=== PATIENT | male | born 1965 | race Caucasian/White ===

== ENCOUNTER 2022-02-09 01:26 | Emergency (ER) | payer MEDICARE, MEDICAID, SELFPAY ==
[2022-02-09 01:32] VITALS: BP 166/92; PULSE 82; RESP 20; TEMP 36.7; O2SAT 97
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
[2022-02-09 02:15] LABS: Add Urine Microscopic? NO; Charge for UA Resulting for Rev
[2022-02-09 02:18] LABS: Bilirubin Urine Neg (Negative); Blood Urine Neg (Negative); Glucose Urine UA Norm (Normal); Ketones Urine Negative (Negative); Leukocyte Esterase Urine Negative (Negative); Nitrate Urine Negative (Negative); Protein Urine Neg (Negative); Specific Gravity, Urine 1.005 (1.005-1.030); Urine Appearance Clear (CLEAR); Urine Color Straw (Yellow); Urobilinogen Urine Norm (Negative); pH Urine 7 (5-7)
[2022-02-09 02:26] LABS: Basophils % 0.6 %; Eosinophils # 0.1 10^3/uL (0.0-0.8); Eosinophils % 2.1 %; Hematocrit 36.6 % (42.0-52.0); Hemoglobin 12.3 g/dL (11.7-16.6); Lymphocytes # 1.7 10^3/uL (0.8-4.8); Lymphocytes % 25.9 %; Mean Corpuscular HGB Conc 33.6 g/dL (30.0-36.0); Mean Corpuscular Hemoglobin 31.1 pg (28.0-34.0); Mean Corpuscular Volume 92.4 fl (80-94); Mean Platelet Volume 9.2 fL (7.4-10.4); Monocytes # 0.9 10^3/uL (0.2-0.9); Neutrophils # 3.76 10^3/uL (1.8-7.7); Neutrophils % 57.8 %; Nucleated Red Blood Cells % 0 %; Platelet Count 259 10^3/cmm (130-400); Red Blood Count 3.96 10^6/uL (4.1-5.3); Red Cell Distribution Width 12.9 % (12.1-15.1); White Blood Count 6.5 10^3/uL (4.0-10.0)
[2022-02-09 02:27] LABS: Amphetamines Screen Urine Negative (Negative); Barbiturates Screen Urine Negative (Negative); Benzodiazepines Screen Urine Negative (Negative); Cocaine Screen Urine Negative (Negative); Opiate Screen Urine Negative (Negative); PCP Screen Urine Negative (Negative); THC Screen Urine Negative (Negative)
[2022-02-09 03:00] LABS: Alanine Aminotransferase 9 U/L (0-41); Albumin Level 4.3 g/dL (3.5-5.2); Alkaline Phosphatase 79 IU/L (40-130); Aspartate Amino Transferase 17 U/L (0-40); Blood Urea Nitrogen 15 mg/dL (6-20); Calcium 9.2 mg/dL (8.5-10.5); Carbon Dioxide 26 mmol/L (22-29); Chloride 96 mmol/L (98-107); Globulin 2.6 g/dL (1.3-4.6); Glomerular Filtration Rate 116.2 mL/min (90-130); Glucose 100 mg/dL (65-115); Osmolality Calculated 277 mOsm/kg (285-295); Sodium 133 mmol/L (136-145); Thyroid Stimulating Hormone 3.94 uIU/mL (0.27-4.20); Total Bilirubin 0.3 mg/dL (0.15-1.2); Total Protein 6.9 g/dL (6.6-8.7)
[2022-02-09 03:01] LABS: Acetaminophen < 5.0 ug/mL (10-30); Alcohol Level < 10 mg/dL (0-10); Salicylate < 0.3 mg/dL (3-10)
[2022-02-09] MEDS: OLANZapine 10 mg ODT PO (03:16)
[2022-02-09 06:50] LABS: Valproic Acid Level 85.3 ug/mL (50-100)
[2022-02-09 12:13] VITALS: RESP 15; O2SAT 97
== END 2022-02-09 12:14 | disposition home or self-care (01) ==
PROVIDERS: Emergency Medicine; Nurse Practitioner Family; Emergency Provider Family Medicine
DX: R46.89 Other symptoms and signs involving appearance and behavior (principal)
CPT/HCPCS: 36415; 80053; 80164; 80306; 80307; 81003; 84443; 85025; 99284

== ENCOUNTER → 2022-02-20 08:20 | Outpatient (BNVA) | payer MEDICARE, MEDICAID, SELFPAY | PROVIDERS: Visit Provider Psychiatry & Neurology Psychiatry | DX: F25.9 Schizoaffective disorder, unspecified (principal); F42.9 Obsessive-compulsive disorder, unspecified; F02.80 Dementia in other diseases classified elsewhere, unspecified severity, without behavioral disturbance, psychotic disturbance, mood disturbance, and anxiety | CPT/HCPCS: 99204 ==

== ENCOUNTER 2022-03-31 13:46 | Observation (INO) | payer MEDICARE, MEDICAID, SELFPAY ==
[2022-03-31] VITALS (7 sets, daily range): BP systolic 136–164; BP diastolic 61–84; PULSE 62–78; RESP 17–18; TEMP 36.2–36.9; O2SAT 97–99; BMI 25.1; BMI 23.0
--- NOTE | 2022-03-31 14:13 | CTR_ITS ---
PROCEDURE INFORMATION: Exam: CT Head Without Contrast Exam date and time: 03/31/2022 2:28 PM Age: 56 years old Clinical indication: Syncope and collapse; Patient HX: Witnessed syncope episode TECHNIQUE: Imaging protocol: Computed tomography of the head without contrast. Axial, coronal and sagittal reformatted images were created and reviewed. Radiation optimization: All CT scans at this facility use at least one of these dose optimization techniques: automated exposure control; mA and/or kV adjustment per patient size (includes targeted exams where dose is matched to clinical indication); or iterative reconstruction. COMPARISON: No relevant prior studies available. RADIATION DOSE METRICS: Total DLP (mGy-cm): 956.18 FINDINGS: Brain: Subtle, patchy areas of hypoattenuation in the periventricular and subcortical white matter, nonspecific but suggestive of mild chronic small vessel ischemic disease. No CT evidence of acute intracranial hemorrhage or acute territorial infarction. No significant mass effect or midline shift. Basal cisterns patent. Cerebral ventricles: Prominence of the cortical sulci, cisterns and ventricular system, consistent with cerebral and cerebellar volume loss. Paranasal sinuses: Complete opacification of the right frontal sinus. Moderate ethmoid and right maxillary sinus mucosal thickening. Mild left ethmoid, left maxillary, left frontal and bilateral sphenoid sinus mucosal thickening. No fluid levels. Mastoid air cells: Grossly unremarkable. Vasculature: Calcific atherosclerotic disease in the cavernous internal carotid arteries, as well as the vertebro-basilar system. Bones/joints: No acute osseous abnormality. Soft tissues: Grossly unremarkable. CT/CT head wo con* [id number] IMPRESSION: 1. No CT evidence of acute intracranial pathology. 2. Additional findings, as above.
--- NOTE | 2022-03-31 14:13 | ECG_ITS ---
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 Measurements Intervals [place] Rate: 52 P: 46 MS: 161 QRS: 50 QRSD: 94 T: 46 QT: 422 QTc: 394 Interpretive Statements SINUS BRADYCARDIA No previous ECG available for comparison Electronically Signed On 04-01-2022 17:39:42 CDT by Mervat Morgan M.D. [id number]
[2022-03-31 14:27] LABS: Basophils % 0.5 %; Eosinophils # 0.1 10^3/uL (0.0-0.8); Eosinophils % 0.9 %; Hematocrit 37.3 % (42.0-52.0); Hemoglobin 12.6 g/dL (11.7-16.6); Lymphocytes # 1.6 10^3/uL (0.8-4.8); Lymphocytes % 21.3 %; Mean Corpuscular HGB Conc 33.8 g/dL (30.0-36.0); Mean Corpuscular Hemoglobin 31.5 pg (28.0-34.0); Mean Corpuscular Volume 93.3 fl (80-94); Mean Platelet Volume 9.7 fL (7.4-10.4); Monocytes # 0.7 10^3/uL (0.2-0.9); Monocytes % 8.8 %; Neutrophils % 68.1 %; Nucleated Red Blood Cells % 0 %; Platelet Count 264 10^3/cmm (130-400); Red Cell Distribution Width 13.1 % (12.1-15.1); White Blood Count 7.5 10^3/uL (4.0-10.0)
[2022-03-31] MEDS: sodium chloride 0.9% 1,000 ML 999 ML IV (14:27)
[2022-03-31 14:42] LABS: Blood Urea Nitrogen 12 mg/dL (6-20); Calcium 9.3 mg/dL (8.5-10.5); Carbon Dioxide 22 mmol/L (22-29); Chloride 97 mmol/L (98-107); Glucose 156 mg/dL (65-115); Osmolality Calculated 279 mOsm/kg (285-295); Sodium 133 mmol/L (136-145)
[2022-03-31 14:43] LABS: Troponin(5th) Baseline 8 ng/L (0-15)
--- NOTE | 2022-03-31 16:13 | ECG_ITS ---
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 Measurements Intervals [place] Rate: 75 P: 55 KS: 151 QRS: 58 QRSD: 94 T: 47 QT: 394 QTc: 441 Interpretive Statements SINUS RHYTHM POSSIBLE LEFT ATRIAL ENLARGEMENT [-0.1mV P-WAVE IN V1/V2] Compared to ECG 03/31/2022 14:23:20 Sinus bradycardia no longer present Electronically Signed On 04-01-2022 17:43:49 CDT by Mervat Morgan M.D. [id number]
[2022-03-31 16:23] LABS: Troponin 5 2HR 7.79 ng/L (0-15)
[2022-03-31 16:48] LABS: Troponin 5 2HR Delta -0.21 ABS# (0-10)
--- NOTE | 2022-03-31 16:52 | W.ED.GENADLT ---
HPI - General Adult General: Chief complaint: Syncope Stated complaint: SYNCOPE Time Seen by Provider: 03/31/22 13:53 History of Present Illness: HPI: [56]yo patient w/ hx of schizotypal disorder, OCD, frontotemporal dementia BIBA after an episode of syncope 3 minutes witnessed by staff followed by head injury. Patient was walking to his bedroom when he suddenly syncopized and fell backward hitting his head. Patient could not recall the incident but denies any post-ictal confusion, tongue biting or bladder/bowel incontinence. Patient denies any prior hx of syncope in the past. No associated symptoms of chest pain, shortness of breath, palpitations or focal weakness right before the incident. No family hx of sudden cardiac or unexplained . Onset: 40 minutes ago Duration: ongoing Location: assisted living facility Severity: moderate Associated symptoms: Deny chest pain, dyspnea, nausea, rash, palpitations or vomiting Review of Systems Const: Denies: fever(s) or chills Eyes: Denies: change in vision ENMT: Denies: mouth pain Card: Denies: chest pain or palpitations Resp: Denies: dyspnea or non-productive cough GI: Denies: abdominal pain, nausea, vomiting or diarrhea : Denies: dysuria Musc: Denies: extremity pain Skin/Breast: Denies: rash or new lesions Neuro: Reports: other (+syncope and collapse) Psych: Reports: other (Normal mood) Andry/Lymph: Denies: easy bruising PFS ED PFSH: Medical History Psychiatric care Social History (Updated 03/31/22 @ 16:53 by Flora Rashid MD) Smoking and tobacco status: never smoked Second hand smoke exposure: No Alcohol intake: never Substance/Drug Use: never Physical Exam Const: COMMON NORMALS: alert HENMT: COMMON NORMALS: atraumatic HEAD & SCALP: atraumatic MOUTH: moist mucous membranes not abnormal Eye: COMMON NORMALS: EOMs intact bilaterally and conjunctivae normal CONJUNCTIVA: Yes conjunctivae normal Neck/C-Spine: COMMON NORMALS: full ROM and supple Resp: COMMON NORMALS: normal respiratory effort and clear to auscultation bilaterally AUSCULTATION: clear to auscultation bilaterally Cardio: COMMON NORMALS: regular rate RATE: regular rate GI: COMMON NORMALS: Soft to palpation and non-tender PALPATION: Yes Soft to palpation Extremity: COMMON NORMALS: full ROM Neuro: SENSORIUM/ORIENTATION: Yes alert MOTOR EXAM: No Abnormal motor strength present and Other motor observations present (no focal motor deficits) OTHER: Mental status? Awake, alert, and oriented to self, year, month, location, and situation.? Following simple axial and appendicular commands.? Has appropriate fund of knowledge, comprehension, and insight.? Able to recall and understands pertinent aspects of medical history and current treatment status.? ? Language? Speech is fluent without word-finding difficulties.? 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 ? Cranial nerves? 2,3,4,6: PERRL, EOMI with no nystagmus. 5: Intact sensation to light touch, symmetric? 7: Smile symmetrical, no facial droop.? 8: Hearing grossly intact.? 9,10: Normal palate movement.? 11: Normal strength in trapezius bilaterally 12: Tongue protrudes midline.? ? Motor examination? Normal bulk & tone. Strength as follows (R/L): Delts (5/5), Biceps (5/5), Triceps (5/5), Wrist ext (5/5), hip flexors (5/5), plantarflexors (5/5), dorsiflexors (5/5). Sensation? Light Touch: Grossly intact and equal in upper and lower extremities bilaterally? Romberg: Negative.? Distal joint position sense intact ? Coordination? [id number]-finger movements intact without dysmetria or past-pointing.? Rapid fingertaps: preserved amplitude without decriment.? No tremor, myoclonus or truncal ataxia.? ? Gait/stance? Steady, normal narrow base gait with appropriate arm swing and turning.? Tandem gait without hesitation or loss of balance. Psych: COMMON NORMALS: speech normal SPEECH: Yes normal speech MOOD & AFFECT: Yes euthymic mood Course Vital Signs: Vital signs: Vital Signs Temperature 97.9 F 03/31/22 15:12 Pulse Rate 64 03/31/22 15:12 Respiratory Rate 18 03/31/22 15:12 Blood Pressure 159/83 03/31/22 15:12 Pulse Oximetry 99 03/31/22 15:12 MDM - General Adult Medical Decision Making [56]yo patient w/ hx of frontotemporal dementia, schizotypal disorder, OCD presenting to the ED with Syncope. No association with chest pain, dyspnea, palpitations, or focal neurological deficits. HDS Neuro intact. Fingerstick wnl. Given history, exam and workup, presentation not consistent with seizures given a short time course, no postictal state, no seizure activity. Low suspicion for acute neurologic catastrophes to include ICH given lack of trauma, risk factors for bleeding diathesis, or neurogenic causes of syncope. Low suspicion for vascular catastrophes to include PE, thoracic aortic dissection, AAA rupture. Presentation not consistent with acute life threatening arrhythmia, structural heart disease, electrical conduction abnormalities, or ACS. Intervention: Serial reevaluation, telemetry, PO challenge Findings:labs wnl, troponin x 2 wnl, CT head negative for any acute findings EKG: No e/o STEMI. No evidence of Brugada?s sign, delta wave, epsilon wave, significantly prolonged QTc, HOCM or malignant arrhythmia. [4:53] On reassessment, patient denies any syncope or near syncope episodes in the ER. Telemetry without any dysrhythmia. Given age and witnessed syncope, patient will be admitted for syncope workup. Disposition: admission Lab Data : 03/31/22 13:52 03/31/22 13:[address] 03/31/22 14:13 IMPRESSION: 1. No CT evidence of acute intracranial pathology. 2. Additional findings, as above. Laboratory Results WBC 7.5 10^3/uL (4.0-10.0) 03/31/22 13:52 RBC 4.00 10^6/uL (4.1-5.3) L 03/31/22 13:52 Hgb 12.6 g/dL (11.7-16.6) 03/31/22 13:52 Hct 37.3 % (42.0-52.0) L 03/31/22 13:52 MCV 93.3 fl (80-94) 03/31/22 13:52 MCH 31.5 pg (28.0-34.0) 03/31/22 13:52 MCHC 33.8 g/dL (30.0-36.0) 03/31/22 13:52 RDW 13.1 % (12.1-15.1) 03/31/22 13:52 Plt Count 264 10^3/cmm (130-400) 03/31/22 13:52 MPV 9.7 fL (7.4-10.4) 03/31/22 13:52 Neut % (Auto) 68.1 % 03/31/22 13:52 Lymph % (Auto) 21.3 % 03/31/22 13:52 [place] % (Auto) 8.8 % 03/31/22 13:52 Eos % (Auto) 0.9 % 03/31/22 13:52 Baso % (Auto) 0.5 % 03/31/22 13:52 Neut # (Auto) 5.10 10^3/uL (1.8-7.7) 03/31/22 13:52 Lymph # (Auto) 1.6 10^3/uL (0.8-4.8) 03/31/22 13:52 [place] # (Auto) 0.7 10^3/uL (0.2-0.9) 03/31/22 13:52 Eos # (Auto) 0.1 10^3/uL (0.0-0.8) 03/31/22 13:52 Baso # (Auto) 0.0 10^3/uL (0.0-0.1) 03/31/22 13:52 Nucleated RBC % (auto) 0 % 03/31/22 13:52 Nucleated RBCs # 0.0 /100WBC 03/31/22 13:52 Sodium 133 mmol/L (136-145) L 03/31/22 13:52 Potassium 4.0 mmol/L (3.5-5.1) 03/31/22 13:52 Chloride 97 mmol/L (98-107) L 03/31/22 13:52 Carbon Dioxide 22 mmol/L (22-29) 03/31/22 13:52 Anion Gap 18.0 (5-19) 03/31/22 13:52 BUN 12 mg/dL (6-20) 03/31/22 13:52 Creatinine 0.9 mg/dL (0.7-1.2) 03/31/22 13:52 GFR Calculation 87.0 mL/min (90-130) L 03/31/22 13:52 Glucose 156 mg/dL (65-115) H 03/31/22 13:52 Calculated Osmolality 279 mOsm/kg (285-295) L 03/31/22 13:52 Calcium 9.3 mg/dL (8.5-10.5) 03/31/22 13:52 Troponin T Baseline 8 ng/L (0-15) 03/31/22 13:52 Troponin T 120 Minute 7.79 ng/L (0-15) 03/31/22 15:50 Delta Troponin T -0.21 ABS# (0-10) L 03/31/22 15:50 Imaging Data Other Imaging: Radiologist's impression: [email or web address] [place] [address] CT Scan Report Signed Patient: Serg Acosta Unit #: [id number] : 1965 Age/Sex: 56 / M ADM Date: 03/31/22 Loc: ER Room/Bed: Attending Dr: Ordering Provider/Ordering MD: Flora Rashid MD Date of Service: 03/31/22 Procedure(s): CT head wo con* [id number] Accession Number(s): [id number] Report Number: [id number] PROCEDURE INFORMATION: Exam: CT Head Without Contrast Exam date and time: 03/31/2022 2:28 PM Age: 56 years old Clinical indication: Syncope and collapse; Patient HX: Witnessed syncope episode TECHNIQUE: Imaging protocol: Computed tomography of the head without contrast. Axial, coronal and sagittal reformatted images were created and reviewed. Radiation optimization: All CT scans at this facility use at least one of these dose optimization techniques: automated exposure control; mA and/or kV adjustment per patient size (includes targeted exams where dose is matched to clinical indication); or iterative reconstruction. COMPARISON: No relevant prior studies available. RADIATION DOSE METRICS: Total DLP (mGy-cm): 956.18 FINDINGS: Brain: Subtle, patchy areas of hypoattenuation in the periventricular and subcortical white matter, nonspecific but suggestive of mild chronic small vessel ischemic disease. No CT evidence of acute intracranial hemorrhage or acute territorial infarction. No significant mass effect or midline shift. Basal cisterns patent. Cerebral ventricles: Prominence of the cortical sulci, cisterns and ventricular system, consistent with cerebral and cerebellar volume loss. Paranasal sinuses:? Complete opacification of the right frontal sinus.? Moderate ethmoid and right maxillary sinus mucosal thickening.? Mild left ethmoid, left maxillary, left frontal and bilateral sphenoid sinus mucosal thickening. No fluid levels. Mastoid air cells: Grossly unremarkable. Vasculature: Calcific atherosclerotic disease in the cavernous internal carotid arteries, as well as the vertebro-basilar system. Bones/joints: No acute osseous abnormality. Soft tissues: Grossly unremarkable. CT/CT head wo con* [id number] IMPRESSION: 1. No CT evidence of acute intracranial pathology. 2. Additional findings, as above. ? Dictated By: Alejandro Otto MD Signed By: Alejandro Otto MD Signed Date/Time: 03/31/22 1514 DD/ 1428 Discharge Plan Discharge Patient Disposition: Admitted As Inpatient Clinical Impression: Syncope and collapse Condition: Stable Coding Level of Care Code ED Tool Room Lathe Operator for Ushag Fwd Exam Comprehensive
--- NOTE | 2022-03-31 18:54 | USCV_ITS ---
Acosta Serg Age: 56 Gender: M : 1965 Exam Date: 03/31/2022 22:52 Ordering Phys: Jose Alejandro Cho MD Technologist: Taiwo Hatch Exam Location: [facility] [place] Indication: Exertional syncope BP: 164 / 84 HR: 76 Rhythm: Sinus Technical Quality: Adequate MEASUREMENTS (Male / Female) Normal Values 2D ECHO LV Diastolic Diameter PLAX 4.3 cm 4.2 - 5.9 / 3.9 - 5.3 cm LV Systolic Diameter PLAX 2.4 cm IVS Diastolic Thickness 1.2 cm 0.6 - 1.0 / 0.6 - 0.9 cm IVS Systolic Thickness 1.7 cm LVPW Diastolic Thickness 2.1 cm 0.6 - 1.0 / 0.6 - 0.9 cm LVPW Systolic Thickness 2.1 cm LV Ejection Fraction 2D Teich 72.9 % LV Ejection Fraction MOD 2C 62.5 % LV Ejection Fraction 2C AL 62.6 % LA Diameter 3.2 cm LA Width 5.3 cm LA Height 4.7 cm Aorta at Sinotubular Diameter 2.7 cm IVC Diameter 1.6 cm M-MODE Aortic Annulus Diameter 2.5 cm LA Ao Ratio MM 1.2 MV E Point Septal Separation 0.5 cm DOPPLER AV Peak Velocity 159.0 cm/s LVOT Peak Velocity 127.0 cm/s MV Area PHT 3.2 cm squared Mitral E to A Ratio 0.7 MV E' Velocity 35.0 cm/s Mitral E to MV E' Ratio 7.6 Mitral E to LV E' Lateral Ratio 10.1 Mitral E to LV E' Septal Ratio 6.1 Right Atrial Pressure 3.0 mmHg PV Peak Velocity 152.0 cm/s FINDINGS Left Ventricle Normal left ventricular size, systolic function and wall thickness, with no diagnostic regional wall motion abnormalities. Left ventricular ejection fraction is estimated at 65%. Normal diastolic function. Right Ventricle Normal right ventricular size and systolic function. Normal right ventricular systolic pressure. Right Atrium Normal right atrial size. Right atrial pressure estimated at 3 mmHg. Left Atrium Normal left atrial size. Mitral Valve Mildly thickened mitral valve. No mitral valve stenosis. Trace mitral valve regurgitation. Aortic Valve Structurally normal trileaflet aortic valve. No aortic valve stenosis. No aortic valve regurgitation. Tricuspid Valve Structurally normal tricuspid valve. No tricuspid valve stenosis. Trace tricuspid valve regurgitation. Pulmonic Valve Structurally normal pulmonic valve. No pulmonary valve stenosis. No significant pulmonary valve regurgitation. Pericardium No pericardial effusion. Aorta Normal size aortic root and proximal ascending aorta. IVC Normal-sized inferior vena cava with normal respiratory variation. CONCLUSIONS 1. Normal left ventricular size, systolic function and wall thickness, with no diagnostic regional wall motion abnormalities. Left ventricular ejection fraction is estimated at 65%. Normal diastolic function. 2. Mildly thickened mitral valve. Trace tricuspid valve regurgitation. 3. No prior similar studies to compare. Mervat Morgan MD (Electronically Signed) Final Date: 01 Apr 2022 13:34 S
--- NOTE | 2022-03-31 18:54 | CTR_ITS ---
PROCEDURE INFORMATION: Exam: CT Angiography Head With Contrast, Arteriography Exam date and time: 03/31/2022 9:49 PM Age: 56 years old Clinical indication: Dizziness and giddiness; Patient HX: C/O syncope and dizziness; Additional info: Syncope, dizziness episodes, carot/vert calcifications on CT TECHNIQUE: Imaging protocol: Computed tomography angiography of the head with contrast. Exam focused on the arteries. 3D rendering (Not supervised by radiologist): MIP and/or 3D reconstructed images were created by the technologist. Radiation optimization: All CT scans at this facility use at least one of these dose optimization techniques: automated exposure control; mA and/or kV adjustment per patient size (includes targeted exams where dose is matched to clinical indication); or iterative reconstruction. Contrast material: OMNI 300; Contrast volume: 50 ml; Contrast route: INTRAVENOUS (IV); COMPARISON: CT head wo con* [id number] 03/31/2022 2:28 PM RADIATION DOSE METRICS: Total DLP (mGy-cm): 2445.05 FINDINGS: ANTERIOR CIRCULATION: Right internal carotid artery: Unremarkable. Intracranial segment is patent with no significant stenosis. No aneurysm. Right middle cerebral artery: Unremarkable. No occlusion or significant stenosis. No aneurysm. Right anterior cerebral artery: Unremarkable. No occlusion or significant stenosis. No aneurysm. Left internal carotid artery: Unremarkable. Intracranial segment is patent with no significant stenosis. No aneurysm. Left middle cerebral artery: Unremarkable. No occlusion or significant stenosis. No aneurysm. Left anterior cerebral artery: Unremarkable. No occlusion or significant stenosis. No aneurysm. POSTERIOR CIRCULATION: Right vertebral artery: Unremarkable. No occlusion or significant stenosis. No aneurysm. Left vertebral artery: Unremarkable. No occlusion or significant stenosis. No aneurysm. Basilar artery: Unremarkable. No occlusion or significant stenosis. No aneurysm. Right posterior cerebral artery: Unremarkable. No occlusion or significant stenosis. No aneurysm. Left posterior cerebral artery: Unremarkable. No occlusion or significant stenosis. No aneurysm. Brain: No definite mass, mass effect, or midline shift. Cerebral ventricles: No ventriculomegaly. Bones/joints: Unremarkable. No acute fracture. Soft tissues: Unremarkable. PROCEDURE INFORMATION: Exam: CT Angiography Neck With Contrast Exam date and time: 03/31/2022 9:49 PM Age: 56 years old Clinical indication: Dizziness and giddiness; Patient HX: C/O syncope and dizziness; Additional info: Syncope, dizziness episodes, carot/vert calcifications on CT TECHNIQUE: Imaging protocol: Computed tomography angiography of the neck with contrast. 3D rendering (Not supervised by radiologist): MIP and/or 3D reconstructed images were created by the technologist. Radiation optimization: All CT scans at this facility use at least one of these dose optimization techniques: automated exposure control; mA and/or kV adjustment per patient size (includes targeted exams where dose is matched to clinical indication); or iterative reconstruction. Contrast material: OMNI 300; Contrast volume: 50 ml; Contrast route: INTRAVENOUS (IV); COMPARISON: CT head wo con* [id number] 03/31/2022 2:28 PM RADIATION DOSE METRICS: Total DLP (mGy-cm): 2445.05 FINDINGS: Right common carotid artery: No stenosis. No dissection or occlusion. Right internal carotid artery: There is an approximate 50% origin stenosis of the right internal carotid artery. No dissection or occlusion. Right external carotid artery: No occlusion or stenosis of the origin. Left common carotid artery: No stenosis. No dissection or occlusion. Left internal carotid artery: No stenosis of the extracranial segment. No dissection or occlusion. Left external carotid artery: No occlusion or stenosis of the origin. Right vertebral artery: No stenosis. No dissection or occlusion. Left vertebral artery: No stenosis. No dissection or occlusion. Soft tissues: Normal. No significant soft tissue swelling. Sinuses: There is mucosal thickening seen within the frontal, ethmoidal and maxillary sinuses bilaterally with virtual opacification the right frontal sinus seen. Bones/joints: No acute fracture. CT/CT angio headneck* [id number] IMPRESSION: No large vessel stenosis or occlusion. IMPRESSION: 1. Origin stenosis estimated at 50% within the right internal carotid artery. REFERENCES: NASCET CRITERIA. The degree of internal carotid artery stenosis is based on NASCET criteria. Normal is no stenosis. Mild is less than 50% stenosis. Moderate is 50-69% stenosis. Severe is 70% to 99% stenosis. Total occlusion is no detectable patent lumen.
--- NOTE | 2022-03-31 19:44 | PM.HP ---
Providers/Chief Complaint Admitting Physician: Jose Alejandro Cho Chief Complaint: SYNCOPE History of Present Illness Pleasant 56-year-old gentleman with history of developmental delay (mentation of 9-6-hbrk-old), frontotemporal dementia, schizotypal disorder, OCD, was brought in for evaluation after episode of syncope suffered while ambulating in his room, was unresponsive for 3 minutes, subsequently awoke. Prior to this he had had an episode of dizziness while riding in the car. At that time did not have any fainting. Denies any chest pain or pressure. Has some chronic back pain, which states has been keeping him up at night. He provides very limited history/ROS, most history obtained from his guardians and caregiver who are at bedside (including sister Leticia). He states that he is hungry. He gets intermittent belly pain. In ER he reportedly had some difficulty with initiating urination. He gets occasional diarrhea, but more recently has been constipated. He is on a number of medications, follows with Dr. Batista. Has been on clomipramine for about 6 weeks. In ER he is not hypotensive, and orthostatics are negative, afebrile. Saturating well on room air. Blood counts are unremarkable, chemistry with some elevation of glucose 156, mild hyponatremia 133. Troponin unremarkable. EKG with sinus rhythm, mild sinus bradycardia down to [address] of the head without evidence of acute intracranial pathology. With calcific atherosclerotic disease in the cavernous internal carotid arteries as well as vertebrobasilar system. Review of Systems General: Reports: ROS unobtainable due to mental status Medications/Allergies Home Medications Medication Instructions Recorded Confirmed Last Taken Type acetaminophen 325 mg tablet 650 mg PO Q6H PRN 02/09/22 03/31/22 03/31/22 History cetirizine 10 mg tablet 10 mg PO DAILY 02/09/22 03/31/22 03/31/22 History docusate sodium 100 mg capsule 100 mg PO DAILY 02/09/22 03/31/22 03/31/22 History fluticasone propionate 220 1 puff INHALATION Q12H 02/09/22 03/31/22 03/31/22 History mcg/actuation HFA aerosol inhaler (Flovent HFA) fluticasone propionate 50 1 spray INTRANASAL DAILY 02/09/22 03/31/22 03/31/22 History mcg/actuation nasal spray,suspension glucosamine sulf dipot 1 cap PO TID@12,16,20 02/09/22 03/31/22 03/31/22 History chlr,msm,chond 550 mg-C 30 mg-junaid 1 mg capsule (Glucosamine Chondroitin) melatonin 5 mg tablet 15 mg PO BEDTIME 02/09/22 03/31/22 03/30/22 History meloxicam 15 mg tablet 15 mg PO DAILY 02/09/22 03/31/22 03/31/22 History sodium chloride 0.65 % nasal spray 1 spray INTRANASAL BID 02/09/22 03/31/22 03/31/22 History aerosol (Deep Sea Nasal) triamcinolone acetonide 0.1 % 1 applic TOPICAL TID PRN 02/09/22 03/31/22 03/31/22 History topical ointment gabapentin 600 mg tablet 600 mg PO TID tab 02/20/22 03/31/22 03/31/22 History haloperidol decanoate 100 mg/mL 100 mg IM Q30D #1 ml 02/20/22 03/31/22 Unknown Rx intramuscular solution lorazepam 1 mg tablet 0.5 mg PO TID@12,16,20 #90 tab 02/20/22 03/31/22 03/31/22 Rx naltrexone 50 mg tablet 50 mg PO DAILY@1200 #30 tab 02/20/22 03/31/22 03/31/22 Rx vitamin with calcium 1 tab PO DAILY 02/20/22 03/31/22 03/31/22 History no.72-iron 27 mg-folic acid 1 mg tablet (M- Plus) quetiapine 200 mg tablet (Seroquel) 200 mg PO DAILY@1200 #30 tab 02/20/22 03/31/22 03/31/22 Rx olanzapine 5 mg tablet (Zyprexa) 5 mg PO BID PRN #60 tab 02/22/22 03/31/22 03/31/22 Rx clomipramine 50 mg capsule 100 mg PO BEDTIME 03/31/22 03/31/22 03/30/22 History diclofenac sodium 1 % topical gel 2 g TOPICAL QID PRN 03/31/22 03/31/22 03/31/22 History divalproex 500 mg tablet,delayed 500 mg PO DAILY@1200 03/31/22 03/31/22 03/31/22 History release divalproex 500 mg tablet,extended 1,000 mg PO DAILY@199903/31/22 03/31/22 03/30/22 History release 24 hr ferrous sulfate 325 mg (65 mg 325 mg PO TID 03/31/22 03/31/22 03/31/22 History iron) tablet loperamide 2 mg capsule 2 mg PO QID PRN 03/31/22 03/31/22 Unknown History mupirocin 2 % topical ointment 1 applic TOPICAL BID 03/31/22 03/31/22 03/30/22 History ondansetron HCl 4 mg tablet 4 mg PO Q8H PRN 03/31/22 03/31/22 Unknown History quetiapine 200 mg tablet (Seroquel) 400 mg PO BEDTIME@199903/31/22 03/31/22 03/30/22 History Allergies Allergy/AdvReac Type Severity Reaction Status Date / Time No Known Allergies Allergy Verified 02/20/22 08:51 PFSH Acute PFSH: Medical History Major neurocognitive disorder due to multiple etiologies Meningitis Childhood Obsessive-compulsive disorder Psychiatric care Schizoaffective disorder Seizure in childhood Surgical History Hx of tonsillectomy Family History Other Heart disease Stroke Social History Smoking and tobacco status: never smoked Second hand smoke exposure: No Alcohol intake: never Substance/Drug Use: never Lives independently: No Housing: Other Details: Independent living center Vitals/I&O/Wt Last Vital Signs Temp 98 F 03/31/22 17:54 Pulse 66 03/31/22 17:54 Resp 18 03/31/22 17:54 BP 141/61 03/31/22 17:54 Pulse Ox 99 03/31/22 17:30 03/31/22 03/31/22 03/31/22 06:59 14:59 22:59 Intake Total 1000 / 1000 Balance 1000 / 1000 Weight last 48 hrs Weight 77.111 kg Weight 79.379 kg Physical Exam Const: COMMON NORMALS: alert GENERAL APPEARANCE: cooperative ORIENTATION/CONSCIOUSNESS: Yes awake HENMT: COMMON NORMALS: normocephalic, EAC's normal, Normal external nose present and moist oral mucous membranes HEAD & SCALP: normocephalic NOSE: Normal external nose present EXTERNAL EAR: Yes external ears normal EXTERNAL AUDITORY CANAL: EAC's normal and other (Cerumen L ear) TYMPANIC MEMBRANE: TM normal on the right and unable to visualize TM (L) Neck/C-Spine: COMMON NORMALS: no meningeal signs Chest: CHEST: Yes Symmetrical chest wall rise Resp: COMMON NORMALS: clear to auscultation bilaterally AUSCULTATION: clear to auscultation bilaterally Cardio: COMMON NORMALS: regular rate, regular rhythm and No murmurs present (Cardio) RATE: regular rate RHYTHM: regular rhythm GI: COMMON NORMALS: Normal to inspection, nondistended, normoactive bowel sounds present, Soft to palpation and non-tender PALPATION: Yes Soft to palpation Extremity: COMMON NORMALS: no pedal edema Neuro: COMMON NORMALS: moves all extremities SENSORIUM/ORIENTATION: Yes alert MENINGEAL SIGNS: Yes no meningeal signs Psych: COMMON NORMALS: mental status grossly normal APPEARANCE: Yes well kempt ATTITUDE: Yes engaged SPEECH: Yes rapid and Yes loud MOOD & AFFECT: Yes elevated mood THOUGHT PROCESS: Tangential thought process present Skin: COMMON NORMALS: no wounds RASHES: no rashes Data : 03/31/22 13:52 03/31/22 13:52 A&P Assessment and plan (1) Syncope and collapse: Syncope and collapse with treatment of unresponsiveness. Discussed with/guardians and caregivers (Bhavana was at the bedside, Meggan on speaker phone), differential for now remains broad. He did not have seizure-like activity, but seizure may be consideration, especially with tricyclic antidepressant. He has been on it for 6 weeks. No recent dose changes. He follows with Dr. Campbell. Consider revisiting with psychiatry and de-escalating, changing from tricyclic given he has had repeat dizziness, and discontinuing or switching to a different medication. Valproic acid level checked, normal. (history of childhood seizure) Does have sinus bradycardia, and arrhythmia is a consideration. Monitor on telemetry, and would set up cardiac monitoring at discharge. He is not orthostatic. With exertional syncope, assess TTE. Complete troponin EKG series. Additionally global hypoperfusion may be consideration given calcifications noted in both carotids and vertebrobasilar system on plain CT. Ordered CTA. Lipid profile, A1c. Consider statin, aspirin. Additionally he was noted to be straining, with complete with initiation of urination in ER with family and caregiver there. Possible urinary retention. Requested bladder scan. UA. PVR. Status: Acute (2) Dizziness: As above. Dizziness reported to be running in family. No sign of middle ear infection, although L TM difficult to visualize due to cerumen. CTA head, neck PT Status: Acute (3) Bradycardia: As above, sinus bradycardia noted, consider cardiac monitoring at discharge. Check TSH. Magnesium. Status: Acute (4) Calcification of both carotid arteries: Requested CTA head neck Lipid profile A1c Consider statin, aspirin Status: Acute (5) Dysuria: Check UA Status: Acute (6) Initiating urination requires straining: Reported in ER. Requested for bladder scan, PVR, straight cath if over 200 mL Status: Acute (7) Hyperglycemia: No history of diabetes. Check A1C. Status: Acute (8) Major neurocognitive disorder due to multiple etiologies: Lives in independent living center with caregiver. Guardians Leticia (sister) and Theron were present at bedside very helpful in providing history. Status: Acute (9) Schizoaffective disorder: Follows with Dr. Batista. Consider discussing episode with him tomorrow, consideration of any medication need to be changed. Has been started on olanzapine as needed in the last 4 weeks. Has been on clomipramine for the last 6 weeks, perhaps this medication could be tapered off and discontinued or switched for another given potential side effects or symptoms. Status: Acute (10) Obsessive-compulsive disorder: Prefers even numbers. Likes fruits which he eats in even numbers. Status: Acute Plan Mild hyponatremia - regular diet, recheck, not responsible for his symptoms. I am not sure if he has a PCP. Consider establishing with one at [facility] follow-up on age-appropriate screenings and incidental findings noted above. Attestations Medical Necessity Statement*: Place in observation for additional assessment of syncopal episode, episodes of dizziness and incidental findings as above and gentleman with underlying major neurocognitive disorder. Coding Level of Care Code Acute Prosthetic Dentist for [facility]pe Diagnoses Syncope and collapse R55 Dizziness R42 Bradycardia R00.1 Calcification of both carotid arteries I65.23 Dysuria R30.0 Initiating urination requires straining R39.16 Major neurocognitive disorder due to multiple etiologies F02.80 Schizoaffective disorder F25.9 Obsessive-compulsive disorder F42.9 Hyperglycemia R73.9
--- NOTE | 2022-03-31 20:13 | ECG_ITS ---
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 Measurements Intervals [place] Rate: 66 P: 45 AR: 155 QRS: 22 QRSD: 95 T: 16 QT: 403 QTc: 424 Interpretive Statements SINUS RHYTHM WITH OCCASIONAL SUPRAVENTRICULAR PREMATURE COMPLEXES POSSIBLE LEFT ATRIAL ENLARGEMENT [-0.1mV P-WAVE IN V1/V2] Compared to ECG 03/31/2022 17:02:50 No significant changes Electronically Signed On 04-01-2022 17:43:33 CDT by Mervat Morgan M.D. [id number]
[2022-03-31] MEDS: acetaminophen 325 mg Tablet 650 MG PO (20:29)
[2022-03-31] MEDS: saline nasal spray 44mL Btl 1 SPRAY NASAL (20:31)
[2022-03-31] MEDS: quetiapine 100 mg Tablet 400 MG PO (20:32)
[2022-03-31] MEDS: LORazepam 1 mg Tablet 0.5 MG PO (20:32)
[2022-03-31] MEDS: ferrous sulfate EC 325 mg Tablet PO (20:32)
[2022-03-31] MEDS: gabapentin 300 mg Capsule 600 MG PO (20:32)
[2022-03-31] MEDS: divalproex ER 500 mg Tablet (24H) 1000 MG PO (20:32)
[2022-03-31 20:34] LABS: Troponin 5 6HR 6.44 ng/L (0-15)
[2022-03-31 20:47] LABS: Troponin 5 6HR Delta -1.56 ng/L (0-12)
[2022-03-31 21:18] LABS: Magnesium 2.2 mg/dL (1.7-2.3); Thyroid Stimulating Hormone 4.59 uIU/mL (0.27-4.20)
[2022-03-31] MEDS: iohexol 300 mg/mL 50 mL Btl IV (21:52)
[2022-03-31 23:05] LABS: Add Urine Microscopic? NO; Charge for UA Resulting for Rev
[2022-03-31 23:52] LABS: Bilirubin Urine Neg (Negative); Blood Urine Neg (Negative); Glucose Urine UA Norm (Normal); Ketones Urine Negative (Negative); Leukocyte Esterase Urine Negative (Negative); Nitrate Urine Negative (Negative); Protein Urine Neg (Negative); Urine Appearance Clear (CLEAR); Urine Color Yellow (Yellow); Urobilinogen Urine Norm (Negative); pH Urine 5 (5-7)
[2022-04-01] VITALS: BP 160/88; PULSE 82; RESP 17; TEMP 36.3; O2SAT 96
[2022-04-01 02:00] VITALS: PULSE 66
[2022-04-01 04:00] VITALS: BP 119/67; PULSE 68; RESP 17; TEMP 36.8; O2SAT 94
[2022-04-01 04:26] LABS: Basophils % 0.4 %; Eosinophils # 0.1 10^3/uL (0.0-0.8); Hematocrit 38.1 % (42.0-52.0); Hemoglobin 12.9 g/dL (11.7-16.6); Lymphocytes # 1.2 10^3/uL (0.8-4.8); Lymphocytes % 14.4 %; Mean Corpuscular HGB Conc 33.9 g/dL (30.0-36.0); Mean Corpuscular Hemoglobin 31.4 pg (28.0-34.0); Mean Corpuscular Volume 92.7 fl (80-94); Mean Platelet Volume 9.4 fL (7.4-10.4); Monocytes # 0.8 10^3/uL (0.2-0.9); Monocytes % 9.8 %; Neutrophils # 6.03 10^3/uL (1.8-7.7); Nucleated Red Blood Cells % 0 %; Platelet Count 273 10^3/cmm (130-400); Red Blood Count 4.11 10^6/uL (4.1-5.3); Red Cell Distribution Width 13.2 % (12.1-15.1); White Blood Count 8.1 10^3/uL (4.0-10.0)
[2022-04-01 04:46] LABS: Alanine Aminotransferase 11 U/L (0-41); Alkaline Phosphatase 73 IU/L (40-130); Anion Gap 14.4 (5-19); Aspartate Amino Transferase 17 U/L (0-40); Blood Urea Nitrogen 11 mg/dL (6-20); Calcium 9.2 mg/dL (8.5-10.5); Carbon Dioxide 27 mmol/L (22-29); Chloride 102 mmol/L (98-107); Cholesterol 160 mg/dL (0-200); Globulin 2.8 g/dL (1.3-4.6); Glomerular Filtration Rate 99.6 mL/min (90-130); Glucose 110 mg/dL (65-115); HDL Cholesterol 47 mg/dL (60-100); LDL Cholesterol Calculated 82 mg/dL (50-129); LDL HDL Ratio 1.74 RATIO (0.00-3.22); Osmolality Calculated 288 mOsm/kg (285-295); Potassium 4.4 mmol/L (3.5-5.1); Sodium 139 mmol/L (136-145); Total Bilirubin 0.2 mg/dL (0.15-1.2); Total Protein 6.8 g/dL (6.6-8.7); Triglycerides 155 mg/dL (0-150)
[2022-04-01 04:47] LABS: Estmated Average Glucose 97
[2022-04-01 05:30] VITALS: PULSE 66
[2022-04-01 07:35] VITALS: BP 147/72; PULSE 72; RESP 12; TEMP 36.6; O2SAT 95
[2022-04-01 07:55] VITALS: PULSE 70; RESP 16; O2SAT 97
[2022-04-01] MEDS: cetirizine 10 mg Tablet PO (08:10)
[2022-04-01] MEDS: gabapentin 300 mg Capsule 600 MG PO (08:10)
[2022-04-01] MEDS: docusate sodium 100 mg Capsule PO (08:10)
[2022-04-01] MEDS: ferrous sulfate EC 325 mg Tablet PO (08:10)
[2022-04-01] MEDS: acetaminophen 325 mg Tablet 650 MG PO (08:10)
[2022-04-01] MEDS: saline nasal spray 44mL Btl 1 SPRAY NASAL (08:11)
[2022-04-01] MEDS: fluticasone nasal spray 16gm Btl 1 SPRAY INTRANASAL (08:11)
[2022-04-01] MEDS: diclofenac 1% Topical Gel 100 gm 1 APPLIC TOPICAL (08:16)
[2022-04-01] MEDS: mupirocin oint 22 gm 1 APPLIC TOPICAL (08:22)
[2022-04-01 09:31] LABS: Add Urine Microscopic? NO; Charge for UA Resulting for Rev
[2022-04-01 09:48] LABS: Bilirubin Urine Neg (Negative); Blood Urine Neg (Negative); Glucose Urine UA Norm (Normal); Ketones Urine Negative (Negative); Leukocyte Esterase Urine Negative (Negative); Nitrate Urine Negative (Negative); Protein Urine Neg (Negative); Specific Gravity, Urine 1.015 (1.005-1.030); Sulfosalicylic Acid Urine Negative (Negative); Urine Appearance Clear (CLEAR); Urine Color Yellow (Yellow); Urobilinogen Urine 1 mg/dL (Negative); pH Urine 8 (5-7)
--- NOTE | 2022-04-01 10:38 | PC.CHAP ---
Pastoral Care Encounter/Spiritual Assessment Type of Contact [] Declined accounting clerks supervisor visit [] Patient/Family/Request visit [] Outpatient visit [] Follow-up visit [] Physician referral [] Code/Alert [x] Routine visit [] Staff referral [] Actively dying [] Patient sleeping [] Family support [] [] Out of room [] Palliative care [] [] Receiving care in room [] Pre-surgical visit [] Trauma [] Long length of stay [] ICU visit [] Other: Relational/Emotional Strength [x] Patient feels connected with others/family/visitors/staff [] Distress [] Loneliness/isolation [] Abandonment Spirituality of Patient [x] Person of Yanelis [] Attends Bahai of their Yanelis [x] Believes in Prayer [] Reads Bible or Presybeterian materials [x] There are Spiritual issues to be addressed Supervisor Covering And Lining Interventions [x] Prayer [] Active listening [] Non-anxious presence [] Spiritual/emotional support [] Crisis/trauma care [] Spiritual counseling [] Bereavement support [] Provided bereavement packet [] Provided Bible/devotional materials [] Provided toy/stuffed animal, coloring book to patient or family member [] Provided Communion [] Anointing/Union [] Salvation [] Completed spiritual assessment [] Other: Impact on Illness or Injury [] Angry [] Fearful [] Anxious [] Often cries [] Exhaustion [] Unable to work [] Unable to attend church [] Unable to walk/stand [] Unable to read [] Unable to drive [] Unable to eat/drink [] Unable to sleep [] Unable to be with family [] Patient intubated [] Other: Summary Time spent with patient 5 min
[2022-04-01] MEDS: PNV CALCIUM IRON FOLIC ACID PO (12:06)
[2022-04-01] MEDS: [UNRECOGNIZED DRUG - OTHER] PO (12:06)
[2022-04-01] MEDS: IRON PO (12:06)
[2022-04-01] MEDS: naltrexone hcl 50 mg Tablet PO (12:07)
[2022-04-01] MEDS: NON-FORMULARY MEDICATION (Glucos Sul 2kcl-Msm-Chond-C-Mn [Glucosamine Chondroitin] 550-30- 1 EACH PO (12:08)
[2022-04-01] MEDS: divalproex DR 500 mg Tablet PO (12:09)
[2022-04-01] MEDS: quetiapine 100 mg Tablet 200 MG PO (12:09)
[2022-04-01] MEDS: LORazepam 1 mg Tablet 0.5 MG PO (12:12)
--- NOTE | 2022-04-01 12:28 | P.DS_ITS ---
Discharge Providers Date of Admission: 03/31/22 16:51 Date of Discharge: April 01, 2022 Attending Provider at Admission: Jose Alejandro Cho Attending Provider at Discharge: Chris Harris MD Diagnoses at Discharge Discharge Diagnosis (1) Syncope and collapse: Status: Acute (2) Dizziness: Status: Acute (3) Bradycardia: Status: Acute (4) Calcification of both carotid arteries: Status: Acute (5) Dysuria: Status: Acute (6) Initiating urination requires straining: Status: Acute (7) Hyperglycemia: Status: Acute (8) Major neurocognitive disorder due to multiple etiologies: Status: Acute (9) Schizoaffective disorder: Status: Acute (10) Obsessive-compulsive disorder: Status: Acute Reason for Visit Reason for Visit: SYNCOPE Hospital Course Hospital Course Pleasant 56-year-old gentleman with history of developmental delay (mentation of 6-7-oxnn-old), frontotemporal dementia, schizotypal disorder, OCD, was brought in for evaluation after episode of syncope suffered while ambulating in his room, was unresponsive for 3 minutes, subsequently awoke.? Patient was admitted to [facility] for syncope and collapse -No significant electrolyte abnormalities -No significant evidence of UTI -No significant evidence of pneumonia -No significant evidence of breakthrough seizures, does have a history of childhood seizures -Orthostats within normal limits -Did have sinus bradycardia, ambulating without significant symptomatology, I saw him the morning of 04/01/2022 ambulating around his room going to the bathroom without symptomatology, no lightheadedness, dizziness -Did have hyperglycemia, A1c within normal limits, caregiver does tell me that he has a habit of eating and drinking very sugary products, advised to avoid sugary products as it can cause polyuria, resulting dehydration -EKG no acute ST-T wave changes, telemetry monitoring, no acute events, 6-hour troponin 6.44, delta -1.56 -TSH mildly elevated at 1.59 -CTA of the head and neck showed origin stenosis estimated at 50% of the right internal carotid artery, I do not believe that this is playing a significant role in terms of patient's symptomatology, discharged on aspirin, family wants to hold off on statin due to polypharmacy, nonetheless I will have patient follow-up with cardiothoracic surgery for routine monitoring -CT of the head no acute findings -Cardiac echo -QTc interval 394 ms -Given patient sinus bradycardia, evidence of syncope and collapse without any specific etiology, I have discharged patient on an event monitor with close follow-up with cardiology as outpatient -I am highly suspicious that patient psychotropic medications are playing a role in a syncopal episode, he is on lorazepam, Depakote, Zyprexa, I will have patient follow-up with his psychiatrist for consideration of de-escalation of his medications -If he were to have recurrent syncopal episodes go to the emergency room -On discharge patient was alert to person, not to place, to time, following all commands, ambulating without significant symptomatology, no recurrent syncopal episodes, discharged under the care of his caregiver Physical Exam Const: COMMON NORMALS: no acute distress Resp: COMMON NORMALS: normal respiratory effort, No retractions, No use of accessory muscles and clear to auscultation bilaterally AUSCULTATION: clear to auscultation bilaterally Cardio: COMMON NORMALS: regular rate, regular rhythm, S1 normal heart sound present and S2 normal heart sound present RATE: regular rate RHYTHM: regular rhythm HEART SOUNDS: S1 normal heart sound present and S2 normal heart sound present GI: COMMON NORMALS: Normal to inspection, nondistended, normoactive bowel sounds present, Soft to palpation and non-tender PALPATION: Yes Soft to palpation Extremity: COMMON NORMALS: no pedal edema Discharge Data Studies Completed and Pending Completed Studies During Hospitalization Category Date Time Status CT head wo con* [id number] Urgent Cat Scan 03/31/22 14:13 Completed CTA head neck [CT angio headneck* [id number]] Routine Cat Scan 03/31/22 18:54 Completed Pending at discharge Category Date Time Status Complete Blood Count w/Auto AM LABS Lab 04/02/22 04:00 Ordered Complete Blood Count w/Auto AM LABS Lab 04/03/22 04:00 Ordered Comprehensive Metabolic Panel AM LABS Lab 04/02/22 04:00 Ordered Comprehensive Metabolic Panel AM LABS Lab 04/03/22 04:00 Ordered CV. echo complete* [id number] Routine Ultrasound 03/31/22 18:54 Taken Radiology Impressions Head CT 03/31/22 14:[address]: [address] evidence of acute intracranial pathology. 2. Additional findings, as above. Head/Neck CTA 03/31/22 18:54 IMPRESSION: No large vessel stenosis or occlusion. IMPRESSION: 1. Origin stenosis estimated at 50% within the right internal carotid artery. REFERENCES: NASCET CRITERIA. The degree of internal carotid artery stenosis is based on NASCET criteria. Normal is no stenosis. Mild is less than 50% stenosis. Moderate is 50-69% stenosis. Severe is 70% to 99% stenosis. Total occlusion is no detectable patent lumen. Laboratory Results WBC 8.1 10^3/uL (4.0-10.0) 04/01/22 04:18 RBC 4.11 10^6/uL (4.1-5.3) 04/01/22 04:18 Hgb 12.9 g/dL (11.7-16.6) 04/01/22 04:18 Hct 38.1 % (42.0-52.0) L 04/01/22 04:18 MCV 92.7 fl (80-94) 04/01/22 04:18 MCH 31.4 pg (28.0-34.0) 04/01/22 04:18 MCHC 33.9 g/dL (30.0-36.0) 04/01/22 04:18 RDW 13.2 % (12.1-15.1) 04/01/22 04:18 Plt Count 273 10^3/cmm (130-400) 04/01/22 04:18 MPV 9.4 fL (7.4-10.4) 04/01/22 04:18 Neut % (Auto) 74.0 % 04/01/22 04:18 Lymph % (Auto) 14.4 % 04/01/22 04:18 Lares % (Auto) 9.8 % 04/01/22 04:18 Eos % (Auto) 1.0 % 04/01/22 04:18 Baso % (Auto) 0.4 % 04/01/22 04:18 Neut # (Auto) 6.03 10^3/uL (1.8-7.7) 04/01/22 04:18 Lymph # (Auto) 1.2 10^3/uL (0.8-4.8) 04/01/22 04:18 Lares # (Auto) 0.8 10^3/uL (0.2-0.9) 04/01/22 04:18 Eos # (Auto) 0.1 10^3/uL (0.0-0.8) 04/01/22 04:18 Baso # (Auto) 0.0 10^3/uL (0.0-0.1) 04/01/22 04:18 Nucleated RBC % (auto) 0 % 04/01/22 04:18 Nucleated RBCs # 0.0 /100WBC 04/01/22 04:18 Sodium 139 mmol/L (136-145) 04/01/22 04:18 Potassium 4.4 mmol/L (3.5-5.1) 04/01/22 04:18 Chloride 102 mmol/L (98-107) 04/01/22 04:18 Carbon Dioxide 27 mmol/L (22-29) 04/01/22 04:18 Anion Gap 14.4 (5-19) 04/01/22 04:18 BUN 11 mg/dL (6-20) 04/01/22 04:18 Creatinine 0.8 mg/dL (0.7-1.2) 04/01/22 04:18 GFR Calculation 99.6 mL/min (90-130) 04/01/22 04:18 Glucose 110 mg/dL (65-115) 04/01/22 04:18 Estimat Average Glucose 97 04/01/22 04:18 Hemoglobin A1c 5.0 % (4.0-6.0) 04/01/22 04:18 Calculated Osmolality 288 mOsm/kg (285-295) 04/01/22 04:18 Calcium 9.2 mg/dL (8.5-10.5) 04/01/22 04:18 Magnesium 2.2 mg/dL (1.7-2.3) 03/31/22 13:52 Total Bilirubin 0.2 mg/dL (0.15-1.2) 04/01/22 04:18 AST 17 U/L (0-40) 04/01/22 04:18 ALT 11 U/L (0-41) 04/01/22 04:18 Alkaline Phosphatase 73 IU/L (40-130) 04/01/22 04:18 Troponin T Baseline 8 ng/L (0-15) 03/31/22 13:52 Troponin T 120 Minute 7.79 ng/L (0-15) 03/31/22 15:50 Delta Troponin T -0.21 ABS# (0-10) L 03/31/22 15:50 Troponin T Hi Sens 6Hr 6.44 ng/L (0-15) 03/31/22 19:55 Troponin T Hi Sens 6Hr Delta -1.56 ng/L (0-12) L 03/31/22 19:55 Total Protein 6.8 g/dL (6.6-8.7) 04/01/22 04:18 Albumin 4.0 g/dL (3.5-5.2) 04/01/22 04:18 Globulin 2.8 g/dL (1.3-4.6) 04/01/22 04:18 Triglycerides 155 mg/dL (0-150) H 04/01/22 04:18 Cholesterol 160 mg/dL (0-200) 04/01/22 04:18 LDL Cholesterol, Calc 82 mg/dL (50-129) 04/01/22 04:18 HDL Cholesterol 47 mg/dL (60-100) L 04/01/22 04:18 LDL/HDL Ratio 1.74 RATIO (0.00-3.22) 04/01/22 04:18 Cholesterol/HDL Ratio 3.40 mg/dL (1.0-5.00) 04/01/22 04:18 TSH 4.59 uIU/mL (0.27-4.20) H 03/31/22 13:52 Urine Color Yellow (Yellow) 04/01/22 08:49 Urine Appearance Clear (CLEAR) 04/01/22 08:49 Urine pH 8 (5-7) H 04/01/22 08:49 Ur Specific Prim 1.015 (1.005-1.030) 04/01/22 08:49 Urine Protein Neg (Negative) 04/01/22 08:49 Urine Glucose (UA) Norm (Normal) 04/01/22 08:49 Urine Ketones Negative (Negative) 04/01/22 08:49 Urine Blood Neg (Negative) 04/01/22 08:49 Urine Nitrate Negative (Negative) 04/01/22 08:49 Urine Bilirubin Neg (Negative) 04/01/22 08:49 Prot Sulfosalicylic Acd Negative (Negative) 04/01/22 08:49 Urine Urobilinogen 1 mg/dL (Negative) H 04/01/22 08:49 Ur Leukocyte Esterase Negative (Negative) 04/01/22 08:49 Valproic Acid 73.0 ug/mL (50-100) 03/31/22 13:52 Vitals Last Vital Signs Temp 97.8 F 04/01/22 07:35 Pulse 70 04/01/22 07:55 Resp 16 04/01/22 07:55 BP 147/72 04/01/22 07:35 Pulse Ox 97 04/01/22 07:55 Discharge Plan Discharge Patient Disposition: Home Condition: Stable Prescriptions: New aspirin 81 mg Tablet,Delayed Release (Dr/Ec) 81 mg PO DAILY 30 Days Qty: 30 0RF Continued M- Plus 27 mg iron- 1 mg tablet 1 tab PO DAILY 0RF haloperidol decanoate 100 mg/mL solution 100 mg IM Q30D Qty: 1 2RF lorazepam 1 mg tablet 0.5 mg PO TID@12,16,20 Qty: 90 2RF naltrexone 50 mg tablet 50 mg PO DAILY@1200 Qty: 30 2RF quetiapine [Seroquel] 200 mg tablet 200 mg PO DAILY@1200 Qty: 30 2RF olanzapine [Zyprexa] 5 mg tablet 5 mg PO BID PRN (Reason: verbal or physical agitation) Qty: 60 2RF ferrous sulfate 325 mg (65 mg iron) Tablet 325 mg PO TID 0RF divalproex 500 mg Tablet Extended Release 24 Hr 1,000 mg PO DAILY@1999 0RF mupirocin 2 % Ointment 1 applic TOPICAL BID 0RF Voltaren 1 % Gel 2 g TOPICAL QID PRN (Reason: Pain) 0RF Rx Instructions: apply to single elbow, wrist or hand; for hand includes palm/fingers/back of hand Seroquel 200 mg tablet 400 mg PO BEDTIME@1999 0RF divalproex 500 mg tablet,delayed release (DR/EC) 500 mg PO DAILY@1200 0RF Rx Instructions: Take 1 tab at noon and 2 tabs at night. loperamide 2 mg Capsule 2 mg PO QID PRN (Reason: Diarrhea) 0RF Zofran 4 mg Tablet 4 mg PO Q8H PRN (Reason: Nausea) 0RF acetaminophen 325 mg Tablet 650 mg PO Q6H PRN (Reason: Pain) 0RF cetirizine 10 mg Tablet 10 mg PO DAILY 0RF triamcinolone acetonide 0.1 % Ointment 1 applic TOPICAL TID PRN (Reason: Dry Skin) 0RF docusate sodium 100 mg Capsule 100 mg PO DAILY 0RF Flovent HFA 220 mcg/actuation Hfa Aerosol Inhaler 1 puff INHALATION Q12H 0RF fluticasone propionate 50 mcg/actuation [place],Suspension 1 spray INTRANASAL DAILY 0RF Rx Instructions: administer into each nostril Deep Sea Nasal 0.65 % Aerosol,[place] 1 spray INTRANASAL BID 0RF melatonin 5 mg Tablet 15 mg PO BEDTIME 0RF Glucosamine Chondroitin 550-30-1 mg Capsule 1 cap PO TID@12,16,20 0RF gabapentin 600 mg tablet 600 mg PO TID 0RF Changed meloxicam 15 mg Tablet 15 mg PO DAILY PRN (Reason: pain) Qty: 0 0RF Discharge Orders: Discharge Order (Routine); Ordered 04/01/22 Ordered By: Chris Harris Other Ambulatory Orders: MCT/Event Monitor 21 Days (Routine) Timeframe: 1 Day Facility: [facility] - Location: Radiology Ordered By: Chris Harris Referrals: Nelly Resendiz MD [Physician] - 2 weeks Federico Yoon MD [Physician] - 1 month Discharge Diet: Cardiac Discharge Activity: Resume usual activity Patient Instructions: Opioid Safety Activity Restrictions/Additional Instructions: - If recurrent syncopal episodes please go to emergency room -Follow-up with neurology in 1 week -Follow-up with psychiatry, discussed possible de-escalation of psychotropic medications -Avoid drinking sugary drinks, sodas Discharge Attestations Time Spent in Discharge Care*: less than 30 min Quality Metrics Clinical Quality Measures [ No reported AMI, CVA or VTE this stay] Coding Level of Care Code Acute Chg FW DC note Exam Detailed Diagnoses Syncope and collapse R55 Dizziness R42 Bradycardia R00.1 Calcification of both carotid arteries I65.23 Dysuria R30.0 Initiating urination requires straining R39.16 Hyperglycemia R73.9 Major neurocognitive disorder due to multiple etiologies F02.80 Schizoaffective disorder F25.9 Obsessive-compulsive disorder F42.9
[2022-04-01] MEDS: aspirin 81 mg EC Tablet PO (13:11)
== END 2022-04-01 14:00 | disposition home or self-care (01) ==
LOC: ER 16:51 → MEDSURG 17:43
PROVIDERS: Admitting Provider Internal Medicine; Emergency Provider Emergency Medicine; Visit Provider Family Medicine
DX: R55 Syncope and collapse (principal); R42 Dizziness and giddiness; R00.1 Bradycardia, unspecified; I65.23 Occlusion and stenosis of bilateral carotid arteries; R30.0 Dysuria; R39.16 Straining to void; R73.9 Hyperglycemia, unspecified; F02.80 Dementia in other diseases classified elsewhere, unspecified severity, without behavioral disturbance, psychotic disturbance, mood disturbance, and anxiety; F25.9 Schizoaffective disorder, unspecified; F42.9 Obsessive-compulsive disorder, unspecified
CPT/HCPCS: 36415; 51798; 70450; 70496; 70498; 80048; 80053; 80061; 80164; 81003; 83036; 83735; 84443; 84484; 85025; 93005; 93306; 94640; 96372; 97110; 97162; 97530; 99285; G0378; J3535; J7030; Q9967

== ENCOUNTER → 2022-04-03 14:48 | Outpatient (BNVA) | payer MEDICARE, MEDICAID, SELFPAY | PROVIDERS: Visit Provider Psychiatry & Neurology Psychiatry | DX: F25.9 Schizoaffective disorder, unspecified (principal); F02.80 Dementia in other diseases classified elsewhere, unspecified severity, without behavioral disturbance, psychotic disturbance, mood disturbance, and anxiety; F42.9 Obsessive-compulsive disorder, unspecified | CPT/HCPCS: 99214 ==

== ENCOUNTER → 2022-04-09 12:57 | Outpatient (BNVA) | payer MEDICARE, MEDICAID, SELFPAY | PROVIDERS: PCP Physician Assistant | DX: R55 Syncope and collapse (principal); R00.1 Bradycardia, unspecified; I47.2 Ventricular tachycardia | CPT/HCPCS: 93229 ==

== ENCOUNTER 2022-05-14 21:02 | Emergency (ER) | payer MEDICARE, MEDICAID, SELFPAY ==
[2022-05-14 21:04] VITALS: BP 165/85; PULSE 93; RESP 18; TEMP 36.6; O2SAT 97; BMI 29.8
--- NOTE | 2022-05-14 21:47 | W.ED.PSYCHS ---
HPI - Psych General: Chief Complaint: Psychiatric Symptoms Stated Complaint: SI Time Seen by Provider: 05/14/22 21:03 Source: patient and EMS Mode of arrival: EMS Limitations: no limitations History of Present Illness: 56-year-old male has a history of schizoaffective along with low electrical ability he lives with a an appointed caregiver he states that tonight he has been very concerned about tornadoes and is refusing to go to bed and started to became angry. Patient had an anger outburst and then had made statements that he was going to harm himself. Patient he denies any suicidality he just states that he is very worried about the weather and its causing him issues to sleep. He denies any worsening improving factors. Associated symptoms: Deny depression Review of Systems Const: Denies: fever(s), chills, body aches or change in appetite Eyes: Denies: blurry vision or eye discomfort ENMT: Denies: throat pain or dental pain Card: Denies: chest pain Resp: Denies: dyspnea GI: Denies: abdominal pain, nausea, vomiting or diarrhea : Denies: dysuria Musc: Denies: neck pain or back pain Skin/Breast: Denies: rash Neuro: Denies: headache(s) Psych: Reports: irritability and paranoia; Denies: depression Andry/Lymph: Denies: easy bruising All/Imm: Denies: urticaria PFSH ED PFSH: Medical History Major neurocognitive disorder due to multiple etiologies Meningitis Childhood Obsessive-compulsive disorder Psychiatric care Schizoaffective disorder Seizure in childhood Surgical History Hx of tonsillectomy Family History Other Heart disease Stroke Social History Smoking and tobacco status: never smoked Second hand smoke exposure: No Alcohol intake: never Lives independently: No Housing: Other Details: Independent living center Physical Exam Const: COMMON NORMALS: no acute distress, patient oriented x3 and healthy appearing HENMT: COMMON NORMALS: normocephalic and atraumatic HEAD & SCALP: normocephalic and atraumatic Eye: COMMON NORMALS: Equal, round and reactive pupils present and EOMs intact bilaterally PUPIL: Yes Equal, round and reactive pupils present Neck/C-Spine: COMMON NORMALS: full ROM and supple Chest: COMMONS NORMALS: normal inspection of the chest and normal palpation of entire chest wall Resp: COMMON NORMALS: normal respiratory effort, No retractions, No use of accessory muscles and clear to auscultation bilaterally AUSCULTATION: clear to auscultation bilaterally Cardio: COMMON NORMALS: regular rate, regular rhythm and No murmurs present (Cardio) RATE: regular rate RHYTHM: regular rhythm GI: COMMON NORMALS: Normal to inspection, nondistended, normoactive bowel sounds present, Soft to palpation, non-tender and no masses PALPATION: Yes Soft to palpation Extremity: COMMON NORMALS: normal to inspection and full ROM Neuro: COMMON NORMALS: patient oriented x3, moves all extremities and no focal motor deficits Psych: COMMON NORMALS: mental status grossly normal, Normal thought process present and cooperative THOUGHT PROCESS: Normal thought process present Skin: COMMON NORMALS: no rashes or lesions noted and no wounds GENERAL SKIN EXAM: no rashes or lesions noted Course Vital Signs: Vital signs: Vital Signs Temperature 97.8 F 05/14/22 21:04 Pulse Rate 93 05/14/22 21:04 Respiratory Rate 18 05/14/22 21:04 Blood Pressure 165/85 05/14/22 21:04 Pulse Oximetry 97 05/14/22 21:04 [facility] - Psych Medical Decision Making Patient presents here with an anger outburst I did have patient valuated by Dr. Roa he is not actively suicidal here his main issue is he has been having problems sleeping he did not believe that he would benefit from inpatient psych we will start him on Ambien he is to follow-up and return if worsening caregivers understand and agree to plan Discharge Plan Discharge Patient Disposition: Home Clinical Impression: Outbursts of anger, Depression Condition: Stable Prescriptions: New Ambien 5 mg tablet 5 mg PO .qhs Qty: 30 0RF No Action M- Plus 27 mg iron- 1 mg tablet 1 tab PO DAILY 0RF haloperidol decanoate 100 mg/mL solution 100 mg IM Q30D Qty: 1 2RF lorazepam 1 mg tablet 0.5 mg PO TID@12,16,20 Qty: 90 2RF naltrexone 50 mg tablet 50 mg PO DAILY@1200 Qty: 30 2RF quetiapine [Seroquel] 200 mg tablet 200 mg PO DAILY@1200 Qty: 30 2RF chlorpromazine 50 mg tablet 50 mg PO TID Qty: 90 2RF ferrous sulfate 325 mg (65 mg iron) Tablet 325 mg PO TID 0RF divalproex 500 mg Tablet Extended Release 24 Hr 1,000 mg PO DAILY@2000 0RF mupirocin 2 % Ointment 1 applic TOPICAL BID 0RF diclofenac sodium 1 % Gel 2 g TOPICAL QID PRN (Reason: Pain) 0RF Rx Instructions: apply to single elbow, wrist or hand; for hand includes palm/fingers/back of hand Seroquel 200 mg tablet 400 mg PO BEDTIME@2000 0RF divalproex 500 mg tablet,delayed release (DR/EC) 500 mg PO DAILY@1200 0RF Rx Instructions: Take 1 tab at noon and 2 tabs at night. loperamide 2 mg Capsule 2 mg PO QID PRN (Reason: Diarrhea) 0RF ondansetron HCl 4 mg Tablet 4 mg PO Q8H PRN (Reason: Nausea) 0RF meloxicam 15 mg Tablet 15 mg PO DAILY PRN (Reason: pain) Qty: 0 0RF acetaminophen 325 mg Tablet 650 mg PO Q6H PRN (Reason: Pain) 0RF cetirizine 10 mg Tablet 10 mg PO DAILY 0RF triamcinolone acetonide 0.1 % Ointment 1 applic TOPICAL TID PRN (Reason: Dry Skin) 0RF docusate sodium 100 mg Capsule 100 mg PO DAILY 0RF Flovent HFA 220 mcg/actuation Hfa Aerosol Inhaler 1 puff INHALATION Q12H 0RF fluticasone propionate 50 mcg/actuation [place],Suspension 1 spray INTRANASAL DAILY 0RF Rx Instructions: administer into each nostril [place] Nasal 0.65 % Aerosol,[place] 1 spray INTRANASAL BID 0RF melatonin 5 mg Tablet 15 mg PO BEDTIME 0RF Glucosamine Chondroitin 550-30-1 mg Capsule 1 cap PO TID@12,16,20 0RF gabapentin 600 mg tablet 600 mg PO TID 0RF Discharge Orders: Discharge ED (Routine); Ordered 05/14/22 Ordered By: Aby Haro Referrals: Jeanette Mccollum PA [Primary Care Provider] - 1-3 days Discharge Diet: Advance as tolerated Discharge Activity: Resume usual activity Patient Instructions: Depression (ED) Coding Level of Care Code ED Automatic Line Set Up Mechanic for Naye Cantu
[2022-05-14] MEDS: zolpidem 5 mg Tablet PO (22:12)
== END 2022-05-14 22:20 | disposition home or self-care (01) ==
PROVIDERS: Emergency Provider Emergency Medicine; PCP Physician Assistant
DX: R45.4 Irritability and anger (principal); F32.A Depression, unspecified
CPT/HCPCS: 99283

== ENCOUNTER 2022-05-28 11:39 | Emergency (ER) | payer MEDICARE, MEDICAID, SELFPAY ==
[2022-05-28 11:43] VITALS: BP 143/76; PULSE 92; RESP 16; TEMP 36.4; O2SAT 95
--- NOTE | 2022-05-28 11:44 | ECG_ITS ---
[facility] Test Date: 2022-05-28 Pat Name: Serg Acosta Department: Room: Gender: Male Nub Card Tender: : 1965 Requested By: David Vasquez Order Number: [id number] [place] MD: Jose Cerrato M.D. Measurements Intervals [place] Rate: 89 P: 22 ME: 142 QRS: 38 QRSD: 87 T: 13 QT: 356 QTc: 434 Interpretive Statements SINUS RHYTHM Compared to ECG 03/31/2022 20:25:42 No significant changes Electronically Signed On 05-28-2022 17:29:45 CDT by Jose Cerrato M.D. [id number] f
--- NOTE | 2022-05-28 11:44 | XRR_ITS ---
PROCEDURE INFORMATION: Exam: XR Chest Exam date and time: 05/28/2022 12:01 PM Age: 56 years old Clinical indication: Chest pressure; Patient HX: History--pt woke up not feeling well. Chest pain in the mid upper part of chest, increased blood pressure since this morning TECHNIQUE: Imaging protocol: Radiologic exam of the chest. Views: 1 view. COMPARISON: CT angio headneck* [id number] 03/31/2022 9:49 PM FINDINGS: Lungs: Streaky bilateral atelectasis noted, right greater than left. No consolidation. Pleural spaces: Unremarkable. No pleural effusion. No pneumothorax. Heart/Mediastinum: Unremarkable. No cardiomegaly. Bones/joints: Old healed fracture deformities noted in the rib cage bilaterally. XR/XR chest 1V portable [id number] IMPRESSION: No evidence of active cardiopulmonary disease.
[2022-05-28 11:51] LABS: Basophils % 0.3 %; Eosinophils % 0.7 %; Lymphocytes % 16.6 %; Mean Corpuscular HGB Conc 34.2 g/dL (30.0-36.0); Mean Corpuscular Hemoglobin 31.6 pg (28.0-34.0); Mean Corpuscular Volume 92.5 fl (80-94); Mean Platelet Volume 9.4 fL (7.4-10.4); Monocytes # 0.5 10^3/uL (0.2-0.9); Neutrophils # 4.31 10^3/uL (1.8-7.7); Neutrophils % 72.7 %; Nucleated Red Blood Cells % 0 %; Platelet Count 245 10^3/cmm (130-400); Red Blood Count 4.11 10^6/uL (4.1-5.3); Red Cell Distribution Width 13.1 % (12.1-15.1); White Blood Count 5.9 10^3/uL (4.0-10.0)
[2022-05-28] MEDS: aspirin 81 mg Chew Tablet 324 MG PO (11:52)
[2022-05-28 12:09] LABS: Troponin(5th) Baseline 8 ng/L (0-15)
[2022-05-28 12:17] LABS: Alanine Aminotransferase 13 U/L (0-41); Albumin Level 4.3 g/dL (3.5-5.2); Alkaline Phosphatase 68 IU/L (40-130); Anion Gap 16.1 (5-19); Aspartate Amino Transferase 17 U/L (0-40); Blood Urea Nitrogen 14 mg/dL (6-20); Calcium 8.6 mg/dL (8.5-10.5); Carbon Dioxide 24 mmol/L (22-29); Chloride 103 mmol/L (98-107); Globulin 3.1 g/dL (1.3-4.6); Glucose 122 mg/dL (65-115); Osmolality Calculated 290 mOsm/kg (285-295); Potassium 4.1 mmol/L (3.5-5.1); Sodium 139 mmol/L (136-145); Total Bilirubin 0.4 mg/dL (0.15-1.2); Total Protein 7.4 g/dL (6.6-8.7)
--- NOTE | 2022-05-28 12:20 | ED_ITS ---
HPI - Chest Pain General: Chief Complaint: Chest Pain Stated Complaint: CP Time Seen by Provider: 05/28/22 11:40 Source: patient and other (caregivers) Mode of arrival: EMS Limitations: other (intellecctual disability) History of Present Illness: 56-year-old male comes in complaining of chest pain for the last several days evidently. He reports chest pain in the upper chest that does not radiate has not noticed anything that makes it better or worse he does state he feels like he cannot take a deep breath feels like there is something stuck in his throat has not noticed it being associated partic ularly with eating or drinking. MD complaint: chest pain Timing of current episode: episodic Prior episodes: No Onset: during rest Pain location: left chest Pain radiation: none Severity: mild Quality: tightness and aching Relieving factors: nothing Exacerbating factors: inspiration Associated symptoms: Deny abdominal pain, diaphoresis, dyspnea, fever(s), leg edema, nausea, palpitations, sense of impending doom, syncope or vomiting Treatment prior to arrival: aspirin Review of Systems Const: Denies: fever(s), chills, fatigue, malaise or diaphoresis ENMT: Denies: throat pain, ear or mastoid pain, nasal discharge or nasal congestion Card: Reports: chest pain; Denies: palpitations or syncope Resp: Denies: dyspnea GI: Denies: abdominal pain, nausea or vomiting : Denies: flank pain, difficulty urinating, dysuria, urinary frequency or urinary urgency Skin/Breast: Denies: rash or pruritus PFSH ED PFSH: Medical History Major neurocognitive disorder due to multiple etiologies Meningitis Childhood Obsessive-compulsive disorder Psychiatric care Schizoaffective disorder Seizure in childhood Surgical History Hx of tonsillectomy Family History Other Heart disease Stroke Social History Smoking and tobacco status: never smoked Second hand smoke exposure: No Alcohol intake: never Lives independently: No Housing: Other Details: Independent living center Physical Exam Const: GENERAL APPEARANCE: cooperative and comfortable ORIENTATION/CONSCI OUSNESS: Yes awake HENMT: COMMON NORMALS: normocephalic, atraumatic, hearing grossly normal bilaterally, external ears normal, EAC's normal, TM's normal bilaterally and Normal nasal mucous membranes and turbinates present HEAD & SCALP: normocephalic and atraumatic NOSE: Normal nasal mucous membranes and turbinates present EXTERNAL EAR: Yes external ears normal EXTERNAL AUDITORY CANAL: EAC's normal TYMPANIC MEMBRANE: TM's normal bilaterally Eye: COMMON NORMALS: Equal, round and reactive pupils present, EOMs intact bilaterally, conjunctivae normal and no scleral icterus CONJUNCTIVA: Yes conjunctivae normal PUPIL: Yes Equal, round and reactive pupils present Neck/C-Spine: COMMON NORMALS: no JVD Lymph: LYMPHATIC: no lymphadenopathy noted and no lymphedema noted Resp: COMMON NORMALS: normal respiratory effort, No retractions, No use of accessory muscles and clear to auscultation bilaterally AUSCULTATION: clear to auscultation bilaterally Cardio: COMMON NORMALS: no JVD, regular rate, regular rhythm and No murmurs present (Cardio) RATE: regular rate RHYTHM: regular rhythm GI: COMMON NORMALS: Soft to palpation and No hepatosplenomegaly present AUSCULTATION: Yes normoactive bowel sounds PALPATION: Yes Soft to palpation, No Tenderness to palpation present (GI), No Guarding due to palpation present (GI) and Yes No hepatosplenomegaly present Extremity: COMMON NORMALS: normal to inspection, capillary refill normal, no clubbing, cyanosis or edema, no calf tenderness and no pedal edema Skin: COMMON NORMALS: no rashes or lesions noted GENERAL SKIN EXAM: no rashes or lesions noted Course Vital Signs: Vital signs: Vital Signs Temperature 97.6 F 05/28/22 11:43 Pulse Rate 74 05/28/22 14:36 Respiratory Rate 14 05/28/22 14:36 Blood Pressure 143/76 05/28/22 14:36 Pulse Oximetry 95 05/28/22 14:36 MDM - Chest Pain Medical Decision Making Serial enzymes negative will discharge home set up for outpatient cardiac stress testing Medical Records I reviewed the patient's medical records. Lab Data I reviewed the patient's lab results. : 05/28/22 11:47 05/28/22 11:47 Radiology Impressions Chest X-Ray 05/28/22 11:44 IMPRESSION: No evidence of active cardiopulmonary disease. Laboratory Results WBC 5.9 10^3/uL (4.0-10.0) 05/28/22 11:47 RBC 4.11 10^6/uL (4.1-5.3) 05/28/22 11:47 Hgb 13.0 g/dL (11.7-16.6) 05/28/22 11:47 Hct 38.0 % (42.0-52.0) L 05/28/22 11:47 MCV 92.5 fl (80-94) 05/28/22 11:47 MCH 31.6 pg (28.0-34.0) 05/28/22 11:47 MCHC 34.2 g/dL (30.0-36.0) 05/28/22 11:47 RDW 13.1 % (12.1-15.1) 05/28/22 11:47 Plt Count 245 10^3/cmm (130-400) 05/28/22 11:47 MPV 9.4 fL (7.4-10.4) 05/28/22 11:47 Neut % (Auto) 72.7 % 05/28/22 11:47 Lymph % (Auto) 16.6 % 05/28/22 11:47 Evangeline % (Auto) 9.0 % 05/28/22 11:47 Eos % (Auto) 0.7 % 05/28/22 11:47 Baso % (Auto) 0.3 % 05/28/22 11:47 Neut # (Auto) 4.31 10^3/uL (1.8-7.7) 05/28/22 11:47 Lymph # (Auto) 1.0 10^3/uL (0.8-4.8) 05/28/22 11:47 Evangeline # (Auto) 0.5 10^3/uL (0.2-0.9) 05/28/22 11:47 Eos # (Auto) 0.0 10^3/uL (0.0-0.8) 05/28/22 11:47 Baso # (Auto) 0.0 10^3/uL (0.0-0.1) 05/28/22 11:47 Nucleated RBC % (auto) 0 % 05/28/22 11:47 Nucleated RBCs # 0.0 /100WBC 05/28/22 11:47 Sodium 139 mmol/L (136-145) 05/28/22 11:47 Potassium 4.1 mmol/L (3.5-5.1) 05/28/22 11:47 Chloride 103 mmol/L (98-107) 05/28/22 11:47 Carbon Dioxide 24 mmol/L (22-29) 05/28/22 11:47 Anion Gap 16.1 (5-19) 05/28/22 11:47 BUN 14 mg/dL (6-20) 05/28/22 11:47 Creatinine 0.9 mg/dL (0.7-1.2) 05/28/22 11:47 GFR Calculation 87.0 mL/min (90-130) L 05/28/22 11:47 Glucose 122 mg/dL (65-115) H 05/28/22 11:47 Calculated Osmolality 290 mOsm/kg (285-295) 05/28/22 11:47 Calcium 8.6 mg/dL (8.5-10.5) 05/28/22 11:47 Total Bilirubin 0.4 mg/dL (0.15-1.2) 05/28/22 11:47 AST 17 U/L (0-40) 05/28/22 11:47 ALT 13 U/L (0-41) 05/28/22 11:47 Alkaline Phosphatase 68 IU/L (40-130) 05/28/22 11:47 Troponin T Baseline 8 ng/L (0-15) 05/28/22 11:47 Troponin T 120 Minute 7.28 ng/L (0-15) 05/28/22 13:52 Delta Troponin T 0.74 ABS# (0-10) 05/28/22 13:52 Total Protein 7.4 g/dL (6.6-8.7) 05/28/22 11:47 Albumin 4.3 g/dL (3.5-5.2) 05/28/22 11:47 Globulin 3.1 g/dL (1.3-4.6) 05/28/22 11:47 Discharge Plan Discharge Patient Disposition: Home Clinical Impression: Atypical chest pain Condition: Stable Prescriptions: No Action M-Ynes Plus 27 mg iron- 1 mg tablet 1 tab PO DAILY@12 0RF aspirin [Adult Aspirin Regimen] 81 mg tablet,delayed release (DR/EC) 81 mg PO DAILY@12 0RF clotrimazole 1 % cream 1 applic topical BID PRN (Reason: UNKNOWN) 0RF quetiapine [Seroquel] 200 mg tablet 200 mg PO DAILY@1200 Qty: 30 2RF haloperidol decanoate 100 mg/mL solution 100 mg IM Q30D Qty: 1 2RF lorazepam 1 mg tablet 0.5 mg PO TID@12,16,20 Qty: 90 2RF naltrexone 50 mg tablet 50 mg PO DAILY@1200 Qty: 30 2RF ferrous sulfate 325 mg (65 mg iron) Tablet 325 mg PO TID@10,14,18 0RF loperamide 2 mg Capsule 2 mg PO QID PRN (Reason: Diarrhea) 0RF ondansetron HCl 4 mg Tablet 4 mg PO Q8H PRN (Reason: Nausea) 0RF zolpidem [Ambien] 5 mg tablet 5 mg PO BEDTIME@20 0RF chlorpromazine 100 mg tablet 100 mg PO TID@00,08,16 0RF meloxicam 15 mg tablet 15 mg PO DAILY@12 0RF divalproex 500 mg tablet,delayed release (DR/EC) See Rx Instructions .ROUTE .COMPLEX 0RF Rx Instructions: Take 1 tab at noon and 2 tabs at night. Seroquel 400 mg tablet 400 mg PO BEDTIME@20 0RF nystatin 100,000 unit/gram Powder 1 applic TOPICAL PRN 0RF Selsun Blue 1 % Shampoo See Rx Instructions .ROUTE .COMPLEX 0RF Rx Instructions: DIRECTED TWICE A WEEK Advanced Eye Relief 1-0.3 % Drops 1 drp ophthalmic (eye) QID PRN (Reason: IN RIGHT EYE) 0RF acetaminophen 325 mg Tablet 650 mg PO Q6H MDD 3000 MG PRN (Reason: Pain) 0RF cetirizine 10 mg Tablet 10 mg PO DAILY@12 0RF triamcinolone acetonide 0.1 % Ointment 1 applic TOPICAL BID PRN (Reason: Dry Skin) 0RF docusate sodium 100 mg Capsule 100 mg PO DAILY@12 0RF fluticasone propionate [Flovent HFA] 220 mcg/actuation Hfa Aerosol Inhaler 1 puff INHALATION Q12H 0RF fluticasone propionate 50 mcg/actuation [place],Suspension 1 spray INTRANASAL DAILY@12 0RF Rx Instructions: administer into each nostril Deep Sea Nasal 0.65 % Aerosol,[place] 1 spray INTRANASAL BID@12,20 0RF melatonin 5 mg Tablet 5 - 15 mg PO BEDTIME@20 0RF Glucosamine Chondroitin 550-30-1 mg Capsule 1 cap PO TID@12,16,20 0RF gabapentin 600 mg tablet 600 mg PO TID 0RF Discharge Orders: Discharge ED (Routine); Ordered 05/28/22 Ordered By: David Colin Referrals: Jeanette Mccollum PA [Primary Care Provider] - Discharge Diet: Usual diet Discharge Activity: Resume usual activity Patient Instructions: Opioid Safety Activity Restrictions/Additional Instructions: Case management make arrangements for you to follow-up with a Lexiscan sestamibi stress test. Coding Level of Care Code ED Radio Communication Coordinator for Naye Fwd Exam Comprehensive
[2022-05-28 12:26] VITALS: BP 143/76; PULSE 80; RESP 13; O2SAT 94
--- NOTE | 2022-05-28 13:35 | PC.PHAR ---
PT IS FROM [facility] [phone] VERIFIED PTS MEDICATIONS FROM HIS MAR
[2022-05-28 14:06] VITALS: BP 143/76; PULSE 74; RESP 13; O2SAT 94
[2022-05-28 14:14] LABS: Troponin 5 2HR 7.28 ng/L (0-15)
[2022-05-28 14:15] LABS: Troponin 5 2HR Delta 0.74 ABS# (0-10)
[2022-05-28 14:36] VITALS: BP 143/76; PULSE 74; RESP 14; O2SAT 95
--- NOTE | 2022-05-31 12:21 | DCPLANNER ---
Addendum entered by Mary Jane Zamudio 08/09/22 11:10: Patient had an outpatient stress test - patient did attend appointment. Original Note: client experience manager had message to schedule an outpatient stress test for patient. client experience manager faxed signed order to centralized scheduling, who will call patient with appointment information.
== END 2022-05-28 14:37 | disposition home or self-care (01) ==
PROVIDERS: Emergency Provider Family Medicine; PCP Physician Assistant
DX: R07.89 Other chest pain (principal); Z79.82 Long term (current) use of aspirin
CPT/HCPCS: 71045; 80053; 84484; 85025; 93005; 99285

== ENCOUNTER 2022-07-17 09:20 | Outpatient (CLI) | payer MEDICARE, MEDICAID, SELFPAY ==
--- NOTE | 2022-07-17 | ECG_ITS ---
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 Interpretive Statements NAME OF STUDY: LEXISCAN SESTAMIBI STRESS TEST INDICATION: Atypical Chest Pain, PROCEDURE: At the baseline, the EKG revealed normal sinus rhythm with a rate of [address] Ts.. The baseline heart was 60 bpm with a blood pressue of 153/88 mm of Hg Lexiscan was infused over a period of 20 seconds. A total of 0.4 milligrams of Lexiscan was infused. The stress phase was continued for a total of 5 minutes. Heart rate at the end of the stress phase was 78 bpm with a blood pressure 171/79 mm of Hg. The EKG at the peak infusion revealed no significant changes. Sestamibi was injected 20 seconds after the Lexiscan infusion. Heart rate at the end of the recovery phase was 70 bpm with a blood pressure of 164/75 mm of Hg. CONCLUSION: 1. No significant EKG changes with the LexiScan infusion 2. No LexiScan induced chest pain or cardiac arrhythmia 3. Normal blood pressure and heart rate response 4. Sestamibi/sestamibi perfusion scan pending; see separate report. Electronically Signed On 07-17-2022 17:51:31 CDT by Shavon Zarate M.D. [id number]
[2022-07-17 09:40] VITALS: BMI 27.2
--- NOTE | 2022-07-17 09:40 | NMCV_ITS ---
NM rowan perf SPECT r/s* [id number] Serg Acosta Age: 57 Gender: M : 1965 Exam Date: 07/17/2022 10:44 Ordering Phys: David Colin DO Technologist: REN Heard Exam Location: [facility] Indications: CHEST PAIN STRESS TEST Please see separate stress test report in [facility] for full findings IMAGE PROTOCOL Rest/Stress 1 Lexiscan Day Radiopharmaceutical Dose (mCi) Administration Site Administered by Rest: Tc-99m 10.6 IV Jaclyn Castellanos, SCHEDULE MAKER Sestamibi Stress:Tc-99m 32.6 IV Jaclyn Castellanos, SCHEDULE MAKER Sestamibi Rest: 17-Jul-2022 60 Discovery 630 Stress: 17-Jul-2022 30 Discovery 630 0.4mg Lexiscan. Supine position only as patient was unable to lay prone. SPECT RESULTS Technical Quality: Excellent Raw Data Analysis: Normal Image Corrections: No attenuation or motion correction applied Summed Stress Score: 0 Summed Rest Score: 0 Summed Difference Score: 0 PERFUSION FINDINGS Uniform myocardial tracer uptake with no significant perfusion abnormalities FUNCTIONAL RESULTS (calculated via Gated SPECT) Stress Image LV EF (%): 70 Stress EDV (mL):135 TID: 0.87 Stress ESV (mL):40 FUNCTIONAL FINDINGS: Segmental wall motion analysis revealing no gross wall motion abnormalities IMPRESSIONS 1. Myocardial perfusion imaging revealing uniform myocardial tracer uptake with no significant perfusion abnormalities. 2. Normal LV ejection fraction 70%. 3. Segmental wall motion analysis revealing no gross wall motion abnormalities. 4. Normal LV volume Low probability for coronary ischemia, based on the above findings. No similar previous studies are available for comparison Dr Shavon Zarate MD [facility] (Electronically Signed) Final Date: 17 July 2022 16:19 S
[2022-07-17] MEDS: regadenoson 0.4 Mg/5 ml Syringe IVP (11:36)
[2022-07-17 11:45] VITALS: BP 164/75; PULSE 71
== END 2022-07-17 09:21 | disposition home or self-care (01) ==
LOC: CDL 09:24
PROVIDERS: PCP Physician Assistant; Visit Provider Family Medicine
DX: R07.89 Other chest pain (principal)
CPT/HCPCS: 78452; 93017; A9500; J2785

== ENCOUNTER → 2022-07-30 15:00 | Outpatient (BNVA) | payer MEDICARE, MEDICAID, SELFPAY | PROVIDERS: PCP Physician Assistant; Visit Provider Podiatrist Foot & Ankle Surgery | DX: M21.6X1 Other acquired deformities of right foot (principal); M20.21 Hallux rigidus, right foot; M20.41 Other hammer toe(s) (acquired), right foot; M20.42 Other hammer toe(s) (acquired), left foot | CPT/HCPCS: 99203; 99204 ==

== ENCOUNTER 2022-09-06 20:35 | Emergency (ER) | payer MEDICARE, MEDICAID, SELFPAY ==
[2022-09-06 20:59] VITALS: BP 166/92; PULSE 74; RESP 15; TEMP 36.3; O2SAT 94; BMI 26.9
--- NOTE | 2022-09-06 21:31 | CTR_ITS ---
PROCEDURE INFORMATION: Exam: CT Abdomen And Pelvis With Contrast Exam date and time: 09/06/2022 9:41 PM Age: 57 years old Clinical indication: Abdominal pain; Additional info: Abdominal pain and distention TECHNIQUE: Imaging protocol: Computed tomography of the abdomen and pelvis with contrast. Radiation optimization: All CT scans at this facility use at least one of these dose optimization techniques: automated exposure control; mA and/or kV adjustment per patient size (includes targeted exams where dose is matched to clinical indication); or iterative reconstruction. Contrast material: OMNIPAQUE 350; Contrast volume: 100 ml; Contrast route: INTRAVENOUS (IV); COMPARISON: CR XR chest 1V portable [id number] 05/28/2022 12:01 PM RADIATION DOSE METRICS: Total DLP (mGy-cm): 954.23 FINDINGS: Lungs: Bibasilar atelectasis versus minimal infiltrate. Pleural spaces: Small right pleural effusion. Liver: Right hepatic lobe cyst. Gallbladder and bile ducts: Normal. No calcified stones. No ductal dilation. Pancreas: Normal. No ductal dilation. Spleen: Normal. No splenomegaly. Adrenal glands: Normal. No mass. Kidneys and ureters: Normal. No hydronephrosis. Stomach and bowel: Mildly prominent fluid in the small bowel without dilation may reflect an enteritis in the appropriate clinical setting. Appendix: No evidence of appendicitis. Intraperitoneal space: Unremarkable. No free air. No significant fluid collection. Vasculature: Unremarkable. No abdominal aortic aneurysm. Lymph nodes: Unremarkable. No enlarged lymph nodes. Urinary bladder: Mild urinary bladder wall thickening may be due to nondistention, a cystitis may also be a consideration depending on the clinical scenario. Reproductive: Unremarkable as visualized. Bones/joints: Unremarkable. No acute fracture. Soft tissues: Unremarkable. CT/CT abdomen pelvis w con* [id number] IMPRESSION: 1. Mildly prominent fluid in the small bowel without dilation may reflect an enteritis in the appropriate clinical setting. 2. Bibasilar atelectasis versus minimal infiltrate. 3. Small right pleural effusion. 4. Right hepatic lobe cyst. 5. Mild urinary bladder wall thickening may be due to nondistention, a cystitis may also be a consideration depending on the clinical scenario.
[2022-09-06] MEDS: iohexol 350 mg/mL 100 mL Btl IV (21:44)
[2022-09-06 21:49] LABS: Basophils % 0.5 %; Eosinophils # 0.1 10^3/uL (0.0-0.8); Hematocrit 37.4 % (42.0-52.0); Hemoglobin 12.4 g/dL (11.7-16.6); Lymphocytes # 1.1 10^3/uL (0.8-4.8); Lymphocytes % 14.4 %; Mean Corpuscular HGB Conc 33.2 g/dL (30.0-36.0); Mean Corpuscular Hemoglobin 31.7 pg (28.0-34.0); Mean Corpuscular Volume 95.7 fl (80-94); Mean Platelet Volume 9.4 fL (7.4-10.4); Monocytes # 0.8 10^3/uL (0.2-0.9); Monocytes % 9.5 %; Neutrophils # 5.84 10^3/uL (1.8-7.7); Neutrophils % 74.1 %; Nucleated Red Blood Cells % 0 %; Platelet Count 257 10^3/cmm (130-400); Red Blood Count 3.91 10^6/uL (4.1-5.3); Red Cell Distribution Width 12.6 % (12.1-15.1); White Blood Count 7.9 10^3/uL (4.0-10.0)
[2022-09-06 22:07] LABS: Lactate (Lactic Acid level) 1.9 mmol/L (0.5-2.2)
[2022-09-06] MEDS: sodium chloride 0.9% 1,000 ML 999 ML IV (22:09)
[2022-09-06] MEDS: ondansetron 2 mg/ML SDV 2 mL 4 MG IVP (22:09)
[2022-09-06] MEDS: morphine 4 mg/mL SDV 1 mL IVP (22:09)
[2022-09-06 22:15] LABS: Alanine Aminotransferase 13 U/L (0-41); Albumin Level 4.2 g/dL (3.5-5.2); Alkaline Phosphatase 81 U/L (40-130); Anion Gap 15.9 (5-19); Aspartate Amino Transferase 18 U/L (0-40); Blood Urea Nitrogen 12 mg/dL (6-20); Calcium 8.4 mg/dL (8.5-10.5); Carbon Dioxide 25 mmol/L (22-29); Chloride 98 mmol/L (98-107); Globulin 2.9 g/dL (1.3-4.6); Glomerular Filtration Rate 99.3 mL/min (90-130); Glucose 135 mg/dL (65-115); Lipase 70 U/L (13-60); Osmolality Calculated 282 mOsm/kg (285-295); Potassium 3.9 mmol/L (3.5-5.1); Sodium 135 mmol/L (136-145); Total Bilirubin 0.2 mg/dL (0.15-1.2); Total Protein 7.1 g/dL (6.6-8.7)
[2022-09-06 22:51] LABS: Add Urine Microscopic? NO; Charge for UA Resulting for Rev
[2022-09-06 23:00] LABS: Bilirubin Urine Neg (Negative); Blood Urine Neg (Negative); Glucose Urine UA Norm (Normal); Ketones Urine Negative (Negative); Leukocyte Esterase Urine Negative (Negative); Nitrate Urine Negative (Negative); Protein Urine Neg (Negative); Urine Appearance Clear (CLEAR); Urine Color Yellow (Yellow); Urobilinogen Urine Neg (Negative); pH Urine 6 (5-7)
--- NOTE | 2022-09-06 23:04 | ED_ITS ---
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 He presents with abdominal pain and distention. He is not been feeling well for the past day or 2. He was started on an antibiotic today for a urinary tract infection, but had his first dose, and vomited shortly thereafter. He has been having large bowel movements, some with diarrhea. No fever. Belly pain is diffuse. MD elicited complaint: abdominal pain Pertinent past history: other Onset (ago): hour(s) Pain Consistency: constant Location: Diffuse Severity: moderate Quality: cramping and aching Radiation: none Migration to: no migration Associated Symptoms: Reports change in bowel habits, change in stool character, diarrhea, dysuria, loose stools, nausea and vomiting; Denies constipation, fever(s), hematuria and hematemesis Review of Systems Const: Denies: fever(s) Card: Denies: chest pain Resp: Denies: dyspnea, productive cough or non-productive cough GI: Reports: nausea, vomiting, diarrhea, change in bowel habits and change in stool character; Denies: hematemesis or constipation : Reports: dysuria; Denies: hematuria Musc: Denies: back pain Skin/Breast: Denies: rash Neuro: Denies: confusion PFSH ED PFSH: Medical History Major neurocognitive disorder due to multiple etiologies Meningitis Childhood Obsessive-compulsive disorder Psychiatric care Schizoaffective disorder Seizure in childhood Surgical History Hx of tonsillectomy Family History Other Heart disease Stroke Social History Smoking and tobacco status: never smoked Second hand smoke exposure: No Smoking risk assessment/counseling performed?: No Alcohol intake: never Desire information about alcohol rehabilitation?: No Counseling given: No Desire information about substance/drug rehabilitation?: No Counseling given: No Lives independently: No Housing: Other Details: Independent living center Physical Exam HENMT: COMMON NORMALS: normocephalic, atraumatic and Normal external nose present HEAD & SCALP: normocephalic and atraumatic FACE & SINUS: normal facial exam NOSE: Normal external nose present Eye: COMMON NORMALS: Equal, round and reactive pupils present and EOMs intact bilaterally PUPIL: Yes Equal, round and reactive pupils present Cardio: COMMON NORMALS: regular rate and regular rhythm RATE: regular rate RHYTHM: regular rhythm GI: INSPECTION: Yes abdominal distension PALPATION: Yes Firmness to palpation present (GI) and Yes Tenderness to palpation present (GI) (diffuse) PERCUSSION: dullness to percussion Neuro: CELE COMA SCALE: document GCS findings [place] coma scale eye opening: Spontaneous [place] coma scale verbal response: Orientated [place] coma scale motor response: Obey commands [place] coma scale total score: 15 Course Vital Signs: Vital signs: Vital Signs Temperature 97.4 F L 09/06/22 20:59 Pulse Rate 74 09/06/22 20:59 Respiratory Rate 15 09/06/22 20:59 Blood Pressure 166/92 09/06/22 20:59 Pulse Oximetry 94 09/06/22 20:59 Oxygen Delivery Me thod 09/06/22 20:59 MDM - Abdominal Pain Medical Decision Making CBC is not remarkable. BMP is not remarkable. Liver enzymes are not remarkable. His CRP is only 7. Urinalysis is negative at this point. He is given antibiotics because he missed a dose of antibiotics for his previously diagnosed UTI, although that is negative here. His CT of the belly shows prominent fluid in the small bowel without dilatation reflecting an enteritis, which is likely his source of belly pain, diarrhea, and large stools as well as vomiting. His lipase is minimally elevated at 70. He will follow a liquid diet. Be placed on Zofran, and symptomatic care Lab Data : 09/06/22 21:40 09/06/22 21:40 Labs/Radiology: Radiology Impressions Abdomen/Pelvis CT 09/06/22 21:31 IMPRESSION: 1. Mildly prominent fluid in the small bowel without dilation may reflect an enteritis in the appropriate clinical setting. 2. Bibasilar atelectasis versus minimal infiltrate. 3. Small right pleural effusion. 4. Right hepatic lobe cyst. 5. Mild urinary bladder wall thickening may be due to nondistention, a cystitis may also be a consideration depending on the clinical scenario. Laboratory Results WBC 7.9 10^3/uL (4.0-10.0) 09/06/22 21:40 RBC 3.91 10^6/uL (4.1-5.3) L 09/06/22 21:40 Hgb 12.4 g/dL (11.7-16.6) 09/06/22 21:40 Hct 37.4 % (42.0-52.0) L 09/06/22 21:40 MCV 95.7 fl (80-94) H 09/06/22 21:40 MCH 31.7 pg (28.0-34.0) 09/06/22 21:40 MCHC 33.2 g/dL (30.0-36.0) 09/06/22 21:40 RDW 12.6 % (12.1-15.1) 09/06/22 21:40 Plt Count 257 10^3/cmm (130-400) 09/06/22 21:40 MPV 9.4 fL (7.4-10.4) 09/06/22 21:40 Neut % (Auto) 74.1 % 09/06/22 21:40 Lymph % (Auto) 14.4 % 09/06/22 21:40 [place] % (Auto) 9.5 % 09/06/22 21:40 Eos % (Auto) 1.0 % 09/06/22 21:40 Baso % (Auto) 0.5 % 09/06/22 21:40 Neut # (Auto) 5.84 10^3/uL (1.8-7.7) 09/06/22 21:40 Lymph # (Auto) 1.1 10^3/uL (0.8-4.8) 09/06/22 21:40 [place] # (Auto) 0.8 10^3/uL (0.2-0.9) 09/06/22 21:40 Eos # (Auto) 0.1 10^3/uL (0.0-0.8) 09/06/22 21:40 Baso # (Auto) 0.0 10^3/uL (0.0-0.1) 09/06/22 21:40 Nucleated RBC % (auto) 0 % 09/06/22 21:40 Nucleated RBCs # 0.0 /100WBC 09/06/22 21:40 Sodium 135 mmol/L (136-145) L 09/06/22 21:40 Potassium 3.9 mmol/L (3.5-5.1) 09/06/22 21:40 Chloride 98 mmol/L (98-107) 09/06/22 21:40 Carbon Dioxide 25 mmol/L (22-29) 09/06/22 21:40 Anion Gap 15.9 (5-19) 09/06/22 21:40 BUN 12 mg/dL (6-20) 09/06/22 21:40 Creatinine 0.8 mg/dL (0.7-1.2) 09/06/22 21:40 GFR Calculation 99.3 mL/min (90-130) 09/06/22 21:40 Glucose 135 mg/dL (65-115) H 09/06/22 21:40 Calculated Osmolality 282 mOsm/kg (285-295) L 09/06/22 21:40 Lactate 1.9 mmol/L (0.5-2.2) 09/06/22 21:40 Calcium 8.4 mg/dL (8.5-10.5) L 09/06/22 21:40 Total Bilirubin 0.2 mg/dL (0.15-1.2) 09/06/22 21:40 AST 18 U/L (0-40) 09/06/22 21:40 ALT 13 U/L (0-41) 09/06/22 21:40 Alkaline Phosphatase 81 U/L (40-130) 09/06/22 21:40 C-Reactive Protein 7.0 mg/L (0.0-4.9) H 09/06/22 21:40 Total Protein 7.1 g/dL (6.6-8.7) 09/06/22 21:40 Albumin 4.2 g/dL (3.5-5.2) 09/06/22 21:40 Globulin 2.9 g/dL (1.3-4.6) 09/06/22 21:40 Lipase 70 U/L (13-60) H 09/06/22 21:40 Urine Color Yellow (Yellow) 09/06/22 21:10 Urine Appearance Clear (CLEAR) 09/06/22 21:10 Urine pH 6 (5-7) 09/06/22 21:10 Ur Specific [place] 1.010 (1.005-1.030) 09/06/22 21:10 Urine Protein Neg (Negative) 09/06/22 21:10 Urine Glucose (UA) Norm (Normal) 09/06/22 21:10 Urine Ketones Negative (Negative) 09/06/22 21:10 Urine Blood Neg (Negative) 09/06/22 21:10 Urine Nitrate Negative (Negative) 09/06/22 21:10 Urine Bilirubin Neg (Negative) 09/06/22 21:10 Urine Urobilinogen Neg mg/dL (Negative) 09/06/22 21:10 Ur Leukocyte Esterase Negative (Negative) 09/06/22 21:10 Discharge Plan Discharge Patient Disposition: Home Clinical Impression: Gastroenteritis Condition: Stable Prescriptions: Continued ondansetron HCl 4 mg Tablet 4 mg PO Q8H PRN (Reason: Nausea) Qty: 10 0RF No Action M- Plus 27 mg iron- 1 mg tablet 1 tab PO DAILY@12 clotrimazole 1 % cream 1 applic topical BID PRN (Reason: UNKNOWN) fluoxetine 40 mg capsule 40 mg PO DAILY Qty: 30 2RF polyethylene glycol 3350 [Gavilax] 17 gram/dose powder 4 g PO DAILY lorazepam 0.5 mg tablet 0.5 mg PO DAILY Qty: 30 0RF Rx Instructions: Start once daily after 1 month on twice daily. haloperidol decanoate 100 mg/mL solution 100 mg IM Q30D Qty: 1 2RF zolpidem [Ambien] 5 mg tablet 5 mg PO BEDTIME@20 Qty: 30 2RF quetiapine [Seroquel] 400 mg tablet 400 mg PO BEDTIME@20 Qty: 30 2RF quetiapine [Seroquel] 200 mg tablet 200 mg PO DAILY@1200 Qty: 30 2RF naltrexone 50 mg tablet 50 mg PO DAILY@1200 Qty: 30 2RF chlorpromazine 100 mg tablet 100 mg PO TID Qty: 90 2RF divalproex 500 mg tablet,delayed release (DR/EC) See Rx Instructions .ROUTE .COMPLEX Qty: 90 2RF Rx Instructions: Take 1 tab at noon and 2 tabs at night. omeprazole 40 mg capsule,delayed release(DR/EC) 40 mg PO DAILY celecoxib 200 mg capsule 200 mg PO DAILY (DME) accommodative orthotics with shoes See Rx Instructions .Route .MEDSUPPLY Qty: 1 0RF Rx Instructions: As directed by CAMPOS&O loperamide 2 mg Capsule 2 mg PO QID PRN (Reason: Diarrhea) nystatin 100,000 unit/gram Powder 1 applic TOPICAL PRN Selsun Blue 1 % Shampoo See Rx Instructions .ROUTE .COMPLEX Rx Instructions: DIRECTED TWICE A WEEK Advanced Eye Relief 1-0.3 % Drops 1 drp ophthalmic (eye) QID PRN (Reason: IN RIGHT EYE) acetaminophen 325 mg Tablet 650 mg PO Q6H MDD 3000 MG PRN (Reason: Pain) cetirizine 10 mg Tablet 10 mg PO DAILY@12 triamcinolone acetonide 0.1 % Ointment 1 applic TOPICAL BID PRN (Reason: Dry Skin) docusate sodium 100 mg Capsule 100 mg PO DAILY@12 fluticasone propionate [Flovent HFA] 220 mcg/actuation Hfa Aerosol Inhaler 1 puff INHALATION Q12H fluticasone propionate 50 mcg/actuation [place],Suspension 1 spray INTRANASAL DAILY@12 Rx Instructions: administer into each nostril Deep Sea Nasal 0.65 % Aerosol,[place] 1 spray INTRANASAL BID@12,20 melatonin 5 mg Tablet 5 - 15 mg PO BEDTIME@20 Glucosamine Chondroitin 550-30-1 mg Capsule 1 cap PO TID@12,16,20 gabapentin 600 mg tablet 600 mg PO TID Discharge Orders: Discharge ED (Routine); Ordered 09/06/22 Ordered By: Sebastian Barone Referrals: Jeanette Mccollum PA [Primary Care Provider] - Patient Instructions: Gastroenteritis (ED) Activity Restrictions/Additional Instructions: Worsening belly pain thisReturn for continued fever greater than 100, vomiting liquids or medications despite treatment, by treatment, blood in the stool, other concerning symptoms. Follow a liquid diet for the next 48 hours. Take the nausea medication scheduled for the next 24 hours, then as needed. Coding Level of Care Code ED Field Specialist for Naye Fwd Exam Detailed
[2022-09-06] MEDS: cefTRIAXone 1,000 MG in sodium chloride 0.9% (plus) 50 ML 100 MG IV (23:12)
== END 2022-09-06 23:40 | disposition home or self-care (01) ==
PROVIDERS: Emergency Provider Emergency Medicine; PCP Physician Assistant
DX: K52.9 Noninfective gastroenteritis and colitis, unspecified (principal)
CPT/HCPCS: 74177; 80053; 81003; 83605; 83690; 85025; 86140; 96365; 96375; 99285; J0696; J2270; J2405; J7030; Q9967

== ENCOUNTER → 2022-10-28 14:11 | Outpatient (BNVA) | payer MEDICARE, MEDICAID, SELFPAY | PROVIDERS: PCP Physician Assistant; Visit Provider Podiatrist Foot & Ankle Surgery | DX: L84 Corns and callosities (principal); M21.6X9 Other acquired deformities of unspecified foot; M20.20 Hallux rigidus, unspecified foot; M20.41 Other hammer toe(s) (acquired), right foot; M20.42 Other hammer toe(s) (acquired), left foot | CPT/HCPCS: 11056 ==

== ENCOUNTER 2022-11-17 19:52 | Emergency (ER) | payer MEDICARE, MEDICAID, SELFPAY ==
[2022-11-17 20:01] VITALS: BP 128/77; PULSE 89; RESP 18; TEMP 36.4; O2SAT 95; BMI 26.7
--- NOTE | 2022-11-17 21:20 | XRR_ITS ---
PROCEDURE INFORMATION: Exam: XR Chest Exam date and time: 11/17/2022 9:33 PM Age: 57 years old Clinical indication: Shortness of breath; Additional info: SOB TECHNIQUE: Imaging protocol: Radiologic exam of the chest. Views: 1 view. COMPARISON: CR XR chest 1V portable [id number] 05/28/2022 12:01 PM FINDINGS: Lungs: Minimal coarse linear opacity in the right lung base. Left lung is clear. Pleural spaces: There is no pleural effusion or pneumothorax. Heart/Mediastinum: Cardiomediastinal contours are unremarkable. Bones/joints: There are healed lateral right lower rib fractures. No acute fracture. XR/XR chest 1V portable [id number] IMPRESSION: 1. No acute findings. 2. Scarring in the lateral right lower lung with associated healed rib fractures.
--- NOTE | 2022-11-17 21:26 | W.ED.SOB ---
HPI - SOB/Dyspnea General: Chief Complaint: Shortness of Breath/Dyspnea Stated Complaint: Low O2, SOB Time Seen by Provider: 11/17/22 21:14 Source: patient Mode of arrival: ambulatory Limitations: no limitations History of Present Illness: HPI Narrative: 57-year-old male who has a history of MR and complaint of being short of breath today his caregiver states he checked his pulse ox it was anywhere from 92-94 he denies any pain states he feels like his nose is stuffed he denies any fever no pain at this time due to his MR it is difficult to get a good history. Associated symptoms: Deny abdominal pain, chest pain, fever(s), nausea or vomiting Review of Systems Const: Denies: fever(s), chills, body aches or change in appetite Eyes: Denies: blurry vision or eye discomfort ENMT: Denies: throat pain or dental pain Card: Denies: chest pain Resp: Reports: dyspnea GI: Denies: abdominal pain, nausea, vomiting or diarrhea : Denies: dysuria Musc: Denies: neck pain or back pain Skin/Breast: Denies: rash Neuro: Denies: headache(s) Psych: Denies: depression Andry/Lymph: Denies: easy bruising All/Imm: Denies: urticaria PFSH ED PFSH: Medical History Major neurocognitive disorder due to multiple etiologies Meningitis Childhood Obsessive-compulsive disorder Psychiatric care Schizoaffective disorder Seizure in childhood Surgical History Hx of tonsillectomy Family History Other Heart disease Stroke Social History Smoking and tobacco status: never smoked Second hand smoke exposure: No Smoking risk assessment/counseling performed?: No Alcohol intake: never Desire information about alcohol rehabilitation?: No Counseling given: No Desire information about substance/drug rehabilitation?: No Counseling given: No Lives independently: No Housing: Other Details: Independent living center Physical Exam Const: COMMON NORMALS: no acute distress and healthy appearing HENMT: COMMON NORMALS: normocephalic and atraumatic HEAD & SCALP: normocephalic and atraumatic Eye: COMMON NORMALS: Equal, round and reactive pupils present and EOMs intact bilaterally PUPIL: Yes Equal, round and reactive pupils present Neck/C-Spine: COMMON NORMALS: full ROM and supple Chest: COMMONS NORMALS: normal inspection of the chest and normal palpation of entire chest wall Resp: COMMON NORMALS: normal respiratory effort, No retractions, No use of accessory muscles and clear to auscultation bilaterally AUSCULTATION: clear to auscultation bilaterally Cardio: COMMON NORMALS: regular rate, regular rhythm and No murmurs present (Cardio) RATE: regular rate RHYTHM: regular rhythm GI: COMMON NORMALS: Normal to inspection, nondistended, normoactive bowel sounds present, Soft to palpation, non-tender and no masses PALPATION: Yes Soft to palpation Extremity: COMMON NORMALS: normal to inspection and full ROM Neuro: COMMON NORMALS: moves all extremities and no focal motor deficits Psych: COMMON NORMALS: mental status grossly normal, Normal thought process present and cooperative THOUGHT PROCESS: Normal thought process present Skin: COMMON NORMALS: no rashes or lesions noted and no wounds GENERAL SKIN EXAM: no rashes or lesions noted Course Vital Signs: Vital signs: Vital Signs Temperature 97.5 F L 11/17/22 20:01 Pulse Rate 89 11/17/22 20:01 Respiratory Rate 18 11/17/22 20:01 Blood Pressure 128/77 11/17/22 20:01 Pulse Oximetry 95 11/17/22 20:01 Oxygen Delivery Me thod 11/17/22 20:01 MDM - SOB/Dyspnea Medical Decision Making Patient presents here with complaints shortness of breath he has been in no distress here his pulse ox been normal blood work here is normal x-ray is normal no signs of D-dimer he is stable for discharge at this time. Lab Data 11/17/22 21:30 11/17/22 21:30 Labs/Radiology: Radiology Impressions Chest X-Ray 11/17/22 21:20 IMPRESSION: 1. No acute findings. 2. Scarring in the lateral right lower lung with associated healed rib fractures. Laboratory Results WBC 4.9 10^3/uL (4.0-10.0) 11/17/22 21:30 RBC 4.10 10^6/uL (4.1-5.3) 11/17/22 21:30 Hgb 13.0 g/dL (11.7-16.6) 11/17/22 21: Hct 39.5 % (42.0-52.0) L 11/17/22: MCV 96.3 fl (80-94) H 11/17/22 21: MCH 31.7 pg (28.0-34.0) 11/17/22 21: MCHC 32.9 g/dL (30.0-36.0) 11/17/22: RDW 12.4 % (12.1-15.1) 11/17/22: Plt Count 275 10^3/cmm (130-400) 11/17/22: MPV 9.2 fL (7.4-10.4) 11/17/22: Neut % (Auto) 58.5 % 11/17/22: Lymph % (Auto) 27.2 % 11/17/22: [place] % (Auto) 11.5 % 11/17/22 21: Eos % (Auto) 1.6 % 11/17/22: Baso % (Auto) 0.6 % 11/17/22: Neut # (Auto) 2.84 10^3/uL (1.8-7.7) 11/17/22: Lymph # (Auto) 1.3 10^3/uL (0.8-4.8) 11/17/22: [place] # (Auto) 0.6 10^3/uL (0.2-0.9) 11/17/22: Eos # (Auto) 0.1 10^3/uL (0.0-0.8) 11/17/22: Baso # (Auto) 0.0 10^3/uL (0.0-0.1) 11/17/22: Nucleated RBC % (auto) 0 % 11/17/22: Nucleated RBCs # 0.0 /100WBC 11/17/22 21: Sodium 138 mmol/L (136-145) 11/17/22 21: Potassium 4.2 mmol/L (3.5-5.1) 11/17/22: Chloride 103 mmol/L (98-107) 11/17/22 21:30 Carbon Dioxide 26 mmol/L (22-29) 11/17/22 21:30 Anion Gap 13.2 (5-19) 11/17/22 21:30 BUN 24 mg/dL (6-20) H 11/17/22 21:30 Creatinine 1.1 mg/dL (0.7-1.2) 11/17/22 21:30 GFR Calculation 68.8 mL/min (90-130) L 11/17/22 21:30 Glucose 118 mg/dL (65-115) H 11/17/22 21:30 Calculated Osmolality 291 mOsm/kg (285-295) 11/17/22 21: Calcium 9.2 mg/dL (8.5-10.5) 11/17/22 21:30 Total Bilirubin 0.2 mg/dL (0.15-1.2) 11/17/22 21:30 AST 16 U/L (0-40) 11/17/22 21:30 ALT 16 U/L (0-41) 11/17/22 21:30 Alkaline Phosphatase 89 U/L (40-130) 11/17/22 21:30 Total Protein 7.3 g/dL (6.6-8.7) 11/17/22 21:30 Albumin 4.1 g/dL (3.5-5.2) 11/17/22 21:30 Globulin 3.2 g/dL (1.3-4.6) 11/17/22 21:30 Influenza Type A Ag negative (Negative) 11/17/22 21:30 Influenza Type B Ag negative (Negative) 11/17/22 21:30 SARS-CoV-2 Ag (Rapid) negative (Negative) 11/17/22 21:30 Discharge Plan Discharge Patient Disposition: Home Clinical Impression: Dyspnea Condition: Stable Prescriptions: No Action M-Ynes Plus 27 mg iron- 1 mg tablet 1 tab PO DAILY@12 clotrimazole 1 % cream 1 applic topical BID PRN (Reason: UNKNOWN) polyethylene glycol 3350 [Gavilax] 17 gram/dose powder 4 g PO DAILY omeprazole 40 mg capsule,delayed release(DR/EC) 40 mg PO DAILY celecoxib 200 mg capsule 200 mg PO DAILY (DME) accommodative orthotics with shoes See Rx Instructions .Route .MEDSUPPLY Qty: 1 0RF Rx Instructions: As directed by CAMPOS&O acetaminophen 500 mg capsule 1,000 mg PO Q6H 30 Days Qty: 240 2RF quetiapine [Seroquel] 200 mg tablet 200 mg PO DAILY@1200 Qty: 30 2RF quetiapine [Seroquel] 400 mg tablet 400 mg PO BEDTIME@20 Qty: 30 2RF naltrexone 50 mg tablet 50 mg PO DAILY@1200 Qty: 30 2RF haloperidol decanoate 100 mg/mL solution 100 mg IM Q30D Qty: 1 2RF fluoxetine 40 mg capsule 40 mg PO DAILY Qty: 30 2RF divalproex 500 mg tablet,delayed release (DR/EC) See Rx Instructions .ROUTE .COMPLEX Qty: 90 2RF Rx Instructions: Take 1 tab at noon and 2 tabs at night. chlorpromazine 100 mg tablet 100 mg PO TID Qty: 90 2RF mupirocin 2 % ointment 1 applic topical BID diclofenac sodium 1 % gel 1 g topical QID PRN Rx Instructions: apply to single elbow, wrist or hand; for hand includes palm/fingers/back of hand WesTab Plus 27 mg iron- 1 mg tablet 1 tab PO DAILY zolpidem [Ambien] 5 mg tablet 5 mg PO .HS Qty: 30 2RF loperamide 2 mg Capsule 2 mg PO QID PRN (Reason: Diarrhea) nystatin 100,000 unit/gram Powder 1 applic TOPICAL PRN Selsun Blue 1 % Shampoo See Rx Instructions .ROUTE .COMPLEX Rx Instructions: DIRECTED TWICE A WEEK Advanced Eye Relief 1-0.3 % Drops 1 drp ophthalmic (eye) QID PRN (Reason: IN RIGHT EYE) cetirizine 10 mg Tablet 10 mg PO DAILY@12 triamcinolone acetonide 0.1 % Ointment 1 applic TOPICAL BID PRN (Reason: Dry Skin) docusate sodium 100 mg Capsule 100 mg PO DAILY@12 fluticasone propionate [Flovent HFA] 220 mcg/actuation Hfa Aerosol Inhaler 1 puff INHALATION Q12H fluticasone propionate 50 mcg/actuation [place],Suspension 1 spray INTRANASAL DAILY@12 Rx Instructions: administer into each nostril Deep Sea Nasal 0.65 % Aerosol,[place] 1 spray INTRANASAL BID@12,20 melatonin 5 mg Tablet 5 - 15 mg PO BEDTIME@20 Glucosamine Chondroitin 550-30-1 mg Capsule 1 cap PO TID@12,16,20 gabapentin 600 mg tablet 600 mg PO TID ondansetron HCl 4 mg Tablet 4 mg PO Q8H PRN (Reason: Nausea) Qty: 10 0RF Discharge Orders: Discharge ED (Routine); Ordered 11/17/22 Ordered By: Aby Haro Referrals: Jeanette Mccollum PA [Primary Care Provider] - 1-3 days Discharge Diet: Advance as tolerated Discharge Activity: Resume usual activity Patient Instructions: Dyspnea (ED) Coding Level of Care Code ED Client Representative for Chg Fwd Exam Comprehensive
[2022-11-17 21:40] LABS: Basophils % 0.6 %; Eosinophils # 0.1 10^3/uL (0.0-0.8); Eosinophils % 1.6 %; Hematocrit 39.5 % (42.0-52.0); Lymphocytes # 1.3 10^3/uL (0.8-4.8); Lymphocytes % 27.2 %; Mean Corpuscular HGB Conc 32.9 g/dL (30.0-36.0); Mean Corpuscular Hemoglobin 31.7 pg (28.0-34.0); Mean Corpuscular Volume 96.3 fl (80-94); Mean Platelet Volume 9.2 fL (7.4-10.4); Monocytes # 0.6 10^3/uL (0.2-0.9); Monocytes % 11.5 %; Neutrophils # 2.84 10^3/uL (1.8-7.7); Neutrophils % 58.5 %; Nucleated Red Blood Cells % 0 %; Platelet Count 275 10^3/cmm (130-400); Red Cell Distribution Width 12.4 % (12.1-15.1); White Blood Count 4.9 10^3/uL (4.0-10.0)
[2022-11-17 21:58] LABS: Influenza A by IFA negative (Negative); Influenza B by IFA negative (Negative); SARS Covid-2 Antigen negative (Negative)
[2022-11-17 21:59] LABS: Alanine Aminotransferase 16 U/L (0-41); Albumin Level 4.1 g/dL (3.5-5.2); Alkaline Phosphatase 89 U/L (40-130); Anion Gap 13.2 (5-19); Aspartate Amino Transferase 16 U/L (0-40); Blood Urea Nitrogen 24 mg/dL (6-20); Calcium 9.2 mg/dL (8.5-10.5); Carbon Dioxide 26 mmol/L (22-29); Chloride 103 mmol/L (98-107); Globulin 3.2 g/dL (1.3-4.6); Glomerular Filtration Rate 68.8 mL/min (90-130); Glucose 118 mg/dL (65-115); Osmolality Calculated 291 mOsm/kg (285-295); Potassium 4.2 mmol/L (3.5-5.1); Sodium 138 mmol/L (136-145); Total Bilirubin 0.2 mg/dL (0.15-1.2); Total Protein 7.3 g/dL (6.6-8.7)
--- NOTE | 2022-11-17 22:19 | ECG_ITS ---
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 Measurements Intervals [place] Rate: 70 P: 34 [place]: 151 QRS: 24 QRSD: 101 T: 31 QT: 399 QTc: 433 Interpretive Statements SINUS RHYTHM POSSIBLE LEFT ATRIAL ENLARGEMENT [-0.1mV P-WAVE IN V1/V2] Compared to ECG 05/28/2022 11:58:53 No significant changes Electronically Signed On 11-19-2022 9:22:00 STRATEGIC PLANNING ANALYST by Shavon Zarate M.D. [id number]
[2022-11-17 22:32] LABS: NT Pro B Type Natriuretic Pept 7 pg/mL (0-125)
[2022-11-17 22:34] VITALS: BP 154/103; PULSE 73; RESP 16; O2SAT 95
== END 2022-11-17 22:35 | disposition home or self-care (01) ==
PROVIDERS: Emergency Provider Emergency Medicine; PCP Physician Assistant
DX: R06.00 Dyspnea, unspecified (principal); Z20.822 Contact with and (suspected) exposure to COVID-19
CPT/HCPCS: 71045; 80053; 83880; 85025; 87426; 87804; 93005; 99285

== ENCOUNTER 2022-12-04 18:43 | Emergency (ER) | payer MEDICARE, MEDICAID, SELFPAY ==
[2022-12-04] VITALS (23 sets, daily range): BP systolic 122–156; BP diastolic 62–83; PULSE 62–63; RESP 16; TEMP 37.1; O2SAT 93–98; BMI 25.0
--- NOTE | 2022-12-04 18:52 | XRR_ITS ---
PROCEDURE INFORMATION: Exam: XR Chest Exam date and time: 12/04/2022 7:06 PM Age: 57 years old Clinical indication: Other: Dizzy; Additional info: Syncope TECHNIQUE: Imaging protocol: Radiologic exam of the chest. Views: 1 view. COMPARISON: CR (CHEST, ) 11/17/2022 21:33 FINDINGS: Lungs: Small areas of right mid to lower lung atelectasis or scarring again seen. No consolidation. Pleural spaces: Unremarkable. No pleural effusion. No pneumothorax. Heart/Mediastinum: Unremarkable. No cardiomegaly. Vasculature: Advanced diffuse vascular calcification noted. Bones/joints: Old right rib deformities. XR/XR chest 1V portable [id number] IMPRESSION: No acute finding, stable chest.
--- NOTE | 2022-12-04 19:10 | ECG_ITS ---
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 Measurements Intervals [place] Rate: 62 P: 40 [place]: 148 QRS: 45 QRSD: 100 T: 27 QT: 422 QTc: 430 Interpretive Statements SINUS RHYTHM Compared to ECG 11/17/2022 22:19:09 No significant changes Electronically Signed On 12-05-2022 10:02:35 DYE RANGE FEEDER by Mervat Morgan M.D. [id number]
--- NOTE | 2022-12-04 19:11 | ED_ITS ---
HPI - Syncope General: Chief Complaint: Syncope Stated Complaint: SYNCOPE Time Seen by Provider: 12/04/22 18:46 Source: patient and EMS Mode of arrival: EMS Limitations: no limitations History of Present Illness: 57-year-old male who is here by EMS he states he had 2 near syncopal episodes today patient has a history of intellectual delay has caregivers he states that he just felt weak he denies any pain anywhere denies any shortness of breath. Associated symptoms: Deny abdominal pain, chest pain, fever(s), headache(s) or nausea Review of Systems Const: Denies: fever(s), chills, body aches or change in appetite Eyes: Denies: blurry vision or eye discomfort ENMT: Denies: throat pain or dental pain Card: Reports: syncope; Denies: chest pain Resp: Denies: dyspnea GI: Denies: abdominal pain, nausea, vomiting or diarrhea : Denies: dysuria Musc: Denies: neck pain or back pain Skin/Breast: Denies: rash Neuro: Denies: headache(s) Psych: Denies: depression Andry/Lymph: Denies: easy bruising All/Imm: Denies: urticaria PFSH ED PFSH: Medical History Major neurocognitive disorder due to multiple etiologies Meningitis Childhood Obsessive-compulsive disorder Psychiatric care Schizoaffective disorder Seizure in childhood Surgical History Hx of tonsillectomy Family History Other Heart disease Stroke Social History Smoking and tobacco status: never smoked Second hand smoke exposure: No Smoking risk assessment/counseling performed?: No Alcohol intake: never Desire information about alcohol rehabilitation?: No Counseling given: No Desire information about substance/drug rehabilitation?: No Counseling given: No Lives independently: No Housing: Other Details: Independent living center Physical Exam Const: COMMON NORMALS: no acute distress, patient oriented x3 and healthy appearing HENMT: COMMON NORMALS: normocephalic and atraumatic HEAD & SCALP: normocephalic and atraumatic Eye: COMMON NORMALS: Equal, round and reactive pupils present and EOMs intact bilaterally PUPIL: Yes Equal, round and reactive pupils present Neck/C-Spine: COMMON NORMALS: full ROM and supple Chest: COMMONS NORMALS: normal inspection of the chest and normal palpation of entire chest wall Resp: COMMON NORMALS: normal respiratory effort, No retractions, No use of accessory muscles and clear to auscultation bilaterally AUSCULTATION: clear to auscultation bilaterally Cardio: COMMON NORMALS: regular rate, regular rhythm and No murmurs present (Cardio) RATE: regular rate RHYTHM: regular rhythm GI: COMMON NORMALS: Normal to inspection, nondistended, normoactive bowel sounds present, Soft to palpation, non-tender and no masses PALPATION: Yes Soft to palpation Extremity: COMMON NORMALS: normal to inspection and full ROM Neuro: COMMON NORMALS: patient oriented x3, moves all extremities and no focal motor deficits Psych: COMMON NORMALS: mental status grossly normal, Normal thought process present and cooperative THOUGHT PROCESS: Normal thought process present Skin: COMMON NORMALS: no rashes or lesions noted and no wounds GENERAL SKIN EXAM: no rashes or lesions noted Course Vital Signs: Vital signs: Vital Signs Temperature 98.8 F 12/04/22 19:03 Pulse Rate 63 12/04/22 19:03 Respiratory Rate 16 12/04/22 19:03 Blood Pressure 156/82 12/04/22 20:50 Pulse Oximetry 98 12/04/22 20:50 Oxygen Delivery Me thod 12/04/22 19:03 MDM - Syncope Medical Decision Making Patient presents here with a syncopal versus near syncopal event he is well- appearing here troponins are normal head CT is normal he is to follow-up his PCP and return if worsening caregivers understand agree to plan. Lab Data 12/04/22 18:50 12/04/22 18:50 Radiology Impressions Chest X-Ray 12/04/22 18:52 IMPRESSION: No acute finding, stable chest. Head CT 12/04/22 20:56 IMPRESSION: 1. No acute intracranial abnormality. 2. Udzy-qj-eeinjwsp age-related changes. 3. Severe likely chronic right frontal sinus disease. Laboratory Results WBC 5.3 10^3/uL (4.0-10.0) 12/04/22 18:50 RBC 4.20 10^6/uL (4.1-5.3) 12/04/22 18:50 Hgb 13.3 g/dL (11.7-16.6) 12/04/22 18:50 Hct 39.9 % (42.0-52.0) L 12/04/22 18:50 MCV 95.0 fl (80-94) H 12/04/22 18:50 MCH 31.7 pg (28.0-34.0) 12/04/22 18:50 MCHC 33.3 g/dL (30.0-36.0) 12/04/22 18:50 RDW 12.5 % (12.1-15.1) 12/04/22 18:50 Plt Count 302 10^3/cmm (130-400) 12/04/22 18:50 MPV 9.3 fL (7.4-10.4) 12/04/22 18:50 Neut % (Auto) 60.0 % 12/04/22 18:50 Lymph % (Auto) 27.6 % 12/04/22 18:50 [place] % (Auto) 9.9 % 12/04/22 18:50 Eos % (Auto) 1.3 % 12/04/22 18:50 Baso % (Auto) 0.6 % 12/04/22 18:50 Neut # (Auto) 3.16 10^3/uL (1.8-7.7) 12/04/22 18:50 Lymph # (Auto) 1.5 10^3/uL (0.8-4.8) 12/04/22 18:50 [place] # (Auto) 0.5 10^3/uL (0.2-0.9) 12/04/22 18:50 Eos # (Auto) 0.1 10^3/uL (0.0-0.8) 12/04/22 18:50 Baso # (Auto) 0.0 10^3/uL (0.0-0.1) 12/04/22 18:50 Nucleated RBC % (auto) 0 % 12/04/22 18:50 Nucleated RBCs # 0.0 /100WBC 12/04/22 18:50 Sodium 139 mmol/L (136-145) 12/04/22 18:50 Potassium 4.1 mmol/L (3.5-5.1) 12/04/22 18:50 Chloride 102 mmol/L (98-107) 12/04/22 18:50 Carbon Dioxide 27 mmol/L (22-29) 12/04/22 18:50 Anion Gap 14.1 (5-19) 12/04/22 18:50 BUN 14 mg/dL (6-20) 12/04/22 18:50 Creatinine 0.8 mg/dL (0.7-1.2) 12/04/22 18:50 GFR Calculation 99.3 mL/min (90-130) 12/04/22 18:50 Glucose 79 mg/dL (65-115) 12/04/22 18:50 Calculated Osmolality 287 mOsm/kg (285-295) 12/04/22 18:50 Calcium 9.3 mg/dL (8.5-10.5) 12/04/22 18:50 Total Bilirubin 0.3 mg/dL (0.15-1.2) 12/04/22 18:50 AST 18 U/L (0-40) 12/04/22 18:50 ALT 14 U/L (0-41) 12/04/22 18:50 Alkaline Phosphatase 86 U/L (40-130) 12/04/22 18:50 Troponin T 120 Minute 8.96 ng/L (0-15) 12/04/22 20:48 NT-Pro-B Natriuret Pep 44 pg/mL (0-125) 12/04/22 18:50 Total Protein 7.3 g/dL (6.6-8.7) 12/04/22 18:50 Albumin 4.1 g/dL (3.5-5.2) 12/04/22 18:50 Globulin 3.2 g/dL (1.3-4.6) 12/04/22 18:50 EKG Data EKG 1: I personally reviewed and interpreted this EKG as follows: EKG interpretation date: 12/04/22 EKG interpretation time: 19:10 Interpretation: nsr hr [address] or t wave abnormalities qrs 100 qtc 427 Discharge Plan Discharge Patient Disposition: Home Clinical Impression: Syncope Condition: Stable Prescriptions: No Action M- Plus 27 mg iron- 1 mg tablet 1 tab PO DAILY@12 clotrimazole 1 % cream 1 applic topical BID PRN (Reason: UNKNOWN) polyethylene glycol 3350 [Gavilax] 17 gram/dose powder 4 g PO DAILY omeprazole 40 mg capsule,delayed release(DR/EC) 40 mg PO DAILY celecoxib 200 mg capsule 200 mg PO DAILY (DME) accommodative orthotics with shoes See Rx Instructions .Route .MEDSUPPLY Qty: 1 0RF Rx Instructions: As directed by CAMPOS&O acetaminophen 500 mg capsule 1,000 mg PO Q6H 30 Days Qty: 240 2RF quetiapine [Seroquel] 200 mg tablet 200 mg PO DAILY@1200 Qty: 30 2RF quetiapine [Seroquel] 400 mg tablet 400 mg PO BEDTIME@20 Qty: 30 2RF naltrexone 50 mg tablet 50 mg PO DAILY@1200 Qty: 30 2RF haloperidol decanoate 100 mg/mL solution 100 mg IM Q30D Qty: 1 2RF fluoxetine 40 mg capsule 40 mg PO DAILY Qty: 30 2RF divalproex 500 mg tablet,delayed release (DR/EC) See Rx Instructions .ROUTE .COMPLEX Qty: 90 2RF Rx Instructions: Take 1 tab at noon and 2 tabs at night. chlorpromazine 100 mg tablet 100 mg PO TID Qty: 90 2RF mupirocin 2 % ointment 1 applic topical BID diclofenac sodium 1 % gel 1 g topical QID PRN Rx Instructions: apply to single elbow, wrist or hand; for hand includes palm/fingers/back of hand WesTab Plus 27 mg iron- 1 mg tablet 1 tab PO DAILY zolpidem [Ambien] 5 mg tablet 5 mg PO .HS Qty: 30 2RF loperamide 2 mg Capsule 2 mg PO QID PRN (Reason: Diarrhea) nystatin 100,000 unit/gram Powder 1 applic TOPICAL PRN Selsun Blue 1 % Shampoo See Rx Instructions .ROUTE .COMPLEX Rx Instructions: DIRECTED TWICE A WEEK Advanced Eye Relief 1-0.3 % Drops 1 drp ophthalmic (eye) QID PRN (Reason: IN RIGHT EYE) cetirizine 10 mg Tablet 10 mg PO DAILY@12 triamcinolone acetonide 0.1 % Ointment 1 applic TOPICAL BID PRN (Reason: Dry Skin) docusate sodium 100 mg Capsule 100 mg PO DAILY@12 fluticasone propionate [Flovent HFA] 220 mcg/actuation Hfa Aerosol Inhaler 1 puff INHALATION Q12H fluticasone propionate 50 mcg/actuation [place],Suspension 1 spray INTRANASAL DAILY@12 Rx Instructions: administer into each nostril Deep Sea Nasal 0.65 % Aerosol,[place] 1 spray INTRANASAL BID@12,20 melatonin 5 mg Tablet 5 - 15 mg PO BEDTIME@20 Glucosamine Chondroitin 550-30-1 mg Capsule 1 cap PO TID@12,16,20 gabapentin 600 mg tablet 600 mg PO TID ondansetron HCl 4 mg Tablet 4 mg PO Q8H PRN (Reason: Nausea) Qty: 10 0RF Discharge Orders: Discharge ED (Routine); Ordered 12/04/22 Ordered By: Aby Haro Referrals: Jeanette Mccollum PA [Primary Care Provider] - Discharge Diet: Advance as tolerated Discharge Activity: Resume usual activity Coding Level of Care Code ED Ve Teacher for Ushag Fwd Exam Comprehensive
[2022-12-04 19:14] LABS: Basophils % 0.6 %; Eosinophils # 0.1 10^3/uL (0.0-0.8); Eosinophils % 1.3 %; Hematocrit 39.9 % (42.0-52.0); Hemoglobin 13.3 g/dL (11.7-16.6); Lymphocytes # 1.5 10^3/uL (0.8-4.8); Lymphocytes % 27.6 %; Mean Corpuscular HGB Conc 33.3 g/dL (30.0-36.0); Mean Corpuscular Hemoglobin 31.7 pg (28.0-34.0); Mean Platelet Volume 9.3 fL (7.4-10.4); Monocytes # 0.5 10^3/uL (0.2-0.9); Monocytes % 9.9 %; Neutrophils # 3.16 10^3/uL (1.8-7.7); Nucleated Red Blood Cells % 0 %; Platelet Count 302 10^3/cmm (130-400); Red Cell Distribution Width 12.5 % (12.1-15.1); White Blood Count 5.3 10^3/uL (4.0-10.0)
[2022-12-04] MEDS: sodium chloride 0.9% 1,000 ML 999 ML IV (19:25)
[2022-12-04 19:53] LABS: Alanine Aminotransferase 14 U/L (0-41); Albumin Level 4.1 g/dL (3.5-5.2); Alkaline Phosphatase 86 U/L (40-130); Anion Gap 14.1 (5-19); Aspartate Amino Transferase 18 U/L (0-40); Blood Urea Nitrogen 14 mg/dL (6-20); Calcium 9.3 mg/dL (8.5-10.5); Carbon Dioxide 27 mmol/L (22-29); Chloride 102 mmol/L (98-107); Globulin 3.2 g/dL (1.3-4.6); Glomerular Filtration Rate 99.3 mL/min (90-130); Glucose 79 mg/dL (65-115); NT Pro B Type Natriuretic Pept 44 pg/mL (0-125); Osmolality Calculated 287 mOsm/kg (285-295); Potassium 4.1 mmol/L (3.5-5.1); Sodium 139 mmol/L (136-145); Total Bilirubin 0.3 mg/dL (0.15-1.2); Total Protein 7.3 g/dL (6.6-8.7)
--- NOTE | 2022-12-04 20:52 | ECG_ITS ---
[facility] Test Date: 2022-12-04 Pat Name: Serg Acosta Department: Room: Gender: Male Senior Officer: : 1965 Requested By: Aby Haro Order Number: [id number] Chey[place] MD: Mervat Morgan M.D. Measurements Intervals [place] Rate: 57 P: 42 UT: 150 QRS: 37 QRSD: 94 T: 28 QT: 454 QTc: 444 Interpretive Statements SINUS BRADYCARDIA Compared to ECG 12/04/2022 19:10:48 Sinus rhythm no longer present Electronically Signed On 12-05-2022 10:08:36 COMMERCIAL MANAGER by Mervat Morgan M.D. [id number]
--- NOTE | 2022-12-04 20:52 | PC.NURSE ---
Pt caregivers are bedside, state family informed them of hx of arterial blockages, and a cyst on the neck.
--- NOTE | 2022-12-04 20:53 | PC.NURSE ---
Jorge L at bedside care givers work for [employer]
--- NOTE | 2022-12-04 20:56 | CTR_ITS ---
PROCEDURE INFORMATION: Exam: CT Head Without Contrast Exam date and time: 12/04/2022 9:13 PM Age: 57 years old Clinical indication: Syncope and collapse; Patient HX: Witnessed syncopal episode. History of schizoaffective disorder. TECHNIQUE: Imaging protocol: Computed tomography of the head without contrast. Radiation optimization: All CT scans at this facility use at least one of these dose optimization techniques: automated exposure control; mA and/or kV adjustment per patient size (includes targeted exams where dose is matched to clinical indication); or iterative reconstruction. COMPARISON: CT head wo con* [id number] 31/03/2022 14:28 RADIATION DOSE METRICS: Total DLP (mGy-cm): 1022.08 FINDINGS: Brain: No focal hemorrhage or midline shift is identified. The ventricles and parenchyma show moderate atrophy and mild chronic bicerebral white matter ischemic change. Cerebral ventricles: No ventriculomegaly or evidence of hydrocephalus. Paranasal sinuses: No evidence of acute sinusitis. Severe right frontal sinus opacification. Mastoid air cells: Visualized mastoid air cells are well aerated. Bones/joints: No displaced skull fracture is noted. Soft tissues: Unremarkable. Vasculature: Diffuse vascular calcifications are present. CT/CT head wo con* [id number] IMPRESSION: 1. No acute intracranial abnormality. 2. Dkfs-fu-hdlgezlg age-related changes. 3. Severe likely chronic right frontal sinus disease.
[2022-12-04 21:13] LABS: Troponin 5 2HR 8.96 ng/L (0-15)
[2022-12-04 22:27] LABS: Troponin 5 2HR Delta -1.07 ABS# (0-10)
[2022-12-04 22:27] LABS: Troponin(5th) Baseline 10 ng/L (0-15)
== END 2022-12-04 22:08 | disposition home or self-care (01) ==
PROVIDERS: Emergency Provider Emergency Medicine; PCP Physician Assistant
DX: R55 Syncope and collapse (principal)
CPT/HCPCS: 70450; 71045; 80053; 83880; 84484; 85025; 93005; 96360; 99285; J7030

== ENCOUNTER 2022-12-08 19:10 | Emergency (ER) | payer MEDICARE, MEDICAID, SELFPAY ==
[2022-12-08 19:26] VITALS: BP 101/68; PULSE 71; RESP 18; TEMP 36.3; O2SAT 94
--- NOTE | 2022-12-08 21:58 | ECG_ITS ---
[facility] Test Date: 2022-12-08 Pat Name: Serg Acosta Department: Room: Gender: Male Neuropathologist: : 1965 Requested By: Sebastian Castillo Order Number: [id number] Quinn MD: Jose Cerrato M.D. Measurements Intervals [place] Rate: 60 P: 46 MN: 150 QRS: 55 QRSD: 91 T: 46 QT: 434 QTc: 434 Interpretive Statements SINUS RHYTHM POSSIBLE LEFT ATRIAL ENLARGEMENT [-0.1mV P-WAVE IN V1/V2] Compared to ECG 12/04/2022 21:06:53 Sinus bradycardia no longer present Electronically Signed On 12-10-2022 7:43:29 INDUSTRIAL PHARMACIST by Jose Cerrato M.D. [id number]
--- NOTE | 2022-12-08 22:28 | W.ED.FALL ---
HPI - Fall General: Chief Complaint: Fall Stated Complaint: faking passing out episodes, no food per caregiver Time Seen by Provider: 12/08/22 21:58 History of Present Illness: 57-year-old male with a controlled standing level fall. He complains of left thigh pain. He did not lose consciousness. He has felt well prior. No fever. No cough. No other illnesses. He was able to walk after the fall without pain. MD complaint: fall Onset (ago): hour(s) Fall from: standing Fall witnessed: yes, by living facility staff Place fall occurred: home Loss of consciousness: None Prolonged down time: no Symptoms prior to fall: none Context: other Location of injury - extremities: Left: thigh Associated symptoms-after fall: Reports no associated symptoms; Denies abdominal pain, chest pain or headache(s) Review of Systems Const: Denies: fever(s) Eyes: Reports: eye discomfort (Chronic); Denies: change in vision ENMT: Denies: throat pain Card: Denies: chest pain Resp: Denies: dyspnea GI: Denies: abdominal pain or vomiting Neuro: Denies: headache(s) PFSH ED PFSH: Medical History Major neurocognitive disorder due to multiple etiologies Meningitis Childhood Obsessive-compulsive disorder Psychiatric care Schizoaffective disorder Seizure in childhood Surgical History Hx of tonsillectomy Family History Other Heart disease Stroke Social History Smoking and tobacco status: never smoked Second hand smoke exposure: No Smoking risk assessment/counseling performed?: No Alcohol intake: never Desire information about alcohol rehabilitation?: No Counseling given: No Desire information about substance/drug rehabilitation?: No Counseling given: No Lives independently: No Housing: Other Details: Independent living center Physical Exam Const: COMMON NORMALS: no acute distress and alert GENERAL APPEARANCE: cooperative; not ill appearing and not frail appearing ORIENTATION/CONSCIOUSNESS: Yes oriented to person and Yes oriented to place HENMT: COMMON NORMALS: normocephalic, atraumatic and Normal external nose present HEAD & SCALP: normocephalic and atraumatic FACE & SINUS: normal facial exam and face symmetric NOSE: Normal external nose present Eye: COMMON NORMALS: Equal, round and reactive pupils present and EOMs intact bilaterally PUPIL: Yes Equal, round and reactive pupils present Neck/C-Spine: GENERAL: Yes trachea midline Chest: CHEST: Yes Symmetrical chest wall rise Resp: COMMON NORMALS: normal respiratory effort, No retractions, No use of accessory muscles and clear to auscultation bilaterally AUSCULTATION: clear to auscultation bilaterally Cardio: COMMON NORMALS: regular rate and regular rhythm RATE: regular rate RHYTHM: regular rhythm GI: COMMON NORMALS: Normal to inspection, nondistended, normoactive bowel sounds present and Soft to palpation PALPATION: Yes Soft to palpation and No Tenderness to palpation present (GI) Extremity: COMMON NORMALS: no pedal edema NARRATIVE EXTREMITY EXAM: No reproducible tenderness on exam. Logroll test is negative. Pelvic compression is negative. Patient is able to bear weight. Neuro: CELE COMA SCALE: document GCS findings SENSORIUM/ORIENTATION: Yes alert, Yes oriented to person, Yes oriented to place and Yes other (Baseline sensorium) CRANIAL NERVES: Yes CN normal except as noted COORDINATION/BALANCE: kjfsau-ii-nsev test normal SENSORY EXAM: Yes extremities (intact) MOTOR EXAM: 5/5 motor strength present throughout and Pronator motor function not present COORDINATION: ukykaf-uj-shkx test normal Psych: COMMON NORMALS: speech normal SPEECH: Yes normal speech Skin: COMMON NORMALS: no rashes or lesions noted GENERAL SKIN EXAM: no rashes or lesions noted Course Vital Signs: Vital signs: Vital Signs Temperature 97.4 F L 12/08/22 19:26 Pulse Rate 71 12/08/22 19:26 Respiratory Rate 18 12/08/22 19:26 Blood Pressure 101/68 12/08/22 19:26 Pulse Oximetry 94 12/08/22 19:26 Oxygen Delivery Me thod 12/08/22 19:26 MDM - Fall Medical Decision Making No reproducible tenderness on examination of the left lower extremity or anywhere else. He is neurologically intact. Exam is essentially stable. I do not see a reason for imaging, as he has low localizing symptoms. He keeps mentioning that he would like to have some food here. His staff member accompanying him notes that he enjoys the hospitalist food. He will be allowed discharge Discharge Plan Discharge Patient Disposition: Home Clinical Impression: Major neurocognitive disorder due to multiple etiologies, Fall Condition: Stable Prescriptions: No Action M-Ynes Plus 27 mg iron- 1 mg tablet 1 tab PO DAILY@12 clotrimazole 1 % cream 1 applic topical BID PRN (Reason: UNKNOWN) polyethylene glycol 3350 [Gavilax] 17 gram/dose powder 4 g PO DAILY omeprazole 40 mg capsule,delayed release(DR/EC) 40 mg PO DAILY celecoxib 200 mg capsule 200 mg PO DAILY (DME) accommodative orthotics with shoes See Rx Instructions .Route .MEDSUPPLY Qty: 1 0RF Rx Instructions: As directed by CAMPOS&O acetaminophen 500 mg capsule 1,000 mg PO Q6H 30 Days Qty: 240 2RF quetiapine [Seroquel] 200 mg tablet 200 mg PO DAILY@1200 Qty: 30 2RF quetiapine [Seroquel] 400 mg tablet 400 mg PO BEDTIME@20 Qty: 30 2RF naltrexone 50 mg tablet 50 mg PO DAILY@1200 Qty: 30 2RF haloperidol decanoate 100 mg/mL solution 100 mg IM Q30D Qty: 1 2RF fluoxetine 40 mg capsule 40 mg PO DAILY Qty: 30 2RF divalproex 500 mg tablet,delayed release (DR/EC) See Rx Instructions .ROUTE .COMPLEX Qty: 90 2RF Rx Instructions: Take 1 tab at noon and 2 tabs at night. chlorpromazine 100 mg tablet 100 mg PO TID Qty: 90 2RF mupirocin 2 % ointment 1 applic topical BID diclofenac sodium 1 % gel 1 g topical QID PRN Rx Instructions: apply to single elbow, wrist or hand; for hand includes palm/fingers/back of hand WesTab Plus 27 mg iron- 1 mg tablet 1 tab PO DAILY zolpidem [Ambien] 5 mg tablet 5 mg PO .HS Qty: 30 2RF loperamide 2 mg Capsule 2 mg PO QID PRN (Reason: Diarrhea) nystatin 100,000 unit/gram Powder 1 applic TOPICAL PRN Selsun Blue 1 % Shampoo See Rx Instructions .ROUTE .COMPLEX Rx Instructions: DIRECTED TWICE A WEEK Advanced Eye Relief 1-0.3 % Drops 1 drp ophthalmic (eye) QID PRN (Reason: IN RIGHT EYE) cetirizine 10 mg Tablet 10 mg PO DAILY@12 triamcinolone acetonide 0.1 % Ointment 1 applic TOPICAL BID PRN (Reason: Dry Skin) docusate sodium 100 mg Capsule 100 mg PO DAILY@12 fluticasone propionate [Flovent HFA] 220 mcg/actuation Hfa Aerosol Inhaler 1 puff INHALATION Q12H fluticasone propionate 50 mcg/actuation [place],Suspension 1 spray INTRANASAL DAILY@12 Rx Instructions: administer into each nostril Deep Sea Nasal 0.65 % Aerosol,[place] 1 spray INTRANASAL BID@12,20 melatonin 5 mg Tablet 5 - 15 mg PO BEDTIME@20 Glucosamine Chondroitin 550-30-1 mg Capsule 1 cap PO TID@12,16,20 gabapentin 600 mg tablet 600 mg PO TID ondansetron HCl 4 mg Tablet 4 mg PO Q8H PRN (Reason: Nausea) Qty: 10 0RF Discharge Orders: Discharge ED (Routine); Ordered 12/08/22 Ordered By: Sebastian Barone Referrals: Jeanette Mccollum PA [Primary Care Provider] - 4-7 days Patient Instructions: Fall Prevention (ED) Activity Restrictions/Additional Instructions: Return for concerning symptoms Coding Level of Care Code ED Ceramic Engineering Professor for Chg Fwd Exam Comprehensive
== END 2022-12-08 22:48 | disposition home or self-care (01) ==
PROVIDERS: Emergency Provider Emergency Medicine; PCP Physician Assistant
DX: F03.90 Unspecified dementia, unspecified severity, without behavioral disturbance, psychotic disturbance, mood disturbance, and anxiety (principal); W18.39XA Other fall on same level, initial encounter
CPT/HCPCS: 93005; 99283

== ENCOUNTER → 2023-01-07 14:05 | Outpatient (BNVA) | payer MEDICARE, MEDICAID, OTHER, SELFPAY | PROVIDERS: PCP Physician Assistant; Visit Provider Psychiatry & Neurology Psychiatry | DX: F25.9 Schizoaffective disorder, unspecified (principal); F42.9 Obsessive-compulsive disorder, unspecified | CPT/HCPCS: 80164 ==

== ENCOUNTER → 2023-01-27 14:07 | Outpatient (BNVA) | payer MEDICARE, MEDICAID, SELFPAY | PROVIDERS: PCP Physician Assistant; Visit Provider Podiatrist Foot & Ankle Surgery | DX: L84 Corns and callosities (principal); M20.41 Other hammer toe(s) (acquired), right foot; M20.42 Other hammer toe(s) (acquired), left foot; L60.3 Nail dystrophy | CPT/HCPCS: 99213 ==

== ENCOUNTER 2023-05-07 06:21 | Outpatient (CLI) | payer MEDICARE, MEDICAID, SELFPAY ==
--- NOTE | 2023-05-07 | XR_ITS ---
WS: [id number] EXAMINATION: XR KUB [id number] REASON FOR EXAM: CONSTIPATION. LAST BM 05/02 COMPARISON: None available. ORDER DATE: 05/07/2023 12:00 AM FINDINGS: There is a nonspecific colonic gas pattern with scattered fecal content and gas. There is no sign of significant small bowel dilation. No pathologic abdominal calcification is seen. There are multiple old healed lower right rib fractures There is marked degenerative change in the lower lumbar spine e specially at L4 and L5. 4 degree level scoliosis. XR/XR KUB [id number] IMPRESSION: No acute bowel change
== END 2023-05-07 06:22 | disposition home or self-care (01) ==
PROVIDERS: PCP Physician Assistant; Visit Provider Nurse Practitioner Family
DX: K59.00 Constipation, unspecified (principal); I73.9 Peripheral vascular disease, unspecified; L60.8 Other nail disorders; L84 Corns and callosities; M21.6X9 Other acquired deformities of unspecified foot; M20.21 Hallux rigidus, right foot; M20.22 Hallux rigidus, left foot; M20.41 Other hammer toe(s) (acquired), right foot; M20.42 Other hammer toe(s) (acquired), left foot; L60.3 Nail dystrophy; G62.9 Polyneuropathy, unspecified
CPT/HCPCS: 11721; 99213

== ENCOUNTER 2023-06-02 14:24 | Emergency (ER) | payer MEDICARE, MEDICAID, SELFPAY ==
[2023-06-02 14:24] VITALS: BP 132/85; PULSE 73; RESP 18; TEMP 36.8; O2SAT 92
--- NOTE | 2023-06-02 14:39 | ECG_ITS ---
[facility] Test Date: 2023-06-02 Pat Name: Serg Acosta Department: Room: Gender: Male Jowl Trimmer: : 1965 Requested By: David Vasquez Order Number: [id number] Cheyenne MD: Shavon Zarate M.D. Measurements Intervals [place] Rate: 69 P: 45 VA: 158 QRS: 36 QRSD: 94 T: 48 QT: 403 QTc: 433 Interpretive Statements SINUS RHYTHM Compared to ECG 12/08/2022 22:09:19 No significant changes Electronically Signed On 06-02-2023 21:39:04 CDT by Shavon Zarate M.D. [email or web address]/[id number]
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
--- NOTE | 2023-06-02 15:07 | XR_ITS ---
WS: [id number] Exam: [place] [id number] Date/Time of Exam: 06/02/2023 3:23 PM Reason For Exam: pain No humeral fracture or dislocation. Normal soft tissues. XR/[place] [id number] IMPRESSION: 1. Negative right humerus.
--- NOTE | 2023-06-02 15:07 | XR_ITS ---
WS: [id number] Exam: XR tibia fibula LT 2V [id number] Date/Time of Exam: 06/02/2023 3:23 PM Reason For Exam: pain A small cortical defect seen along the posterior margin of the fibular head that could represent a no ndisplaced fracture. There may be an old fracture deformity of the lower fibula. No other significant finding. Normal-appearing soft tissues. XR/XR tibia fibula LT 2V [id number] IMPRESSION: 1. Small cortical defect along the posterior margin of the fibular head that co uld represent a small cortical fracture. Possible old distal fibular fracture. 2. No other significant finding.
[2023-06-02 15:08] LABS: Basophils % 0.5 %; Eosinophils % 0.3 %; Hematocrit 38.3 % (42.0-52.0); Hemoglobin 12.5 g/dL (11.7-16.6); Lymphocytes # 1.8 10^3/uL (0.8-4.8); Lymphocytes % 30.3 %; Mean Corpuscular HGB Conc 32.6 g/dL (30.0-36.0); Mean Corpuscular Hemoglobin 31.4 pg (28.0-34.0); Mean Corpuscular Volume 96.2 fl (80-94); Mean Platelet Volume 9.4 fL (7.4-10.4); Monocytes # 0.6 10^3/uL (0.2-0.9); Monocytes % 10.1 %; Neutrophils # 3.39 10^3/uL (1.8-7.7); Neutrophils % 58.1 %; Nucleated Red Blood Cells % 0 %; Platelet Count 270 10^3/cmm (130-400); Red Blood Count 3.98 10^6/uL (4.1-5.3); Red Cell Distribution Width 12.2 % (12.1-15.1); White Blood Count 5.8 10^3/uL (4.0-10.0)
[2023-06-02] MEDS: iohexol 350 mg/mL 500 mL Btl (per mL) IV (15:12)
[2023-06-02] MEDS: tetanus-dipt-pertussis 0.5 mL SDV IM (15:16)
[2023-06-02 15:29] LABS: Alanine Aminotransferase 20 U/L (0-41); Albumin Level 4.2 g/dL (3.5-5.2); Alkaline Phosphatase 71 U/L (40-130); Anion Gap 14.8 (5-19); Aspartate Amino Transferase 28 U/L (0-40); Blood Urea Nitrogen 17 mg/dL (6-20); Calcium 8.8 mg/dL (8.5-10.5); Carbon Dioxide 26 mmol/L (22-29); Chloride 97 mmol/L (98-107); Globulin 2.8 g/dL (1.3-4.6); Glomerular Filtration Rate 56.7 mL/min (90-130); Glucose 116 mg/dL (65-115); Osmolality Calculated 281 mOsm/kg (285-295); Potassium 3.8 mmol/L (3.5-5.1); Sodium 134 mmol/L (136-145); Total Bilirubin 0.4 mg/dL (0.15-1.2)
== END 2023-06-02 16:30 | disposition home or self-care (01) ==
PROVIDERS: Emergency Provider Family Medicine; PCP Physician Assistant
DX: S40.811A Abrasion of right upper arm, initial encounter (principal); S80.812A Abrasion, left lower leg, initial encounter; V89.2XXA Person injured in unspecified motor-vehicle accident, traffic, initial encounter; Z23 Encounter for immunization
CPT/HCPCS: 70450; 71260; 72125; 73060; 73590; 74177; 80053; 85025; 90715; 93005; 99285; Q9967

== ENCOUNTER 2023-06-07 19:09 | Emergency (ER) | payer MEDICARE, MEDICAID, SELFPAY ==
[2023-06-07 19:15] VITALS: BMI 29.2
[2023-06-07 19:17] VITALS: BP 147/75; PULSE 86; RESP 16; TEMP 36.6; O2SAT 95
[2023-06-07 19:30] VITALS: BP 160/98; PULSE 78; RESP 15; O2SAT 95
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
[2023-06-07 20:01] VITALS: BP 148/92; PULSE 75; RESP 13; O2SAT 95
[2023-06-07] MEDS: ibuprofen 200 mg Tablet 400 MG PO (20:04)
== END 2023-06-07 20:07 | disposition home or self-care (01) ==
PROVIDERS: Emergency Provider Nurse Practitioner Family; PCP Physician Assistant
DX: S16.1XXA Strain of muscle, fascia and tendon at neck level, initial encounter (principal); V89.2XXA Person injured in unspecified motor-vehicle accident, traffic, initial encounter
CPT/HCPCS: 99283

== ENCOUNTER → 2023-07-30 11:08 | Outpatient (BNVA) | payer MEDICARE, MEDICAID, SELFPAY | PROVIDERS: PCP Physician Assistant; Visit Provider Podiatrist Foot & Ankle Surgery | DX: L84 Corns and callosities (principal); L60.3 Nail dystrophy; I73.9 Peripheral vascular disease, unspecified; G62.9 Polyneuropathy, unspecified | CPT/HCPCS: 11055; 11721 ==

== ENCOUNTER → 2023-08-22 14:19 | Outpatient (BNVA) | payer MEDICARE, MEDICAID, OTHER, SELFPAY | PROVIDERS: PCP Physician Assistant; Visit Provider Psychiatry & Neurology Psychiatry | DX: I65.23 Occlusion and stenosis of bilateral carotid arteries (principal); F25.9 Schizoaffective disorder, unspecified; F42.9 Obsessive-compulsive disorder, unspecified; F02.80 Dementia in other diseases classified elsewhere, unspecified severity, without behavioral disturbance, psychotic disturbance, mood disturbance, and anxiety | CPT/HCPCS: 80061; 83036 ==

== ENCOUNTER → 2023-10-29 13:48 | Outpatient (BNVA) | payer MEDICARE, MEDICAID, OTHER, SELFPAY | PROVIDERS: PCP Physician Assistant; Visit Provider Podiatrist Foot & Ankle Surgery | DX: L84 Corns and callosities (principal); L60.3 Nail dystrophy; I73.9 Peripheral vascular disease, unspecified; G62.9 Polyneuropathy, unspecified | CPT/HCPCS: 11056; 11721 ==

== ENCOUNTER 2023-12-12 06:00 | Outpatient (RCR) | payer MEDICARE, MEDICAID, SELFPAY | END 2023-12-17 23:59 | disposition home or self-care (01) | LOC: SPT 06:00 | PROVIDERS: PCP Physician Assistant; Visit Provider Physician Assistant | DX: M54.50 Low back pain, unspecified (principal) | CPT/HCPCS: 97161 ==

== ENCOUNTER → 2024-01-14 14:28 | Outpatient (BNVA) | payer MEDICARE, MEDICAID, SELFPAY | PROVIDERS: PCP Physician Assistant; Visit Provider Podiatrist Foot & Ankle Surgery | DX: L84 Corns and callosities (principal); L60.3 Nail dystrophy; I73.9 Peripheral vascular disease, unspecified; G62.9 Polyneuropathy, unspecified | CPT/HCPCS: 11056; 11721 ==

== ENCOUNTER 2024-04-07 11:52 | Outpatient (CLI) | payer MEDICARE, MEDICAID, SELFPAY ==
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
[2024-04-07] MEDS: iohexol 350 mg/mL 500 mL Btl (per mL) PO (12:07)
== END 2024-04-07 11:53 | disposition home or self-care (01) ==
LOC: RAD 11:52
PROVIDERS: PCP Physician Assistant; Visit Provider Physician Assistant
DX: R10.9 Unspecified abdominal pain (principal); K76.89 Other specified diseases of liver; R91.1 Solitary pulmonary nodule; J98.11 Atelectasis; M51.36 Other intervertebral disc degeneration, lumbar region; M51.37 Other intervertebral disc degeneration, lumbosacral region
CPT/HCPCS: 71250; 74176; Q9967

== ENCOUNTER → 2024-04-14 14:47 | Outpatient (BNVA) | payer MEDICARE, MEDICAID, SELFPAY | PROVIDERS: PCP Physician Assistant; Visit Provider Podiatrist Foot & Ankle Surgery | DX: L60.3 Nail dystrophy (principal); I73.9 Peripheral vascular disease, unspecified; G62.9 Polyneuropathy, unspecified; L84 Corns and callosities | CPT/HCPCS: 11055; 11721; 99213 ==

== ENCOUNTER 2024-06-04 06:00 | Outpatient (RCR) | payer MEDICARE, MEDICAID, SELFPAY | END 2024-06-16 23:59 | disposition home or self-care (01) | LOC: SPT 06:00 | PROVIDERS: PCP Physician Assistant; Visit Provider Physician Assistant | DX: M54.50 Low back pain, unspecified (principal) | CPT/HCPCS: 97110; 97161 ==

== ENCOUNTER 2024-06-17 06:00 | Outpatient (RCR) | payer MEDICARE, MEDICAID, SELFPAY | END 2024-07-17 23:59 | disposition home or self-care (01) | LOC: SPT 06:00 | PROVIDERS: PCP Physician Assistant; Visit Provider Physician Assistant | DX: M54.50 Low back pain, unspecified (principal) | CPT/HCPCS: 97110 ==

== ENCOUNTER 2024-07-09 08:14 | Emergency (ER) | payer MEDICARE, MEDICAID, SELFPAY ==
[2024-07-09 08:15] VITALS: BP 114/70; PULSE 80; RESP 15; TEMP 36.8; O2SAT 94; BMI 21.9
--- NOTE | 2024-07-09 08:20 | ECG_ITS ---
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 Measurements Intervals [place] Rate: 81 P: 23 WV: 148 QRS: 38 QRSD: 91 T: 28 QT: 373 QTc: 434 Interpretive Statements SINUS RHYTHM NONSPECIFIC T-WAVE ABNORMALITY Compared to ECG 06/02/2023 15:26:46 T-wave abnormality now present Electronically Signed On 07-09-2024 11:28:37 CDT by Jose Cerrato M.D. [email or web address]
--- NOTE | 2024-07-09 08:35 | XR_ITS ---
WS: [id number] Portable AP upright chest, 07/09/2024 Clinical Data: chest pain Comparison: Portable chest, 12/04/2022 Findings: No nodules, masses or effusions are seen. The heart is normal. The pulmonary vascularity is not increased. No pneumonia or pneumothorax is seen. Monitor leads are on the chest wall. There are old posterior lateral rib fractures of the right seventh through 10th ribs. XR/XR chest 1V portable [id number] Impression: Negative chest.
[2024-07-09 08:43] LABS: Basophils % 0.6 %; Eosinophils # 0.1 10^3/uL (0.0-0.8); Hematocrit 39.9 % (37-53); Lymphocytes # 1.5 10^3/uL (0.8-4.8); Mean Corpuscular HGB Conc 33.8 g/dL (30-55); Mean Corpuscular Hemoglobin 31.7 pg (27-33); Mean Corpuscular Volume 93.7 fl (82-101); Mean Platelet Volume 9.7 fL (7.4-10.4); Monocytes # 0.4 10^3/uL (0.2-0.9); Monocytes % 8.4 %; Neutrophils # 2.98 10^3/uL (1.8-7.7); Neutrophils % 59.6 %; Nucleated Red Blood Cells % 0 %; Platelet Count 264 10^3/cmm (157-399); Red Blood Count 4.26 10^6/uL (3.85-5.65); Red Cell Distribution Width 11.9 % (12.1-15.1)
--- NOTE | 2024-07-09 08:45 | W.ED.CHESTPA ---
HPI - Chest Pain General: Chief Complaint: Chest Pain Stated Complaint: CHEST PAIN Time Seen by Provider: 07/09/24 08:17 History of Present Illness: 59-year-old male presents emergency room complaining of chest discomfort. Patient has intellectual disability/schizophrenia lives at a independent living home. No known history of coronary artery disease does have a history of reflux. He has not had previous evaluation for coronary artery disease. No fever sweats chills or cough. History is difficult due to the patient's baseline condition. Associated symptoms: Deny abdominal pain, dyspnea or fever(s) Related Data Home Medications Medication Instructions Recorded Confirmed cetirizine 10 mg tablet 10 mg PO DAILY@02/09/22 06/25/24 docusate sodium 100 mg capsule 100 mg PO DAILY@02/09/22 06/25/24 fluticasone propionate 50 1 spray intranasal DAILY@02/09/22 06/25/24 mcg/actuation nasal spray,suspension glucosamine sulf dipot 1 cap PO TID@12,16,02/09/22 06/25/24 chlr,msm,chond 550 mg-C 30 mg-junaid 1 mg capsule (Glucosamine Chondroitin) melatonin 5 mg tablet 5 - 15 mg PO BEDTIME@02/09/22 06/25/24 sodium chloride 0.65 % nasal spray 1 spray intranasal BID@02/09/22 06/25/24 aerosol (Deep Sea Nasal) loperamide 2 mg capsule 2 mg PO QID PRN Diarrhea 03/31/22 06/25/24 selenium sulfide 1 % shampoo See Rx Instructions .Route .COMPLEX 05/28/22 06/25/24 (Selsun Blue) celecoxib 200 mg capsule 200 mg PO DAILY 06/24/22 06/25/24 polyethylene glycol 3350 17 4 g PO DAILY 07/24/22 06/25/24 gram/dose oral powder (Gavilax) diclofenac sodium 1 % topical gel 1 g topical QID PRN Rash 09/19/22 06/25/24 vitamin with calcium 1 tab PO DAILY 09/19/22 06/25/24 no.72-iron 27 mg-folic acid 1 mg tablet (WesTab Plus) soft lens adjunctive solutions 12/10/22 06/25/24 (Sensitive Eyes drops) Orthotic toe sleeves Not Applicable 06/25/23 06/25/24 budesonide 180 mcg/actuation 1 inh inhalation BID 04/23/24 06/25/24 breath activated powder inhaler (Pulmicort Flexhaler) erythromycin 5 mg/gram (0.5 %) eye 0.5 inch ophthalmic (eye) TID 04/23/24 06/25/24 ointment (3.5 gram tube) magnesium hydroxide 400 mg/5 mL 30 ml PO DAILY PRN 04/23/24 06/25/24 oral suspension (Milk of Magnesia) Previous Rx's Medication Instructions Recorded accommodative orthotics with shoes #1 ea 07/30/22 acetaminophen 500 mg capsule 1,000 mg (2 x 500 mg) PO Q6H Foot 10/28/22 Pain 30 days #240 caps divalproex 500 mg tablet,delayed See Rx Instructions .Route 11/27/23 release .COMPLEX #60 tabs fluoxetine 40 mg capsule 40 mg PO DAILY #30 caps 11/27/23 haloperidol decanoate 100 mg/mL 100 mg IM Q30D #1 mL 11/27/23 intramuscular solution naltrexone 50 mg tablet 50 mg PO DAILY@1200 #30 tabs 11/27/23 quetiapine 400 mg tablet (Seroquel) 400 mg PO BEDTIME@20 #30 tabs 11/27/23 pantoprazole 40 mg tablet,delayed 40 mg PO BID 30 days #60 tabs 07/09/24 release Allergies Allergy/AdvReac Type Severity Reaction Status Date / Time No Known Allergies Allergy Verified 07/09/24 08:29 Review of Systems Const: Denies: fever(s) or chills Card: Denies: chest pain Resp: Denies: dyspnea GI: Denies: abdominal pain : Denies: dysuria, urinary frequency or urinary urgency Musc: Denies: neck pain or back pain Skin/Breast: Denies: rash PFSH ED PFSH: Medical History Seizure in childhood Meningitis Childhood Schizoaffective disorder Obsessive-compulsive disorder Major neurocognitive disorder due to multiple etiologies Psychiatric care Surgical History Hx of tonsillectomy Family History Other Heart disease Stroke Social History Smoking and tobacco/nicotine status: never used tobacco/nicotine Second hand smoke exposure: No Alcohol intake: never Substance/Drug Use: never Lives independently: No Housing: Other Details: Independent living center Physical Exam Const: GENERAL APPEARANCE: cooperative ORIENTATION/CONSCIOUSNESS: Yes awake, Yes oriented to person, Yes oriented to place and Yes oriented to time HENMT: COMMON NORMALS: normocephalic, atraumatic and hearing grossly normal bilaterally HEAD & SCALP: normocephalic and atraumatic Resp: COMMON NORMALS: normal respiratory effort, No retractions, No use of accessory muscles and clear to auscultation bilaterally AUSCULTATION: clear to auscultation bilaterally Cardio: COMMON NORMALS: regular rate, regular rhythm and No murmurs present (Cardio) RATE: regular rate RHYTHM: regular rhythm GI: COMMON NORMALS: Soft to palpation and No hepatosplenomegaly present AUSCULTATION: Yes normoactive bowel sounds PALPATION: Yes Soft to palpation, No Tenderness to palpation present (GI), No Guarding due to palpation present (GI) and Yes No hepatosplenomegaly present Extremity: COMMON NORMALS: normal to inspection, capillary refill normal, no clubbing, cyanosis or edema, no calf tenderness and no pedal edema Neuro: SENSORIUM/ORIENTATION: Yes oriented to person, Yes oriented to place and Yes oriented to time Skin: COMMON NORMALS: no rashes or lesions noted GENERAL SKIN EXAM: no rashes or lesions noted Course Vital Signs: Vital signs: Vital Signs Temperature 98.2 F 07/09/24 08:15 Pulse Rate 68 07/09/24 11:04 Respiratory Rate 14 07/09/24 11:04 Blood Pressure 132/83 07/09/24 11:04 Pulse Oximetry 97 07/09/24 11:04 Oxygen Delivery Me thod Room Air 07/09/24 10:30 MDM - Chest Pain Medical Decision Making Heart score of 1. EKG and cardiac enzymes are negative. Labs imaging and EKGs reviewed as found on the chart. Will discharge patient home suspect his symptoms are more GI related increase his pantoprazole to 40 twice daily for 10 days and then 40 once a day. Will set him up for an outpatient stress test as well. Lab Data 07/09/24 08:00 07/09/24 08:00 Radiology Impressions Chest X-Ray 07/09/24 08:35 Impression: Negative chest. Laboratory Results WBC 5.00 10^3/uL (3.29-11.43) 07/09/24 08:00 RBC 4.26 10^6/uL (3.85-5.65) 07/09/24 08:00 Hgb 13.50 g/dL (11.27-16.99) 07/09/24 08:00 Hct 39.9 % (37-53) 07/09/24 08:00 MCV 93.7 fl (82-101) 07/09/24 08:00 MCH 31.7 pg (27-33) 07/09/24 08:00 MCHC 33.8 g/dL (30-55) 07/09/24 08:00 RDW 11.9 % (12.1-15.1) L 07/09/24 08:00 Plt Count 264 10^3/cmm (157-399) 07/09/24 08:00 MPV 9.7 fL (7.4-10.4) 07/09/24 08:00 Neut % (Auto) 59.6 % 07/09/24 08:00 Lymph % (Auto) 30.0 % 07/09/24 08:00 [place] % (Auto) 8.4 % 07/09/24 08:00 Eos % (Auto) 1.0 % 07/09/24 08:00 Baso % (Auto) 0.6 % 07/09/24 08:00 Neut # (Auto) 2.98 10^3/uL (1.8-7.7) 07/09/24 08:00 Lymph # (Auto) 1.5 10^3/uL (0.8-4.8) 07/09/24 08:00 [place] # (Auto) 0.4 10^3/uL (0.2-0.9) 07/09/24 08:00 Eos # (Auto) 0.1 10^3/uL (0.0-0.8) 07/09/24 08:00 Baso # (Auto) 0.0 10^3/uL (0.0-0.1) 07/09/24 08:00 Nucleated RBC % (auto) 0 % 07/09/24 08:00 Nucleated RBCs # 0.0 /100WBC 07/09/24 08:00 Sodium 140 mmol/L (136-145) 07/09/24 08:00 Potassium 4.4 mmol/L (3.5-5.1) 07/09/24 08:00 Chloride 103 mmol/L (98-107) 07/09/24 08:00 Carbon Dioxide 26 mmol/L (22-29) 07/09/24 08:00 Anion Gap 15.4 (5-19) 07/09/24 08:00 BUN 13 mg/dL (8-23) 07/09/24 08:00 Creatinine 0.7 mg/dL (0.7-1.2) 07/09/24 08:00 GFR Calculation 115.0 mL/min (90-130) 07/09/24 08:00 Glucose 112 mg/dL (65-115) 07/09/24 08:00 Calculated Osmolality 291 mOsm/kg (285-295) 07/09/24 08:00 Calcium 9.2 mg/dL (8.5-10.5) 07/09/24 08:00 Total Bilirubin 0.4 mg/dL (0.15-1.2) 07/09/24 08:00 AST 21 U/L (0-40) 07/09/24 08:00 ALT 14 U/L (0-41) 07/09/24 08:00 Alkaline Phosphatase 66 U/L (40-130) 07/09/24 08:00 Troponin T Baseline 7 ng/L (0-15) 07/09/24 08:00 Troponin T 120 Minute 6.51 ng/L (0-15) 07/09/24 10:04 Delta Troponin T -0.49 ABS# (0-10) L 07/09/24 10:04 Total Protein 7.0 g/dL (6.6-8.7) 07/09/24 08:00 Albumin 4.6 g/dL (3.5-5.2) 07/09/24 08:00 Globulin 2.4 g/dL (1.3-4.6) 07/09/24 08:00 Lipase 41 U/L (13-60) 07/09/24 08:00 All radiology interpretation(s) finalized by discharge EKG Data EKG 1: Interpretation: EKG 07/09/2024 Sinus rhythm rate of 81 DC interval of 148. No acute ST changes noted. Unchanged from EKG 06/02/2023 Clincial Decision Support The following clinical decision support tools were used to aid in care of the patient HEART Score -> History: Slightly Suspicous, EKG: Normal, Age: 45-64 yrs, Risk Factors: No Risk Factors Known, Troponin: Baseline Trop <16 ng/L. Resulting HEART Score: 1. Discharge Plan Discharge Patient Disposition: Home Clinical Impression: Atypical chest pain, Chest pain due to gastrointestinal reflux disease Condition: Stable Prescriptions: New pantoprazole 40 mg tablet,delayed release (DR/EC) 40 mg PO BID 30 Days Qty: 60 0RF Rx Instructions: 1 p.o. twice daily 10 days then 1 p.o. daily Discontinued omeprazole 40 mg capsule,delayed release(DR/EC) 40 mg PO DAILY No Action polyethylene glycol 3350 [Gavilax] 17 gram/dose powder 4 g PO DAILY Orthotic toe sleeves Not Applicable haloperidol decanoate 100 mg/mL solution 100 mg IM ONCE Qty: 1 0RF celecoxib 200 mg capsule 200 mg PO DAILY (DME) accommodative orthotics with shoes See Rx Instructions .Route .MEDSUPPLY Qty: 1 0RF Rx Instructions: As directed by CAMPOS&O acetaminophen 500 mg capsule 1,000 mg PO Q6H 30 Days Qty: 240 2RF diclofenac sodium 1 % gel 1 g topical QID PRN (Reason: Rash) Rx Instructions: apply to single elbow, wrist or hand; for hand includes palm/fingers/back of hand WesTab Plus 27 mg iron- 1 mg tablet 1 tab PO DAILY (DME) Sensitive Eyes Drops See Rx Instructions .Route Rx Instructions: 4 gtt in each eye PRN. fluoxetine 40 mg capsule 40 mg PO DAILY Qty: 30 11RF haloperidol decanoate 100 mg/mL solution 100 mg IM Q30D Qty: 1 11RF naltrexone 50 mg tablet 50 mg PO DAILY@1200 Qty: 30 11RF quetiapine [Seroquel] 400 mg tablet 400 mg PO BEDTIME@20 Qty: 30 11RF divalproex 500 mg tablet,delayed release (DR/EC) See Rx Instructions .ROUTE .COMPLEX Qty: 60 11RF Rx Instructions: Take 2 tabs at night. magnesium hydroxide [Milk of Magnesia] 400 mg/5 mL suspension 30 ml PO DAILY PRN erythromycin 5 mg/gram (0.5 %) ointment 0.5 inch ophthalmic (eye) TID Pulmicort Flexhaler 180 mcg/actuation aerosol powdr breath activated 1 inh inhalation BID loperamide 2 mg Capsule 2 mg PO QID PRN (Reason: Diarrhea) Selsun Blue 1 % Shampoo See Rx Instructions .ROUTE .COMPLEX Rx Instructions: DIRECTED TWICE A WEEK cetirizine 10 mg Tablet 10 mg PO DAILY@12 docusate sodium 100 mg Capsule 100 mg PO DAILY@12 fluticasone propionate 50 mcg/actuation [place],Suspension 1 spray INTRANASAL DAILY@12 Rx Instructions: administer into each nostril Deep Sea Nasal 0.65 % Aerosol,[place] 1 spray INTRANASAL BID@12,20 melatonin 5 mg Tablet 5 - 15 mg PO BEDTIME@20 Glucosamine Chondroitin 550-30-1 mg Capsule 1 cap PO TID@12,16,20 Discharge Orders: Discharge ED (Routine); Ordered 07/09/24 Ordered By: David Colin Referrals: Jeanette Mccollum PA [Primary Care Provider] - Discharge Diet: As Directed Patient Instructions: Diet for Stomach Ulcers and Gastritis (ED), GERD (Gastroesophageal Reflux Disease) (ED), Opioid Safety, Pain Management Activity Restrictions/Additional Instructions: Thank you for choosing [facility] [place] for your healthcare needs today. It is very important that you follow up as instructed or that you return to the Emergency Department should you have concerns or if your condition changes or worsens in any way. You were seen in the emergency room with complaint of chest epigastric discomfort. Your EKGs and cardiac enzymes were negative. Recommend you stop the omeprazole and start pantoprazole 1 twice a day for 10 days then once daily thereafter. To complete the evaluation for your heart we will set up an outpatient Lexiscan sestamibi stress test. Coding Level of Care Code ED Mapping Supervisor for Naye Cantu
[2024-07-09] MEDS: lidocaine 2% viscous 15 ML, aluminum-mag hydrox-simethicon 30 ML, sucralfate oral liq 1 GM PO (08:50)
[2024-07-09 08:55] LABS: Troponin(5th) Baseline 7 ng/L (0-15)
[2024-07-09 08:57] LABS: Alanine Aminotransferase 14 U/L (0-41); Albumin Level 4.6 g/dL (3.5-5.2); Alkaline Phosphatase 66 U/L (40-130); Aspartate Amino Transferase 21 U/L (0-40); Blood Urea Nitrogen 13 mg/dL (8-23); Calcium 9.2 mg/dL (8.5-10.5); Carbon Dioxide 26 mmol/L (22-29); Chloride 103 mmol/L (98-107); Creatinine Clr Calc Pharmacy 124.0178; Globulin 2.4 g/dL (1.3-4.6); Glucose 112 mg/dL (65-115); Lipase 41 U/L (13-60); Osmolality Calculated 291 mOsm/kg (285-295); Sodium 140 mmol/L (136-145); Total Bilirubin 0.4 mg/dL (0.15-1.2)
[2024-07-09 09:00] VITALS: BP 116/72; PULSE 71; RESP 13; O2SAT 94
[2024-07-09 09:21] LABS: Anion Gap 15.4 (5-19); Potassium 4.4 mmol/L (3.5-5.1)
[2024-07-09 09:30] VITALS: BP 127/73; PULSE 67; RESP 16; O2SAT 95
[2024-07-09 10:28] LABS: Troponin 5 2HR 6.51 ng/L (0-15)
[2024-07-09 10:30] VITALS: BP 123/71; PULSE 70; RESP 14; O2SAT 96
[2024-07-09 10:36] LABS: Troponin 5 2HR Delta -0.49 ABS# (0-10)
--- NOTE | 2024-07-09 10:36 | ECG_ITS ---
[facility] Test Date: 2024-07-09 Pat Name: Serg Acosta Department: Room: Gender: Male Home Health Caregiver: : 1965 Requested By: David Vasquez Order Number: [id number] [place] MD: Jose Cerrato M.D. Measurements Intervals [place] Rate: 68 P: 56 MD: 141 QRS: 63 QRSD: 92 T: 54 QT: 395 QTc: 421 Interpretive Statements SINUS RHYTHM Compared to ECG 07/09/2024 08:20:11 T-wave abnormality no longer present Electronically Signed On 07-09-2024 11:29:39 CDT by Jose Cerrato M.D. [id number]
[2024-07-09 11:04] VITALS: BP 132/83; PULSE 68; RESP 14; O2SAT 97
== END 2024-07-09 11:04 | disposition home or self-care (01) ==
PROVIDERS: Emergency Provider Family Medicine; PCP Physician Assistant
DX: R07.89 Other chest pain (principal); K21.9 Gastro-esophageal reflux disease without esophagitis
CPT/HCPCS: 36415; 71045; 80053; 83690; 84484; 85025; 93005; 99285

== ENCOUNTER → 2024-07-14 14:30 | Outpatient (BNVA) | payer MEDICARE, MEDICAID, SELFPAY | PROVIDERS: PCP Physician Assistant; Visit Provider Podiatrist Foot & Ankle Surgery | DX: L60.3 Nail dystrophy (principal); I73.9 Peripheral vascular disease, unspecified; G62.9 Polyneuropathy, unspecified; L84 Corns and callosities | CPT/HCPCS: 11055; 11721 ==

== ENCOUNTER → 2024-10-12 13:58 | Outpatient (BNVA) | payer MEDICARE, MEDICAID, SELFPAY | PROVIDERS: PCP Physician Assistant; Visit Provider Podiatrist Foot & Ankle Surgery | DX: L60.3 Nail dystrophy (principal); I73.9 Peripheral vascular disease, unspecified; G62.9 Polyneuropathy, unspecified; L84 Corns and callosities; M19.071 Primary osteoarthritis, right ankle and foot | CPT/HCPCS: 11055; 11721; 99213 ==

== ENCOUNTER → 2025-01-03 15:36 | Outpatient (BNVA) | payer MEDICARE, MEDICAID, SELFPAY | PROVIDERS: PCP Physician Assistant; Visit Provider Podiatrist Foot & Ankle Surgery | DX: I73.9 Peripheral vascular disease, unspecified (principal); L60.3 Nail dystrophy; L84 Corns and callosities; G62.9 Polyneuropathy, unspecified; M19.071 Primary osteoarthritis, right ankle and foot | CPT/HCPCS: 11055; 11721; 99213 ==

== ENCOUNTER 2025-01-07 15:02 | Emergency (ER) | payer MEDICARE, MEDICAID, SELFPAY ==
[2025-01-07 15:12] VITALS: BP 139/84; PULSE 75; RESP 15; TEMP 37.1; O2SAT 97; BMI 22.7
--- NOTE | 2025-01-07 15:16 | ECG_ITS ---
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
[2025-01-07 15:37] LABS: Basophils % 0.3 %; Eosinophils % 0.1 %; Hematocrit 40.4 % (37-53); Lymphocytes # 1.3 10^3/uL (0.8-4.8); Lymphocytes % 17.1 %; Mean Corpuscular HGB Conc 33.7 g/dL (30-55); Mean Corpuscular Hemoglobin 32.6 pg (27-33); Mean Corpuscular Volume 96.9 fl (82-101); Mean Platelet Volume 11.7 fL (7.4-10.4); Monocytes # 0.6 10^3/uL (0.2-0.9); Nucleated Red Blood Cells % 0 %; Platelet Count 219 10^3/cmm (157-399); Red Blood Count 4.17 10^6/uL (3.85-5.65); Red Cell Distribution Width 11.9 % (12.1-15.1); White Blood Count 7.71 10^3/uL (3.29-11.43)
--- NOTE | 2025-01-07 15:52 | PC.PHAR ---
Pt is still from [facility].01/07/25-guardian in room has list.
--- NOTE | 2025-01-07 15:59 | W.ED.DIZZY ---
Documented by User: David Colin DO 01/08/25 07:13 HPI - Dizziness General: Chief Complaint: Dizziness Stated Complaint: htn, dizziness Time Seen by Provider: 01/07/25 15:15 History of Present Illness: HPI Narrative: 59-year-old male presents to the emergency room with report of dizziness for at least the last 3 days she has had this in the past. No vomiting. He has been able to ambulate without difficulty. His blood pressure reported at home was greater than 200 systolic. He is not nearly that high here blood pressures monitor vitals reviewed. He was seen yesterday by his primary care doctor with similar symptoms. Associated symptoms: Denies chest pain or chills Related Data Home Medications ?Medication ?Instructions ?Recorded ?Confirmed cetirizine 10 mg tablet 10 mg PO QAM 02/09/22 01/07/25 docusate sodium 100 mg capsule 100 mg PO QAM 02/09/22 01/07/25 fluticasone propionate 50 1 spray intranasal QAM 02/09/22 01/07/25 mcg/actuation nasal spray,suspension glucosamine sulf dipot 1 cap PO TID@12,16,20 02/09/22 01/07/25 chlr,msm,chond 550 mg-C 30 mg-junaid 1 mg capsule (Glucosamine Chondroitin) melatonin 5 mg tablet 5 - 15 mg PO BEDTIME@20 02/09/22 01/07/25 sodium chloride 0.65 % nasal spray 1 spray intranasal BID@12,20 02/09/22 01/07/25 aerosol (Deep Sea Nasal) loperamide 2 mg capsule 2 mg PO QID PRN Diarrhea 03/31/22 01/07/25 selenium sulfide 1 % shampoo See Rx Instructions .Route .COMPLEX 05/28/22 01/07/25 (Selsun Blue) celecoxib 200 mg capsule 200 mg PO QAM 06/24/22 01/07/25 polyethylene glycol 3350 17 17 g PO DAILY 07/24/22 01/07/25 gram/dose oral powder (Gavilax) vitamin with calcium 1 tab PO QAM 09/19/22 01/07/25 no.72-iron 27 mg-folic acid 1 mg tablet (WesTab Plus) soft lens adjunctive solutions 12/10/22 01/07/25 (Sensitive Eyes drops) budesonide 180 mcg/actuation 1 inh inhalation BID 04/23/24 01/07/25 breath activated powder inhaler (Pulmicort Flexhaler) magnesium hydroxide 400 mg/5 mL 30 ml PO DAILY PRN Constipation 04/23/24 01/07/25 oral suspension (Milk of Magnesia) acetaminophen 500 mg capsule 1,000 mg PO Q6H PRN Pain 01/07/25 01/07/25 divalproex 500 mg tablet,delayed 1,000 mg PO BEDTIME 01/07/25 01/07/25 release fluoxetine 40 mg capsule 40 mg PO QAM 01/07/25 01/07/25 Previous Rx's ?Medication ?Instructions ?Recorded accommodative orthotics with shoes #1 ea 07/30/22 diclofenac sodium 1 % topical gel 1 g topical BID PRN pain #100 grams 10/12/24 quetiapine 400 mg tablet (Seroquel) 400 mg PO BEDTIME@20 #30 tabs 12/01/24 naltrexone 50 mg tablet 50 mg PO DAILY@1200 #30 tabs 12/09/24 meclizine 25 mg tablet 25 mg PO QID PRN dizziness #30 tabs 01/07/25 Allergies Allergy/AdvReac Type Severity Reaction Status Date / Time No Known Allergies Allergy Verified 01/03/25 15:40 Review of Systems Const: Denies: fever(s) or chills Card: Denies: chest pain Resp: Denies: dyspnea GI: Denies: abdominal pain : Denies: dysuria, urinary frequency or urinary urgency Musc: Denies: neck pain or back pain Skin/Breast: Denies: rash Neuro: Reports: dizziness PFSH ED PFSH: Medical History Seizure in childhood Meningitis Childhood Schizoaffective disorder Obsessive-compulsive disorder Major neurocognitive disorder due to multiple etiologies Psychiatric care Surgical History Hx of tonsillectomy Family History Other Heart disease Stroke Social History Smoking and tobacco/nicotine status: never used tobacco/nicotine Second hand smoke exposure: No Alcohol intake: never Substance/Drug Use: never Lives independently: No Housing: Other Details: Independent living center Physical Exam Const: GENERAL APPEARANCE: cooperative ORIENTATION/CONSCIOUSNESS: Yes awake HENMT: COMMON NORMALS: normocephalic, atraumatic and hearing grossly normal bilaterally HEAD & SCALP: normocephalic and atraumatic Resp: COMMON NORMALS: normal respiratory effort, No retractions, No use of accessory muscles and clear to auscultation bilaterally AUSCULTATION: clear to auscultation bilaterally Cardio: COMMON NORMALS: regular rate, regular rhythm and No murmurs present (Cardio) RATE: regular rate RHYTHM: regular rhythm GI: COMMON NORMALS: Soft to palpation and No hepatosplenomegaly present AUSCULTATION: Yes normoactive bowel sounds PALPATION: Yes Soft to palpation, No Tenderness to palpation present (GI), No Guarding due to palpation present (GI) and Yes No hepatosplenomegaly present Extremity: COMMON NORMALS: normal to inspection, capillary refill normal, no clubbing, cyanosis or edema, no calf tenderness and no pedal edema Neuro: OTHER: Neuroexam unremarkable. Abbreviated nesters no significant findings no facial asymmetry no sensation abnormalities good strength in all extremities no ataxia. Skin: COMMON NORMALS: no rashes or lesions noted GENERAL SKIN EXAM: no rashes or lesions noted Course Vital Signs: Vital signs: Vital Signs Temperature 98.8 F 01/07/25 15:12 Pulse Rate 81 01/07/25 19:29 Respiratory Rate 16 01/07/25 19:29 Blood Pressure 135/84 01/07/25 19:29 Pulse Oximetry 94 01/07/25 19:29 Oxygen Delivery Me thod Room Air 01/07/25 15:12 MDM - Dizziness Medical Decision Making Patient has had symptoms for several days now. He is still able to ambulate. I do not believe he has an acute CVA. Labs pending. Signout hold Care transferred over to myself at shift change, lab work was reviewed as well as chest x-ray, all essentially benign. Patient did get a GI cocktail. It is felt patient probably has a labyrinthitis patient will be tried on meclizine and discharged home. Lab Data 01/07/25 15:22 01/07/25 16:54 Radiology Impressions Chest X-Ray 01/07/25 16:41 IMPRESSION: No acute findings. Laboratory Results WBC 7.71 10^3/uL (3.29-11.43) 01/07/25 15:22 RBC 4.17 10^6/uL (3.85-5.65) 01/07/25 15:22 Hgb 13.60 g/dL (11.27-16.99) 01/07/25 15:22 Hct 40.4 % (37-53) 01/07/25 15:22 MCV 96.9 fl (82-101) 01/07/25 15:22 MCH 32.6 pg (27-33) 01/07/25 15:22 MCHC 33.7 g/dL (30-55) 01/07/25 15:22 RDW 11.9 % (12.1-15.1) L 01/07/25 15:22 Plt Count 219 10^3/cmm (157-399) 01/07/25 15:22 MPV 11.7 fL (7.4-10.4) H 01/07/25 15:22 Neut % (Auto) 74.0 % 01/07/25 15:22 Lymph % (Auto) 17.1 % 01/07/25 15:22 Letcher % (Auto) 8.0 % 01/07/25 15:22 Eos % (Auto) 0.1 % 01/07/25 15:22 Baso % (Auto) 0.3 % 01/07/25 15:22 Neut # (Auto) 5.70 10^3/uL (1.8-7.7) 01/07/25 15:22 Lymph # (Auto) 1.3 10^3/uL (0.8-4.8) 01/07/25 15:22 [place] # (Auto) 0.6 10^3/uL (0.2-0.9) 01/07/25 15:22 Eos # (Auto) 0.0 10^3/uL (0.0-0.8) 01/07/25 15:22 Baso # (Auto) 0.0 10^3/uL (0.0-0.1) 01/07/25 15:22 Nucleated RBC % (auto) 0 % 01/07/25 15:22 Nucleated RBCs # 0.0 /100WBC 01/07/25 15:22 Sodium 141 mmol/L (136-145) 01/07/25 16:54 Potassium 4.1 mmol/L (3.5-5.1) 01/07/25 16:54 Chloride 104 mmol/L (98-107) 01/07/25 16:54 Carbon Dioxide 26 mmol/L (22-29) 01/07/25 16:54 Anion Gap 15.1 (5-19) 01/07/25 16:54 BUN 15 mg/dL (8-23) 01/07/25 16:54 Creatinine 0.6 mg/dL (0.7-1.2) L 01/07/25 16:54 GFR Calculation 137.4 mL/min (90-130) H 01/07/25 16:54 Glucose 109 mg/dL (65-115) 01/07/25 16:54 Calculated Osmolality 293 mOsm/kg (285-295) 01/07/25 16:54 Calcium 9.4 mg/dL (8.5-10.5) 01/07/25 16:54 Total Bilirubin 0.2 mg/dL (0.15-1.2) 01/07/25 16:54 AST 19 U/L (0-40) 01/07/25 16:54 ALT 17 U/L (0-41) 01/07/25 16:54 Alkaline Phosphatase 73 U/L (40-130) 01/07/25 16:54 Total Protein 7.0 g/dL (6.6-8.7) 01/07/25 16:54 Albumin 4.5 g/dL (3.5-5.2) 01/07/25 16:54 Globulin 2.5 g/dL (1.3-4.6) 01/07/25 16:54 Discharge Plan Discharge Patient Disposition: Home Clinical Impression: Vertigo Labyrinthitis Qualifiers: Laterality: unspecified laterality Qualified Code(s): H83.09 - Labyrinthitis, unspecified ear Condition: Stable Prescriptions: New meclizine 25 mg tablet 25 mg PO QID PRN (Reason: dizziness) Qty: 30 0RF No Action polyethylene glycol 3350 [Gavilax] 17 gram/dose powder 17 g PO DAILY haloperidol decanoate 100 mg/mL solution 100 mg IM ONCE Qty: 1 0RF diclofenac sodium 1 % gel 1 g topical BID PRN (Reason: pain) Qty: 100 0RF celecoxib 200 mg capsule 200 mg PO QAM (DME) accommodative orthotics with shoes See Rx Instructions .Route .MEDSUPPLY Qty: 1 0RF Rx Instructions: As directed by CAMPOS&O WesTab Plus 27 mg iron- 1 mg tablet 1 tab PO QAM (DME) Sensitive Eyes Drops See Rx Instructions .Route Rx Instructions: 4 gtt in each eye PRN. magnesium hydroxide [Milk of Magnesia] 400 mg/5 mL suspension 30 ml PO DAILY PRN (Reason: Constipation) Pulmicort Flexhaler 180 mcg/actuation aerosol powdr breath activated 1 inh inhalation BID quetiapine [Seroquel] 400 mg tablet 400 mg PO BEDTIME@20 Qty: 30 11RF naltrexone 50 mg tablet 50 mg PO DAILY@1200 Qty: 30 11RF loperamide 2 mg Capsule 2 mg PO QID PRN (Reason: Diarrhea) Selsun Blue 1 % Shampoo See Rx Instructions .ROUTE .COMPLEX Rx Instructions: DIRECTED TWICE A WEEK cetirizine 10 mg Tablet 10 mg PO QAM docusate sodium 100 mg Capsule 100 mg PO QAM fluticasone propionate 50 mcg/actuation [place],Suspension 1 spray INTRANASAL QAM Rx Instructions: administer into each nostril Deep Sea Nasal 0.65 % Aerosol,[place] 1 spray INTRANASAL BID@12,20 melatonin 5 mg Tablet 5 - 15 mg PO BEDTIME@20 Glucosamine Chondroitin 550-30-1 mg Capsule 1 cap PO TID@12,16,20 fluoxetine 40 mg capsule 40 mg PO QAM divalproex 500 mg tablet,delayed release (DR/EC) 1,000 mg PO BEDTIME acetaminophen 500 mg capsule 1,000 mg PO Q6H PRN (Reason: Pain) Discharge Orders: Discharge ED (Routine); Ordered 01/07/25 Ordered By: Luis Fernando Anaya Referrals: Jeanette Mccollum PA [Primary Care Provider] - 1 week Patient Instructions: Vertigo (ED) Activity Restrictions/Additional Instructions: Activity restrictions/additional instructions: Thank you for choosing [facility] for your healthcare needs today. Please realize that you were seen in the emergency department and that we are providing you with an emergency medical screening exam and this may not be a complete and all exclusive of all testing and/or medical workup we may need to determine your element or severity of your illness. It is very important that you follow-up as instructed with your primary care provider or specialist for the additional evaluation and to discuss your medical treatment plan. You may return to the emergency department should you have concerns or if your condition changes or worsens in any way. 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 [place] is [place] his caregivers with him. Patient saw his PCP for this yesterday. We do not have any access to these records. Caregiver says patient's blood pressure has been elevated also 2. Related Data Home Medications ?Medication ?Instructions ?Recorded ?Confirmed cetirizine 10 mg tablet 10 mg PO QAM 02/09/22 01/07/25 docusate sodium 100 mg capsule 100 mg PO QAM 02/09/22 01/07/25 fluticasone propionate 50 1 spray intranasal QAM 02/09/22 01/07/25 mcg/actuation nasal spray,suspension glucosamine sulf dipot 1 cap PO TID@12,16,02/09/22 01/07/25 chlr,msm,chond 550 mg-C 30 mg-junaid 1 mg capsule (Glucosamine Chondroitin) melatonin 5 mg tablet 5 - 15 mg PO BEDTIME@02/09/22 01/07/25 sodium chloride 0.65 % nasal spray 1 spray intranasal BID@,02/09/22 01/07/25 aerosol (Deep Sea Nasal) loperamide 2 mg capsule 2 mg PO QID PRN Diarrhea 03/31/22 01/07/25 selenium sulfide 1 % shampoo See Rx Instructions .Route .COMPLEX 05/28/22 01/07/25 (Selsun Blue) celecoxib 200 mg capsule 200 mg PO QAM 06/24/22 01/07/25 polyethylene glycol 3350 17 17 g PO DAILY 07/24/22 01/07/25 gram/dose oral powder (Gavilax) vitamin with calcium 1 tab PO QAM 09/19/22 01/07/25 no.72-iron 27 mg-folic acid 1 mg tablet (WesTab Plus) soft lens adjunctive solutions 12/10/22 01/07/25 (Sensitive Eyes drops) budesonide 180 mcg/actuation 1 inh inhalation BID 04/23/24 01/07/25 breath activated powder inhaler (Pulmicort Flexhaler) magnesium hydroxide 400 mg/5 mL 30 ml PO DAILY PRN Constipation 04/23/24 01/07/25 oral suspension (Milk of Magnesia) acetaminophen 500 mg capsule 1,000 mg PO Q6H PRN Pain 01/07/25 01/07/25 divalproex 500 mg tablet,delayed 1,000 mg PO BEDTIME 01/07/25 01/07/25 release fluoxetine 40 mg capsule 40 mg PO QAM 01/07/25 01/07/25 Previous Rx's ?Medication ?Instructions ?Recorded accommodative orthotics with shoes #1 ea 07/30/22 diclofenac sodium 1 % topical gel 1 g topical BID PRN pain #100 grams 10/12/24 quetiapine 400 mg tablet (Seroquel) 400 mg PO BEDTIME@20 #30 tabs 12/01/24 naltrexone 50 mg tablet 50 mg PO DAILY@1200 #30 tabs 12/09/24 meclizine 25 mg tablet 25 mg PO QID PRN dizziness #30 tabs 01/07/25 Allergies Allergy/AdvReac Type Severity Reaction Status Date / Time No Known Allergies Allergy Verified 01/03/25 15:40 [facility] ED PFS: Medical History Seizure in childhood Meningitis Childhood Schizoaffective disorder Obsessive-compulsive disorder Major neurocognitive disorder due to multiple etiologies Psychiatric care Surgical History Hx of tonsillectomy Family History Other Heart disease Stroke Social History Smoking and tobacco/nicotine status: never used tobacco/nicotine Second hand smoke exposure: No Alcohol intake: never Substance/Drug Use: never Lives independently: No Housing: Other Details: Independent living center Course Vital Signs: Vital signs: Vital Signs Temperature 98.8 F 01/07/25 15:12 Pulse Rate 81 01/07/25 19:29 Respiratory Rate 16 01/07/25 19:29 Blood Pressure 135/84 01/07/25 19:29 Pulse Oximetry 94 01/07/25 19:29 Oxygen Delivery Me thod Room Air 01/07/25 15:12 MDM - Dizziness Medical Decision Making Care transferred over to myself at shift change, lab work was reviewed as well as chest x-ray, all essentially benign. Patient did get a GI cocktail. It is felt patient probably has a labyrinthitis patient will be tried on meclizine and discharged home. Medical Records I reviewed the patient's medical records. Lab Data I reviewed the patient's lab results. 01/07/25 15:22 01/07/25 16:54 Radiology Impressions Chest X-Ray 01/07/25 16:41 IMPRESSION: No acute findings. Laboratory Results WBC 7.71 10^3/uL (3.29-11.43) 01/07/25 15:22 RBC 4.17 10^6/uL (3.85-5.65) 01/07/25 15:22 Hgb 13.60 g/dL (11.27-16.99) 01/07/25 15:22 Hct 40.4 % (37-53) 01/07/25 15:22 MCV 96.9 fl (82-101) 01/07/25 15:22 MCH 32.6 pg (27-33) 01/07/25 15:22 MCHC 33.7 g/dL (30-55) 01/07/25 15:22 RDW 11.9 % (12.1-15.1) L 01/07/25 15:22 Plt Count 219 10^3/cmm (157-399) 01/07/25 15:22 MPV 11.7 fL (7.4-10.4) H 01/07/25 15:22 Neut % (Auto) 74.0 % 01/07/25 15:22 Lymph % (Auto) 17.1 % 01/07/25 15:22 Letcher % (Auto) 8.0 % 01/07/25 15:22 Eos % (Auto) 0.1 % 01/07/25 15:22 Baso % (Auto) 0.3 % 01/07/25 15:22 Neut # (Auto) 5.70 10^3/uL (1.8-7.7) 01/07/25 15:22 Lymph # (Auto) 1.3 10^3/uL (0.8-4.8) 01/07/25 15:22 [place] # (Auto) 0.6 10^3/uL (0.2-0.9) 01/07/25 15:22 Eos # (Auto) 0.0 10^3/uL (0.0-0.8) 01/07/25 15:22 Baso # (Auto) 0.0 10^3/uL (0.0-0.1) 01/07/25 15:22 Nucleated RBC % (auto) 0 % 01/07/25 15: Nucleated RBCs # 0.0 /100WBC 01/07/25 15:22 Sodium 141 mmol/L (136-145) 01/07/25 16:54 Potassium 4.1 mmol/L (3.5-5.1) 01/07/25 16:54 Chloride 104 mmol/L (98-107) 01/07/25 16:54 Carbon Dioxide 26 mmol/L (22-29) 01/07/25 16:54 Anion Gap 15.1 (5-19) 01/07/25 16:54 BUN 15 mg/dL (8-23) 01/07/25 16:54 Creatinine 0.6 mg/dL (0.7-1.2) L 01/07/25 16:54 GFR Calculation 137.4 mL/min (90-130) H 01/07/25 16:54 Glucose 109 mg/dL (65-115) 01/07/25 16:54 Calculated Osmolality 293 mOsm/kg (285-295) 01/07/25 16:54 Calcium 9.4 mg/dL (8.5-10.5) 01/07/25 16:54 Total Bilirubin 0.2 mg/dL (0.15-1.2) 01/07/25 16:54 AST 19 U/L (0-40) 01/07/25 16:54 ALT 17 U/L (0-41) 01/07/25 16:54 Alkaline Phosphatase 73 U/L (40-130) 01/07/25 16:54 Total Protein 7.0 g/dL (6.6-8.7) 01/07/25 16:54 Albumin 4.5 g/dL (3.5-5.2) 01/07/25 16:54 Globulin 2.5 g/dL (1.3-4.6) 01/07/25 16:54 All radiology interpretation(s) finalized by discharge Discharge Plan Discharge Patient Disposition: Home Clinical Impression: Vertigo Labyrinthitis Qualifiers: Laterality: unspecified laterality Qualified Code(s): H83.09 - Labyrinthitis, unspecified ear Condition: Stable Prescriptions: New meclizine 25 mg tablet 25 mg PO QID PRN (Reason: dizziness) Qty: 30 0RF No Action polyethylene glycol 3350 [Gavilax] 17 gram/dose powder 17 g PO DAILY haloperidol decanoate 100 mg/mL solution 100 mg IM ONCE Qty: 1 0RF diclofenac sodium 1 % gel 1 g topical BID PRN (Reason: pain) Qty: 100 0RF celecoxib 200 mg capsule 200 mg PO QAM (DME) accommodative orthotics with shoes See Rx Instructions .Route .MEDSUPPLY Qty: 1 0RF Rx Instructions: As directed by CAMPOS&O WesTab Plus 27 mg iron- 1 mg tablet 1 tab PO QAM (DME) Sensitive Eyes Drops See Rx Instructions .Route Rx Instructions: 4 gtt in each eye PRN. magnesium hydroxide [Milk of Magnesia] 400 mg/5 mL suspension 30 ml PO DAILY PRN (Reason: Constipation) Pulmicort Flexhaler 180 mcg/actuation aerosol powdr breath activated 1 inh inhalation BID quetiapine [Seroquel] 400 mg tablet 400 mg PO BEDTIME@20 Qty: 30 11RF naltrexone 50 mg tablet 50 mg PO DAILY@1200 Qty: 30 11RF loperamide 2 mg Capsule 2 mg PO QID PRN (Reason: Diarrhea) Selsun Blue 1 % Shampoo See Rx Instructions .ROUTE .COMPLEX Rx Instructions: DIRECTED TWICE A WEEK cetirizine 10 mg Tablet 10 mg PO QAM docusate sodium 100 mg Capsule 100 mg PO QAM fluticasone propionate 50 mcg/actuation [place],Suspension 1 spray INTRANASAL QAM Rx Instructions: administer into each nostril Deep Sea Nasal 0.65 % Aerosol,[place] 1 spray INTRANASAL BID@12,20 melatonin 5 mg Tablet 5 - 15 mg PO BEDTIME@20 Glucosamine Chondroitin 550-30-1 mg Capsule 1 cap PO TID@12,16,20 fluoxetine 40 mg capsule 40 mg PO QAM divalproex 500 mg tablet,delayed release (DR/EC) 1,000 mg PO BEDTIME acetaminophen 500 mg capsule 1,000 mg PO Q6H PRN (Reason: Pain) Discharge Orders: Discharge ED (Routine); Ordered 01/07/25 Ordered By: Luis Fernando Anaya Referrals: Jeanette Mccollum PA [Primary Care Provider] - 1 week Patient Instructions: Vertigo (ED) Activity Restrictions/Additional Instructions: Activity restrictions/additional instructions: Thank you for choosing [facility] for your healthcare needs today. Please realize that you were seen in the emergency department and that we are providing you with an emergency medical screening exam and this may not be a complete and all exclusive of all testing and/or medical workup we may need to determine your element or severity of your illness. It is very important that you follow-up as instructed with your primary care provider or specialist for the additional evaluation and to discuss your medical treatment plan. You may return to the emergency department should you have concerns or if your condition changes or worsens in any way. Print Language: [place]se Coding Level of Care Code ED Logistics And Planning Manager for Naye Cantu
--- NOTE | 2025-01-07 16:41 | XRR_ITS ---
PROCEDURE INFORMATION: Exam: XR Chest Exam date and time: 01/07/2025 4:46 PM Age: 59 years old Clinical indication: Other: Dizziness, elevated blood pressure; Additional info: Dizziness elevated blood pressure TECHNIQUE: Imaging protocol: Radiologic exam of the chest. Views: 1 view. COMPARISON: CR XR chest 1V portable [id number] 07/09/2024 8:42 AM FINDINGS: Lungs: Unremarkable. No consolidation. Pleural spaces: Unremarkable. No pleural effusion. No pneumothorax. Heart/Mediastinum: Unremarkable. No cardiomegaly. Bones/joints: No acute abnormality. Multiple unchanged old right rib fractures. XR/XR chest 1V portable [id number] IMPRESSION: No acute findings.
[2025-01-07 17:33] LABS: Alanine Aminotransferase 17 U/L (0-41); Albumin Level 4.5 g/dL (3.5-5.2); Alkaline Phosphatase 73 U/L (40-130); Aspartate Amino Transferase 19 U/L (0-40); Chloride 104 mmol/L (98-107); Globulin 2.5 g/dL (1.3-4.6); Glucose 109 mg/dL (65-115); Potassium 4.1 mmol/L (3.5-5.1); Sodium 141 mmol/L (136-145)
[2025-01-07 18:08] LABS: Anion Gap 15.1 (5-19); Blood Urea Nitrogen 15 mg/dL (8-23); Calcium 9.4 mg/dL (8.5-10.5); Carbon Dioxide 26 mmol/L (22-29); Creatinine Clr Calc Pharmacy 138.4341; Glomerular Filtration Rate 137.4 mL/min (90-130); Osmolality Calculated 293 mOsm/kg (285-295); Total Bilirubin 0.2 mg/dL (0.15-1.2)
[2025-01-07] MEDS: lidocaine 2% viscous 15 ML, aluminum-mag hydrox-simethicon 30 ML, sucralfate oral liq 1 GM PO (18:37)
[2025-01-07 18:44] VITALS: BP 162/78; PULSE 69; RESP 18; O2SAT 95
[2025-01-07 19:19] VITALS: BP 135/84; PULSE 69; RESP 16; O2SAT 94
[2025-01-07] MEDS: meclizine 25 mg tablet 50 MG PO (19:24)
[2025-01-07 19:29] VITALS: BP 135/84; PULSE 81; RESP 16; O2SAT 94
== END 2025-01-07 19:29 | disposition home or self-care (01) ==
PROVIDERS: Emergency Provider Family Medicine; PCP Physician Assistant
DX: R42 Dizziness and giddiness (principal); H83.09 Labyrinthitis, unspecified ear
CPT/HCPCS: 36415; 71045; 80053; 85025; 93005; 99285; J8597

== ENCOUNTER 2025-02-15 16:03 | Emergency (ER) | payer MEDICARE, MEDICAID, SELFPAY ==
[2025-02-15 16:10] VITALS: BP 149/89; PULSE 70; RESP 18; TEMP 36.4; O2SAT 97; BMI 23.7
--- NOTE | 2025-02-15 16:11 | ECG_ITS ---
[facility]: 2025-02[facility]15 Pat Name: Serg Acosta Department: Room: Gender: Male Nursing Educator: : 1965 Requested By: Aby Haro Order Number: [id number] Reading MD: Measurements Intervals [place] Rate: 68 P: 57 [place]: 145 QRS: 62 QRSD: 98 T: 47 QT: 387 QTc: 413 Interpretive Statements SINUS RHYTHM No previous ECG available for comparison [email or web address]
--- NOTE | 2025-02-15 16:11 | XRR_ITS ---
PROCEDURE INFORMATION: Exam: XR Chest Exam date and time: 02/15/2025 4:13 PM Age: 59 years old Clinical indication: Pain; Angina pectoris; Additional info: Cp TECHNIQUE: Imaging protocol: Radiologic exam of the chest. Views: 1 view. COMPARISON: CR XR chest 1V portable [id number] 01/07/2025 4:46 PM FINDINGS: Lungs: Unremarkable. No consolidation. Pleural spaces: Unremarkable. No pleural effusion. No pneumothorax. Heart/Mediastinum: Stable cardiomediastinal silhouette. Vasculature: Atherosclerotic aortic calcifications. Bones/joints: Old right posterior rib fractures. XR/XR chest 1V portable [id number] IMPRESSION: No acute cardiopulmonary findings.
--- NOTE | 2025-02-15 16:18 | W.ED.CHESTPA ---
HPI - Chest Pain General: Chief Complaint: Chest Pain Stated Complaint: Chest pain, SOB Time Seen by Provider: 02/15/25 16:10 Source: patient and EMS Mode of arrival: EMS History of Present Illness: 59-year-old male is here from [facility] states has been having sharp chest pain throughout the day states it has been worse with palpation and with deep breath mild dyspnea denies any cough denies any fever has had no vomiting abdominal pain. Rates his pain 3 out of 10 currently Associated symptoms: Reports dyspnea; Deny abdominal pain, fever(s), nausea or vomiting Related Data Home Medications ?Medication ?Instructions ?Recorded ?Confirmed cetirizine 10 mg tablet 10 mg PO QAM 02/09/22 02/15/25 fluticasone propionate 50 1 spray intranasal QA 02/09/22 02/15/25 mcg/actuation nasal spray,suspension melatonin 5 mg tablet 5 - 15 mg PO BEDTIME@20 02/09/22 02/15/25 celecoxib 200 mg capsule 200 mg PO QAM 06/24/22 02/15/25 vitamin with calcium 1 tab PO QAM 09/19/22 02/15/25 no.72-iron 27 mg-folic acid 1 mg tablet (WesTab Plus) budesonide 180 mcg/actuation 1 inh inhalation BID 04/23/24 02/15/25 breath activated powder inhaler (Pulmicort Flexhaler) acetaminophen 500 mg capsule 1,000 mg PO Q6H PRN Pain 01/07/25 02/15/25 divalproex 500 mg tablet,delayed 1,000 mg PO BEDTIME 01/07/25 02/15/25 release fluoxetine 40 mg capsule 40 mg PO QAM 01/07/25 02/15/25 docusate sodium 100 mg capsule 100 mg PO DAILY 02/15/25 02/15/25 Previous Rx's ?Medication ?Instructions ?Recorded quetiapine 400 mg tablet (Seroquel) 400 mg PO BEDTIME@20 #30 tabs 12/01/24 naltrexone 50 mg tablet 50 mg PO DAILY@1200 #30 tabs 12/09/24 meclizine 25 mg tablet 25 mg PO QID PRN dizziness #30 tabs 01/07/25 Allergies Allergy/AdvReac Type Severity Reaction Status Date / Time No Known Allergies Allergy Verified 02/15/25 16:13 Review of Systems Const: Denies: fever(s), chills, body aches or change in appetite Eyes: Denies: eye discomfort ENMT: Denies: throat pain or dental pain Card: Reports: chest pain Resp: Reports: dyspnea GI: Denies: abdominal pain, nausea, vomiting or diarrhea Musc: Denies: neck pain or back pain Skin/Breast: Denies: rash Neuro: Denies: headache(s) PFSH ED PFSH: Medical History Seizure in childhood Meningitis Childhood Schizoaffective disorder Obsessive-compulsive disorder Major neurocognitive disorder due to multiple etiologies Psychiatric care Surgical History Hx of tonsillectomy Family History Other Heart disease Stroke Social History Smoking and tobacco/nicotine status: never used tobacco/nicotine Second hand smoke exposure: No Alcohol intake: never Substance/Drug Use: never Lives independently: No Housing: Other Details: Independent living center Physical Exam Const: COMMON NORMALS: no acute distress, patient oriented x3 and healthy appearing HENMT: COMMON NORMALS: normocephalic and atraumatic HEAD & SCALP: normocephalic and atraumatic Eye: COMMON NORMALS: conjunctivae normal CONJUNCTIVA: Yes conjunctivae normal Neck/C-Spine: COMMON NORMALS: full ROM and supple Chest: COMMONS NORMALS: normal inspection of the chest OTHER: point tender in center of chest Resp: COMMON NORMALS: normal respiratory effort, No retractions, No use of accessory muscles and clear to auscultation bilaterally AUSCULTATION: clear to auscultation bilaterally Cardio: COMMON NORMALS: regular rate, regular rhythm and No murmurs present (Cardio) RATE: regular rate RHYTHM: regular rhythm GI: COMMON NORMALS: Normal to inspection, nondistended, normoactive bowel sounds present, Soft to palpation, non-tender and no masses PALPATION: Yes Soft to palpation Extremity: COMMON NORMALS: normal to inspection and full ROM Neuro: COMMON NORMALS: patient oriented x3, moves all extremities and no focal motor deficits Psych: COMMON NORMALS: mental status grossly normal, Normal thought process present and cooperative THOUGHT PROCESS: Normal thought process present Skin: COMMON NORMALS: no rashes or lesions noted and no wounds GENERAL SKIN EXAM: no rashes or lesions noted Course Vital Signs: Vital signs: Vital Signs Temperature 97.6 F 02/15/25 16:10 Pulse Rate 66 02/15/25 18:21 Respiratory Rate 16 02/15/25 18:21 Blood Pressure 161/84 02/15/25 18:21 Pulse Oximetry 93 02/15/25 18:21 Oxygen Delivery Me thod Room Air 02/15/25 18:21 MDM - Chest Pain Medical Decision Making Patient presents here with chest pain atypical in nature has been well-appearing here and pain-free currently troponins CT are normal no signs ACS he stable for discharge follow-up with PCP return if worsening. Medical Records I reviewed the patient's medical records. Lab Data I reviewed the patient's lab results. 02/15/25 15:59 02/15/25 15:59 Radiology Impressions Chest X-Ray 02/15/25 16:11 IMPRESSION: No acute cardiopulmonary findings. Chest CTA 02/15/25 16:46 IMPRESSION: 1. No evidence of pulmonary embolism. 2. No acute findings in the chest. Laboratory Results WBC 7.04 10^3/uL (3.29-11.43) 02/15/25 15:59 RBC 4.09 10^6/uL (3.85-5.65) 02/15/25 15:59 Hgb 13.10 g/dL (11.27-16.99) 02/15/25 15:59 Hct 39.4 % (37-53) 02/15/25 15:59 MCV 96.3 fl (82-101) 02/15/25 15:59 MCH 32.0 pg (27-33) 02/15/25 15:59 MCHC 33.2 g/dL (30-55) 02/15/25 15:59 RDW 11.9 % (12.1-15.1) L 02/15/25 15:59 Plt Count 276 10^3/cmm (157-399) 02/15/25 15:59 MPV 9.7 fL (7.4-10.4) 02/15/25 15:59 Neut % (Auto) 77.0 % 02/15/25 15:59 Lymph % (Auto) 13.4 % 02/15/25 15:59 White % (Auto) 8.0 % 02/15/25 15:59 Eos % (Auto) 0.6 % 02/15/25 15:59 Baso % (Auto) 0.6 % 02/15/25 15:59 Neut # (Auto) 5.43 10^3/uL (1.8-7.7) 02/15/25 15:59 Lymph # (Auto) 0.9 10^3/uL (0.8-4.8) 02/15/25 15:59 White # (Auto) 0.6 10^3/uL (0.2-0.9) 02/15/25 15:59 Eos # (Auto) 0.0 10^3/uL (0.0-0.8) 02/15/25 15:59 Baso # (Auto) 0.0 10^3/uL (0.0-0.1) 02/15/25 15:59 Nucleated RBC % (auto) 0 % 02/15/25 15:59 Nucleated RBCs # 0.0 /100WBC 02/15/25 15:59 PT 12.80 SECONDS (12.1-14.9) 02/15/25 15:59 INR 0.90 (0.8-1.2) 02/15/25 15:59 D-Dimer 0.87 ug/mLFEU (0-0.59) H 02/15/25 15:59 Sodium 138 mmol/L (136-145) 02/15/25 15:59 Potassium 4.2 mmol/L (3.5-5.1) 02/15/25 15:59 Chloride 100 mmol/L (98-107) 02/15/25 15:59 Carbon Dioxide 26 mmol/L (22-29) 02/15/25 15:59 Anion Gap 16.2 (5-19) 02/15/25 15:59 BUN 10 mg/dL (8-23) 02/15/25 15:59 Creatinine 0.7 mg/dL (0.7-1.2) 02/15/25 15:59 GFR Calculation 115.0 mL/min (90-130) 02/15/25 15:59 Glucose 83 mg/dL (65-115) 02/15/25 15:59 Calculated Osmolality 284 mOsm/kg (285-295) L 02/15/25 15:59 Calcium 8.7 mg/dL (8.5-10.5) 02/15/25 15:59 Total Bilirubin 0.4 mg/dL (0.15-1.2) 02/15/25 15:59 AST 21 U/L (0-40) 02/15/25 15:59 ALT 16 U/L (0-41) 02/15/25 15:59 Alkaline Phosphatase 67 U/L (40-130) 02/15/25 15:59 Troponin T Baseline 11 ng/L (0-15) 02/15/25 15:59 Troponin T 120 Minute 10.96 ng/L (0-15) 02/15/25 18:19 NT-Pro-B Natriuret Pep 68 pg/mL (0-125) 02/15/25 15:59 Total Protein 6.8 g/dL (6.6-8.7) 02/15/25 15:59 Albumin 4.4 g/dL (3.5-5.2) 02/15/25 15:59 Globulin 2.4 g/dL (1.3-4.6) 02/15/25 15:59 Lipase 41 U/L (13-60) 02/15/25 15:59 All radiology interpretation(s) finalized by discharge EKG Data EKG 1: I personally reviewed and interpreted this EKG as follows: EKG interpretation date: 02/15/25 EKG interpretation time: 16:05 Interpretation: nsr hr [address] elevation qrs 98 qtc 405 Discharge Plan Discharge Patient Disposition: Home Clinical Impression: Chest pain Condition: Stable Prescriptions: No Action haloperidol decanoate 100 mg/mL solution 100 mg IM ONCE Qty: 1 0RF celecoxib 200 mg capsule 200 mg PO QAM WesTab Plus 27 mg iron- 1 mg tablet 1 tab PO QAM Pulmicort Flexhaler 180 mcg/actuation aerosol powdr breath activated 1 inh inhalation BID quetiapine [Seroquel] 400 mg tablet 400 mg PO BEDTIME@20 Qty: 30 11RF naltrexone 50 mg tablet 50 mg PO DAILY@1200 Qty: 30 11RF cetirizine 10 mg Tablet 10 mg PO QAM fluticasone propionate 50 mcg/actuation [place],Suspension 1 spray INTRANASAL QAM Rx Instructions: administer into each nostril melatonin 5 mg Tablet 5 - 15 mg PO BEDTIME@20 fluoxetine 40 mg capsule 40 mg PO QAM divalproex 500 mg tablet,delayed release (DR/EC) 1,000 mg PO BEDTIME acetaminophen 500 mg capsule 1,000 mg PO Q6H PRN (Reason: Pain) meclizine 25 mg tablet 25 mg PO QID PRN (Reason: dizziness) Qty: 30 0RF docusate sodium 100 mg capsule 100 mg PO DAILY Discharge Orders: Discharge ED (Routine); Ordered 02/15/25 Ordered By: Aby Haro Referrals: Jeanette Mccollum PA [Primary Care Provider] - 4-7 days Discharge Diet: Advance as tolerated Discharge Activity: Resume usual activity Patient Instructions: Chest Pain (ED) Print Language: Dominican Coding Level of Care Code ED Hospital Receiving Clerk for Naye Cantu
--- NOTE | 2025-02-15 16:22 | PC.PHAR ---
patient is from facility ([facility]) has MAR
[2025-02-15 16:23] LABS: Basophils % 0.6 %; Eosinophils % 0.6 %; Hematocrit 39.4 % (37-53); Lymphocytes # 0.9 10^3/uL (0.8-4.8); Lymphocytes % 13.4 %; Mean Corpuscular HGB Conc 33.2 g/dL (30-55); Mean Corpuscular Volume 96.3 fl (82-101); Mean Platelet Volume 9.7 fL (7.4-10.4); Monocytes # 0.6 10^3/uL (0.2-0.9); Neutrophils # 5.43 10^3/uL (1.8-7.7); Nucleated Red Blood Cells % 0 %; Platelet Count 276 10^3/cmm (157-399); Red Blood Count 4.09 10^6/uL (3.85-5.65); Red Cell Distribution Width 11.9 % (12.1-15.1); White Blood Count 7.04 10^3/uL (3.29-11.43)
[2025-02-15 16:41] LABS: D Dimer 0.87 ug/mLFEU (0-0.59)
--- NOTE | 2025-02-15 16:46 | CTR_ITS ---
PROCEDURE INFORMATION: Exam: CTA Chest With Contrast Exam date and time: 02/15/2025 5:31 PM Age: 59 years old Clinical indication: Shortness of breath; Additional info: SOB TECHNIQUE: Imaging protocol: Computed tomographic angiography of the chest with contrast. Exam focused on the arteries. 3D rendering (Not supervised by radiologist): MIP and/or 3D reconstructed images were created by the technologist. Radiation optimization: All CT scans at this facility use at least one of these dose optimization techniques: automated exposure control; mA and/or kV adjustment per patient size (includes targeted exams where dose is matched to clinical indication); or iterative reconstruction. Contrast material: OMNIPAQUE 350/IV; Contrast volume: 81 ml; Contrast route: INTRAVENOUS (IV); COMPAR[place]: [place] [id number] 04/07/2024 12:50 PM RADIATION DOSE METRICS: Total DLP (mGy-cm): 300.05 FINDINGS: Pulmonary arteries: Normal. No pulmonary emboli. Aorta: Mild atherosclerotic aortic calcifications. No thoracic aortic aneurysm. Lungs: Stable 4 mm right upper lobe nodule on series 5, image 13. No new or enlarging pulmonary nodules. Mild bibasilar atelectasis and subsegmental atelectasis in the right upper lobe. No focal consolidation. Pleural spaces: Unremarkable. No pneumothorax. No pleural effusion. Heart: Unremarkable. No cardiomegaly. No pericardial effusion. Lymph nodes: Unremarkable. No enlarged lymph nodes. Diaphragm: Small sliding-type hiatal hernia. Bones/joints: Degenerative changes of the thoracic spine. Multilevel anterior osteophytes. Old right rib and sternal body fractures. Soft tissues: Unremarkable. CT/CT angio chest PE protcl [id number] IMPRESSION: 1. No evidence of pulmonary embolism. 2. No acute findings in the chest.
[2025-02-15 16:59] LABS: Troponin(5th) Baseline 11 ng/L (0-15)
[2025-02-15] MEDS: morphine 4 mg/mL SDV 1 mL IVP (17:08)
[2025-02-15] MEDS: ondansetron 2 mg/ML SDV 2 mL 4 MG IVP (17:08)
[2025-02-15 17:15] LABS: Alanine Aminotransferase 16 U/L (0-41); Albumin Level 4.4 g/dL (3.5-5.2); Alkaline Phosphatase 67 U/L (40-130); Anion Gap 16.2 (5-19); Aspartate Amino Transferase 21 U/L (0-40); Blood Urea Nitrogen 10 mg/dL (8-23); Calcium 8.7 mg/dL (8.5-10.5); Carbon Dioxide 26 mmol/L (22-29); Chloride 100 mmol/L (98-107); Creatinine Clr Calc Pharmacy 120.6737; Globulin 2.4 g/dL (1.3-4.6); Glucose 83 mg/dL (65-115); Lipase 41 U/L (13-60); NT Pro B Type Natriuretic Pept 68 pg/mL (0-125); Osmolality Calculated 284 mOsm/kg (285-295); Potassium 4.2 mmol/L (3.5-5.1); Sodium 138 mmol/L (136-145); Total Bilirubin 0.4 mg/dL (0.15-1.2); Total Protein 6.8 g/dL (6.6-8.7)
[2025-02-15 17:16] VITALS: BP 132/74; PULSE 71; RESP 16; O2SAT 97
[2025-02-15] MEDS: iohexol 350 mg/mL 500 mL Btl (per mL) IV (17:38)
[2025-02-15 18:21] VITALS: BP 161/84; PULSE 66; RESP 16; O2SAT 93
[2025-02-15 18:56] LABS: Troponin 5 2HR 10.96 ng/L (0-15)
[2025-02-15 19:00] LABS: Troponin 5 2HR Delta -0.04 ABS# (0-10)
[2025-02-15 19:14] VITALS: BP 116/78; PULSE 69; RESP 18; O2SAT 96
== END 2025-02-15 19:19 | disposition home or self-care (01) ==
PROVIDERS: Emergency Provider Emergency Medicine; PCP Physician Assistant
DX: R07.9 Chest pain, unspecified (principal)
CPT/HCPCS: 71045; 71275; 80053; 83690; 83880; 84484; 85025; 85378; 85610; 93005; 96374; 96375; 99285; J2270; J2405

== ENCOUNTER → 2025-03-30 13:33 | Outpatient (BNVA) | payer MEDICARE, MEDICAID, OTHER, SELFPAY | PROVIDERS: PCP Physician Assistant; Visit Provider Podiatrist Foot & Ankle Surgery | DX: I73.9 Peripheral vascular disease, unspecified (principal); L60.8 Other nail disorders; L84 Corns and callosities; L60.3 Nail dystrophy; G62.9 Polyneuropathy, unspecified; M19.071 Primary osteoarthritis, right ankle and foot | CPT/HCPCS: 11055; 11721 ==

== ENCOUNTER 2025-04-26 14:31 | Outpatient (RCR) | payer MEDICARE, MEDICAID, SELFPAY | END 2025-05-06 12:12 | disposition home or self-care (01) | LOC: SPT 14:31 | PROVIDERS: Visit Provider Physician Assistant | DX: R42 Dizziness and giddiness (principal); H81.10 Benign paroxysmal vertigo, unspecified ear | CPT/HCPCS: 95992; 97161 ==

== ENCOUNTER 2025-05-06 11:48 | Emergency (ER) | payer MEDICARE, MEDICAID, SELFPAY ==
[2025-05-06 11:53] VITALS: BP 130/77; PULSE 77; RESP 16; TEMP 36.6; O2SAT 96
--- NOTE | 2025-05-06 13:01 | W.ED.WOUNDLC ---
HPI - Wound/Laceration General: Chief Complaint: Wound/Laceration Stated Complaint: wound to left ring finger Time Seen by Provider: 05/06/25 12:46 Source: patient and other (care staff) Mode of arrival: ambulatory Limitations: no limitations History of Present Illness: Patient is a 59-year-old male here with his caregiver for evaluation of a small cut involving his left ring finger that he sustained just prior to arrival. Patient states he was reaching into his pocket and accidentally cut it on his harmonica. Tetanus is up-to-date. Onset (ago): hour(s) Extremity Location: Left: hand (ring finger) Place: home Patient tetanus UTD: Yes Context: accidental Associated symptoms: Reports no associated symptoms Treatments prior to arrival: bandage Related Data Home Medications ?Medication ?Instructions ?Recorded ?Confirmed cetirizine 10 mg tablet 10 mg PO QAM 02/09/22 04/15/25 fluticasone propionate 50 1 spray intranasal QAM 02/09/22 04/15/25 mcg/actuation nasal spray,suspension celecoxib 200 mg capsule 200 mg PO QAM 06/24/22 04/15/25 vitamin with calcium 1 tab PO QAM 09/19/22 04/15/25 no.72-iron 27 mg-folic acid 1 mg tablet (WesTab Plus) budesonide 180 mcg/actuation 1 inh inhalation BID 04/23/24 04/15/25 breath activated powder inhaler (Pulmicort Flexhaler) acetaminophen 500 mg capsule 1,000 mg PO Q6H PRN Pain 01/07/25 04/15/25 fluoxetine 40 mg capsule 40 mg PO QAM 01/07/25 04/15/25 docusate sodium 100 mg capsule 100 mg PO DAILY 02/15/25 04/15/25 Deep sea 0.65% nose spray nasal BID 02/18/25 04/15/25 GNP Glucosamine-Chondro Complex PO TID 02/18/25 04/15/25 Ge's Leg Cramps & Arnica PO DAILY 02/18/25 04/15/25 Single Barrel Toe Sleeve topical DAILY 02/18/25 04/15/25 diclofenac sodium 1 % topical gel 1 g topical BID PRN 02/18/25 04/15/25 (Arthritis Pain (diclofenac)) digestive enzymes 1 cap PO DAILY 02/18/25 04/15/25 erythromycin 5 mg/gram (0.5 %) eye 0.5 inch ophthalmic (eye) TID PRN 02/18/25 04/15/25 ointment (3.5 gram tube) loperamide 2 mg capsule 2 mg PO QID PRN 02/18/25 04/15/25 magnesium hydroxide 400 mg/5 mL 30 ml PO DAILY PRN 02/18/25 04/15/25 oral suspension (Milk of Magnesia) menthol 5 % topical patch 1 patch topical BID PRN 02/18/25 04/15/25 (Biofreeze (menthol)) ne ensure drink PO BID 02/18/25 04/15/25 polyethylene glycol 3350 17 4 g PO DAILY 02/18/25 04/15/25 gram/dose oral powder soft lens adjunctive solutions 02/18/25 04/15/25 (Sensitive Eyes drops) melatonin 5 mg tablet 15 mg PO BEDTIME@20 04/15/25 04/15/25 selenium sulfide 1 % shampoo 1 applic topical .twice a week 04/15/25 04/15/25 (Anti-Dandruff) Previous Rx's ?Medication ?Instructions ?Recorded quetiapine 400 mg tablet (Seroquel) 400 mg PO BEDTIME@20 #30 tabs 12/01/24 naltrexone 50 mg tablet 50 mg PO DAILY@1200 #30 tabs 12/09/24 meclizine 25 mg tablet 25 mg PO QID PRN dizziness #30 tabs 01/07/25 haloperidol decanoate 100 mg/mL 100 mg IM ONCE 1 month #30 mL 02/18/25 intramuscular solution Allergies Allergy/AdvReac Type Severity Reaction Status Date / Time No Known Allergies Allergy Verified 04/15/25 14:54 Review of Systems Musc: Reports: extremity pain Skin/Breast: Reports: other (small laceration/skin avulsion) Neuro: Denies: numbness in extremities or sensory changes PFSH ED PFSH: Medical History Seizure in childhood Meningitis Childhood Schizoaffective disorder Obsessive-compulsive disorder Major neurocognitive disorder due to multiple etiologies Psychiatric care Surgical History Hx of tonsillectomy Family History Other Heart disease Stroke Social History Smoking and tobacco/nicotine status: never used tobacco/nicotine Second hand smoke exposure: No Alcohol intake: never Substance/Drug Use: never Lives independently: No Housing: Other Details: Independent living center Physical Exam Const: COMMON NORMALS: no acute distress, average body habitus, no limitations, healthy appearing, alert and well nourished Extremity: GENERAL: Yes normal exam except as noted LEFT UPPER EXTREMITY: Yes hand & digits (small partial skin avulsion distal tip L ring finger) Left hand and digits: Yes ROM (normal) and Yes neurovascular exam (normal) Neuro: COMMON NORMALS: moves all extremities, no focal motor deficits and no sensory deficits noted SENSORIUM/ORIENTATION: Yes alert Skin: NARRATIVE SKIN EXAM: see above Course Vital Signs: Vital signs: Vital Signs Temperature 97.8 F 05/06/25 11:53 Pulse Rate 77 05/06/25 11:53 Respiratory Rate 16 05/06/25 11:53 Blood Pressure 130/77 05/06/25 11:53 Pulse Oximetry 96 05/06/25 11:53 Oxygen Delivery Me thod Room Air 05/06/25 11:53 MDM - Wound/Laceration Medical Decision Making Wound was copiously irrigated and repaired using a small amount of skin adhesive/glue. Wound care/infection precautions discussed. Medical Records I reviewed the patient's medical records. No radiology studies performed this visit Discharge Plan Discharge Patient Disposition: Home Clinical Impression: Avulsion of skin of finger Qualifiers: Encounter type: initial encounter Qualified Code(s): S61.209A - Unspecified open wound of unspecified finger without damage to nail, initial encounter Condition: Stable Prescriptions: No Action haloperidol decanoate 100 mg/mL solution 100 mg IM ONCE Qty: 1 0RF haloperidol decanoate 100 mg/mL solution 100 mg IM ONCE 30 Days Qty: 30 11RF digestive enzymes Capsule 1 cap PO DAILY Rx Instructions: administer with food; swallow whole; do not crush/chew/dissolve/break/cut Deep sea 0.65% nose spray nasal BID GNP Glucosamine-Chondro Complex PO TID Ge's Leg Cramps & Arnica capsule PO DAILY loperamide 2 mg capsule 2 mg PO QID PRN magnesium hydroxide [Milk of Magnesia] 400 mg/5 mL suspension 30 ml PO DAILY PRN erythromycin 5 mg/gram (0.5 %) ointment 0.5 inch ophthalmic (eye) TID PRN polyethylene glycol 3350 17 gram/dose powder 4 g PO DAILY Biofreeze (menthol) 5 % adhesive patch,medicated 1 patch topical BID PRN (DME) Sensitive Eyes Drops See Rx Instructions .Route Rx Instructions: As directed diclofenac sodium [Arthritis Pain (diclofenac)] 1 % gel 1 g topical BID PRN Rx Instructions: apply to single elbow, wrist or hand; for hand includes palm/fingers/back of hand Single Barrel Toe Sleeve topical DAILY ne ensure drink PO BID Anti-Dandruff 1 % shampoo 1 applic topical .twice a week Rx Instructions: massage into affected area; leave on for 10 mins ; rinse off thoroughly celecoxib 200 mg capsule 200 mg PO QAM WesTab Plus 27 mg iron- 1 mg tablet 1 tab PO QAM Pulmicort Flexhaler 180 mcg/actuation aerosol powdr breath activated 1 inh inhalation BID quetiapine [Seroquel] 400 mg tablet 400 mg PO BEDTIME@20 Qty: 30 11RF naltrexone 50 mg tablet 50 mg PO DAILY@1200 Qty: 30 11RF cetirizine 10 mg Tablet 10 mg PO QAM fluticasone propionate 50 mcg/actuation [place],Suspension 1 spray INTRANASAL QAM Rx Instructions: administer into each nostril melatonin 5 mg tablet 15 mg PO BEDTIME@20 fluoxetine 40 mg capsule 40 mg PO QAM acetaminophen 500 mg capsule 1,000 mg PO Q6H PRN (Reason: Pain) meclizine 25 mg tablet 25 mg PO QID PRN (Reason: dizziness) Qty: 30 0RF docusate sodium 100 mg capsule 100 mg PO DAILY Discharge Orders: Discharge ED (Routine); Ordered 05/06/25 Ordered By: Bessie Cruz Activity Restrictions/Additional Instructions: Glue should fall off on its own over the next 7 to 10 days. Avoid picking. Monitor for signs of infection such as redness, swelling, streaking up his hand, or any other concerns you may have. Please seek medical re-evaluation if these occur. Print Language: Egyptian Coding Level of Care Code ED Wig Stylist for Naye Cantu
[2025-05-06 13:29] VITALS: BP 126/78; PULSE 71; O2SAT 96
== END 2025-05-06 13:32 | disposition home or self-care (01) ==
PROVIDERS: Emergency Provider Physician Assistant
DX: S61.205A Unspecified open wound of left ring finger without damage to nail, initial encounter (principal); X58.XXXA Exposure to other specified factors, initial encounter
CPT/HCPCS: 99282

== ENCOUNTER 2025-05-24 18:35 | Emergency (ER) | payer MEDICARE, MEDICAID, SELFPAY ==
[2025-05-24 18:45] VITALS: BP 157/81; PULSE 69; TEMP 36.4; O2SAT 96
[2025-05-24 19:52] LABS: Hematocrit 38.2 % (37-53); Hemoglobin 12.80 g/dL (11.27-16.99); Mean Corpuscular HGB Conc 33.5 g/dL (30-55); Mean Corpuscular Hemoglobin 31.4 pg (27-33); Mean Corpuscular Volume 93.6 fl (82-101); Nucleated Red Blood Cells % 0 %; Platelet Count 288 10^3/cmm (157-399); Red Blood Count 4.08 10^6/uL (3.85-5.65); White Blood Count 6.30 10^3/uL (3.29-11.43)
--- NOTE | 2025-05-24 19:59 | W.ED.ABDPA2 ---
HPI - Abdominal Pain General: Chief Complaint: Abdominal Pain Stated Complaint: R side pain, diarrhea Time Seen by Provider: 05/24/25 19:24 Source: patient Mode of arrival: ambulatory Limitations: no limitations History of Present Illness: 59yo male presents with caregivers for evaluation of right upper quadrant abdominal pain that started a few hours ago. Patient reports he did have a large loose bowel movement with the pain. States that the pain has been sharp and cramping. Unclear if it has been consistent or if it is intermittent. No known previous abdominal surgeries. Denies fever, recent illness, any other concerns at this time. Related Data Home Medications ?Medication ?Instructions ?Recorded ?Confirmed cetirizine 10 mg tablet 10 mg PO QAM 02/09/22 05/24/25 fluticasone propionate 50 1 spray intranasal QAM 02/09/22 05/24/25 mcg/actuation nasal spray,suspension celecoxib 200 mg capsule 200 mg PO QAM 06/24/22 05/24/25 vitamin with calcium 1 tab PO QAM 09/19/22 05/24/25 no.72-iron 27 mg-folic acid 1 mg tablet (WesTab Plus) budesonide 180 mcg/actuation 1 inh inhalation BID 04/23/24 05/24/25 breath activated powder inhaler (Pulmicort Flexhaler) acetaminophen 500 mg capsule 1,000 mg PO Q6H PRN Pain 01/07/25 05/24/25 fluoxetine 40 mg capsule 40 mg PO QAM 01/07/25 05/24/25 docusate sodium 100 mg capsule 100 mg PO DAILY 02/15/25 05/24/25 Deep sea 0.65% nose spray nasal BID 02/18/25 05/24/25 GNP Glucosamine-Chondro Complex PO TID 02/18/25 05/24/25 Eg's Leg Cramps & Arnica PO DAILY 02/18/25 05/24/25 Single Barrel Toe Sleeve topical DAILY 02/18/25 05/24/25 diclofenac sodium 1 % topical gel 1 g topical BID PRN 02/18/25 05/24/25 (Arthritis Pain (diclofenac)) digestive enzymes 1 cap PO DAILY 02/18/25 05/24/25 erythromycin 5 mg/gram (0.5 %) eye 0.5 inch ophthalmic (eye) TID PRN 02/18/25 05/24/25 ointment (3.5 gram tube) loperamide 2 mg capsule 2 mg PO QID PRN 02/18/25 05/24/25 magnesium hydroxide 400 mg/5 mL 30 ml PO DAILY PRN 02/18/25 05/24/25 oral suspension (Milk of Magnesia) menthol 5 % topical patch 1 patch topical BID PRN 02/18/25 05/24/25 (Biofreeze (menthol)) ne ensure drink PO BID 02/18/25 05/24/25 polyethylene glycol 3350 17 4 g PO DAILY 02/18/25 05/24/25 gram/dose oral powder soft lens adjunctive solutions 02/18/25 05/24/25 (Sensitive Eyes drops) melatonin 5 mg tablet 15 mg PO BEDTIME@20 04/15/25 05/24/25 selenium sulfide 1 % shampoo 1 applic topical .twice a week 04/15/25 05/24/25 (Anti-Dandruff) Previous Rx's ?Medication ?Instructions ?Recorded quetiapine 400 mg tablet (Seroquel) 400 mg PO BEDTIME@20 #30 tabs 12/01/24 naltrexone 50 mg tablet 50 mg PO DAILY@1200 #30 tabs 12/09/24 meclizine 25 mg tablet 25 mg PO QID PRN dizziness #30 tabs 01/07/25 haloperidol decanoate 100 mg/mL 100 mg IM ONCE 1 month #30 mL 02/18/25 intramuscular solution Allergies Allergy/AdvReac Type Severity Reaction Status Date / Time No Known Allergies Allergy Verified 05/24/25 18:51 [facility] ED PFS: Medical History (Updated 05/24/25 @ 22:17 by FERNANDO Mitchell) Seizure in childhood Meningitis Childhood Schizoaffective disorder Obsessive-compulsive disorder Major neurocognitive disorder due to multiple etiologies Psychiatric care Surgical History Hx of tonsillectomy Family History Other Heart disease Stroke Social History Smoking and tobacco/nicotine status: never used tobacco/nicotine Second hand smoke exposure: No Alcohol intake: never Substance/Drug Use: never Lives independently: No Housing: Other Details: [facility] Course Vital Signs: Vital signs: Vital Signs Temperature 97.5 F L 05/24/25 18:45 Pulse Rate 90 05/24/25 21:16 Blood Pressure 152/59 05/24/25 20:20 Pulse Oximetry 98 05/24/25 21:16 Oxygen Delivery Me thod Room Air 05/24/25 21:16 MDM - Abdominal Pain Medical Decision Making 59yo male from an independent living center with a history of schizoaffective disorder, OCD, neurocognitive disorder here with caregivers for evaluation of right upper quadrant abdominal pain that started a few hours prior to arrival. Patient did also have episode of loose stool when the pain started. Unclear if the pain is consistent or intermittent. No known previous abdominal surgeries. Patient is nontoxic in appearance. Vital signs are stable. No leukocytosis, white blood cell count is 6.3. No indication of anemia, hemoglobin is 12.8. No electrolyte, renal, or hepatic abnormalities noted. Lipase is in the normal range. Patient was not able to provide a urine sample while in the emergency department. Noncontrasted CTAP with no acute findings. Discussed these findings with patient and caregiver. Discussed the pain may have been related to his bowels, but we do not find any evidence of cholecystitis, pancreatitis, appendicitis, nor any other acute abnormalities. Encouraged to continue to monitor symptoms. Recommend follow-up with primary care, call in 2 to 3 days with an update of symptoms and to discuss a recheck. Return precautions provided. Patient and caregiver state understanding and have no further questions or concerns at this time. Differential Diagnosis Likely abdominal pain, acute appendicitis, constipation, gastroenteritis and small bowel obstruction Medical Records I reviewed the patient's medical records. Lab Data I reviewed the patient's lab results. 05/24/25 19:44 05/24/25 19:44 Labs/Radiology: Radiology Impressions Abdomen/Pelvis CT 05/24/25 20:27 IMPRESSION: No acute findings. Laboratory Results WBC 6.30 10^3/uL (3.29-11.43) 05/24/25 19:44 RBC 4.08 10^6/uL (3.85-5.65) 05/24/25 19:44 Hgb 12.80 g/dL (11.27-16.99) 05/24/25 19:44 Hct 38.2 % (37-53) 05/24/25 19:44 MCV 93.6 fl (82-101) 05/24/25 19:44 MCH 31.4 pg (27-33) 05/24/25 19:44 MCHC 33.5 g/dL (30-55) 05/24/25 19:44 RDW 11.7 % (12.1-15.1) L 05/24/25 19:44 Plt Count 288 10^3/cmm (157-399) 05/24/25 19:44 MPV 9.3 fL (7.4-10.4) 05/24/25 19:44 Neut % (Auto) 61.1 % 05/24/25 19:44 Lymph % (Auto) 26.8 % 05/24/25 19:44 [place] % (Auto) 9.2 % 05/24/25 19:44 Eos % (Auto) 1.9 % 05/24/25 19:44 Baso % (Auto) 0.8 % 05/24/25 19:44 Neut # (Auto) 3.85 10^3/uL (1.8-7.7) 05/24/25 19:44 Lymph # (Auto) 1.7 10^3/uL (0.8-4.8) 05/24/25 19:44 [place] # (Auto) 0.6 10^3/uL (0.2-0.9) 05/24/25 19:44 Eos # (Auto) 0.1 10^3/uL (0.0-0.8) 05/24/25 19:44 Baso # (Auto) 0.1 10^3/uL (0.0-0.1) 05/24/25 19:44 Nucleated RBC % (auto) 0 % 05/24/25 19:44 Nucleated RBCs # 0.0 /100WBC 05/24/25 19:44 Sodium 136 mmol/L (136-145) 05/24/25 19:44 Potassium 4.1 mmol/L (3.5-5.1) 05/24/25 19:44 Chloride 101 mmol/L (98-107) 05/24/25 19:44 Carbon Dioxide 23 mmol/L (22-29) 05/24/25 19:44 Anion Gap 16.1 (5-19) 05/24/25 19:44 BUN 12 mg/dL (8-23) 05/24/25 19:44 Creatinine 0.6 mg/dL (0.7-1.2) L 05/24/25 19:44 GFR Calculation 137.4 mL/min (90-130) H 05/24/25 19:44 Glucose 85 mg/dL (65-115) 05/24/25 19:44 Calculated Osmolality 281 mOsm/kg (285-295) L 05/24/25 19:44 Calcium 9.2 mg/dL (8.5-10.5) 05/24/25 19:44 Total Bilirubin 0.3 mg/dL (0.15-1.2) 05/24/25 19:44 AST 24 U/L (0-40) 05/24/25 19:44 ALT 23 U/L (0-41) 05/24/25 19:44 Alkaline Phosphatase 94 U/L (40-130) 05/24/25 19:44 Total Protein 7.2 g/dL (6.6-8.7) 05/24/25 19:44 Albumin 4.5 g/dL (3.5-5.2) 05/24/25 19:44 Globulin 2.7 g/dL (1.3-4.6) 05/24/25 19:44 Lipase 41 U/L (13-60) 05/24/25 19:44 All radiology interpretation(s) finalized by discharge Discharge Plan Discharge Patient Disposition: Home Clinical Impression: Abdominal pain Qualifiers: Abdominal location: right upper quadrant Qualified Code(s): R10.11 - Right upper quadrant pain Condition: Stable Prescriptions: No Action haloperidol decanoate 100 mg/mL solution 100 mg IM ONCE Qty: 1 0RF haloperidol decanoate 100 mg/mL solution 100 mg IM ONCE 30 Days Qty: 30 11RF digestive enzymes Capsule 1 cap PO DAILY Rx Instructions: administer with food; swallow whole; do not crush/chew/dissolve/break/cut Deep sea 0.65% nose spray nasal BID GNP Glucosamine-Chondro Complex PO TID Ge's Leg Cramps & Arnica capsule PO DAILY loperamide 2 mg capsule 2 mg PO QID PRN magnesium hydroxide [Milk of Magnesia] 400 mg/5 mL suspension 30 ml PO DAILY PRN erythromycin 5 mg/gram (0.5 %) ointment 0.5 inch ophthalmic (eye) TID PRN polyethylene glycol 3350 17 gram/dose powder 4 g PO DAILY Biofreeze (menthol) 5 % adhesive patch,medicated 1 patch topical BID PRN (DME) Sensitive Eyes Drops See Rx Instructions .Route Rx Instructions: As directed diclofenac sodium [Arthritis Pain (diclofenac)] 1 % gel 1 g topical BID PRN Rx Instructions: apply to single elbow, wrist or hand; for hand includes palm/fingers/back of hand Single Barrel Toe Sleeve topical DAILY ne ensure drink PO BID Anti-Dandruff 1 % shampoo 1 applic topical .twice a week Rx Instructions: massage into affected area; leave on for 10 mins ; rinse off thoroughly haloperidol decanoate 100 mg/mL solution 100 mg IM ONCE Qty: 1 0RF celecoxib 200 mg capsule 200 mg PO QAM WesTab Plus 27 mg iron- 1 mg tablet 1 tab PO QAM Pulmicort Flexhaler 180 mcg/actuation aerosol powdr breath activated 1 inh inhalation BID quetiapine [Seroquel] 400 mg tablet 400 mg PO BEDTIME@20 Qty: 30 11RF naltrexone 50 mg tablet 50 mg PO DAILY@1200 Qty: 30 11RF cetirizine 10 mg Tablet 10 mg PO QAM fluticasone propionate 50 mcg/actuation [place],Suspension 1 spray INTRANASAL QAM Rx Instructions: administer into each nostril melatonin 5 mg tablet 15 mg PO BEDTIME@20 fluoxetine 40 mg capsule 40 mg PO QAM acetaminophen 500 mg capsule 1,000 mg PO Q6H PRN (Reason: Pain) meclizine 25 mg tablet 25 mg PO QID PRN (Reason: dizziness) Qty: 30 0RF docusate sodium 100 mg capsule 100 mg PO DAILY Discharge Orders: Discharge ED (Routine); Ordered 05/24/25 Ordered By: Robbie Stout Referrals: Jeanette Mccollum PA [Primary Care Provider, [facility]] Discharge Diet: Usual diet Discharge Activity: Resume usual activity Patient Instructions: Abdominal Pain (ED), Pain Management, Patient Portal & Grabiel Instructions Activity Restrictions/Additional Instructions: No acute abnormalities were noted on the labs or imaging today Please continue to monitor the abdominal pain for any worsening symptoms We did have Jamie n.p.o. while awaiting results from the testing, so he did miss his evening dose of medications. He may resume these medications tonight. Follow-up with primary care, call in 2 days with an update of symptoms and to discuss a recheck Return to the emergency department if any rapid worsening symptoms, onset of fever associated with worsening, and as needed Print Language: Bulgarian Coding Level of Care Code ED Telehealth Coordinator for Naye Cantu
[2025-05-24 20:16] LABS: Alanine Aminotransferase 23 U/L (0-41); Albumin Level 4.5 g/dL (3.5-5.2); Alkaline Phosphatase 94 U/L (40-130); Anion Gap 16.1 (5-19); Aspartate Amino Transferase 24 U/L (0-40); Blood Urea Nitrogen 12 mg/dL (8-23); Calcium 9.2 mg/dL (8.5-10.5); Carbon Dioxide 23 mmol/L (22-29); Chloride 101 mmol/L (98-107); Creatinine Clr Calc Pharmacy 139.1059; Globulin 2.7 g/dL (1.3-4.6); Glucose 85 mg/dL (65-115); Lipase 41 U/L (13-60); Osmolality Calculated 281 mOsm/kg (285-295); Potassium 4.1 mmol/L (3.5-5.1); Sodium 136 mmol/L (136-145); Total Protein 7.2 g/dL (6.6-8.7)
[2025-05-24 20:20] VITALS: BP 152/59; PULSE 92; O2SAT 98
--- NOTE | 2025-05-24 20:27 | CTR_ITS ---
PROCEDURE INFORMATION: Exam: CT Abdomen And Pelvis Without Contrast Exam date and time: 05/24/2025 8:39 PM Age: 59 years old Clinical indication: Abdominal pain; Generalized TECHNIQUE: Imaging protocol: Computed tomography of the abdomen and pelvis without contrast. Radiation optimization: All CT scans at this facility use at least one of these dose optimization techniques: automated exposure control; mA and/or kV adjustment per patient size (includes targeted exams where dose is matched to clinical indication); or iterative reconstruction. COMPARISON: [place] [id number] 04/07/2024 12:50 PM RADIATION DOSE METRICS: Total DLP (mGy-cm): 507.47 FINDINGS: Liver: Normal. No mass. Gallbladder and biliary ducts: Normal. No calcified stones. No ductal dilation. Pancreas: Normal. No ductal dilation. Spleen: Normal. No splenomegaly. Adrenal glands: Normal. No mass. Kidneys and ureters: Normal. No hydronephrosis. Stomach and bowel: Unremarkable. No obstruction. No mucosal thickening. Appendix: No evidence of appendicitis. Intraperitoneal space: Unremarkable. No free air. No significant fluid collection. Vasculature: Unremarkable. No abdominal aortic aneurysm. Lymph nodes: Unremarkable. No enlarged lymph nodes. Urinary bladder: Unremarkable as visualized. Reproductive: Unremarkable as visualized. Bones/joints: 18 degrees scoliosis concave to the right from L1 through L5. Degenerative disc change L4-L5 S1. Soft tissues: Unremarkable. CT/CT abdomen pelvis wo con [id number] IMPRESSION: No acute findings.
[2025-05-24 21:16] VITALS: PULSE 90; O2SAT 98
--- NOTE | 2025-05-24 22:20 | PC.NURSE ---
this nurse asked caregiver if pt was able to collect a urine sample when pt went to the restroom earlier, caregiver voiced one was not collecting. provider notified and okayed to not collect ua.
[2025-05-24 22:27] VITALS: BP 161/89; PULSE 88; O2SAT 94
== END 2025-05-24 22:28 | disposition home or self-care (01) ==
PROVIDERS: Emergency Medicine; Emergency Provider Nurse Practitioner; PCP Physician Assistant
DX: I73.9 Peripheral vascular disease, unspecified (principal); L60.3 Nail dystrophy; L84 Corns and callosities; L60.8 Other nail disorders; G62.9 Polyneuropathy, unspecified; M19.071 Primary osteoarthritis, right ankle and foot; R10.11 Right upper quadrant pain
CPT/HCPCS: 11056; 11721; 36415; 74176; 80053; 83690; 85025; 99213; 99284

== ENCOUNTER → 2025-06-09 11:00 | Outpatient (BNVA) | payer MEDICARE, MEDICAID, SELFPAY | PROVIDERS: PCP Physician Assistant; Visit Provider Podiatrist Foot & Ankle Surgery | DX: M20.41 Other hammer toe(s) (acquired), right foot (principal); I73.9 Peripheral vascular disease, unspecified; L60.3 Nail dystrophy; L60.8 Other nail disorders; G62.9 Polyneuropathy, unspecified; L84 Corns and callosities; M19.071 Primary osteoarthritis, right ankle and foot | CPT/HCPCS: 28010 ==

== ENCOUNTER 2025-07-13 00:52 | Emergency (ER) | payer MEDICARE, MEDICAID, SELFPAY ==
[2025-07-13 00:58] VITALS: BP 162/85; PULSE 82; RESP 16; TEMP 36.8; O2SAT 97; BMI 22.6
--- OUTSIDE RECORDS SUMMARY | 2025-07-13 00:59 | XMS_ITS | Patient Health Record ---
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 Driver/Customer Service Name Role Phone Unknown, Unknown Primary Care Provider Unavailab le Allergies No Known Allergies Reason For Referral No Information Medications Medication SIG (Take, Route, Frequency, Duration) Notes Start Date End Date Status Cetirizine HCl Activ e M-Ynes Plus Active LORazepam Active Clotrimazole Active Naltrexone Active ChlorproMAZINE Activ e Melatonin Active Docusate Calcium Not -Taking/PRN HM Glucosamine Chondroitin Active Zolpidem Tartrate ER Active Gabapentin Active Triamcinolone Acet & Lidocaine Active Celecoxib Active HM Saline Nasal [place] Active Docusate Sodium Acti ve Omeprazole Active Divalproex Sodium Ac tive Nystatin Active Fluticasone Propionate Active QUEtiapine Fumarate Active Flovent HFA Active Ondansetron Active Social History Sex Assigned At : Social History Observation Description Sex Assigned At Male Plan Of Treatment No Information Insurance Providers Payer Name Payer Address Payer Phone Subscriber Number Group Number Insured Name Patient Relationship to Insured Coverage Start Date Coverage End Date Medicaid Dental [address] [place] [address] [id number] Serg Acosta Self - patient is the insured
--- NOTE | 2025-07-13 01:57 | CTR_ITS ---
PROCEDURE INFORMATION: Exam: CT Head Without Contrast Exam date and time: 07/13/2025 2:04 AM Age: 60 years old Clinical indication: Injury or trauma; Fall; Blunt trauma (contusions or hematomas); Additional info: Injury, fall TECHNIQUE: Imaging protocol: Computed tomography of the head without contrast. Radiation optimization: All CT scans at this facility use at least one of these dose optimization techniques: automated exposure control; mA and/or kV adjustment per patient size (includes targeted exams where dose is matched to clinical indication); or iterative reconstruction. COMPARISON: CT head wo con* [id number] 06/02/2023 2:57 PM RADIATION DOSE METRICS: Total DLP (mGy-cm): 1099.89 FINDINGS: Brain: Normal cerebral parenchyma without hemorrhage or noncontrast evidence of mass. Unremarkable white matter. No mass effect. Cerebral ventricles: No ventriculomegaly. Paranasal sinuses: Partial opacification of the right frontal sinus. Mastoid air cells: Visualized mastoid air cells are well aerated. Bones: No acute fracture. Soft tissues: Left frontal scalp hematoma/contusion (series 5, image 9). CT/CT head wo con* [id number] IMPRESSION: 1. Left frontal scalp hematoma without subjacent calvarial fracture. 2. No acute intracranial process. 3. Right frontal sinusitis.
--- NOTE | 2025-07-13 01:57 | ECG_ITS ---
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 Measurements Intervals [place] Rate: 65 P: 45 IA: 146 QRS: 61 QRSD: 92 T: 58 QT: 402 QTc: 419 Interpretive Statements SINUS RHYTHM Compared to ECG 02/15/2025 16:05:39 No significant changes Electronically Signed On 07-13-2025 22:29:15 CDT by Davis Moeller M.D. [email or web address]
--- NOTE | 2025-07-13 05:30 | W.ED.FALL ---
HPI - Fall General: Chief Complaint: Fall Stated Complaint: Fell on Lt side, Lt side elbow & buttocks Time Seen by Provider: 07/13/25 01:06 History of Present Illness: 60-year-old male from the [facility] assisted-living facility presents after three falls this evening. Caregiver reports patient stood, began swaying, and intentionally released her die inspector each time, landing hard; first fall at ~22:55 hit left side of head, subsequent falls occurred in the hallway and bathroom. Patient endorses dizziness preceding each fall, left buttock pain, and mild left elbow discomfort but no loss of consciousness reported. States he is cold despite a warm jacket and desires hospital evaluation. Denies vision changes, chest pain, shortness of breath, focal weakness, or nausea. Vital signs on arrival described as stable. Guardian present; this is the patient?s first ED evaluation for such events. Related Data Home Medications ?Medication ?Instructions ?Recorded ?Confirmed cetirizine 10 mg tablet 10 mg PO QAM 02/09/22 06/13/25 fluticasone propionate 50 1 spray intranasal QAM 02/09/22 06/13/25 mcg/actuation nasal spray,suspension celecoxib 200 mg capsule 200 mg PO QAM 06/24/22 06/13/25 vitamins with calcium 1 tab PO QAM 09/19/22 06/13/25 no.72-iron 27 mg-folic acid 1 mg tablet (WesTab Plus) budesonide 180 mcg/actuation 1 inh inhalation BID 04/23/24 06/13/25 breath activated powder inhaler (Pulmicort Flexhaler) acetaminophen 500 mg capsule 1,000 mg PO Q6H PRN Pain 01/07/25 06/13/25 fluoxetine 40 mg capsule 40 mg PO QAM 01/07/25 06/13/25 docusate sodium 100 mg capsule 100 mg PO DAILY 02/15/25 06/13/25 Deep sea 0.65% nose spray nasal BID 02/18/25 06/13/25 GNP Glucosamine-Chondro Complex PO TID 02/18/25 06/13/25 Ge's Leg Cramps & Arnica PO DAILY 02/18/25 06/13/25 Single Barrel Toe Sleeve topical DAILY 02/18/25 06/13/25 diclofenac sodium 1 % topical gel 1 g topical BID PRN 02/18/25 06/13/25 (Arthritis Pain (diclofenac)) digestive enzymes 1 cap PO DAILY 02/18/25 06/13/25 erythromycin 5 mg/gram (0.5 %) eye 0.5 inch ophthalmic (eye) TID PRN 02/18/25 06/13/25 ointment (3.5 gram tube) loperamide 2 mg capsule 2 mg PO QID PRN 02/18/25 06/13/25 magnesium hydroxide 400 mg/5 mL 30 ml PO DAILY PRN 02/18/25 06/13/25 oral suspension (Milk of Magnesia) menthol 5 % topical patch 1 patch topical BID PRN 02/18/25 06/13/25 (Biofreeze (menthol)) ne ensure drink PO BID 02/18/25 06/13/25 polyethylene glycol 3350 17 4 g PO DAILY 02/18/25 06/13/25 gram/dose oral powder soft lens adjunctive solutions 02/18/25 06/13/25 (Sensitive Eyes drops) melatonin 5 mg tablet 15 mg PO BEDTIME@20 04/15/25 06/13/25 selenium sulfide 1 % shampoo 1 applic topical .twice a week 04/15/25 06/13/25 (Anti-Dandruff) Previous Rx's ?Medication ?Instructions ?Recorded quetiapine 400 mg tablet (Seroquel) 400 mg PO BEDTIME@20 #30 tabs 12/01/24 naltrexone 50 mg tablet 50 mg PO DAILY@1200 #30 tabs 12/09/24 meclizine 25 mg tablet 25 mg PO QID PRN dizziness #30 tabs 01/07/25 haloperidol decanoate 100 mg/mL 100 mg IM ONCE 1 month #30 mL 02/18/25 intramuscular solution Allergies Allergy/AdvReac Type Severity Reaction Status Date / Time No Known Allergies Allergy Verified 07/13/25 01:04 [facility] ED PFSH: Medical History (Updated 07/13/25 @ 02:55 by Drew Patel MD) Seizure in childhood Meningitis Childhood Schizoaffective disorder Obsessive-compulsive disorder Major neurocognitive disorder due to multiple etiologies Psychiatric care Surgical History Hx of tonsillectomy Family History Other Heart disease Stroke Social History Smoking and tobacco/nicotine status: never used tobacco/nicotine Second hand smoke exposure: No Alcohol intake: never Substance/Drug Use: never Lives independently: No Housing: Other Details: Independent living center Physical Exam Const: COMMON NORMALS: no acute distress, patient oriented x3 and alert HENMT: OTHER: 3 cm hematoma over left eyebrow; no underlying bony step-off, no ocular involvement; extraocular movements intact. Eye: COMMON NORMALS: Equal, round and reactive pupils present, EOMs intact bilaterally and no scleral icterus PUPIL: Yes Equal, round and reactive pupils present Resp: COMMON NORMALS: normal respiratory effort and No retractions Cardio: COMMON NORMALS: regular rate, regular rhythm and No murmurs present (Cardio) RATE: regular rate RHYTHM: regular rhythm GI: COMMON NORMALS: Normal to inspection, nondistended, normoactive bowel sounds present, Soft to palpation and non-tender PALPATION: Yes Soft to palpation Extremity: NARRATIVE EXTREMITY EXAM: Small abrasion left elbow; full range of motion, no tenderness to palpation of joint, no effusion. Neuro: COMMON NORMALS: patient oriented x3 SENSORIUM/ORIENTATION: Yes alert Course Vital Signs: Vital signs: Vital Signs Temperature 98.2 F 07/13/25 00:58 Pulse Rate 82 07/13/25 00:58 Respiratory Rate 16 07/13/25 00:58 Blood Pressure 162/85 07/13/25 00:58 Pulse Oximetry 97 07/13/25 00:58 Oxygen Delivery Me thod Room Air 07/13/25 00:58 MDM - Fall Medical Decision Making Patient with intentional-appearing falls, left frontal scalp hematoma, dizziness, and buttock pain after three episodes tonight; no neurological deficits noted. Vital signs reported stable. Physical examination significant for 3 cm left eyebrow hematoma, minor left elbow abrasion, clear lungs, regular rate and rhythm heart sounds, no focal neurological deficits. Primary concern is traumatic intracranial hemorrhage; dizziness could relate to arrhythmia or syncope, but pattern suggests behavioral etiology. Falls judged unlikely due to vasovagal syncope, orthostasis, arrhythmia, dehydration, infection, benign paroxysmal positional vertigo, or stroke per provider assessment. CT head without contrast and electrocardiogram ordered; CT brain shows nothing acute. EKG unremarkable. He will be discharged in stable and improved condition with follow-up primary care as needed. Lab Data Radiology Impressions Head CT 07/13/25 01:57 IMPRESSION: 1. Left frontal scalp hematoma without subjacent calvarial fracture. 2. No acute intracranial process. 3. Right frontal sinusitis. All radiology interpretation(s) finalized by discharge EKG Data EKG 1: Interpretation: Time?0230?normal sinus rhythm, rate of 65, no ST segment elevation or depression, no T wave inversions, QTc = 413 Discharge Plan Discharge Patient Disposition: Home Clinical Impression: Falls frequently, Hematoma of frontal scalp Condition: Stable Prescriptions: No Action haloperidol decanoate 100 mg/mL solution 100 mg IM ONCE Qty: 1 0RF haloperidol decanoate 100 mg/mL solution 100 mg IM ONCE 30 Days Qty: 30 11RF digestive enzymes Capsule 1 cap PO DAILY Rx Instructions: administer with food; swallow whole; do not crush/chew/dissolve/break/cut Deep sea 0.65% nose spray nasal BID GNP Glucosamine-Chondro Complex PO TID Ge's Leg Cramps & Arnica capsule PO DAILY loperamide 2 mg capsule 2 mg PO QID PRN magnesium hydroxide [Milk of Magnesia] 400 mg/5 mL suspension 30 ml PO DAILY PRN erythromycin 5 mg/gram (0.5 %) ointment 0.5 inch ophthalmic (eye) TID PRN polyethylene glycol 3350 17 gram/dose powder 4 g PO DAILY Biofreeze (menthol) 5 % adhesive patch,medicated 1 patch topical BID PRN (DME) Sensitive Eyes Drops See Rx Instructions .Route Rx Instructions: As directed diclofenac sodium [Arthritis Pain (diclofenac)] 1 % gel 1 g topical BID PRN Rx Instructions: apply to single elbow, wrist or hand; for hand includes palm/fingers/back of hand Single Barrel Toe Sleeve topical DAILY ne ensure drink PO BID Anti-Dandruff 1 % shampoo 1 applic topical .twice a week Rx Instructions: massage into affected area; leave on for 10 mins ; rinse off thoroughly haloperidol decanoate 100 mg/mL solution 100 mg IM ONCE Qty: 1 0RF celecoxib 200 mg capsule 200 mg PO QAM WesTab Plus 27 mg iron- 1 mg tablet 1 tab PO QAM Pulmicort Flexhaler 180 mcg/actuation aerosol powdr breath activated 1 inh inhalation BID quetiapine [Seroquel] 400 mg tablet 400 mg PO BEDTIME@20 Qty: 30 11RF naltrexone 50 mg tablet 50 mg PO DAILY@1200 Qty: 30 11RF cetirizine 10 mg Tablet 10 mg PO QAM fluticasone propionate 50 mcg/actuation [place],Suspension 1 spray INTRANASAL QAM Rx Instructions: administer into each nostril melatonin 5 mg tablet 15 mg PO BEDTIME@20 fluoxetine 40 mg capsule 40 mg PO QAM acetaminophen 500 mg capsule 1,000 mg PO Q6H PRN (Reason: Pain) meclizine 25 mg tablet 25 mg PO QID PRN (Reason: dizziness) Qty: 30 0RF docusate sodium 100 mg capsule 100 mg PO DAILY Discharge Orders: Discharge ED (Routine); Ordered 07/13/25 Ordered By: Drew Patel Referrals: Jeanette Mccollum PA [Primary Care Provider, Physicians Media Services Director] Discharge Diet: Usual diet Discharge Activity: Increase activity as tolerated Patient Instructions: Fall Prevention (ED), Patient Portal & Grabiel Instructions Activity Restrictions/Additional Instructions: CT scan of the brain is reassuring with no evidence of intracranial bleed or skull fracture. There is an area of swelling above the left eyebrow which should resolve spontaneously. EKG is reassuring. There is no need for further testing at this time. Print Language: Kyrgyz Coding Level of Care Code ED Precision Honer for Naye Cantu
== END 2025-07-13 03:14 | disposition home or self-care (01) ==
PROVIDERS: Emergency Provider Student in an Organized Health Care Education/Training Program; PCP Physician Assistant
DX: S00.03XA Contusion of scalp, initial encounter (principal); W19.XXXA Unspecified fall, initial encounter; R29.6 Repeated falls
CPT/HCPCS: 70450; 93005; 99284

== ENCOUNTER → 2025-08-04 13:45 | Outpatient (BNVA) | payer MEDICARE, MEDICAID, SELFPAY | PROVIDERS: PCP Physician Assistant; Visit Provider Internal Medicine Cardiovascular Disease | DX: R42 Dizziness and giddiness (principal); I49.8 Other specified cardiac arrhythmias; I49.3 Ventricular premature depolarization; I49.1 Atrial premature depolarization; I49.2 Junctional premature depolarization | CPT/HCPCS: 93242 ==

== ENCOUNTER 2025-08-18 15:00 | Emergency (ER) | payer MEDICARE, MEDICAID, SELFPAY ==
[2025-08-18 15:05] VITALS: BP 151/104; PULSE 71; RESP 16; TEMP 37; O2SAT 98; BMI 23.7
--- NOTE | 2025-08-18 15:05 | CTR_ITS ---
PROCEDURE INFORMATION: Exam: CT Head Without Contrast Exam date and time: 08/18/2025 3:51 PM Age: 60 years old Clinical indication: Other: Dizzy TECHNIQUE: Imaging protocol: Computed tomography of the head without contrast. Radiation optimization: All CT scans at this facility use at least one of these dose optimization techniques: automated exposure control; mA and/or kV adjustment per patient size (includes targeted exams where dose is matched to clinical indication); or iterative reconstruction. COMPARISON: CT head wo con* [id number] 07/13/2025 2:04 AM RADIATION DOSE METRICS: Total DLP (mGy-cm): 1084.51 FINDINGS: Brain: Normal. No hemorrhage. Unremarkable white matter. No mass effect or acute infarct. Cerebral ventricles: No ventriculomegaly. No midline shift. Paranasal sinuses: Visualized sinuses are unremarkable. No fluid levels. Mastoid air cells: Visualized mastoid air cells are well aerated. Bones: Unremarkable. No acute fracture. Soft tissues: Unremarkable. CT/CT head wo con* [id number] IMPRESSION: No acute intracranial abnormality.
--- NOTE | 2025-08-18 15:06 | XRR_ITS ---
PROCEDURE INFORMATION: Exam: XR Chest Exam date and time: 08/18/2025 3:40 PM Age: 60 years old Clinical indication: Pain; Angina pectoris; Additional info: Chest pain TECHNIQUE: Imaging protocol: Radiologic exam of the chest. Views: 1 view. COMPARISON: CT angio chest PE protcl [id number] 02/15/2025 5:31 PM FINDINGS: Lungs: Unremarkable. No consolidation or mass. Pleural spaces: Unremarkable. No pleural effusion. No pneumothorax. Heart/Mediastinum: Unremarkable. No cardiomegaly. Bones/joints: Unremarkable. XR/XR chest 1V portable [id number] IMPRESSION: No acute findings.
--- NOTE | 2025-08-18 15:06 | W.ED.DIZZY ---
HPI - Dizziness General: Chief Complaint: Dizziness Stated Complaint: dizziness Time Seen by Provider: 08/18/25 15:01 History of Present Illness: HPI Narrative: 60-year-old man with a history of schizoaffective disorder, obsessive-compulsive disorder, cognitive disorder who presents emergency room with continued dizziness. This is chronic. He also had some back pain and some chest pain. Chest pain has resolved. It was yesterday. No history of coronary disease. He takes meclizine frequently. Related Data Home Medications ?Medication ?Instructions ?Recorded ?Confirmed cetirizine 10 mg tablet 10 mg PO QAM 02/09/22 08/11/25 fluticasone propionate 50 1 spray intranasal QAM 02/09/22 08/11/25 mcg/actuation nasal spray,suspension celecoxib 200 mg capsule 200 mg PO QAM 06/24/22 08/11/25 vitamins with calcium 1 tab PO QAM 09/19/22 08/11/25 no.72-iron 27 mg-folic acid 1 mg tablet (WesTab Plus) budesonide 180 mcg/actuation 1 inh inhalation BID 04/23/24 08/11/25 breath activated powder inhaler (Pulmicort Flexhaler) acetaminophen 500 mg capsule 1,000 mg PO Q6H PRN Pain 01/07/25 08/11/25 fluoxetine 40 mg capsule 40 mg PO QAM 01/07/25 08/11/25 docusate sodium 100 mg capsule 100 mg PO DAILY 02/15/25 08/11/25 Deep sea 0.65% nose spray nasal BID 02/18/25 08/11/25 GNP Glucosamine-Chondro Complex PO TID 02/18/25 08/11/25 Ge's Leg Cramps & Arnica PO DAILY 02/18/25 08/11/25 Single Barrel Toe Sleeve topical DAILY 02/18/25 08/11/25 diclofenac sodium 1 % topical gel 1 g topical BID PRN 02/18/25 08/11/25 (Arthritis Pain (diclofenac)) digestive enzymes 1 cap PO DAILY 02/18/25 08/11/25 erythromycin 5 mg/gram (0.5 %) eye 0.5 inch ophthalmic (eye) TID PRN 02/18/25 08/11/25 ointment (3.5 gram tube) loperamide 2 mg capsule 2 mg PO QID PRN 02/18/25 08/11/25 magnesium hydroxide 400 mg/5 mL 30 ml PO DAILY PRN 02/18/25 08/11/25 oral suspension (Milk of Magnesia) menthol 5 % topical patch 1 patch topical BID PRN 02/18/25 07/14/25 (Biofreeze (menthol)) ne ensure drink PO BID 02/18/25 08/11/25 polyethylene glycol 3350 17 4 g PO DAILY 02/18/25 08/11/25 gram/dose oral powder soft lens adjunctive solutions 02/18/25 08/11/25 (Sensitive Eyes drops) melatonin 5 mg tablet 15 mg PO BEDTIME@20 04/15/25 08/11/25 selenium sulfide 1 % shampoo 1 applic topical .twice a week 04/15/25 08/11/25 (Anti-Dandruff) menthol 4 % topical gel (Biofreeze 1 applic topical BID PRN 07/14/25 08/11/25 (menthol)) Previous Rx's ?Medication ?Instructions ?Recorded quetiapine 400 mg tablet (Seroquel) 400 mg PO BEDTIME@20 #30 tabs 12/01/24 naltrexone 50 mg tablet 50 mg PO DAILY@1200 #30 tabs 12/09/24 meclizine 25 mg tablet 25 mg PO QID PRN dizziness #30 tabs 01/07/25 haloperidol decanoate 100 mg/mL 100 mg IM ONCE 1 month #30 mL 02/18/25 intramuscular solution lorazepam 0.5 mg tablet (Ativan) 0.5 mg PO DAILY PRN dizziness or 08/18/25 vertigo #14 tabs Allergies Allergy/AdvReac Type Severity Reaction Status Date / Time No Known Allergies Allergy Verified 08/11/25 15:42 Review of Systems Narrative: Constitutional symptoms: Negative except as documented in HPI. Skin symptoms: Negative except as documented in HPI. Eye symptoms: Negative except as documented in HPI. ENMT symptoms: Negative except as documented in HPI. Respiratory symptoms: Negative except as documented in HPI. Cardiovascular symptoms: Negative except as documented in HPI. Gastrointestinal symptoms: Negative except as documented in HPI. Genitourinary symptoms: Negative except as documented in HPI. Musculoskeletal symptoms: Negative except as documented in HPI. Neurologic symptoms: Negative except as documented in HPI. Psychiatric symptoms: Negative except as documented in HPI. Endocrine symptoms: Negative except as documented in HPI. PFS ED PFSH: Medical History (Updated 08/18/25 @ 16:12 by Cherie Murillo MD) Seizure in childhood Meningitis Childhood Schizoaffective disorder Obsessive-compulsive disorder Major neurocognitive disorder due to multiple etiologies Psychiatric care Surgical History Hx of tonsillectomy Family History Other Heart disease Stroke Social History Smoking and tobacco/nicotine status: never used tobacco/nicotine Second hand smoke exposure: No Alcohol intake: never Substance/Drug Use: never Lives independently: No Housing: Other Details: Independent living center Physical Exam Narrative: EXAM NARRATIVE: General: Alert, no acute distress. Skin: Warm, dry. Head: Normocephalic, atraumatic. Neck: Supple, trachea midline. Eye: Extraocular movements are intact. Ears, nose, mouth and throat: mucosa moist. Cardiovascular: Regular, Normal peripheral perfusion. Respiratory: Lungs are clear to auscultation, respirations are non-labored, breath sounds are equal, Symmetrical chest wall expansion. Gastrointestinal: Soft, Nontender, Non distended Musculoskeletal: Normal ROM, no deformity. Neurological: Alert and oriented, No focal neurological deficit observed. Psychiatric: Cooperative, appropriate mood & affect. Course Vital Signs: Vital signs: Vital Signs Temperature 98.6 F 08/18/25 15:05 Pulse Rate 71 08/18/25 15:05 Respiratory Rate 16 08/18/25 15:05 Blood Pressure 151/104 08/18/25 15:05 Pulse Oximetry 98 08/18/25 15:05 Oxygen Delivery Me thod Room Air 08/18/25 15:05 Clincial Decision Support The following clinical decision support tools were used to aid in care of the patient HEART Score -> History: Slightly Suspicous, EKG: Normal, Age: 45-64 yrs, Risk Factors: No Risk Factors Known, Troponin: Baseline Trop <16 ng/L. Resulting HEART Score: 1. MDM - Dizziness Medical Decision Making Medical decision making: Differential diagnosis including but not limited to and based on the above HPI, review of systems and physical exam: for patient with complaint of dizziness: stroke, hypotension, hypertension, infection, vertigo, orthostasis Orders placed to evaluate differential diagnosis based on the above differential, HPI and physical exam Chest x-ray: No acute process. No infiltrate. No pneumothorax. This was reviewed and interpreted by myself the emergency room physician. I also reviewed the radiology report. CT head: No acute intracranial process. No intracranial hemorrhage, no evidence of infarct. No evidence of acute fracture. This was reviewed and interpreted by myself the emergency room physician. I also reviewed the radiology report. EKG: Time 1549. Rate 64. Normal sinus rhythm, No ST-T changes, no ectopy, normal DC & QRS intervals, This was reviewed and interpreted by myself the ER physician at 1555 Lab Review: Laboratory results were reviewed and interpreted by myself the emergency room physician. No leukocytosis. No anemia. No renal failure. Cardiac marker is negative. I reviewed the patient's medical record. Reexamination: Patient remained stable. No increased work of breathing. No altered mental status. No focal motor deficits. Assessment and plan: Vertigo Noncardiac chest pain ?Ativan in the emergency room - Discharged home - Discussed plan with patient. Answered any questions. - Evaluation and treatment of this problem were appropriate in the emergency setting. Lab Data 08/18/25 15:33 08/18/25 15:[address] 08/18/25 15:05 IMPRESSION: No acute intracranial abnormality. Chest X-Ray 08/18/25 15:06 IMPRESSION: No acute findings. Laboratory Results WBC 6.26 10^3/uL (3.29-11.43) 08/18/25 15: RBC 4.43 10^6/uL (3.85-5.65) 08/18/25 15:33 Hgb 13.50 g/dL (11.27-16.99) 08/18/25 15:33 Hct 40.7 % (37-53) 08/18/25 15: MCV 91.9 fl (82-101) 08/18/25 15:33 MCH 30.5 pg (27-33) 08/18/25 15:33 MCHC 33.2 g/dL (30-55) 08/18/25 15: RDW 11.9 % (12.1-15.1) L 08/18/25 15:33 Plt Count 294 10^3/cmm (157-399) 08/18/25 15: MPV 9.4 fL (7.4-10.4) 08/18/25 15: Neut % (Auto) 70.6 % 08/18/25 15:33 Lymph % (Auto) 20.3 % 08/18/25 15: [place] % (Auto) 7.2 % 08/18/25 15: Eos % (Auto) 0.6 % 08/18/25 15: Baso % (Auto) 0.8 % 08/18/25 15: Neut # (Auto) 4.42 10^3/uL (1.8-7.7) 08/18/25 15: Lymph # (Auto) 1.3 10^3/uL (0.8-4.8) 08/18/25 15: [place] # (Auto) 0.5 10^3/uL (0.2-0.9) 08/18/25 15: Eos # (Auto) 0.0 10^3/uL (0.0-0.8) 08/18/25 15: Baso # (Auto) 0.1 10^3/uL (0.0-0.1) 08/18/25 15: Nucleated RBC % (auto) 0 % 08/18/25 15: Nucleated RBCs # 0.0 /100WBC 08/18/25 15:33 Sodium 141 mmol/L (136-145) 08/18/25 15: Potassium 4.6 mmol/L (3.5-5.1) 08/18/25 15: Chloride 103 mmol/L (98-107) 08/18/25 15: Carbon Dioxide 27 mmol/L (22-29) 08/18/25 15:33 Anion Gap 15.6 (5-19) 08/18/25 15: BUN 14 mg/dL (8-23) 08/18/25 15: Creatinine 0.7 mg/dL (0.7-1.2) 08/18/25 15: GFR Calculation 114.6 mL/min (90-130) 08/18/25 15: Glucose 91 mg/dL (65-115) 08/18/25 15: Calculated Osmolality 292 mOsm/kg (285-295) 08/18/25 15:33 Calcium 9.5 mg/dL (8.5-10.5) 08/18/25 15:33 Total Bilirubin 0.6 mg/dL (0.15-1.2) 08/18/25 15:33 AST 23 U/L (0-40) 08/18/25 15:33 ALT 20 U/L (0-41) 08/18/25 15:33 Alkaline Phosphatase 106 U/L (40-130) 08/18/25 15:33 Troponin T Baseline 7 ng/L (0-15) 08/18/25 15:33 Total Protein 7.2 g/dL (6.6-8.7) 08/18/25 15:33 Albumin 4.8 g/dL (3.5-5.2) 08/18/25 15:33 Globulin 2.4 g/dL (1.3-4.6) 08/18/25 15:33 All radiology interpretation(s) finalized by discharge Discharge Plan Discharge Patient Disposition: Home Clinical Impression: Vertigo, Non-cardiac chest pain Condition: Stable Prescriptions: New lorazepam [Ativan] 0.5 mg tablet 0.5 mg PO DAILY PRN (Reason: dizziness or vertigo) Qty: 14 0RF No Action haloperidol decanoate 100 mg/mL solution 100 mg IM ONCE 30 Days Qty: 30 11RF digestive enzymes Capsule 1 cap PO DAILY Rx Instructions: administer with food; swallow whole; do not crush/chew/dissolve/break/cut [place] sea 0.65% nose spray nasal BID GNP Glucosamine-Chondro Complex PO TID Ge's Leg Cramps & Arnica capsule PO DAILY loperamide 2 mg capsule 2 mg PO QID PRN magnesium hydroxide [Milk of Magnesia] 400 mg/5 mL suspension 30 ml PO DAILY PRN erythromycin 5 mg/gram (0.5 %) ointment 0.5 inch ophthalmic (eye) TID PRN polyethylene glycol 3350 17 gram/dose powder 4 g PO DAILY Biofreeze (menthol) 5 % adhesive patch,medicated 1 patch topical BID PRN (DME) Sensitive Eyes Drops See Rx Instructions .Route Rx Instructions: As directed diclofenac sodium [Arthritis Pain (diclofenac)] 1 % gel 1 g topical BID PRN Rx Instructions: apply to single elbow, wrist or hand; for hand includes palm/fingers/back of hand Single Barrel Toe Sleeve topical DAILY ne ensure drink PO BID Anti-Dandruff 1 % shampoo 1 applic topical .twice a week Rx Instructions: massage into affected area; leave on for 10 mins ; rinse off thoroughly celecoxib 200 mg capsule 200 mg PO QAM WesTab Plus 27 mg iron- 1 mg tablet 1 tab PO QAM Pulmicort Flexhaler 180 mcg/actuation aerosol powdr breath activated 1 inh inhalation BID Biofreeze (menthol) 4 % gel 1 applic topical BID PRN quetiapine [Seroquel] 400 mg tablet 400 mg PO BEDTIME@20 Qty: 30 11RF naltrexone 50 mg tablet 50 mg PO DAILY@1200 Qty: 30 11RF cetirizine 10 mg Tablet 10 mg PO QAM fluticasone propionate 50 mcg/actuation [place],Suspension 1 spray INTRANASAL QAM Rx Instructions: administer into each nostril melatonin 5 mg tablet 15 mg PO BEDTIME@20 fluoxetine 40 mg capsule 40 mg PO QAM acetaminophen 500 mg capsule 1,000 mg PO Q6H PRN (Reason: Pain) meclizine 25 mg tablet 25 mg PO QID PRN (Reason: dizziness) Qty: 30 0RF docusate sodium 100 mg capsule 100 mg PO DAILY Discharge Orders: Discharge ED (Routine); Ordered 08/18/25 Ordered By: Cherie Murillo Referrals: Jeanette Mccollum PA [Primary Care Provider, Physicians Set Decorator] Discharge Diet: Usual diet Discharge Activity: Increase activity as tolerated Patient Instructions: Vertigo (ED), Opioid Safety, Pain Management, Patient Portal & Grabiel Instructions Activity Restrictions/Additional Instructions: You should speak with your PCP about scheduling you with physical therapy who might be able to help with your vertigo symptoms. Thank you for choosing [facility] for your healthcare needs today. You have been screened and evaluated and felt safe for discharge. Health conditions do change or evolve sometimes and as such it is important that you follow up with your Primary Doctor to be re checked, 3-5 days is a general good time frame for follow up. You are always welcome to return to the ED for re assessment if your symptoms are worsening or you have new concerns Print Language: Welsh Coding Level of Care Code ED Poultry Processing Supervisor for Naye Cantu
--- OUTSIDE RECORDS SUMMARY | 2025-08-18 15:09 | XMS_ITS | Data Portability ---
Author Organization ASHELY [facility] Address [address] [address] Care Team Providers Care Matcher Operator Name Role Phone JEANETTE MCCOLLUM Primary Care Provider Unavailabl e Assessment No assessment recorded. Plan of Treatment Reminders Order Date Submit Date Provider Last Modified By Organization Details Last Modified Time Details Appointments None recorded. Lab urinalysis, complete 2024 025 [facility], [address] [facility], [facility] [address], [place], [address], 5 14:42:27 culture, urine 2024 025 [facility], [address] [facility] [address] [place], [address], 5 21:48:48 Referral ophthalmolo gist referral 2024 025 [email or web address] 2 Jamie Patel MD, [address] [place], [address], 5 18:19:52 physical therapist referral 2024 025 [email or web address] 2 [facility], [address] [facility] [address], [place], [address], 5 14:12:14 Procedures None recorded. Surgeries None recorded. Imaging holter monitor - 7 days 2024 [facility], [address] [place], [address], 12:32:03 Medication Orders mupirocin 2 % topical ointment 2024 [facility] #[id number], [address], [place], [place], [id number], 12:56:05 acetaminoph en 500 mg tablet 2024 [facility] #[id number], [address], [place], [place], [id number], 15:54:16 meclizine 25 mg tablet 2024 [facility] #[id number], [address], [place], [place], [id number], 16:58:26 Patient TargetsNo targets recorded. Patient InstructionsNo instructions recorded. 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 [address], [place], [address], 06/03/2025 14:42:27 06/03/20 25 06/03/2025 URINA LYSIS WITH MICRO clarity CLEAR Not Available [facility] [address], [place], [address], 06/03/2025 14:42:27 06/03/20 25 06/03/2025 URINA LYSIS WITH MICRO glu NEGATI VE Not Available [facility] [address], [place], [address], 06/03/2025 14:42:27 06/03/20 25 06/03/2025 URINA LYSIS WITH MICRO bili NEGATI VE Not Available [facility] [address], [place], [address], 06/03/2025 14:42:27 06/03/20 25 06/03/2025 URINA LYSIS WITH MICRO ket NEGATI VE Not Available [facility] [address], [place], [address], 06/03/2025 14:42:27 06/03/20 25 06/03/2025 URINA LYSIS WITH MICRO S.g 1.010 1.005- 1.025 Not Available [facility] [address] [facility] [address], [place], [address], 06/03/2025 14:42:27 06/03/20 25 06/03/2025 URINA LYSIS WITH MICRO pH 6.0 5.0-7. 0 Not Available [facility] [address] [facility] [address], [place], [address], 06/03/2025 14:42:27 06/03/20 25 06/03/2025 URINA LYSIS WITH MICRO pro NEGATI VE Not Available [facility] [address] [facility] [address], [place], [address], 06/03/2025 14:42:27 06/03/20 25 06/03/2025 URINA LYSIS WITH MICRO uro 0.2 E.U./D L Not Available [facility] [address], [place], [address], 06/03/2025 14:42:27 06/03/20 25 06/03/2025 URINA LYSIS WITH MICRO nit NEGATI VE Not Available [facility] [address], [place], [address], 06/03/2025 14:42:27 06/03/20 25 06/03/2025 URINA LYSIS WITH MICRO blo NEGATI VE Not Available [facility] [address], [place], [address], 06/03/2025 14:42:27 06/03/20 25 06/03/2025 URINA LYSIS WITH MICRO geovanny NEGATI VE Not Available [facility] [address], [place], [address], 06/03/2025 14:42:27 06/03/20 25 06/03/2025 URINA LYSIS WITH MICRO WBC 0-1 Not Available [facility] [address], [place], [address], 06/03/2025 14:42:27 06/03/20 25 06/03/2025 URINA LYSIS WITH MICRO RBC NEGATI VE Not Available [facility] [address], [place], [address], 06/03/2025 14:42:27 06/03/20 25 06/03/2025 URINA LYSIS WITH MICRO epi cells NEGATI VE Not Available [facility] [address], [place], [address], 06/03/2025 14:42:27 06/03/20 25 06/03/2025 URINA LYSIS WITH MICRO bacteria NEGATI VE Not Available [facility] [address], [place], [address], 06/03/2025 14:42:27 06/03/20 25 06/03/2025 URINA LYSIS WITH MICRO other NEGATI VE Not Available [facility] [address], [place], [address], 06/03/2025 14:42:27 06/03/20 25 06/04/2025 CULTU RE, URINE , ROUTI NE culture, urine, routine SEE NOTE CULTU RE, URINE , ROUTI NE Micro Numbe r: [id number] Test Statu s: Final Speci men Sourc e: Urine Speci men Quali ty: Adequ ate Resul t: No Growt h Not Available [place] [address] [place], [address], 06/04/2025 21:48:48 Result Notes None recorded. Problems Name Problem SNOMED Code Status Onset Date Resolution Date Notes Provider Name and Address Organization Details Recorded Time Pain of multiple joints 27446775 Completed 202211/21/2022 POLYARTH RALGIA - Status is Resolved ; Resolved Date: 11/21/19; Recorded 11/21/19 4:46PM by Jeanette Mccolulm PA-C, Annotati on/Adden dum; Promoted ; acuity set as *; CATALINA suarez [facility] 5 07:48:22 Atopic dermatit is [id number] Completed 202211/21/2022 ATOPIC DERMATIT IS - Status is Resolved ; Resolved Date: 11/21/19; Recorded 11/21/19 4:46PM by Jeanette Mccollum PA-C, Annotati on/Adden dum; Promoted ; acuity set as *; Not Available [facility] 3 03:08:30 Intellec tual function ing disabili ty 969238766 Active 2022 INTELLEC TUAL DISABILI TY; Recorded 01/14/20 7:04AM by Catalina Downey LPN, Office Visit; Promoted ; acuity set as *; CATALINA suarez [facility] 5 07:48:06 Arthropa thy 644291909 Active 2022 OSTEOART HRITIS; Recorded 01/14/20 2:08PM by Jeanette Mccollum PA-C, Office Visit; Promoted ; acuity set as *; CATALINA suarez [facility] 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 Batista weaning down. 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 FRONTAL LOBE DEMENTIA ; 01/14/20 7:04AM by Catalina Downey LPN, Office Visit; Promoted ; acuity set as *; CATALINA suarez [facility] 5 07:47:29 Obsessiv e-compul sive disorder 947130715 Active 2022 OCD (OBSESSI VE COMPULSI VE DISORDER ); Recorded 01/14/20 7:04AM by Catalina Downey LPN, Office Visit; Promoted ; acuity set as *; [facility] 07:48:27 Gastroes ophageal reflux disease 515353637 Active 2022 GERD (GASTROE SOPHAGEA L REFLUX DISEASE) ; Recorded 01/14/20 7:04AM by Catalina Downey LPN, Office Visit; Promoted ; acuity set as *; [facility] 5 07:47:49 Adult health examinat ion Completed 202201/12/2025 ANNUAL PHYSICAL EXAM; Recorded 01/14/20 7:04AM by Catalina Downey LPN, Office Visit; Promoted ; acuity set as *; [facility] 5 20:10:27 Falls 538705583 Completed 202212/19/2024 FREQUENT FALLS; Recorded 01/14/20 23 7:04AM by Catalina Downey LPN, Office Visit; Promoted ; acuity set as *; [facility] 5 07:47:46 Allergic rhinitis 25705214 Active 2022 ALLERGIC RHINITIS ; Recorded 01/14/20 23 7:04AM by Catalina Downey LPN, Office Visit; Promoted ; acuity set as *; [facility] 5 07:47:06 Body mass index 25-29 - overweig ht 152495264 Active 2022 BMI 27.0-27. 9,ADULT; Recorded 01/14/20 23 7:04AM by Catalina Downey LPN, Office Visit; Promoted ; acuity set as *; CATALINA suarez [facility] 5 20:10:31 Proteinu celine 86157541 Completed 202212/19/2024 [facility] 5 07:48:36 Chronic constipa tion 645427060 Active 2022 CATALINA SHARPECHRISTOPHER [facility] 5 07:47:24 Pain of multiple joints 70441932 Active 2023 POLYARTH RALGIA - Status is Resolved ; Resolved Date: 11/21/19; Recorded 11/21/19 4:46PM by Jeanette Mccollum PA-C, Annotati on/Addapril dum; Promoted ; acuity set as *; [facility] 5 07:48:22 Low back pain 529950677 Completed 202312/19/2024 CATALINA DELLCHRISTOPHER [facility] 5 07:48:16 Pain of hip region 39948512 Completed 202312/19/2024 CATALINA HACLAUDIAZENIA [facility] 5 07:47:59 Problem Notes None recorded. Procedures Surgical History Date Name Laterality Status Provider Name and Address Organization Details Recorded Time 3 screening for malignant neoplasm of colon completed CATALINA DOWNEY [facility] 03/25/2024 14:17:43 9 colonoscopy completed CATALINATANESHA DOWNEY [facility] 11/05/2023 15:39:56 Imaging Results None recorded. Procedure Notes None recorded. Medical Equipment None Reported. Allergies No known drug allergies Medications Name Sig Start Date Stop Date Status Note LastModified by Organization Details LastModified Time curad bandage flex-fabr ic 1sz 40ct USE ONE TO APPLY OVER MUPIROCI N TWICE DAILY FOR SEVEN DAYS 01/06 completed Not Available Not Available Not Available biofreeze jar cream 3oz USE ONE APPLICAT ION TO AFFECTED AREA TWICE DAILY NEEDED active Not Available Not Available No t Available celecoxib 200 mg capsule TAKE ONE CAPSULE BY MOUTH EVERY DAY active Not Available Not Available No t Available fluoxetin e 40 mg capsule TAKE ONE CAPSULE BY MOUTH EVERY DAY active Not Available Not Available No t Available acetamino phen 325 mg tablet TAKE ONE TABLET BY MOUTH EVERY FOUR HOURS NEEDED 07/01 completed Not Available Not Available Not Available gabapenti n 600 mg tablet TAKE ONE TABLET BY MOUTH THREE TIMES DAILY 08/12 completed Not Available Not Available Not Available doxycycli ne hyclate 100 mg capsule TAKE 1 CAPSULE BY MOUTH TWICE A DAY FOR 7 DAYS 07/01 completed Not Available Not Available Not Available loperamid e 2 mg capsule TAKE ONE CAPSULE BY MOUTH FOUR TIMES DAILY NEEDED FOR DIARRHEA active Not Available Not Available No t Available polyethyl phil glycol 3350 17 gram oral powder packet MIX AND DRINK 1 PACKET BY MOUTH DAILY 08/12 completed Not Available Not Available Not Available cetirizin e 10 mg tablet TAKE ONE TABLET BY MOUTH EVERY DAY active Not Available Not Available No t Available ofloxacin 0.3 % eye drops PLACE TWO DROPS INTO BOTH INFECTED EYES THREE TIMES DAILY; IN THE MORNING, LUNCHTIM E AND DINNER TIME. FOR 7 DAYS 02/03 completed Not Available Not Available Not Available chlorprom azine 100 mg tablet TAKE ONE TABLET BY MOUTH THREE TIMES DAILY 08/12 completed Not Available Not Available Not Available meloxicam 15 mg tablet 08/28 completed Not Available Not Available Not Available naltrexon e 50 mg tablet TAKE ONE TABLET BY MOUTH EVERY DAY (AT NOON) active Not Available Not Available No t Available haloperid ol decanoate 100 mg/mL intramusc ular solution INJECT 1ML INTO THE MUSCLE ONCE EACH MONTH active Not Available Not Available No t Available ondansetr on HCl 4 mg tablet TAKE 1 TABLET BY MOUTH EVERY 8 HOURS NEEDED FOR NAUSEA active Not Available Not Available No t Available sertralin e 100 mg tablet 08/28 completed Not Available Not Available Not Available quetiapin e 200 mg tablet TAKE ONE TABLET BY MOUTH EVERY DAY AT NOON 08/28 completed Not Available Not Available Not Available Milk of Magnesia 400 mg/5 mL oral suspensio n TAKE 30 ML BY MOUTH EVERY DAY NEEDED FOR CONSTIPA TION active Not Available Not Available No t Available divalproe x 500 mg tablet,de layed release TAKE ONE TABLET BY MOUTH AT BEDTIME 04/14 completed Not Available Not Available Not Available sulfameth oxazole 800 mg-trimet hoprim 160 mg tablet TAKE ONE TABLET BY MOUTH EVERY TWELVE HOURS FOR 7 DAYS 08/12 completed Not Available Not Available Not Available omeprazol e 40 mg capsule,d elayed release TAKE ONE CAPSULE BY MOUTH EVERY DAY 09/08 completed Not Available Not Available Not Available aspirin 81 mg tablet,de layed release TAKE ONE TABLET BY MOUTH DAILY 08/28 completed Not Available Not Available Not Available acetamino phen 500 mg tablet TAKE TWO TABLETS BY MOUTH EVERY SIX HOURS NEEDED FOR PAIN OR FEVER 2024 active Not Available Not Available Not Avai lable triamcino lone acetonide 0.1 % topical cream two times daily 03/25 completed 0; Recorded 03/13/20 22 6:48AM by Catalina Downey LPN, Office Visit; Not Available Not Available Not Available Deep Sea Nasal 0.65 % spray aerosol USE 1 SPRAY IN EACH NOSTRIL TWICE DAILY active Not Available Not Available No t Available lorazepam 0.5 mg tablet 08/28 completed Not Available Not Available Not Available meclizine 25 mg tablet TAKE ONE TABLET BY MOUTH THREE TIMES DAILY NEEDED active Not Available Not Available No t Available cephalexi n 500 mg capsule TAKE 1 CAPSULE BY MOUTH FOUR TIMES A DAY FOR 7 DAYS, MORNING, LUNCH,DI NNER, AND RIGHT BEFORE BEDTIME 07/01 completed Not Available Not Available Not Available pantopraz ole 40 mg tablet,de layed release TAKE ONE TABLET BY MOUTH TWICE DAILY 01/06 completed Not Available Not Available Not Available erythromy benja 5 mg/gram (0.5 %) eye ointment APPLY ONE CM RIBBON INTO THE LOWER CONJUNCT IVAL SAC(S) OF THE AFFECTED EYE(S) THREE TIMES DAILY NEEDED active Not Available Not Available No t Available polymyxin B sulfate 10,000 unit-trim ethoprim 1 mg/mL eye drops PLACE 1 DROP INTO AFFECTED EYE(S) EVERY 6 HOURS 02/03 completed Not Available Not Available Not Available ibuprofen 400 mg tablet Take 1 tablet every 6 hours by oral route as needed for 18 days. 03/25 completed Not Available Not Available Not Available docusate sodium 100 mg capsule TAKE ONE CAPSULE BY MOUTH EVERY DAY 2024 active Not Available Not Available Not Avai lable gabapenti n 300 mg capsule TAKE ONE CAPSULE BY MOUTH THREE TIMES DAILY 08/12 completed Not Available Not Available Not Available mupirocin 2 % topical ointment APPLY SMALL AMOUNT TOPICALL Y TO THE AFFECTED AREA THREE TIMES DAILY active Not Available Not Available No t Available zolpidem 5 mg tablet TAKE ONE TABLET BY MOUTH AT BEDTIME 08/28 completed Not Available Not Available Not Available gabapenti n 100 mg capsule Take 1 capsule twice a day by oral route for 7 days. 02/03 completed Not Available Not Available Not Available nystatin 100,000 unit/gram topical powder APPLY TOPICALL Y TO THE AFFECTED AREA THREE TIMES DAILY DIRECTED NEEDED active Not Available Not Available No t Available lorazepam 1 mg tablet 08/28 completed Not Available Not Available Not Available polyethyl phil glycol 3350 17 gram/dose oral powder MIX ONE SCOOP (17 GRAMS) IN 6 TO 8 OUNCES OF LIQUID OF CHOICE EVERY DAY active Not Available Not Available No t Available ondansetr on 4 mg disintegr ating tablet DISSOLVE 1 TABLET BY MOUTH THREE TIMES DAILY FOR 2 DAYS. GIVE 30 MINUTES TO AN HOUR BEFORE ATTEMPTI NG THE BRAT DIET 09/08 completed Not Available Not Available Not Available fluoxetin e 20 mg capsule 08/28 completed Not Available Not Available Not Available fluticaso ne propionat e 50 mcg/actua tion nasal spray,stalin pension USE 1 SPRAY IN EACH NOSTRIL EVERY DAY active Not Available Not Available No t Available docusate sodium 100 mg tablet daily 08/12 completed vo KM/dh; [id number]; Recorded 01/14/20 1:41PM by Catalina Downey LPN (Authori dawood through Jeanette Mccollum PA-C), Office Visit; Refill Quantity : 90; Tablet; Not Available Not Available Not Available chlorprom azine 50 mg tablet TAKE ONE TABLET BY MOUTH THREE TIMES DAILY 08/28 completed Not Available Not Available Not Available Orasone 20 20 mg tablet daily 08/28 completed 0; Recorded 01/14/20 1:41PM by Catalina Downey LPN, Office Visit; Not Available Not Available Not Available neomycin- bacitraci n-poly-HC 3.5 mg-400-10 ,000 unit/g-1 % eye ointment PLACE 1/4 INCH ON SUTURE SITE 3X DAILY FOR 14 DAYS TO THE RIGHT LOWER LID, START DAY OF PROCEDUR E 07/01 completed Not Available Not Available Not Available Sensitive Eyes drops PLACE 1 DROP IN EACH EYE FOUR TIMES DAILY NEEDED FOR DRY EYES active Not Available Not Available No t Available Flovent HFA 220 mcg/actua tion aerosol inhaler INHALE 1 PUFF INTO LUNGS TWICE DAILY 12/17 completed Not Available Not Available Not Available Antifunga l (clotrima zole) 1 % topical cream APPLY TOPICALL Y TO THE AFFECTED AREA TWICE DAILY NEEDED 01/06 completed Not Available Not Available Not Available Polytrim every 3 hours x 7 days 08/12 completed 1 bottle; Recorded 11/21/19 23 7:30AM by Catalina Downey LPN, Office Visit; Refill Quantity : 0; Not Available Not Available Not Available acetamino phen every 6 hrs prn 08/12 completed Recorded 01/14/20 23 2:10PM by Jeanette Mccollum PA-C, Office Visit; Refill Quantity : 120; Tablet; Not Available Not Available Not Available glucosami ne-chondr oitin three times daily 08/12 completed 29448; Recorded 11/21/19 23 7:30AM by Catalina Downey LPN (Authori dawood through Jeanette Mccollum PA-C), Office Visit; Refill Quantity : 90; Tablet; Not Available Not Available Not Available nystatin 3 times a day prn 08/12 completed vo KM/; [id number]; Recorded 11/21/19 23 7:30AM by Catalina Downey LPN (Authori dawood through Jeanette Mccollum PA-C), Office Visit; Refill Quantity : 1; Applicat or; Not Available Not Available Not Available clomipram ine daily 08/12 completed [facility]; 0; Recorded 01/14/20 1:41PM by Catalina Downey LPN, Office Visit; Not Available Not Available Not Available olanzapin e daily 08/28 completed [facility]; 0; Recorded 01/14/20 1:41PM by Catalina Downey LPN, Office Visit; Not Available Not Available Not Available fluoxetin e daily 08/12 completed 0; Recorded 01/14/20 1:41PM by Catalina Downey LPN, Office Visit; Not Available Not Available Not Available clotrimaz ole two times daily 08/12 completed vo KM/dh; 90798; Recorded 11/21/19 7:30AM by Catalina Downey LPN (Authori dawood through Jeanette Mccollum PA-C), Office Visit; Refill Quantity : 14; Applicat or; Not Available Not Available Not Available Imodium A-D 4 times per day as needed for diarrhea 08/12 completed vo KM/dh; 77228; Recorded 11/21/19 7:30AM by Catalina Downey LPN (Authori dawood through Jeanette Mccollum PA-C), Office Visit; Refill Quantity : 28; Capsule; Not Available Not Available Not Available quetiapin e three times daily 08/12 completed vo KM/dh 1 at noon and 2 at hs; Recorded 01/14/20 1:41PM by Catalina Downey LPN, Office Visit; Refill Quantity : 90; Tablet; Not Available Not Available Not Available Saline Nasal [place] daily active 0; Recorded 01/14/20 1:41PM by Catalina Downey LPN, Office Visit; Not Available Not Available Not Available gabapenti n three times daily 08/12 completed vo KM/dh; 72356; Recorded 12/17/19 9:59AM by Catalina Downey LPN (Authori dawood through Jeanette Mccollum PA-C), Refill Request; Refill Quantity : 90; Tablet; Not Available Not Available Not Available Celebrex daily 08/12 completed [facility]/; 80672; Recorded 01/13/20 3:42PM by Catalina Downey LPN (Authori dawood through Jeanette Mccollum PA-C), Refill Request; Refill Quantity : 30; Capsule; Not Available Not Available Not Available ondansetr on three times daily as needed for nausea or vomiting 08/28 completed [facility]/; 68683; Recorded 11/21/19 7:30AM by Catalina Downey LPN (Authori dawood through Jeanette Mccollum PA-C), Office Visit; Refill Quantity : 12; Tablet; Not Available Not Available Not Available Miralax daily, prn 2021 active Recorded 11/21/19 7:30AM by Catalina Downey LPN, Office Visit; Refill Quantity : 1; Applicat or; Not Available Not Available Not Available Divalproe x Sodium (Migraine ) three times daily 08/12 completed 1 at noon and 2 at [facility]; 0; Recorded 01/14/20 1:41PM by Catalina Downey LPN, Office Visit; Not Available Not Available Not Available Flovent HFA two times daily 08/12 completed Recorded 11/21/19 7:30AM by Catalina Downey LPN, Office Visit; Refill Quantity : 1; Applicat or; Not Available Not Available Not Available quetiapin e 400 mg tablet TAKE ONE TABLET BY MOUTH EVERY NIGHT AT BEDTIME AT 8PM active Not Available Not Available No t Available magnesium hydroxide 2,400 mg/10 mL oral suspensio n Take 30 mL every day by oral route as needed for 10 days. 08/12 completed Not Available Not Available Not Available Pulmicort Flexhaler 180 mcg/actua tion breath activated INHALE 1 PUFF INTO LUNGS TWICE DAILY DIRECTED active Not Available Not Available No t Available Rewetting Drops solution four times daily, as needed 02/19 completed Recorded 01/14/20 1:41PM by Catalina Downey LPN, Office Visit; Refill Quantity : 1; Applicat or; Not Available Not Available Not Available diclofena c 1 % topical gel APPLY ONE GRAM TO BILATERA L FOOT TWICE DAILY FOR 14 DAYS, THEN NEEDED active Not Available Not Available No t Available melatonin 5 mg tablet TAKE THREE TABLETS BY MOUTH AT BEDTIME active Not Available Not Available No t Available Pre-Ynes Multivita mins with Minerals 27 mg-1 mg-300 mg capsule daily 08/28 completed vo KM/dh; Recorded 11/21/19 7:30AM by Catalina Downey LPN, Office Visit; Refill Quantity : 90; Tablet; Not Available Not Available Not Available Glucosami ne-Chondr oitin 3X 750 mg-625 mg-30 mg tablet TAKE ONE TABLET BY MOUTH THREE TIMES DAILY active Not Available Not Available No t Available Anti-Dand ruff 1 % shampoo APPLY TOPICALL Y TO AFFECTED AREA TWICE A WEEK - APPLY TO FACE AND SCALP, LEAVE ON ONE TO THREE MINUTES, THEN RINSE active Not Available Not Available No t Available melatonin 5 mg capsule at bedtime 08/28 completed vo KM/; 38714; Recorded 11/21/19 7:30AM by Catalina Downey LPN (Authori mihaid through Jeanette Mccollum PA-C), Office Visit; Refill Quantity : 90; Capsule; Not Available Not Available Not Available Glucosami ne-Chondr oitin-MSM (with antiox) 500 mg-500 mg-66.7 mg tablet TAKE ONE TABLET BY MOUTH THREE TIMES DAILY 04/10 completed Not Available Not Available Not Available Multi Vitamin daily 2021 active vo KM/dh; Recorded 01/14/20 1:41PM by Catalina Downey LPN, Office Visit; Refill Quantity : 30; Tablet; Not Available Not Available Not Available Vitamins Plus Low Iron 27 mg iron-1 mg tablet TAKE ONE TABLET BY MOUTH EVERY DAY active Not Available Not Available No t Available Digestive Enzymes (maltase, lactase,i nvertase) 220 mg capsule TAKE ONE CAPSULE BY MOUTH EVERY DAY active Not Available Not Available No t Available Biofreeze (menthol) 10 % topical cream one applicat ion to affected area BID prn 2023 active Not Available Not Available Not Avai lable Vitals Date Recorded Body height Body mass index (BMI) Body weight Oxygen saturation Oxygen saturation in Arterial blood by Pulse oximetry Heart rate Respiratory rate Body temperature Systolic And Diastolic Provider Name and Address Organization Details Last Updated DateTime 5 180.34 cm 23.2 kg/m2 47347.3 3 g 98 % 98 % 72 /min 18 /min 97 [degF] 120/80 mm[Hg] CATALINA [facility] 5 16:24:44 Date Recorded Body height Body mass index (BMI) Body weight Oxygen saturation Oxygen saturation in Arterial blood by Pulse oximetry Heart rate Respiratory rate Body temperature Systolic And Diastolic Provider Name and Address Organization Details Last Updated DateTime 5 180.34 cm 23.2 kg/m2 31214.3 3 g 99 % 99 % 76 /min 18 /min 97 [degF] 122/70 mm[Hg] [facility] 5 15:22:38 Date Recorded Body height Body mass index (BMI) Body weight Oxygen saturation Oxygen saturation in Arterial blood by Pulse oximetry Heart rate Respiratory rate Body temperature Systolic And Diastolic Provider Name and Address Organization Details Last Updated DateTime 5 180.34 cm 22.9 kg/m2 94177.9 5 g 95 % 95 % 79 /min 17 /min 97.9 [degF] 140/80 mm[Hg] PERLITA VALDEZ [facility] 5 12:32:34 Date Recorded Body height Body mass index (BMI) Body weight Oxygen saturation Oxygen saturation in Arterial blood by Pulse oximetry Heart rate Respiratory rate Body temperature Systolic And Diastolic Provider Name and Address Organization Details Last Updated DateTime 5 180.34 cm 22.9 kg/m2 78171.1 5 g 96 % 96 % 78 /min 18 /min 97 [degF] 136/76 mm[Hg] [facility] 5 13:29:00 Date Recorded Body height Body mass index (BMI) Body weight Oxygen saturation Oxygen saturation in Arterial blood by Pulse oximetry Heart rate Respiratory rate Body temperature Systolic And Diastolic Provider Name and Address Organization Details Last Updated DateTime 5 180.34 cm 23.6 kg/m2 89396.1 1 g 97 % 97 % 72 /min 18 /min 97 [degF] 133/78 mm[Hg] CATALINA DOWNEY [facility] 5 15:23:52 Social History Question Answer Notes LastModified by Organizat ion Details LastModified Time Tobacco Smoking Status Never Smoker JEANETTE MCCOLLUM PA-C [address] [place], [address], [facility] 03/14/2023 20:07:12 What Was The Date Of Your Most Recent Tobacco Screening? 05/05/2025 [email or web address] Information not available 05/05/2025 What Is Your Relationship Status? Single [email or web address] Information not available 03/14/2023 Sex: Unknown Functional Status Question Answer Note LastModified by Organization D etails LastModified Time What is your level of alcohol consumption? None [email or web address] Information not available 03/14/2023 Are you able to care for yourself independently? No [email or web address] Information not available 03/14/2023 Mental Status None recorded. Family History Nothing Reported. Medical History Condition Response Developmental or Behavioral Disorders Y Mental Illness Y Immunizations Vaccine Type Date Status Note Provider Nam e and Address Organization Details Recorded Time Influenza, MDCK, quadrivalent, PF 7 completed JEANETTE MCCOLLUM PA-C [address] [place], [address], [facility] [place] 03/25/2024 14:20:42 MMR 0 completed JEANETTE MCCOLLUM PA-C [address] [place], [address], [facility] 03/25/2024 14:20:43 pneumococcal polysaccharide PPV23 5 completed JEANETTE MCCOLLUM PA-C [address] [place], [address], [facility] 03/25/2024 14:20:43 influenza, unspecified formulation 8 completed JEANETTE MCCOLLUM PA-C [address] [place] [address], [phone], [facility] 03/25/2024 14:20:43 influenza, unspecified formulation 9 completed JEANETTE MCCOLLUM PA-C [address] [place] [address], [address], [facility] 03/25/2024 14:20:43 influenza, unspecified formulation 0 completed JEANETTE MCCOLLUM PA-C [address] [place] [address], [address], [facility] 03/25/2024 14:20:43 Tdap 3 completed JEANETTE MCCOLLUM PA-C [address] [place] [address], [address], [facility] 03/25/2024 14:20:43 Tdap 6 completed JEANETTE MCCOLLUM PA-C [address] [place], [address], [facility] 03/25/2024 14:20:43 Influenza, split virus, trivalent, preservative 4 completed JEANETTE MCCOLLUM PA-C [address] [place] [address], [address], [facility] 03/25/2024 14:20:43 Influenza, split virus, trivalent, PF 1 completed JEANETTE MCCOLLUM PA-C [address] [place] [address], [address], [facility] 03/25/2024 14:20:43 Influenza, split virus, trivalent, PF 6 completed JEANETTE MCCOLLUM PA-C [address] [place], [address], [facility] 03/25/2024 14:20:43 Td (adult), 5 Lf tetanus toxoid, preservative free, adsorbed 6 completed JEANETTE MCCOLLUM PA-C [address] [place], [address], [facility] 03/25/2024 14:20:43 Td (adult), 2 Lf tetanus toxoid, preservative free, adsorbed 3 completed JEANETTE MCCOLLUM PA-C [address] [place], [address], [facility] 03/25/2024 14:20:43 Hep B, adolescent or pediatric 6 completed JEANETTE MCCOLLUM PA-C [address] [place], [address], [facility] 03/25/2024 14:20:43 Hep B, adult 7 completed JEANETTE MCCOLLUM PA-C [address] [place], [address], [facility] 03/25/2024 14:20:43 Hep B, adult 7 completed JEANETTE MCCOLLUM PA-C [address] [place], [address], [facility] 03/25/2024 14:20:43 Hep B, adult 2 completed JEANETTE MCCOLLUM PA-C [address] [place], [address], [facility] 03/25/2024 14:20:43 Past Encounters Encounter ID Performer Location Encounter Start Date Encounter Closed Date Diagnosis/Indication Diagnosis SNOMED-CT Code Diagnosis ICD10 Code Diagnosis IMO Codes Diagnosis Note [id number] FERNANDO CARLOS [facility] ([facility]) [address] [place] [address] 03/06/2023 12:46:39 03/12/2023 09:21:59 Cellulitis of toe of right foot 4832577069 3332190 L03.031 [id number] JEANETTE MCCOLLUM PA-C [facility] ([facility]) [address] [place] [address] 03/11/2023 15:09:41 03/17/2023 12:36:09 Long-term current use of drug therapy 031556402 Z79.899 Asthma 755529350 J45.90 9 Allergic rhinitis 735164 04 J30.9 Adult heal th examination 650644100 Z00.00 Intellectu al disability 366518139 F79 Pt is doing well with one on one care [place]. His psych meds are managed by psychiatri .No meds changes today. Some clarificat ions made on his JAN. Schizophrenia 09190129 F 20.9 [id number] Cb Britton MD [facility] ([facility]) [address] [place] [address] 04/01/2023 15:42:39 04/01/2023 20:09:06 Cellulitis of toe 63223511 L03.032 start abx. discussed skin care. continue with podiatry f/u. Proteinuria 37331747 R80 .9 UA as part of yearly work [place]. [id number] DARCI MCCRACKEN [facility] ([facility]) [address] [place] [address] 04/17/2023 16:03:02 04/29/2023 08:47:41 Constipation 57108123 K59.00 Continue miralax daily. Start milk of magnesia daily for 3 days, and then continue PRN. If no BM in 3 days, return for probable KUB x-ray. If severe abdominal pain develops, go to ED. Increase fluids. Diversional Therapist verbalizes understand ing. [id number] DARCI MCCRACKEN [facility] ([facility]) [address] [place] [address] 04/24/2023 16:36:18 05/07/2023 11:57:15 Acute dermatitis 10930171 L30.9 Encouraged caregiver to apply triple antibiotic ointment and mild, unscented lotions TID until healed. Discussed with patient that this could be due to not getting soap washed off completely . Encouraged caregiver to help patient with hand washing and drying hands completely . If not seeing any improvemen t in 7 days, should return for further evaluation . FERNANDO BAUTISTA [facility] ([facility]) [address] [place] [address] 05/03/2023 13:37:44 05/03/2023 14:51:43 Fall in home 26145172 Y92.009 [id number] [facility] [address] [place] [address] 05/07/2023 12:56:09 05/07/2023 16:08:10 Abdominal pain 63276532 R10.9 Constipation 55236443 K5 9.00 Continue miralax daily. Start milk of magnesia daily for 3 days, and then continue PRN. If no BM in 3 days, return for re-evaluat ion. If severe abdominal pain develops, go to ED. Increase fluids. Diversional Therapist verbalizes understand ing. [id number] DARCI MCCRACKEN [facility] ([facility]) [address] [place] [address] 06/13/2023 13:50:49 06/13/2023 18:09:42 Abrasion of skin of right upper arm 8588690463 0987279 S40.811D Continue mupirocin BID. Keep area clean. Discussed worsening signs of infection including increased erythema, purulent drainage, fever, and streaking. If these symptoms occur, patient should return for further evaluation . If not improving or worsening condition in 5-7 days, return for further evaluation . Patient caregiver verbalizes understand ing. Strain of neck muscle 36 5165740 S16.1XXD Form signed for patient to restart ibuprofen 400mg Q6H PRN. Encouraged patient to do passive stretches and use ice and heat packs PRN for pain. Discussed with patient that not moving can make the pain worse and suggested that the patient continue to ambulate and move around when possible. Patient agrees to plan of care. Recommend keeping follow up appointmen t with PCP on 07/01/23. Low back pain 420640768 M54.50 Passive ROM exercises. Can use ice and heat as needed. Ibuprofen 400mg Q6H PRN. Has follow up with PCP on 07/01/23. [id number] DARCI MCCRACKEN [facility] ([facility]) [address] [place] [address] 06/28/2023 11:55:34 07/03/2023 21:50:16 Laceration of great toe 943179642 S91.112A Apply triple antibiotic ointment TID until healed. No evidence of infection today. Should continue to keep area clean. Discussed signs of infection including erythema, purulent drainage, streaking, and fever. If any of these symptoms occur, should be re-evaluat ed. Patient and caregiver verbalized understand ing. Abrasion o f skin of toe 985929636 S90.414A Continue to apply triple antibiotic ointment TID until healed. Should discontinu e wearing toe sleeves until this abrasion is healed. Patient and caregiver verbalized understand ing. Pain of le ft elbow joint 9720735222 8970735 M25.522 Normal exam today. Due to full ROM of elbow joint, no bruising, no edema, and denial of pain today, no x-ray indicated. Can use ice and ibuprofen/ tylenol PRN for pain. If still having pain in 1 week, should return for re-evaluat ion and probable x-ray. Patient and caregiver verbalize understand ing. [id number] JEANETTE MCCOLLUM PA-C [facility] ([facility]) [address] [place] [id number] 2023 14:33:20 2023 19:27:08 Chronic constipation 379242404 K59.09 Chronic pain 09002530 G8 9.29 Medication monitoring 39 2567369 Z51.81 Schizophrenia 33365438 F 20.9 psych meds managed by Dr. Batista [id number] JEANETTE MCCOLLUM PA-C [facility] ([facility]) [address] [place] [address] 08/12/2023 15:45:11 08/12/2023 18:27:30 Chronic pain 27759410 G89.29 family is wanting to continue to GDR meds. will dose reduce his gabapentin again Constipation 12592016 K5 9.00 Schizophrenia 04895524 F 20.9 psych meds managed by Dr. Batista [id number] DARCI MCCRACKEN [facility] ([facility]) [address] [place] [phone] 08/18/2023 13:43:49 08/18/2023 18:08:58 Abdominal pain 82517992 R10.9 Normal exam today. Will start ondansetro n PRN today. UA did show bilirubine marvin and ketones. Discussed with caregiver that if patient does not improve with ondansetro n, should be re-evaluat ed by PCP next week. Discussed with caregiver signs of jaundice and if this occurs, patient should go to ED. Caregiver verbalized understand ing. Recommende d small, bland meals for the next 2-3 days and increasing water intake. If pain becomes severe, should go to ED. Patient and caregiver verbalized understand ing. [id number] JEANETTE MCCOLLUM PA-C [facility] ([facility]) [address] [place] [phone] 08/28/2023 14:52:57 08/28/2023 18:19:19 Ketonuria 014267833 R82.4 recheck Chronic pain 54253780 G8 9.29 will stay on current dose for now. Pt is doing well on lower dose but still will have pretty consistant complaints for pain [id number] JEANETTE MCCOLLUM PA-C [facility] ([facility]) [address] [place] [address] 5 09/18/2023 17:51:35 09/26/2023 04:09:16 Dysuria 20353086 R30.0 [id number] JEANETTE MCCOLLUM PA-C [facility] ([facility]) [address] [place] [address] 5 11/05/2023 15:29:51 11/05/2023 18:13:38 Polymyalgia 83189865 M35.3 will get labs today. Benign pro static hyperplasia 916388322 N40.0 Low back pain 203252056 M54.50 normal xrays done in the past. on celebrex and prn tylenol. gets 1-2x/day Screening for malignant neoplasm of colon 419014274 Z12.11 cologard will be sent to [facility] to complete with help of staff. Obsessive- compulsive disorder 519083034 F42.9 Dr. Batista manages. have him address some of his depression s/s and severe OCD that inhibits his ability to leave the house. Schizophrenia 71017520 F 20.9 psych meds managed by Dr. Batista [id number] JEANETTE MCCOLLUM PA-C [facility] ([facility]) [address] [place] [address] 12/03/2023 15:12:10 12/18/2023 07:58:38 Bacterial conjunctivitis 325306987 H10.9 Colorectal cancer detected by DNA-based stool screening 305956472 R19.5 We discussed that positive result does not mean cancer is present. 4% have colon cancer. 45% have a polyp found and 50% are normal.Sis ter/gamariludi an asked good questions. at this point they are comfortabl e with waiting on the colonoscop y and monitoring closely labs and stool if any changes. Schizophrenia 33869673 F 20.9 psych meds managed by Dr. Batista haldol, depakote, fluoxetine , seroquelCC A form filled out during today's office visit Dissociative disorder 44 121156 F44.81 Asthma 890712844 J45.90 9 mild Muscle pain 26520375 M79 .18 labs and tylenol/ce lebrex Fatigue 84036506 R53.83 labs and monitoring [id number] JEANETTE MCCOLLUM PA-C [facility] ([facility]) [address] [place] [phone] 02/04/2024 13:38:22 02/04/2024 14:41:32 Abnormal weight loss 079937072 R63.4 Anemia 052688320 D64.9 Chronic low back pain 27 5716019 M54.50 [id number] JEANETTE MCCOLLUM PA-C [facility] ([facility]) [address] [place] [address] 5 03/25/2024 14:00:05 03/25/2024 17:08:38 Adult health examination 389319860 Z00.00 Unintentio nal weight loss 082199054 R63.4 Abdominal pain 67038179 R10.9 Red eye 857449090 H57.89 Dementia o f frontal lobe type 681450408 G31.09 Intellectu al functioning disability 983299205 F79 Pain of mu ltiple joints 81371558 M25.50 Obsessive- compulsive disorder 218460554 F42.9 Dr. Batista manages. have him address some of his depression s/s and severe OCD that inhibits his ability to leave the house. Schizophrenia 81592687 F 20.9 psych meds managed by Dr. Batista haldol, depakote, fluoxetine , seroquelCC A form filled out during today's office visit [id number] JEANETTE MCCOLLUM PA-C [facility] ([facility]) [address] [place] [address] 5 05/06/2024 14:37:56 05/06/2024 15:53:08 Abnormal weight loss 996101248 R63.4 stabilized today. continue with ensure. his CT was normal. no evidence of CA. Intellectu al functioning disability 283693068 F79 Pain of mu ltiple joints 05920440 M25.50 pt is to start PT and massage. [id number] JEANETTE MCCOLLUM PA-C [facility] ([facility]) [address] [place] [address]42[address] 5 07/07/2024 14:48:51 07/27/2024 09:14:02 Chronic low back pain 340267397 M54.50 continue with PT. Pt is benefiting from it. Intellectu al functioning disability 066068138 F79 Obsessive- compulsive disorder 164491313 F42.9 Dr. Batista manages. [id number] JEANETTE MCCOLLUM PA-C [facility] ([facility]) [address] [place] [address] 97[address] 5 09/08/2024 13:44:17 10/09/2024 21:54:02 Arthropathy 583775372 M19.90 Intellectu al functioning disability 536670898 F79 Schizophrenia 62611143 F 20.9 psych meds managed by Dr. Lester urrutia depakomary, fluoxetine , seroquelCC A form filled out during today's office visit [id number] JEANETTE MCCOLLUM PA-C [facility] ([facility]) [address] [place] [address] 82018[address]748 5 01/06/2025 15:25:49 01/06/2025 18:41:26 Gastroesophageal reflux disease 771740878 K21.9 stop pantoprazo le. GERD resolved.arnoldo penny has questions about pancreatic enzymes supplement . I think a probiotic would be more appropriat e than ezymes. he tends to be more constipati ons followed by a large loose BMI do not think stress test ordered by ER is medically necessary. I recommend order be d/luci. No chest pain since started on PPI Pain of mu ltiple joints 39031315 M25.50 sister has questions about natural supplement with arinca. I suggested to care rep to see if [facility] has an equivalent on stock and if so send me the name to send a rx for. Neurocogni tive disorder 418051541 G31.09 Schizophrenia 23525844 F 20.9 psych meds managed by matthias Benson, fluoxetine , seroquelCC A form filled out during today's office visit Asthma 128694599 J45.90 9 stable Chronic anemia 363965198 D64.9 stable Hyperlipidemia 89010093 E78.5 no med tx due to mylagias. Chronic low back pain 27 3215947 M54.50 continue with PT. Pt is benefiting from it. Muscle pain 37537814 M79 .18 labs and tylenol/ce lebrex [id number] FERNANDO BAUTISTA [facility] ([facility]) [address] [place] [address] 5 01/26/2025 15:37:57 01/28/2025 07:18:13 Foot callus 946464115 L84 Keep appt as scheduled for podiatry. Callous was filed with regular nail file. Patient tolerated well. RTC with any new or worsening symptoms. [id number] JEANETTE MCCOLLUM PA-C [facility] ([facility]) [address] [place] [id number] 5 02/03/2025 15:13:20 02/03/2025 16:24:30 Essential hypertension 35892818 I10 Pain of mu ltiple joints 79055620 M25.50 veda natural legs cramps with arnica one po qd. faxed to be drug on rx pad due to not in our system.Dig estive enzymes century one po qd Pain in bi lateral feet 0194140635 4783638 M79.671 several small blisters on feet. none infected. from not wearing socks on rubbing on his bony promenense s on toes and inner ankles. [id number] JEANETTE MCCOLLUM PA-C [facility] ([facility]) [address] [place] [address]24[address] 5 02/24/2025 15:53:09 02/25/2025 14:30:15 Dizziness 848267747 R42 er records and labs reviewed.I agree with dropping some of his pysch med doses. he has been stable and doing well with psychosis or aggressive behaviorsM ore with OCD and anadonia as predominen t features. Intellectu al functioning disability 357729923 F79 [id number] JEANETTE MCCOLLUM PA-C [facility] ([facility]) [address] [place] [address]564 5 04/14/2025 14:53:20 04/14/2025 16:07:14 Arthropathy 102302890 M19.90 Postural dizziness 18473 7008 R42 859233 [facility] risk for falls 176930037 Z91.81 8402093 [id number] FERNANDO BAUTISTA [facility] ([facility]) [address] [place] [address] 28[address]916 5 05/05/2025 12:17:47 05/06/2025 14:09:01 Open wound of foot, excluding toe(s) 510902839 S91.301A 65936864 Continue to wear spacers. May apply moleskin over the area. Call podiatry to get earlier appt. RTC with any new or worsening symptoms. [id number] JEANETTE MCCOLLUM PA-C [facility] ([facility]) [address] [place] [address] 06/03/2025 13:24:50 06/03/2025 16:25:04 Dysuria 17196581 R30.0 00366 Acute abdominal pain [address] and labs. will recheck urine todaywill continue to monitor. try to watch for correlatio n of what types of food he is eating and when he has cramping and diarrhea. [id number] JEANETTE MCCOLLUM PA-C [facility] ([facility]) [address] [place] [address] 07/26/2025 15:04:19 08/01/2025 12:53:51 Intermittent vertigo 903694653 R42 317178 Dizzy spells 726943435 R 42 805132 Horizontal nystagmus 817 87525 H55.09 82523 Health Concerns Section Related Observation LastModified by Organization Detai ls LastModified Time None Recorded Concern Status LastModified by Organization Details LastModified Time None Recorded Advance Directives Directive None Recorded Payers Insurance Date Sequence Insurance Name Policy Number Policy Montoya Covered Member ID Montoya Member ID Guarantor Name 07/26/2025 1 [place] [facility] Serg Acosta [id number] Leticia Quarles 07/26/2025 [place] - [facility] (MEDICARE) Serg Acosta [id number] Leticia Quarles 07/26/2025 2 [place] Serg Acosta [id number] Leticia Quarles 07/26/2025 1 [place] [facility] Serg Acosta [id number] Leticia Quarles 07/26/2025 [place] [facility] ([facility] Serg Acosta [id number] Leticia Quarles 07/26/2025 [place] - [facility] (MEDICARE) Serg Acosta [id number] Leticia R Willam Notes Date Note Type Note Provider Name and Address Organization Details Recorded Time 5 text/html HypertensionReported by PatientHPIFor quality, patient reportspressure,loss of function, andweakness. For severity, patient reportselevated (120-129/<80). DizzinessReported by PatientHPIFor quality, patient reportslightheadednessand unsteadiness. For duration, patient reportslasts <1 minute. For onset/timing, patient reportsrecurrent. For alleviating factors, patient reportsholding still.psychiatrist recently decreased his depakote dose. er follow up 02-15-25 hypertension needs refill JEANETTE MCCOLLUM PA-C [address] [place], [address], [facility] 02/25/2025 13:33:54 5 text/html Fall UCReported by PatientHPIFor severity of pain, patient reportsmoderate. For context, patient reportslost balance. For aggravating factors, patient reportsmovement. jr syncope dizziness passing outReported by PatientHPIFor quality, patient reportslightheaded,room spinning, andoff balance. For context, patient reportsstanding. For severity, patient reportsmoderate. For onset/timing, patient reportsnocturnally,sudden ,am, andpm. I get dizzy every night when I get up to go to the bathroom. He was sleeping a lot and guardian came over last week and had a webber talk with him about getting up and eating and taking care of himself. Psych stopped his divalproex and dizziness got worse. JEANETTE MCCOLLUM PA-C [address] [place], [address], [facility] 04/14/2025 16:04:13 5 text/html ROS as noted in the HPI Patient has a blister on his right great toe. Painful. First discovered on Friday but has gotten worse. Caregiver states it's several layers deep. Patient has appt with podiatry at the end of May. Denies any pain, bleeding or purulent discharge. FERNANDO BAUTISTA [address] [place], [address], [facility] 05/05/2025 19:29:50 5 text/html Abdominal PainReported by PatientAbdominal PainFor quality, patient reportscramping. For location, patient reportsrlq. For severity, patient reportsmoderate. For duration, patient reportsintermittent. For previous tests, treatment and/or diagnostic procedures, patient reportsprescription medicationandct of the abdomen __. er follow up 05-22-[address] negativelabs negative, He is also telling staff it orta when he pees.I reviewed his stool charting from staff and they are only reporting one diarrhea stool a week. JEANETTE MCCOLLUM PA-C [address] [place], [address], [facility] 06/03/2025 15:52:21 5 text/html Fall UCReported by PatientHPIFor location of injury, patient reportsheadandface. For severity of pain, patient reportsmoderate. For onset/timing, patient reports2 weeks ago. For context, patient reportsfell from standing position,reports hitting head,lost balance,patient experienced seizure __ the fall, andsurface of fall: cement. For alleviating factors, patient reportsrelieved by ice. For aggravating factors, patient reportsnothing makes it worse,movement,standing,l tracey down, andlifting. For associated symptoms, patient reportsno loss of consciousness,no memory loss,no numbness/tingling,no facial paralysis,no muscle weakness,no confusion,no headache,no loss of coordination,no lightheadedness, andno seizures. Annual WellnessReported by PatientSocial/Behavioral HistoryFor diet and nutrition, patient reportshealthy diet,discussed vitamin and supplement use,discussed portion control,discussed maintaining calcium balance, anddiscussed diet improvement. For fracture risk, patient reportsno history of fractures,no recent explained fracture,no sudden unexplained fractures, andno previous musculoskeletal injuries. For physical activity, patient reportsexercises on a regular basis,discussed weightbearing activities, anddiscussed exercise habits. For additional lifestyle factors, patient reportsno tobacco useandno alcohol intake.Mental Status:For depression risk, patient reportshistory of mood disordersandhistory of depressionbut reportsno thoughts of suicide.Functional AbilityFor hearing, patient reportsno loss of hearing. For vision, patient reportsno vision problems. ER FOLLOW UP FROM 07-13-25 FOR FALLSChronic complaints of dizzyness.psych has reduced several of his meds and did not helpHas seen vestibular tx and has not helped. JEANETTE MCCOLLUM PA-C [address] [place], [address], [facility], Yoav 07/29/2025 15:58:26
--- OUTSIDE RECORDS SUMMARY | 2025-08-18 15:09 | XMS_ITS | Patient Health Record ---
Author Organization [facility] Address [address] [place] [address] Care Team Providers Care Neurology Physician Assistant Name Role Phone Unknown, Unknown Primary Care [...] Lidocaine Active Celecoxib Active HM Saline Nasal [place] Active Docusate Sodium Acti ve Omeprazole Active [...] End Date Medicaid Dental [address] [place] [address] [phone] [id number] Serg Acosta Self - patient is the insured
--- NOTE | 2025-08-18 15:28 | ECG_ITS ---
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 Measurements Intervals [place] Rate: 64 P: 54 WY: 144 QRS: 52 QRSD: 89 T: 46 QT: 407 QTc: 421 Interpretive Statements SINUS RHYTHM POSSIBLE LEFT ATRIAL ENLARGEMENT [-0.1mV P-WAVE IN V1/V2] Compared to ECG 08/18/2025 15:28:05 Ventricular premature complex(es) no longer present ST (T wave) deviation no longer present Myocardial infarct finding no longer present Electronically Signed On 08-18-2025 17:11:23 CDT by Shavon Zarate M.D. [email or web address]
[2025-08-18 15:44] LABS: Hematocrit 40.7 % (37-53); Hemoglobin 13.50 g/dL (11.27-16.99); Mean Corpuscular HGB Conc 33.2 g/dL (30-55); Mean Corpuscular Hemoglobin 30.5 pg (27-33); Mean Corpuscular Volume 91.9 fl (82-101); Nucleated Red Blood Cells % 0 %; Platelet Count 294 10^3/cmm (157-399); Red Blood Count 4.43 10^6/uL (3.85-5.65); White Blood Count 6.26 10^3/uL (3.29-11.43)
[2025-08-18 16:07] LABS: Alanine Aminotransferase 20 U/L (0-41); Albumin Level 4.8 g/dL (3.5-5.2); Alkaline Phosphatase 106 U/L (40-130); Anion Gap 15.6 (5-19); Aspartate Amino Transferase 23 U/L (0-40); Blood Urea Nitrogen 14 mg/dL (8-23); Calcium 9.5 mg/dL (8.5-10.5); Carbon Dioxide 27 mmol/L (22-29); Chloride 103 mmol/L (98-107); Creatinine Clr Calc Pharmacy 119.1652; Globulin 2.4 g/dL (1.3-4.6); Glucose 91 mg/dL (65-115); Osmolality Calculated 292 mOsm/kg (285-295); Potassium 4.6 mmol/L (3.5-5.1); Sodium 141 mmol/L (136-145); Total Protein 7.2 g/dL (6.6-8.7); Troponin(5th) Baseline 7 ng/L (0-15)
== END 2025-08-18 16:57 | disposition home or self-care (01) ==
PROVIDERS: Emergency Provider Emergency Medicine; PCP Physician Assistant
DX: R42 Dizziness and giddiness (principal); R07.89 Other chest pain
CPT/HCPCS: 36415; 70450; 71045; 80053; 84484; 85025; 93005; 99285; J9999

== ENCOUNTER 2025-08-23 14:52 | Emergency (ER) | payer MEDICARE, MEDICAID, SELFPAY ==
--- OUTSIDE RECORDS SUMMARY | 2025-08-23 14:54 | XMS_ITS | Patient Health Record ---
Author Organization [facility] Address [address] [place] [address] Care Team Providers Care Sales Leader Name Role Phone Unknown, Unknown Primary Care [...] Lidocaine Active Celecoxib Active HM Saline Nasal [place] Active Docusate Sodium Acti ve Omeprazole Active [...] End Date Medicaid Dental [address] [place] [address] [id number] Serg Acosta Self - patient is the insured
[2025-08-23 14:56] VITALS: BP 155/93; PULSE 77; TEMP 36.5; O2SAT 97
--- NOTE | 2025-08-23 15:40 | W.ED.ABDPA2 ---
HPI - Abdominal Pain General: Chief Complaint: Abdominal Pain Stated Complaint: abd pain Mid Lt side Time Seen by Provider: 08/23/25 15:35 Source: patient and other (care staff) Mode of arrival: ambulatory Limitations: no limitations History of Present Illness: Patient is a 60-year-old male who presents to ED today along with his care staff for evaluation of right sided upper abdominal pain. Care staff states he was completely asymptomatic and was bent over putting his socks and shoes on when he immediately grabbed his right upper abdomen complaining of pain. Staff states she palpated the area and feels like she felt something hard so was not sure if this was an abdominal muscle spasm versus a hernia. She states it is gone now. Staff states he is acting much more comfortable now upon arrival. He does still complain of pain when asked. He has not had any vomiting. No recent fevers. Staff states his bowel movements have been normal. MD elicited complaint: abdominal pain Onset (ago): hour(s) Pain Consistency: other (improved currently from earlier) Location: RUQ Severity: mild Radiation: none Migration to: no migration Exacerbating factors: nothing Relieving factors: nothing Associated Symptoms: Denies change in bowel habits, chills, dysuria, fever(s), hematuria, nausea and vomiting Related Data Home Medications ?Medication ?Instructions ?Recorded ?Confirmed cetirizine 10 mg tablet 10 mg PO QAM 02/09/22 08/11/25 fluticasone propionate 50 1 spray intranasal QAM 02/09/22 08/11/25 mcg/actuation nasal spray,suspension celecoxib 200 mg capsule 200 mg PO QAM 06/24/22 08/11/25 vitamins with calcium 1 tab PO QAM 09/19/22 08/11/25 no.72-iron 27 mg-folic acid 1 mg tablet (WesTab Plus) budesonide 180 mcg/actuation 1 inh inhalation BID 04/23/24 08/11/25 breath activated powder inhaler (Pulmicort Flexhaler) acetaminophen 500 mg capsule 1,000 mg PO Q6H PRN Pain 01/07/25 08/11/25 fluoxetine 40 mg capsule 40 mg PO QAM 01/07/25 08/11/25 docusate sodium 100 mg capsule 100 mg PO DAILY 02/15/25 08/11/25 Deep sea 0.65% nose spray nasal BID 02/18/25 08/11/25 GNP Glucosamine-Chondro Complex PO TID 02/18/25 08/11/25 Ge's Leg Cramps & Arnica PO DAILY 02/18/25 08/11/25 Single Barrel Toe Sleeve topical DAILY 02/18/25 08/11/25 diclofenac sodium 1 % topical gel 1 g topical BID PRN 02/18/25 08/11/25 (Arthritis Pain (diclofenac)) digestive enzymes 1 cap PO DAILY 02/18/25 08/11/25 erythromycin 5 mg/gram (0.5 %) eye 0.5 inch ophthalmic (eye) TID PRN 02/18/25 08/11/25 ointment (3.5 gram tube) loperamide 2 mg capsule 2 mg PO QID PRN 02/18/25 08/11/25 magnesium hydroxide 400 mg/5 mL 30 ml PO DAILY PRN 02/18/25 08/11/25 oral suspension (Milk of Magnesia) menthol 5 % topical patch 1 patch topical BID PRN 02/18/25 07/14/25 (Biofreeze (menthol)) ne ensure drink PO BID 02/18/25 08/11/25 polyethylene glycol 3350 17 4 g PO DAILY 02/18/25 08/11/25 gram/dose oral powder soft lens adjunctive solutions 02/18/25 08/11/25 (Sensitive Eyes drops) melatonin 5 mg tablet 15 mg PO BEDTIME@20 04/15/25 08/11/25 selenium sulfide 1 % shampoo 1 applic topical .twice a week 04/15/25 08/11/25 (Anti-Dandruff) menthol 4 % topical gel (Biofreeze 1 applic topical BID PRN 07/14/25 08/11/25 (menthol)) Previous Rx's ?Medication ?Instructions ?Recorded quetiapine 400 mg tablet (Seroquel) 400 mg PO BEDTIME@20 #30 tabs 12/01/24 naltrexone 50 mg tablet 50 mg PO DAILY@1200 #30 tabs 12/09/24 meclizine 25 mg tablet 25 mg PO QID PRN dizziness #30 tabs 01/07/25 haloperidol decanoate 100 mg/mL 100 mg IM ONCE 1 month #30 mL 02/18/25 intramuscular solution lorazepam 0.5 mg tablet (Ativan) 0.5 mg PO DAILY PRN dizziness or 08/18/25 vertigo #14 tabs Allergies Allergy/AdvReac Type Severity Reaction Status Date / Time No Known Allergies Allergy Verified 08/23/25 15:03 Review of Systems Const: Denies: fever(s), chills, body aches, fatigue or malaise Card: Denies: chest pain Resp: Denies: dyspnea GI: Reports: abdominal pain; Denies: nausea, vomiting or change in bowel habits : Denies: flank pain, dysuria or hematuria Musc: Denies: back pain Neuro: Denies: headache(s) or dizziness PFSH ED PFSH: Medical History Seizure in childhood Meningitis Childhood Schizoaffective disorder Obsessive-compulsive disorder Major neurocognitive disorder due to multiple etiologies Psychiatric care Surgical History Hx of tonsillectomy Family History Other Heart disease Stroke Social History Smoking and tobacco/nicotine status: never used tobacco/nicotine Second hand smoke exposure: No Alcohol intake: never Substance/Drug Use: never Lives independently: No Housing: Other Details: Independent living center Physical Exam Const: COMMON NORMALS: no acute distress, average body habitus, no limitations, healthy appearing, alert and well nourished GENERAL APPEARANCE: cooperative OTHER: baseline cognitive delay Chest: COMMONS NORMALS: normal inspection of the chest and normal palpation of entire chest wall Resp: COMMON NORMALS: normal respiratory effort and clear to auscultation bilaterally AUSCULTATION: clear to auscultation bilaterally Cardio: COMMON NORMALS: regular rate and regular rhythm RATE: regular rate RHYTHM: regular rhythm GI: COMMON NORMALS: Normal to inspection, nondistended, normoactive bowel sounds present, Soft to palpation, No hepatosplenomegaly present and no masses INSPECTION: Yes normal to inspection PALPATION: Yes Soft to palpation, Yes Tenderness to palpation present (GI) (non-surgical exam), No Guarding due to palpation present (GI), No Rigid due to palpation and Yes No hepatosplenomegaly present GI image (male):  1. TTP; no obvious hernia defect palpated-pt does not follow commands well for valsalva; no obvious muscle spasm; negative Vanegas's : COMMON NORMALS: Yes no CVA tenderness BLADDER/KIDNEY EXAM: Yes no CVA tenderness Back/Pelvis: COMMON NORMALS: no CVA tenderness Extremity: GENERAL: Yes normal exam except as noted Neuro: SENSORIUM/ORIENTATION: Yes alert Skin: COMMON NORMALS: no rashes or lesions noted GENERAL SKIN EXAM: no rashes or lesions noted Course Vital Signs: Vital signs: Vital Signs Temperature 97.7 F 08/23/25 14:56 Pulse Rate 69 08/23/25 16:16 Respiratory Rate 16 08/23/25 16:16 Blood Pressure 155/97 08/23/25 16:16 Pulse Oximetry 96 08/23/25 16:16 Oxygen Delivery Me thod Room Air 08/23/25 16:16 MDM - Abdominal Pain Medical Decision Making Patient clinically appears in absolutely no acute distress. His vital signs are stable. Blood work showing a normal white count. His chemistry is unremarkable. UA is clear. Abdomen is nonsurgical. Did order a CXR to evaluate for right lower lung hernadez. This was unremarkable. At this time instructions were given to care staff for close observation of symptoms at home. Signs and symptoms that should prompt a return medical evaluation were discussed. Differential Diagnosis Likely abdominal pain, gastroenteritis, pancreatitis and small bowel obstruction Medical Records I reviewed the patient's medical records. Lab Data I reviewed the patient's lab results. 08/23/25 15:41 08/23/25 15:41 Labs/Radiology: Radiology Impressions Chest X-Ray 08/23/25 15:50 Impression: Negative chest. Laboratory Results WBC 8.53 10^3/uL (3.29-11.43) 08/23/25 15:41 RBC 4.41 10^6/uL (3.85-5.65) 08/23/25 15:41 Hgb 13.70 g/dL (11.27-16.99) 08/23/25 15:41 Hct 40.7 % (37-53) 08/23/25 15:41 MCV 92.3 fl (82-101) 08/23/25 15:41 MCH 31.1 pg (27-33) 08/23/25 15:41 MCHC 33.7 g/dL (30-55) 08/23/25 15:41 RDW 11.9 % (12.1-15.1) L 08/23/25 15:41 Plt Count 315 10^3/cmm (157-399) 08/23/25 15:41 MPV 9.3 fL (7.4-10.4) 08/23/25 15:41 Neut % (Auto) 78.3 % 08/23/25 15:41 Lymph % (Auto) 12.0 % 08/23/25 15:41 [place] % (Auto) 7.6 % 08/23/25 15:41 Eos % (Auto) 0.9 % 08/23/25 15:41 Baso % (Auto) 0.6 % 08/23/25 15:41 Neut # (Auto) 6.68 10^3/uL (1.8-7.7) 08/23/25 15:41 Lymph # (Auto) 1.0 10^3/uL (0.8-4.8) 08/23/25 15:41 [place] # (Auto) 0.7 10^3/uL (0.2-0.9) 08/23/25 15:41 Eos # (Auto) 0.1 10^3/uL (0.0-0.8) 08/23/25 15:41 Baso # (Auto) 0.1 10^3/uL (0.0-0.1) 08/23/25 15:41 Nucleated RBC % (auto) 0 % 08/23/25 15:41 Nucleated RBCs # 0.0 /100WBC 08/23/25 15:41 Sodium 136 mmol/L (136-145) 08/23/25 15:41 Potassium 4.7 mmol/L (3.5-5.1) 08/23/25 15:41 Chloride 97 mmol/L (98-107) L 08/23/25 15:41 Carbon Dioxide 26 mmol/L (22-29) 08/23/25 15:41 Anion Gap 17.7 (5-19) 08/23/25 15:41 BUN 18 mg/dL (8-23) 08/23/25 15:41 Creatinine 0.9 mg/dL (0.7-1.2) 08/23/25 15:41 GFR Calculation 85.8 mL/min (90-130) L 08/23/25 15:41 Glucose 95 mg/dL (65-115) 08/23/25 15:41 Calculated Osmolality 284 mOsm/kg (285-295) L 08/23/25 15:41 Calcium 9.5 mg/dL (8.5-10.5) 08/23/25 15:41 Total Bilirubin 0.6 mg/dL (0.15-1.2) 08/23/25 15:41 AST 24 U/L (0-40) 08/23/25 15:41 ALT 21 U/L (0-41) 08/23/25 15:41 Alkaline Phosphatase 102 U/L (40-130) 08/23/25 15:41 Total Protein 7.5 g/dL (6.6-8.7) 08/23/25 15:41 Albumin 4.6 g/dL (3.5-5.2) 08/23/25 15:41 Globulin 2.9 g/dL (1.3-4.6) 08/23/25 15:41 Lipase 40 U/L (13-60) 08/23/25 15:41 Urine Color Yellow (Yellow) 08/23/25 16:15 Urine Appearance Clear (CLEAR) 08/23/25 16:15 Urine pH 6.0 (5-7) 08/23/25 16:15 Ur Specific [place] 1.007 (1.005-1.030) 08/23/25 16:15 Urine Protein Negative (Negative) 08/23/25 16:15 Urine Glucose (UA) Negative (Normal) 08/23/25 16:15 Urine Ketones Negative (Negative) 08/23/25 16:15 Urine Blood Negative (Negative) 08/23/25 16:15 Urine Nitrate Negative (Negative) 08/23/25 16:15 Urine Bilirubin Negative (Negative) 08/23/25 16:15 Urine Urobilinogen 1.0 mg/dL (Negative) 08/23/25 16:15 Ur Leukocyte Esterase Negative (Negative) 08/23/25 16:15 Amorphous Sediment Not Reportable 08/23/25 16:15 All radiology interpretation(s) finalized by discharge Discharge Plan Discharge Patient Disposition: Home Clinical Impression: Abdominal pain Qualifiers: Abdominal location: unspecified location Qualified Code(s): R10.9 - Unspecified abdominal pain Condition: Stable Prescriptions: No Action haloperidol decanoate 100 mg/mL solution 100 mg IM ONCE 30 Days Qty: 30 11RF digestive enzymes Capsule 1 cap PO DAILY Rx Instructions: administer with food; swallow whole; do not crush/chew/dissolve/break/cut Deep sea 0.65% nose spray nasal BID GNP Glucosamine-Chondro Complex PO TID Ge's Leg Cramps & Arnica capsule PO DAILY loperamide 2 mg capsule 2 mg PO QID PRN magnesium hydroxide [Milk of Magnesia] 400 mg/5 mL suspension 30 ml PO DAILY PRN erythromycin 5 mg/gram (0.5 %) ointment 0.5 inch ophthalmic (eye) TID PRN polyethylene glycol 3350 17 gram/dose powder 4 g PO DAILY Biofreeze (menthol) 5 % adhesive patch,medicated 1 patch topical BID PRN (DME) Sensitive Eyes Drops See Rx Instructions .Route Rx Instructions: As directed diclofenac sodium [Arthritis Pain (diclofenac)] 1 % gel 1 g topical BID PRN Rx Instructions: apply to single elbow, wrist or hand; for hand includes palm/fingers/back of hand Single Barrel Toe Sleeve topical DAILY ne ensure drink PO BID Anti-Dandruff 1 % shampoo 1 applic topical .twice a week Rx Instructions: massage into affected area; leave on for 10 mins ; rinse off thoroughly celecoxib 200 mg capsule 200 mg PO QAM WesTab Plus 27 mg iron- 1 mg tablet 1 tab PO QAM Pulmicort Flexhaler 180 mcg/actuation aerosol powdr breath activated 1 inh inhalation BID Biofreeze (menthol) 4 % gel 1 applic topical BID PRN quetiapine [Seroquel] 400 mg tablet 400 mg PO BEDTIME@20 Qty: 30 11RF naltrexone 50 mg tablet 50 mg PO DAILY@1200 Qty: 30 11RF lorazepam [Ativan] 0.5 mg tablet 0.5 mg PO DAILY PRN (Reason: dizziness or vertigo) Qty: 14 0RF cetirizine 10 mg Tablet 10 mg PO QAM fluticasone propionate 50 mcg/actuation [place],Suspension 1 spray INTRANASAL QAM Rx Instructions: administer into each nostril melatonin 5 mg tablet 15 mg PO BEDTIME@20 fluoxetine 40 mg capsule 40 mg PO QAM acetaminophen 500 mg capsule 1,000 mg PO Q6H PRN (Reason: Pain) meclizine 25 mg tablet 25 mg PO QID PRN (Reason: dizziness) Qty: 30 0RF docusate sodium 100 mg capsule 100 mg PO DAILY Discharge Orders: Discharge ED (Routine); Ordered 08/23/25 Ordered By: Bessie Cruz Referrals: Jeanette Mccollum PA [Primary Care Provider, [facility] [employer]] Patient Instructions: Abdominal Pain (ED), Patient Portal & Grabiel Instructions Activity Restrictions/Additional Instructions: As we discussed, his blood work here was unremarkable. We discussed following up with primary care next week as scheduled. He may return to the emergency department at anytime for severe abdominal pain, repetitive episodes of vomiting, bloody stools, fevers, yellowing to his skin or eyes, generally feeling worse or unwell or any other concerns you may have. Print Language: Lao Coding Level of Care Code ED Satellite Installer for Naye Cantu
[2025-08-23 15:48] VITALS: PULSE 72; RESP 16; O2SAT 96
--- NOTE | 2025-08-23 15:50 | XR_ITS ---
WS: [id number] Portable AP upright chest, 08/23/2025 Clinical Data: RUQ/lower R chest pain Comparison: Portable chest, 10 12/19/2024 Findings: No nodules, masses or effusions are seen. The heart is normal. The pulmonary vascularity is not increased. No pneumonia or pneumothorax is seen. There are old right posterior lateral seventh, eighth and ninth rib fractures. XR/XR chest 1V portable [id number] Impression: Negative chest.
[2025-08-23 16:16] VITALS: BP 155/97; PULSE 69; RESP 16; O2SAT 96
[2025-08-23 16:16] LABS: Hematocrit 40.7 % (37-53); Hemoglobin 13.70 g/dL (11.27-16.99); Mean Corpuscular HGB Conc 33.7 g/dL (30-55); Mean Corpuscular Hemoglobin 31.1 pg (27-33); Mean Corpuscular Volume 92.3 fl (82-101); Nucleated Red Blood Cells % 0 %; Platelet Count 315 10^3/cmm (157-399); Red Blood Count 4.41 10^6/uL (3.85-5.65); White Blood Count 8.53 10^3/uL (3.29-11.43)
[2025-08-23 16:36] LABS: Glucose Urine UA Negative (Normal); Nitrate Urine Negative (Negative); Specific Gravity, Urine 1.007 (1.005-1.030)
[2025-08-23 16:43] LABS: Alanine Aminotransferase 21 U/L (0-41); Albumin Level 4.6 g/dL (3.5-5.2); Alkaline Phosphatase 102 U/L (40-130); Anion Gap 17.7 (5-19); Aspartate Amino Transferase 24 U/L (0-40); Blood Urea Nitrogen 18 mg/dL (8-23); Calcium 9.5 mg/dL (8.5-10.5); Carbon Dioxide 26 mmol/L (22-29); Chloride 97 mmol/L (98-107); Creatinine Clr Calc Pharmacy 92.2418; Globulin 2.9 g/dL (1.3-4.6); Glucose 95 mg/dL (65-115); Lipase 40 U/L (13-60); Osmolality Calculated 284 mOsm/kg (285-295); Potassium 4.7 mmol/L (3.5-5.1); Sodium 136 mmol/L (136-145); Total Protein 7.5 g/dL (6.6-8.7)
== END 2025-08-23 17:05 | disposition home or self-care (01) ==
PROVIDERS: Emergency Medicine; Emergency Provider Physician Assistant; PCP Physician Assistant
DX: R10.11 Right upper quadrant pain (principal)
CPT/HCPCS: 36415; 71045; 80053; 81001; 83690; 85025; 99284

== ENCOUNTER → 2025-08-29 14:33 | Outpatient (BNVA) | payer MEDICARE, MEDICAID, SELFPAY | PROVIDERS: PCP Physician Assistant; Visit Provider Podiatrist Foot & Ankle Surgery | DX: I73.9 Peripheral vascular disease, unspecified (principal); L60.3 Nail dystrophy; L84 Corns and callosities; L60.8 Other nail disorders; G62.9 Polyneuropathy, unspecified; M20.41 Other hammer toe(s) (acquired), right foot | CPT/HCPCS: 99213 ==

== ENCOUNTER → 2025-09-21 13:15 | Outpatient (BNVA) | payer MEDICARE, MEDICAID, SELFPAY | PROVIDERS: PCP Physician Assistant; Visit Provider Internal Medicine Cardiovascular Disease | DX: R42 Dizziness and giddiness (principal); R55 Syncope and collapse; R00.0 Tachycardia, unspecified; F41.9 Anxiety disorder, unspecified | CPT/HCPCS: 99213 ==

== ENCOUNTER 2025-10-17 20:33 | Emergency (ER) | payer MEDICARE, MEDICAID, SELFPAY ==
--- OUTSIDE RECORDS SUMMARY | 2025-10-17 20:38 | XMS_ITS | Continuity of Care Document ---
Author Organization [facility]oss [facility], [facility] ([facility]) Address [address] [place] [address] Care Team Providers Care Returned Telephone Equipment Appraiser Name Role Phone JEANETTE EASTON Primary Care Provider Unavailabl e Assessment No assessment recorded. Plan of Treatment Reminders Order Date Submit Date Provider Last Modified By Organization Details Last Modified Time Details Appointments None recorded. Lab None recorded. Referral ENT surgery referral 2024 025 [email or web address] 2 Shaun Calle MD, [address] , [place], [address], 10:19:22 Procedures None recorded. Surgeries None recorded. Imaging None recorded. Medication Orders None recorded. Patient TargetsNo targets recorded. Patient InstructionsNo instructions recorded. Reason for Referral ENT Surgery Referral for Int ermittent vertigo Referring Physician: Jeanette Easton, Family Medicine, Encounter Date: 08/30/2025 Results Created Date Observation Date Name Description Value Unit Range Abnormal Flag Note LastModifiedBy Organization Detail LastModifiedTime 08/29/2008/04/2025 azucena r monit or No observ ation record ed. [employer] [facility] [address], [place], [address], 08/30/2025 18:18:53 Result Notes None recorded. Problems Name Problem SNOMED Code Status Onset Date Resolution Date Notes Provider Name and Address Organization Details Recorded Time Pain of multiple joints 16058592 Completed 202211/21/2022 POLYARTH RALGIA - Status is Resolved ; Resolved Date: 11/21/19; Recorded 11/21/19 4:46PM by Jeanette Easton PA-C, Annotati on/Adden dum; Promoted ; acuity set as *; CATALINA suarez [facility] 5 07:48:22 Atopic dermatit is 46553996 Completed 202211/21/2022 ATOPIC DERMATIT IS - Status is Resolved ; Resolved Date: 11/21/19; Recorded 11/21/19 4:46PM by Jeanette Easton PA-C, Annotati on/Adden dum; Promoted ; acuity set as *; Not Available [employer] 3 03:08:30 Intellec tual function ing disabili ty 239909534 Active 2022 INTELLEC TUAL DISABILI TY; Recorded 01/14/20 7:04AM by Catalina Thornton LPN, Office Visit; Promoted ; acuity set as *; CATALINA suarez [facility] 5 07:48:06 Arthropa thy 315213525 Active 2022 OSTEOART HRITIS; Recorded 01/14/20 2:08PM by Jeanette Easton PA-C, Office Visit; Promoted ; acuity set as *; CATALINA suarez, [facility] 5 07:47:09 Schizoph marian 75642744 Active 2022 SCHIZOPH MARIAN; Recorded 01/14/20 7:04AM by Catalina Thornton LPN, Office Visit; Promoted ; acuity set as *; CATALINA suarez [facility] 5 20:10:36 Asthma 155199538 Active 2022 ASTHMA; Recorded 01/14/20 7:04AM by Catalina Thornton LPN, Office Visit; Promoted ; acuity set as *; CATALINA suarez [facility] 5 07:47:12 Hypnotic or anxiolyt ic dependen ce 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 Lester cueto down. 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 5 07:47:29 Obsessiv e-compul sive disorder 347206272 Active 2022 OCD (OBSESSI VE COMPULSI VE DISORDER ); Recorded 01/14/20 7:04AM by Catalina Thornton LPN, Office Visit; Promoted ; acuity set as *; [facility] 5 07:48:27 Gastroes ophageal reflux disease 024719419 Active 2022 GERD (GASTROE SOPHAGEA L REFLUX DISEASE) ; Recorded 01/14/20 7:04AM by Catalina Thornton LPN, Office Visit; Promoted ; acuity set as *; [facility] 5 07:47:49 Adult health examinat ion Completed 202201/12/2025 ANNUAL PHYSICAL EXAM; Recorded 01/14/20 7:04AM by Catalina Thornton LPN, Office Visit; Promoted ; acuity set as *; CATALINA suarez [facility] 5 20:10:27 Falls 031309746 Completed 202212/19/2024 FREQUENT FALLS; Recorded 01/14/20 7:04AM by Catalina Thornton LPN, Office Visit; Promoted ; acuity set as *; [facility] 07:47:46 Allergic rhinitis 60329904 Active 2022 ALLERGIC RHINITIS ; Recorded 01/14/20 7:04AM by Catalina Thornton LPN, Office Visit; Promoted ; acuity set as *; [facility] 07:47:06 Body mass index 25-29 - overweig ht 986745511 Active 2022 BMI 27.0-27. 9,ADULT; Recorded 01/14/20 7:04AM by Catalina Thornton LPN, Office Visit; Promoted ; acuity set as *; [facility] 5 20:10:31 Proteinu celine 64654411 Completed 202212/19/2024 [facility] 5 07:48:36 Chronic constipa tion 020593924 Active 2022 [facility] 5 07:47:24 Pain of multiple joints 30376986 Active 2023 POLYARTH RALGIA - Status is Resolved ; Resolved Date: 11/21/19; Recorded 11/21/19 4:46PM by Jeanette Easton PA-C, Annotati on/Sage ayers; Promoted ; acuity set as *; [facility] 5 07:48:22 Low back pain 280879372 Completed 202312/19/2024 CATALINA suarez [facility] 5 07:48:16 Pain of hip region 25010276 Completed 202312/19/2024 CATALINA suarez [facility] 5 07:47:59 Problem Notes None recorded. Procedures Surgical History Date Name Laterality Status Provider Name and Address Organization Details Recorded Time 3 screening for malignant neoplasm of colon completed CATALINATANESHA BARRIGACHRISTOPHER [facility], [facility] 03/25/2024 14:17:43 9 [facility] 15:39:56 Imaging Results None recorded. Procedure [...] Not Available Not Available No t Available Refresh Tears 0.5 % eye drops PLACE 1 DROP IN EACH EYE [...] SIX HOURS NEEDED FOR PAIN OR FEVER active Not Available Not Available No t Available triamcino lone acetonide 0.1 % topical cream two times daily 03/25 completed 0; Recorded 03/13/20 22 6:48AM by Catalina Thornton LPN, Office Visit; Not Available Not Available Not Available Deep Sea Nasal 0.65 % spray aerosol USE 1 SPRAY IN EACH NOSTRIL TWICE DAILY active Not Available Not Available No t Available lorazepam 0.5 mg tablet TAKE ONE TABLET BY MOUTH DAILY NEEDED FOR DIZZINES S OR VERTIGO active Not Available Not Available No t Available meclizine 25 mg tablet TAKE ONE [...] completed Not Available Not Available Not Available Advair Diskus 250 mcg-50 mcg/dose powder for inhalatio n Inhale 1 puff twice a day by inhalati on route. 2024 active Not Available Not Available Not Avai lable docusate sodium 100 mg capsule TAKE ONE [...] mg tablet daily 08/12 completed vo KM/dh; 73093; Recorded 01/14/20 1:41PM by Catalina Thornton LPN (Authori dawood through Jeanette Easton PA-C), Office Visit; Refill Quantity : 90; Tablet; Not Available Not Available Not Available chlorprom azine 50 mg tablet TAKE ONE TABLET BY MOUTH THREE TIMES DAILY 08/28 completed Not Available Not Available Not Available Orasone 20 20 mg tablet daily 08/28 completed 0; Recorded 01/14/20 1:41PM by Catalina Thornton LPN, Office Visit; Not Available Not Available [...] days 08/12 completed 1 bottle; Recorded 11/21/19 7:30AM by Catalina Thornton LPN, Office Visit; Refill Quantity : 0; Not Available Not Available Not Available acetamino phen every 6 hrs prn 08/12 completed Recorded 01/14/20 2:10PM by Jeanette Easton PA-C, Office Visit; Refill Quantity : 120; Tablet; Not Available Not Available Not Available glucosami ne-chondr oitin three times daily 08/12 completed 26788; Recorded 11/21/19 7:30AM by Catalina Thornton LPN (Authori zed through Jeanette Easton PA-C), Office Visit; Refill Quantity : 90; Tablet; Not Available Not Available Not Available nystatin 3 times a day prn 08/12 completed vo KM/; 12026; Recorded 11/21/19 7:30AM by Catalina Thornton LPN (Authori dawood through Jeanette Easton PA-C), Office Visit; Refill Quantity : 1; Applicat or; Not Available Not Available Not Available clomipram ine daily 08/12 completed bhc; 0; Recorded 01/14/20 1:41PM by Catalina Thornton LPN, Office Visit; Not Available Not Available Not Available olanzapin e daily 08/28 completed bhc; 0; Recorded 01/14/20 1:41PM by Catalina Thornton LPN, Office Visit; Not Available Not Available Not Available fluoxetin e daily 08/12 completed 0; Recorded 01/14/20 1:41PM by Catalina Thornton LPN, Office Visit; Not Available Not Available Not Available clotrimaz ole two times daily 08/12 completed vo KM/dh; 17795; Recorded 11/21/19 7:30AM by Catalina Thornton LPN (Authori dawood through Jeanette Easton PA-C), Office Visit; Refill Quantity : 14; Applicat or; Not Available Not Available Not Available Imodium A-D 4 times per day as needed for diarrhea 08/12 completed vo KM/dh; 37908; Recorded 11/21/19 7:30AM by Catalina Thornton LPN (Authori mihaid through Jeanette Easton PA-C), Office Visit; Refill Quantity : 28; Capsule; Not Available Not Available Not Available quetiapin e three times daily 08/12 completed vo KM/dh 1 at noon and 2 at hs; Recorded 01/14/20 1:41PM by Catalina Thornton LPN, Office Visit; Refill Quantity : 90; Tablet; Not Available Not Available Not Available Saline Nasal [place] daily active 0; Recorded 01/14/20 1:41PM by Catalina Thornton LPN, Office Visit; Not Available Not Available Not Available gabapenti n three times daily 08/12 completed vo KM/dh; 63469; Recorded 12/17/19 9:59AM by Catalina Thornton LPN (Authori dawood through Jeanette Easton PA-C), Refill Request; Refill Quantity : 90; Tablet; Not Available Not Available Not Available Celebrex daily 08/12 completed vo KM/dh; 91003; Recorded 01/13/20 3:42PM by Catalina Thornton LPN (Authori dawood through Jeanette Easton PA-C), Refill Request; Refill Quantity : 30; Capsule; Not Available Not Available Not Available ondansetr on three times daily as needed for nausea or vomiting 08/28 completed vo KM/dh; 16940; Recorded 01/05/20 23 7:30AM by Catalina Thornton LPN (Authori dawood through Jeanette Easton PA-C), Office Visit; Refill Quantity : 12; Tablet; Not Available Not Available Not Available Miralax daily, prn 2021 active Recorded 11/21/19 23 7:30AM by Catalina Thornton LPN, Office Visit; Refill Quantity : 1; Applicat or; Not Available Not Available Not Available Divalproe x Sodium (Migraine ) three times daily 08/12 completed 1 at noon and 2 at [facility]; 0; Recorded 01/14/20 23 1:41PM by Catalina Thornton LPN, Office Visit; Not Available Not Available Not Available Flovent HFA two times daily 08/12 completed Recorded 11/21/19 23 7:30AM by Catalina Thornton LPN, Office Visit; Refill Quantity : 1; [...] daily, as needed 02/19 completed Recorded 01/14/20 23 1:41PM by Catalina Thornton LPN, Office Visit; Refill Quantity : 1; [...] daily 08/28 completed vo KM/dh; Recorded 11/21/19 23 7:30AM by Catalina Thornton LPN, Office Visit; Refill Quantity : 90; [...] mg capsule at bedtime 08/28 completed vo KM/dh; 69609; Recorded 11/21/19 23 7:30AM by Catalina Thornton LPN (Authori dawood through Jeanette Easton PA-C), Office Visit; Refill Quantity : 90; Capsule; Not Available Not Available Not Available Glucosami ne-Chondr oitin-MSM (with antiox) 500 mg-500 mg-66.7 mg tablet TAKE ONE TABLET BY MOUTH THREE TIMES DAILY 04/10 completed Not Available Not Available Not Available Multi Vitamin daily 2021 active vo KM/dh; Recorded 01/14/20 23 1:41PM by Catalina Thornton LPN, Office Visit; Refill Quantity : 30; Tablet; Not Available Not Available Not Available Vitamins Plus Low Iron 27 mg iron-1 mg tablet TAKE ONE TABLET BY MOUTH EVERY DAY 2024 active Not Available Not Available Not Avai lable Arnuity Ellipta 100 mcg/actua tion powder for inhalatio n INHALE 1 PUFF INTO LUNGS EVERY DAY active Not Available Not Available [...] mass index (BMI) Body weight Oxygen saturation Heart rate Respiratory rate Body temperature Systolic And Diastolic Provider Name and Address Organization Details Last Updated DateTime 5 180.34 cm 23.2 kg/m2 15590.3 3 g 96 % 96 /min 20 /min 97 [degF] 160/90 mm[Hg] CATALINA BARRIGAZENIA [facility] 14:55:46 Social History Question Answer Notes LastModified by Organizat ion Details LastModified Time Tobacco Smoking Status Never Smoker JEANETTE EASTON PA-C [address] [place], [address], [facility] 03/14/2023 20:07:12 What Was The Date Of Your Most Recent Tobacco Screening? 05/05/2025 Information not available 05/05/2025 What Is Your Relationship Status? Single [email or web address] Information not available 03/14/2023 Sex: Unknown Functional Status Question Answer Note LastModified by Organization D etails LastModified Time What is your level of alcohol consumption? None [email or web address] Information not available 03/14/2023 Are you able to care for yourself independently? No Information not available 03/14/2023 Mental Status None recorded. Family History Nothing Reported. Medical History Condition Response Developmental or Behavioral Disorders Y Mental Illness Y Immunizations Vaccine Type Date Status Note Provider Nam e and Address Organization Details Recorded Time Influenza, MDCK, quadrivalent, PF 7 completed JEANETTE EASTON PA-C [address] [place], [address], [facility] 03/25/2024 14:20:42 MMR 0 completed JEANETTE EASTON PA-C [address] [place], [address], [facility] 03/25/2024 14:20:43 pneumococcal polysaccharide PPV23 5 completed JEANETTE EASTON PA-C [address] [place], [address], [facility] 03/25/2024 14:20:43 influenza, unspecified formulation 8 completed JEANETTE EASTON PA-C [address] [place], [address], [facility] 03/25/2024 14:20:43 influenza, unspecified formulation 9 completed JEANETTE EASTON PA-C [address] [place], [address], [facility] 03/25/2024 14:20:43 influenza, unspecified formulation 0 completed JEANETTE EASTON PA-C [address] [place], [address], [facility] 03/25/2024 14:20:43 Tdap 3 completed JEANETTE EASTON PA-C [address] [place], [address], [facility] 03/25/2024 14:20:43 Tdap 6 completed JEANETTE EASTON PA-C [address] [place], [address], [facility] 03/25/2024 14:20:43 Influenza, split virus, trivalent, preservative 4 completed JEANETTE EASTON PA-C [address] [place], [address], [facility] 03/25/2024 14:20:43 Influenza, split virus, trivalent, PF 1 completed JEANETTE EASTON PA-C [address] [place], [address], [facility] 03/25/2024 14:20:43 Influenza, split virus, trivalent, PF 6 completed JEANETTE EASTON PA-C [address] [place], [address], [facility] 03/25/2024 14:20:43 Td (adult), 5 Lf tetanus toxoid, preservative free, adsorbed 6 completed JEANETTE EASTON PA-C [address] [place], [address], [facility] 03/25/2024 14:20:43 Td (adult), 2 Lf tetanus toxoid, preservative free, adsorbed 3 completed JEANETTE EASTON PA-C [address] [place], [address], [facility] 03/25/2024 14:20:43 Hep B, adolescent or pediatric 6 completed JEANETTE EASTON PA-C [address] [place], [address], [facility] 03/25/2024 14:20:43 Hep B, adult 7 completed JEANETTE EASTON PA-C [address] [place], [address], [facility] 03/25/2024 14:20:43 Hep B, adult 7 completed JEANETTE EASTON PA-C [address] [place], [address], [facility] 03/25/2024 14:20:43 Hep B, adult 2 completed JEANETTE EASTON PA-C [address] [place] [address], [address], [facility] 03/25/2024 14:20:43 Past Encounters Encounter ID Performer Location Encounter Start Date Encounter Closed Date Diagnosis/Indication Diagnosis SNOMED-CT Code Diagnosis ICD10 Code Diagnosis IMO Codes Diagnosis Note [id number] JEANETTE EASTON PA-C [facility] ([facility]) [address] [place] [address] 08/30/2025 14:40:53 09/05/2025 10:36:21 Intermittent vertigo 155210733 R42 590358 head imaging has been normal. labs normalCard iac holter normalPT for vestibular therapy did not help much Health Concerns Section Related Observation LastModified by Organization Detai ls LastModified Time None Recorded Concern Status LastModified by Organization Details LastModified Time None Recorded Payers Encounter Date Sequence Insurance Name Policy Number Policy Montoya Covered Member ID Montoya Member ID Guarantor Name 08/30/2025 2 [place] Serg Freeman Acosta [id number] Leticia Quarles 08/30/2025 1 [place] Serg Acosta [id number] Leticia Quarles Notes Date Note Type Note Provider Name and Address Organization Details Recorded Time text/html DizzinessReported by PatientHPIFor severity, patient reportssome effect on daily activities. For quality, patient reportsspinning,lightheaded ness,unsteadiness, andimbalance. For duration, patient reportsconstantandacute. For onset/timing, patient reportsrecurrent. For context, patient reportsnon-smoker. His blood pressure is high today, says he is spinning, er added lorazepam 0.5 on 08-18-25 he has taken it once since prescribed. Pt is dancing to music when I walked into room JEANETTE EASTON PA-C [address] [place] [address], [address], [facility] [place] [facility] 09/02/2025 17:38:33
--- OUTSIDE RECORDS SUMMARY | 2025-10-17 20:38 | XMS_ITS | Data Portability ---
Author Organization ASHELY [facility] Address [address] [address] Care Team Providers Care Telex Operator Name Role Phone JEANETTE MCCOLLUM Primary Care Provider Unavailabl e Assessment No assessment recorded. Plan of Treatment Reminders Order Date Submit Date Provider Last Modified By Organization Details Last Modified Time Details Appointments None recorded. Lab urinalysis, complete 2024 025 [facility], [address] [facility] [address], [facility] [address], [place], [address], 5 14:42:27 culture, urine 2024 025 [facility], [address], [place], [address], 5 21:48:48 Referral ENT surgery referral 2024 025 [email or web address] 2 Shaun Calle MD, [address] , [place], [address], 5 10:19:22 ophthalmolo gist referral 2024 025 [email or web address] 2 Jamie Patel MD, [address] [facility] [facility] [address], [place], [address], 5 18:19:52 physical therapist referral 2024 025 [email or web address] 2 [facility], [address], [place], [address], 14:12:14 Procedures None recorded. Surgeries None recorded. Imaging holter monitor - 7 days 2024 025 [facility], [address], [place], [address], 12:32:03 Medication Orders mupirocin 2 % topical ointment 2024 025 [id number], [address], [place], [place], [id number], 12:56:05 acetaminoph en 500 mg tablet 2024 NESHANIC STATION [facility] #[id number], [address], [place], [place], [id number], 15:54:16 Patient TargetsNo targets recorded. Patient InstructionsNo instructions recorded. Reason for Referral Physical Therapist Referral for Postural dizziness Referring Physician: Jeanette [facility]ccoll[facility], Encounter Date: 04/14/2025 Licensing Worker Referral for Horizontal nystagmus Referring Physician: Jeanette Mccollum [facility], Encounter Date: 07/26/2025 ENT Surgery Referral for Int ermittent vertigo Referring Physician: Jeanette Mccollum [facility], Encounter Date: 08/30/2025 Results Created Date Observation Date Name Description Value Unit Range Abnormal Flag Note LastModifiedBy Organization Detail LastModifiedTime 06/03/2006/03/2025 URINA LYSIS WITH MICRO color YELLOW Not Available [facility] [address], [place], [address], 06/03/2025 14:42:27 06/03/20 25 06/03/2025 URINA LYSIS WITH MICRO clarity CLEAR Not Available [facility] [address], [place], [address], 06/03/2025 14:42:27 06/03/20 25 06/03/2025 URINA LYSIS WITH MICRO glu NEGATI VE Not Available [facility] [address], [place], [address], 06/03/2025 14:42:27 06/03/20 25 06/03/2025 URINA LYSIS WITH MICRO bili NEGATI VE Not Available [facility] [address], [place], [address], 06/03/2025 14:42:27 06/03/20 25 06/03/2025 URINA LYSIS WITH MICRO ket NEGATI VE Not Available [facility] [address], [place], [address], 06/03/2025 14:42:27 06/03/20 25 06/03/2025 URINA LYSIS WITH MICRO S.g 1.010 1.005- 1.025 Not Available [facility] [address], [place], [address], 06/03/2025 14:42:27 06/03/20 25 06/03/2025 URINA LYSIS WITH MICRO pH 6.0 5.0-7. 0 Not Available [facility] [address], [place], [address], 06/03/2025 14:42:27 06/03/20 25 06/03/2025 URINA LYSIS WITH MICRO pro NEGATI VE Not Available [facility] [address], [place], [address], 06/03/2025 14:42:27 06/03/20 25 06/03/2025 URINA LYSIS WITH MICRO uro 0.2 E.U./D L Not Available [facility] [address], [place], [address], 06/03/2025 14:42:27 06/03/20 25 06/03/2025 URINA LYSIS WITH MICRO nit NEGATI VE Not Available [facility] [address], [place], [address], 06/03/2025 14:42:27 06/03/20 25 06/03/2025 URINA LYSIS WITH MICRO blo NEGATI VE Not Available [facility] [address] [facility] [address], [place], [address], 06/03/2025 14:42:27 06/03/20 25 06/03/2025 URINA LYSIS WITH MICRO geovanny NEGATI VE Not Available [facility] [address] [facility] [address], [place], [address], 06/03/2025 14:42:27 06/03/20 25 06/03/2025 URINA LYSIS WITH MICRO WBC 0-1 Not Available [facility] [address] [facility] [address], [place], [address], 06/03/2025 14:42:27 06/03/20 25 06/03/2025 URINA LYSIS WITH MICRO RBC NEGATI VE Not Available [facility] [address] [facility] [address], [place], [address], 06/03/2025 14:42:27 06/03/20 25 06/03/2025 URINA LYSIS WITH MICRO epi cells NEGATI VE Not Available [facility] [address] [facility] [address], [place], [address], 06/03/2025 14:42:27 06/03/20 25 06/03/2025 URINA LYSIS WITH MICRO bacteria NEGATI VE Not Available [facility] [address] [facility] [address], [place], [address], 06/03/2025 14:42:27 06/03/20 25 06/03/2025 URINA LYSIS WITH MICRO other NEGATI VE Not Available [facility] [address], [place], [address], 06/03/2025 14:42:27 06/03/20 25 06/04/2025 CULTU RE, URINE , ROUTI NE culture, urine, routine SEE NOTE CULTU RE, URINE , ROUTI NE Micro Numbe r: [id number] Test Statu s: Final Speci men Sourc e: Urine Speci men Quali ty: Adequ ate Resul t: No Growt h Not Available [facility] [address], [place], [address], 06/04/2025 21:48:48 08/29/2008/04/2025 azucena r monit or No observ ation record ed. NESHANIC STATION [facility] [address] [facility] [address], [place], [address], 08/30/2025 18:18:53 Result Notes None recorded. Problems Name Problem SNOMED Code Status Onset Date Resolution Date Notes Provider Name and Address Organization Details Recorded Time Pain of multiple joints 82844295 Completed 202211/21/2022 POLYARTH RALGIA - Status is Resolved ; Resolved Date: 11/21/19; Recorded 11/21/19 4:46PM by Jeanette Mccollum PA-C, Jack on/Adden dum; Promoted ; acuity set as *; ASHELY Bro - [facility], [facility] 5 07:48:22 Atopic dermatit is 01447861 Completed 202211/21/2022 ATOPIC DERMATIT IS - Status is Resolved ; Resolved Date: 11/21/19; Recorded 11/21/19 4:46PM by Jeanette Mccollum PA-C, Jack on/Adden dum; Promoted ; acuity set as *; Not Available [facility] 3 03:08:30 Intellec tual function ing disabili ty 597270536 Active 2022 INTELLEC TUAL DISABILI TY; Recorded 01/14/20 7:04AM by Catalina Downey LPN, Office Visit; Promoted ; acuity set as *; CATALINA suarez [facility] 5 07:48:06 Arthropa thy 773992881 Active 2022 OSTEOART HRITIS; Recorded 01/14/20 2:08PM by Jeanette Mccollum PA-C, Office Visit; Promoted ; acuity set as *; CATALINA suarez [facility] 5 07:47:09 Schizoph marian 06334734 Active 2022 SCHIZOPH MARIAN; Recorded 01/14/20 7:04AM by Catalina Downey LPN, Office Visit; Promoted ; acuity set as *; CATALINA suarez [facility] 5 20:10:36 Asthma 860406279 Active 2022 ASTHMA; Recorded 01/14/20 7:04AM by Catalina Downey LPN, Office Visit; Promoted ; acuity set as *; CATALINA suarez [facility] 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 Batista weaning down. staff noticing increase in behavior s; Recorded 01/14/20 7:04AM by Catalina Dwoney LPN, Office Visit; Promoted ; acuity set as *; CATALINA suarez [facility] 5 07:48:03 Dementia of frontal lobe type 388530614 Active 2022 FRONTAL LOBE DEMENTIA ; 01/14/20 7:04AM by Catalina Downey LPN, Office Visit; Promoted ; acuity set as *; CATALINA [facility] 5 07:47:29 Obsessiv e-compul sive disorder 448644588 Active 2022 OCD (OBSESSI VE COMPULSI VE DISORDER ); Recorded 01/14/20 7:04AM by Catalina Downey LPN, Office Visit; Promoted ; acuity set as *; [facility] 5 07:48:27 Gastroes ophageal reflux disease 049401236 Active 2022 GERD (GASTROE SOPHAGEA L REFLUX DISEASE) ; Recorded 01/14/20 7:04AM by Catalina Downey LPN, Office Visit; Promoted ; acuity set as *; [facility] 5 07:47:49 Adult health examinat ion Completed 202201/12/2025 ANNUAL PHYSICAL EXAM; Recorded 01/14/20 7:04AM by Catalina Downey LPN, Office Visit; Promoted ; acuity set as *; [facility] 5 20:10:27 Falls 059516191 Completed 202212/19/2024 FREQUENT FALLS; Recorded 01/14/20 7:04AM by Catalina Downey LPN, Office Visit; Promoted ; acuity set as *; [facility] 5 07:47:46 Allergic rhinitis 11575750 Active 2022 ALLERGIC RHINITIS ; Recorded 01/14/20 7:04AM by Catalina Downey LPN, Office Visit; Promoted ; acuity set as *; CATALINA suarez [facility] 5 07:47:06 Body mass index 25-29 - overweig ht 584958114 Active 2022 BMI 27.0-27. 9,ADULT; Recorded 01/14/20 7:04AM by Catalina Downey LPN, Office Visit; Promoted ; acuity set as *; CATALINA suarez [facility], Christina.LKitaCKita 5 20:10:31 Proteinu celine 46184332 Completed 202212/19/2024 [facility] MelissaLKitaCKita 5 07:48:36 Chronic constipa tion 514017530 Active 2022 [facility] Mg[facility] 5 07:47:24 Pain of multiple joints 59501504 Active 2023 POLYARTH RALGIA - Status is Resolved ; Resolved Date: 11/21/19; Recorded 11/21/19 4:46PM by Jeanette Mccollum PA-C, Annotati on/Sage dum; Promoted ; acuity set as *; CATALINA suarez [facility], MelissaLKitaCKita 5 07:48:22 Low back pain 304836328 Completed 202312/19/2024 [facility] LKitaLKitaCKita 5 07:48:16 Pain of hip region 13041695 Completed 202312/19/2024 [facility] 5 07:47:59 Problem Notes None recorded. Procedures Surgical History Date Name Laterality Status Provider Name and Address Organization Details Recorded Time 3 screening for malignant neoplasm of colon completed CATALINA DOWNEY [facility] L[facility]itaL[facility]ita[facility]ita 03/25/2024 14:17:43 9 colonoscopy completed CATALINA DOWNEY [facility] LKitaLC[facility]ita 11/05/2023 15:39:56 Imaging Results None recorded. Procedure Notes None recorded. Medical Equipment None Reported. Allergies No known drug allergies Medications Name Sig Start Date Stop Date Status Note LastModified by Organization Details LastModified Time biofreeze jar cream 3oz USE ONE APPLICAT ION TO AFFECTED AREA TWICE DAILY NEEDED active Not Available Not Available No t Available curad bandage flex-fabr ic 1sz 40ct USE ONE TO APPLY OVER MUPIROCI N TWICE DAILY FOR SEVEN DAYS 01/06 completed Not Available Not Available Not Available Refresh Tears 0.5 % eye drops [...] HOUR BEFORE ATTEMPTI NG THE BRAT DIET 10/23 /2024 completed Not Available Not Available Not Available fluoxetin e 20 mg capsule 08/28 completed Not Available Not Available Not Available fluticaso ne propionat e 50 mcg/actua tion nasal spray,stalin pension USE 1 SPRAY IN EACH NOSTRIL EVERY DAY active Not Available Not Available No t Available docusate sodium 100 mg tablet daily 08/12 completed vo KM/dh; 37188; Recorded 01/14/20 1:41PM by Catalina Downey LPN [...] 1 bottle; Recorded 11/21/19 7:30AM by Catalina Downey LPN, Office Visit; Refill Quantity : 0; Not Available Not Available Not Available acetamino phen every 6 hrs prn 08/12 completed Recorded 01/14/20 2:10PM by Jeanette Mccollum PA-C, Office Visit; Refill Quantity : 120; Tablet; Not Available Not Available Not Available glucosami ne-chondr oitin three times daily 08/12 completed 97617; Recorded 11/21/19 7:30AM by Catalina Downey LPN (Authori zed through Jeanette Mccollum PA-C), Office Visit; Refill Quantity : 90; Tablet; Not Available Not Available Not Available nystatin 3 times a day prn 08/12 completed [facility]/; [address]; Recorded 11/21/19 7:30AM by Catalina Downey LPN [...] clotrimaz ole two times daily 08/12 completed [facility]/; 164[address]; Recorded 11/21/19 7:30AM by Catalina Downey LPN (Authori zed through Jeanette Mccollum PA-C), Office Visit; Refill Quantity : 14; Applicat or; Not Available Not Available Not Available Imodium A-D 4 times per day as needed for diarrhea 08/12 completed [facility]/; [address]; Recorded 11/21/19 7:30AM by Catalina Downey LPN (Authori zed through Jeanette Mccollum PA-C), Office Visit; Refill Quantity : 28; Capsule; Not Available Not Available Not Available quetiapin e three times daily 08/12 completed vo KM/ 1 at noon and 2 at hs; Recorded 01/14/20 1:41PM by Catalina Downey LPN, Office Visit; Refill Quantity : 90; Tablet; Not Available Not Available Not Available Saline Nasal [place] daily active 0; Recorded 01/14/20 1:41PM by Catalina Downey LPN, Office Visit; Not Available Not Available Not Available gabapenti n three times daily 08/12 completed vo KM/; 40053; Recorded 12/17/19 9:59AM by Catalina Downey LPN (Authori mihaid through Jeanette Mccollum PA-C), Refill Request; Refill Quantity : 90; Tablet; Not Available Not Available Not Available Celebrex daily 08/12 completed [facility]/; [address]678; Recorded 01/13/20 3:42PM by Catalina Downey LPN (Authori dawood through Jeanette Mccollum PA-C), Refill Request; Refill Quantity : 30; Capsule; Not Available Not Available Not Available ondansetr on three times daily as needed for nausea or vomiting 08/28 completed KM/; 86644; Recorded 11/21/19 7:30AM by Catalina Downey LPN [...] completed 1 at noon and 2 at hs [facility]; 0; Recorded 01/14/20 1:41PM by Catalina Downey LPN, Office Visit; Not Available Not Available Not Available Flovent HFA two times daily 08/12 completed Recorded 11/21/19 23 7:30AM by Catalina Downey [...] completed Recorded 01/14/20 23 1:41PM by Catalina Downey LPN, Office Visit; [...] capsule at bedtime 08/28 completed vo KM/dh; 65184; Recorded 11/21/19 23 7:30AM by Catalina Downey [...] Updated DateTime 5 180.34 cm 23.2 kg/m2 16828.3 3 g 99 % 76 /min 18 /min 97 [degF] 122/70 mm[Hg] CATALINA DOWNEY [facility] 5 15:22:38 Date Recorded Body height Body mass index (BMI) Body weight Oxygen saturation Heart rate Respiratory rate Body temperature Systolic And Diastolic Provider Name and Address Organization Details Last Updated DateTime 5 180.34 cm 22.9 kg/m2 86355.9 5 g 95 % 79 /min 17 /min 97.9 [degF] 140/80 mm[Hg] PERLITA VALDEZ [facility] 5 12:32:34 Date Recorded Body height Body mass index (BMI) Body weight Oxygen saturation Heart rate Respiratory rate Body temperature Systolic And Diastolic Provider Name and Address Organization Details Last Updated DateTime 5 180.34 cm 22.9 kg/m2 19359.1 5 g 96 % 78 /min 18 /min 97 [degF] 136/76 mm[Hg] [facility] 5 13:29:00 Date Recorded Body height Body mass index (BMI) Body weight Oxygen saturation Heart rate Respiratory rate Body temperature Systolic And Diastolic Provider Name and Address Organization Details Last Updated DateTime 5 180.34 cm 23.6 kg/m2 39579.1 1 g 97 % 72 /min 18 /min 97 [degF] 133/78 mm[Hg] [facility] 5 15:23:52 Date Recorded Body height Body mass index (BMI) Body weight Oxygen saturation Heart rate Respiratory rate Body temperature Systolic And Diastolic Provider Name and Address Organization Details Last Updated DateTime 5 180.34 cm 23.2 kg/m2 56196.3 3 g 96 % 96 /min 20 /min 97 [degF] 160/90 mm[Hg] [facility] 5 14:55:46 Social History Question Answer Notes LastModified by Organizat ion Details LastModified Time Tobacco Smoking Status Never Smoker JEANETTE MCCOLLUM PA-C [address] [place] [address], [address], [facility] 03/14/2023 20:07:12 What Was The Date Of Your Most Recent Tobacco Screening? 05/05/2025 [email or web address] Information not available 05/05/2025 What Is Your Relationship Status? Single Information not available 03/14/2023 Sex: Unknown Functional Status Question Answer Note LastModified by Organization D etails LastModified Time What is your level of alcohol consumption? None [email or web address] Information not available 03/14/2023 Are you able to care for yourself independently? No [email or web address] Information not available 03/14/2023 Mental Status None recorded. Family History Nothing Reported. Medical History Condition Response Developmental or Behavioral Disorders Y Mental Illness Y Immunizations Vaccine Type Date Status Note Provider Nam e and Address Organization Details Recorded Time Influenza, MDCK, quadrivalent, PF 7 completed JEANETTE MCCOLLUM PA-C [address] [place], [address], [facility] 03/25/2024 14:20:42 MMR 0 completed JEANETTE MCCOLLUM PA-C [address] [place], [address], [facility] 03/25/2024 14:20:43 pneumococcal polysaccharide PPV23 5 completed JEANETTE MCCOLLUM PA-C [address] [place], [address], [facility] 03/25/2024 14:20:43 influenza, unspecified formulation 8 completed JEANETTE MCCOLLUM PA-C [address] [place], [address], [facility] 03/25/2024 14:20:43 influenza, unspecified formulation 9 completed JEANETTE MCCOLLUM PA-C [address] [place], [address], [facility] 03/25/2024 14:20:43 influenza, unspecified formulation 0 completed JEANETTE MCCOLLUM PA-C [address] [place], [address], [facility] 03/25/2024 14:20:43 Tdap 3 completed JEANETTE MCCOLLUM PA-C [address] [place], [address], [facility] 03/25/2024 14:20:43 Tdap 6 completed JEANETTE MCCOLLUM PA-C [address] [place], [address], [facility] 03/25/2024 14:20:43 Influenza, split virus, trivalent, preservative 4 completed JEANETTE MCCOLLUM PA-C [address] [place], [address], [facility] 03/25/2024 14:20:43 Influenza, split virus, trivalent, PF 1 completed JEANETTE MCCOLLUM PA-C [address] [place] [address], [address], [facility] 03/25/2024 14:20:43 Influenza, split virus, trivalent, PF 6 completed JEANETTE MCCOLLUM PA-C [address] [place] [address], [address], [facility] 03/25/2024 14:20:43 Td (adult), 5 Lf tetanus toxoid, preservative free, adsorbed 6 completed JEANETTE MCCOLLUM PA-C [address] [place], [address], [facility] 03/25/2024 14:20:43 Td (adult), 2 Lf tetanus toxoid, preservative free, adsorbed 3 completed JEANETTE MCCOLLUM PA-C [address] [place], [address], [facility] 03/25/2024 14:20:43 Hep B, adolescent or pediatric 6 completed JEANETTE MCCOLLUM PA-C [address] [place], [address], [facility] 03/25/2024 14:20:43 Hep B, adult 7 completed JEANETTE MCCOLLUM PA-C [address] [place], [address], [place] [facility] L[facility] 03/25/2024 14:20:43 Hep B, adult 7 completed JEANETTE MCCOLLUM PA-C [address] [place], [address], [facility], LSvetlana 03/25/2024 14:20:43 Hep B, adult 2 completed JEANETTE MCCOLLUM PA-C [address] [place], [address], [facility], Kurt. 03/25/2024 14:20:43 Past Encounters Encounter ID Performer Location Encounter Start Date Encounter Closed Date Diagnosis/Indication Diagnosis SNOMED-CT Code Diagnosis ICD10 Code Diagnosis IMO Codes Diagnosis Note [id number] FERNANDO CARLOS [facility] [address] [place] [id number] 03/06/2023 12:46:39 03/12/2023 09:21:59 Cellulitis of toe of right foot 0984027742 7591880 L03.031 [id number] JEANETTE MCCOLLUM PA-C [facility] [address] [place] [id number] 03/11/2023 15:09:41 03/17/2023 12:36:09 Long-term current use of drug therapy 909955566 Z79.899 Asthma 892498896 J45.90 9 Allergic rhinitis 337039 04 J30.9 Adult heal th examination 574604631 Z00.00 Intellectu al disability 805661046 F79 Pt is doing well with one on one care [place]. His psych meds are managed by psychiatri .No meds changes today. Some clarificat ions made on his JAN. Schizophrenia 37948888 F 20.9 [id number] Cb Britton MD [facility] [address] [place] [id number] 04/01/2023 15:42:39 04/01/2023 20:09:06 Cellulitis of toe 61448124 L03.032 start abx. discussed skin care. continue with podiatry f/u. Proteinuria 71806252 R80 .9 UA [place]. [id number] DARCI MCCRACKEN [facility] [address] [place] [id number] 04/17/2023 16:03:02 04/29/2023 08:47:41 Constipation 08370978 K59.00 Continue miralax daily. Start milk of magnesia daily for 3 days, and then continue PRN. If no BM in 3 days, return for probable KUB x-ray. If severe abdominal pain develops, go to ED. Increase fluids. Relief Master verbalizes understand ing. [id number] DARCI MCCRACKEN [facility] [address] [place] [id number] 04/24/2023 16:36:18 05/07/2023 11:57:15 Acute dermatitis 35592240 L30.9 Encouraged caregiver to apply triple antibiotic ointment and mild, unscented lotions TID until healed. Discussed with patient that this could be due to not getting soap washed off completely . Encouraged caregiver to help patient with hand washing and drying hands completely . If not seeing any improvemen t in 7 days, should return for further evaluation . FERNANDO BAUTISTA [facility] [address] [place] [id number] 05/03/2023 13:37:44 05/03/2023 14:51:43 Fall in home 30406392 Y92.009 [id number] DARCI MCCRACKEN [facility] [address] [place] [id number] 05/07/2023 12:56:09 05/07/2023 16:08:10 Abdominal pain 08317595 R10.9 Constipation 09841551 K5 9.00 Continue miralax daily. Start milk of magnesia daily for 3 days, and then continue PRN. If no BM in 3 days, return for re-evaluat ion. If severe abdominal pain develops, go to ED. Increase fluids. Relief Master verbalizes understand ing. [id number] DARCI MCCRACKEN [facility] [address] [place] [id number] 06/13/2023 13:50:49 06/13/2023 18:09:42 Abrasion of skin of right upper arm 2125546876 0811780 S40.811D Continue mupirocin BID. Keep area clean. Discussed worsening signs of infection including increased erythema, purulent drainage, fever, and streaking. If these symptoms occur, patient should return for further evaluation . If not improving or worsening condition in 5-7 days, return for further evaluation . Patient caregiver verbalizes understand ing. Strain of neck muscle 36 7554120 S16.1XXD Form signed for patient to restart [...] with PCP on 07/01/23. Low back pain 734250723 M54.50 Passive ROM exercises. Can use ice and heat as needed. Ibuprofen 400mg Q6H PRN. Has follow up with PCP on 07/01/23. [id number] DARCI MCCRACKEN [facility] [address] [place] [id number] 06/28/2023 11:55:34 07/03/2023 21:50:16 Laceration of great toe 851768503 S91.112A Apply triple antibiotic ointment TID until healed. No evidence of infection today. Should continue to keep area clean. Discussed signs of infection including erythema, purulent drainage, streaking, and fever. If any of these symptoms occur, should be re-evaluat ed. Patient and caregiver verbalized understand ing. Abrasion o f skin of toe 623764301 S90.414A Continue to apply triple antibiotic ointment TID until healed. Should discontinu e wearing toe sleeves until this abrasion is healed. Patient and caregiver verbalized understand ing. Pain of le ft elbow joint [id number] M25.522 Normal exam today. Due to full ROM of elbow joint, no bruising, no edema, and denial of pain today, no x-ray indicated. Can use ice and ibuprofen/ tylenol PRN for pain. If still having pain in 1 week, should return for re-evaluat ion and probable x-ray. Patient and caregiver verbalize understand ing. [id number] JEANETTE MCCOLLUM PA-C [facility] ([facility]) [address] [place], [place] [phone] 2023 14:33:20 2023 19:27:08 Chronic constipation 339164795 K59.09 Chronic pain 56564961 G8 9.29 Medication monitoring 39 7591617 Z51.81 Schizophrenia 46174489 F 20.9 psych meds managed by Dr. Batista [id number] JEANETTE MCCOLLUM PA-C [facility] ([facility]) [address] [place] [address] 5 08/12/2023 15:45:11 08/12/2023 18:27:30 Chronic pain 51359525 G89.29 family is wanting to continue to GDR meds. will dose reduce his gabapentin again Constipation 45691070 K5 9.00 Schizophrenia 00958284 F 20.9 psych meds managed by Dr. Batista [id number] DARCI MCCRACKEN [facility] ([facility]) [address] [place], [place] [id number] 08/18/2023 13:43:49 08/18/2023 18:08:58 Abdominal pain 34149381 R10.9 Normal exam today. Will start ondansetro [...] ED. Patient and caregiver verbalized understand ing. [id number] JEANETTE MCCOLLUM PA-C [facility] ([facility]) [address] [place] [address]10-[address] 5 08/28/2023 14:52:57 08/28/2023 18:19:19 Ketonuria 979737002 R82.4 recheck Chronic pain 79327333 G8 9.29 will stay on current dose for now. Pt is doing well on lower dose but still will have pretty consistant complaints for pain [id number] JEANETTE MCCOLLUM PA-C [facility] ([facility]) [address] [place] [address]00[address] 5 09/18/2023 17:51:35 09/26/2023 04:09:16 Dysuria 49389879 R30.0 [id number] JEANETTE MCCOLLUM PA-C [facility] ([facility]) [address] [place] [address]446 5 11/05/2023 15:29:51 11/05/2023 18:13:38 Polymyalgia 83034087 M35.3 will get labs today. Benign pro static hyperplasia 574855551 N40.0 Low back pain 428965784 M54.50 normal xrays done in the past. on celebrex and prn tylenol. gets 1-2x/day Screening for malignant neoplasm of colon 896898135 Z12.11 cologard will be sent to pt house to complete with help of staff. Obsessive- compulsive disorder 960592613 F42.9 Dr. Batista manages. have him address some of his depression s/s and severe OCD that inhibits his ability to leave the house. Schizophrenia 42363253 F 20.9 psych meds managed by Dr. Batista [id number] JEANETTE MCCOLLUM PA-C [facility] ([facility]) [address] [place] [address] [id number] 5 12/03/2023 15:12:10 12/18/2023 07:58:38 Bacterial conjunctivitis 764008864 H10.9 Colorectal cancer detected by DNA-based stool screening 033820090 R19.5 We discussed that positive result does not mean cancer is present. 4% have colon cancer. 45% have a polyp found and 50% are normal.Sis ter/gaurdi an asked good questions. at this point they are comfortabl e with waiting on the colonoscop y and monitoring closely labs and stool if any changes. Schizophrenia 95785620 F 20.9 psych meds managed by Dr. 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 Asthma 691644268 J45.90 9 mild Muscle pain 53521965 M79 .18 labs and tylenol/ce lebrex Fatigue 75248867 R53.83 labs and monitoring [id number] JEANETTE MCCOLLUM PA-C [facility] ([facility]) [address] [place] [address]4720-[address] 5 02/04/2024 13:38:22 02/04/2024 14:41:32 Abnormal weight loss 647920945 R63.4 Anemia 878124926 D64.9 Chronic low back pain 27 0693848 M54.50 [id number] JEANETTE MCCOLLUM PA-C [facility] ([facility]) [address] [place] [address] 34392-197 5 03/25/2024 14:00:05 03/25/2024 17:08:38 Adult health examination 707420633 Z00.00 Unintentio nal weight loss 426617936 R63.4 Abdominal pain 42095106 R10.9 Red eye 000489047 H57.89 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 Batista manages. have him address some of his depression s/s and severe OCD that inhibits his ability to leave the house. Schizophrenia 69995430 F 20.9 psych meds managed by matthias Benson, fluoxetine , seroquelCC A form filled out during today's office visit [id number] JEANETTE MCCOLLUM PA-C [facility]) [address] [place] [address]43-[address] 5 05/06/2024 14:37:56 05/06/2024 15:53:08 Abnormal weight loss 228472417 R63.4 stabilized today. continue with ensure. his CT was normal. no evidence of CA. Intellectu al functioning disability 048412560 F79 Pain of mu ltiple joints 44381237 M25.50 pt is to start PT and massage. [id number] JEANETTE MCCOLLUM PA-C [facility]) [address] [place] [address] 86866-867 5 07/07/2024 14:48:51 07/27/2024 09:14:02 Chronic low back pain 854336198 M54.50 continue with PT. Pt is benefiting from it. Intellectu al functioning disability 058157769 F79 Obsessive- compulsive disorder 697381344 F42.9 Dr. Batista manages. [id number] JEANETTE MCCOLLUM PA-C [facility]) [address] [place] [address] 35903-966 5 09/08/2024 13:44:17 10/09/2024 21:54:02 Arthropathy 618849119 M19.90 Intellectu al functioning disability 292629254 F79 Schizophrenia 78106011 F 20.9 psych meds managed by Dr. Lester urrutia, joniakote, fluoxetine , seroquelCC A form filled out during today's office visit [id number] JEANETTE MCCOLLUM PA-C [facility]) [address] [place] [address] 22602-[address] 5 01/06/2025 15:25:49 01/06/2025 18:41:26 Gastroesophageal reflux disease 809695221 K21.9 stop pantoprazo le. GERD resolved.s zohaib has questions about pancreatic enzymes supplement . I think a probiotic would be more appropriat e than ezymes. he tends to be more constipati ons followed by a large loose BMI do not think stress test ordered by ER is medically necessary. I recommend order be d/luci. No chest pain since started on PPI Pain of mu ltiple joints 38782430 M25.50 sister has questions about natural supplement with arinca. I suggested to associate director career services to see if [facility] has an equivalent on stock and if so send me the name to send a rx for. Neurocogni tive disorder 253539394 G31.09 Schizophrenia 20992965 F 20.9 psych meds managed by matthias Benson, fluoxetine , seroquelCC A form filled out during today's office visit Asthma 417689795 J45.90 9 stable Chronic anemia 612300006 D64.9 stable Hyperlipidemia 94832889 E78.5 no med tx due to mylagias. Chronic low back pain 27 3161950 M54.50 continue with PT. Pt is benefiting from it. Muscle pain 26890994 M79 .18 labs and tylenol/ce lebrex [id number] FERNANDO BAUTISTA [facility] ([facility]) [address] [place] [id number] 5 01/26/2025 15:37:57 01/28/2025 07:18:13 Foot callus 072098753 L84 Keep appt as scheduled for podiatry. Callous was filed with regular nail file. Patient tolerated well. RTC with any new or worsening symptoms. [id number] JEANETTE MCCOLLUM PA-C [facility]) [address] [place] [address] 33149-387 5 02/03/2025 15:13:20 02/03/2025 16:24:30 Essential hypertension 60951661 I10 Pain of mu ltiple joints 62605860 M25.50 veda natural legs cramps with arnica one po qd. faxed to be alvarado on rx pad due to not in our system.Dig estive enzymes 21 century one po qd Pain in bi lateral feet 8727449802 6268614 M79.671 several small blisters on feet. none infected. from not wearing socks on rubbing on his bony promenense s on toes and inner ankles. [id number] JEANETTE MCCOLLUM PA-C [facility]) [address] [place] [address] [id number] 5 02/24/2025 15:53:09 02/25/2025 14:30:15 Dizziness 013624460 R42 er records and labs reviewed.I agree with dropping some of his pysch med doses. he has been stable and doing well with psychosis or aggressive behaviorsM ore with OCD and anadonia as predominen t features. Intellectu al functioning disability 720143601 F79 [id number] JEANETTE MCCOLLUM PA-C [facility] ([facility]) [address] [place] [address] 54525-687 5 04/14/2025 14:53:20 04/14/2025 16:07:14 Arthropathy 357763607 M19.90 Postural dizziness 06459 7008 R42 380003 At [facility] ed risk for falls 047377868 Z91.81 1156744 [id number] FERNANDO BAUTISTA [facility]) [address] [place] [address] 34607-890 5 05/05/2025 12:17:47 05/06/2025 14:09:01 Open wound of foot, excluding toe(s) 995227826 S91.301A 16547512 Continue to wear spacers. May apply moleskin over the area. Call podiatry to get earlier appt. RTC with any new or worsening symptoms. [id number] JEANETTE MCCOLLUM PA-C [facility]) [address] [place] [address] 61121-142 5 06/03/2025 13:24:50 06/03/2025 16:25:04 Dysuria 74936444 R30.0 70465 Acute abdominal pain [address] and labs. will recheck urine todaywill continue to monitor. try to watch for correlatio n of what types of food he is eating and when he has cramping and diarrhea. [id number] JEANETTE MCCOLLUM PA-C [facility] ([facility]) [address] [place] [address] 44881-886 5 07/26/2025 15:04:19 08/01/2025 12:53:51 Intermittent vertigo 440162294 R42 503432 Dizzy spells 242439556 R 42 474954 Horizontal nystagmus 817 64158 H55.09 82928 [id number] JEANETTE MCCOLLUM PA-C [facility] ([facility]) [address] [place] [address] 76575-009 5 08/30/2025 14:40:53 09/05/2025 10:36:21 Intermittent vertigo 499029840 R42 950679 head imaging has been normal. labs normalCard [...] Member ID Montoya Member ID Guarantor Name 10/08/2025 1 [place]: [facility] Serg Freeman Acosta [id number] Leticia Quarles 10/08/2025 [place] - [facility] (MEDICARE) Serg Acosta [id number] Leticia Quarles 10/08/2025 2 [place] Serg Acosta [id number] Leticia Quarles 07/26/2025 1 [place]: [facility] Serg Acosta [id number] Leticia Quarles 10/08/2025 [place]ICAID[place]: [facility] Serg Acosta [id number] Leticia Quarles 07/26/2025 [facility] [place] - [place] - [facility] (MEDICARE) Serg Acosta [id number] Leticia Quarles Notes Date Note Type Note Provider Name and Address Organization Details Recorded Time 5 text/html Fall UCReported by PatientHPIFor severity of pain, patient reportsmoderate. For context, patient reportslost balance. For aggravating factors, patient reportsmovement. jr syncope dizziness passing outReported by PatientHPIFor quality, patient reportslightheaded,room spinning, andoff balance. For context, patient reportsstanding. For severity, patient reportsmoderate. For onset/timing, patient reportsnocturnally,sudden,a m, andpm. I get dizzy every night when I get up to go to the bathroom. He was sleeping a lot and guardian came over last week and had a webber talk with him about getting up and eating and taking care of himself. Psych stopped his divalproex and dizziness got worse. JEANETTE MCCOLLUM PA-C [address] [place], [address], [facility], Yoav 04/14/2025 16:04:13 5 text/html ROS as noted in the HPI Patient has a blister on his right great toe. Painful. First discovered on Friday but has gotten worse. Caregiver states it's several layers deep. Patient has appt with podiatry at the end of May. Denies any pain, bleeding or purulent discharge. GUIDO LYNN, FERNANDO [address] [place], [address], [facility], Kurt. 05/05/2025 19:29:50 5 text/html Abdominal PainReported by [...] stool a week. JEANETTE MCCOLLUM PA-C [address] [place], [address], [facility], Yoav 06/03/2025 15:52:21 5 text/html Fall UCReported by PatientHPIFor location of injury, patient reportsheadandface. For severity of pain, patient reportsmoderate. For onset/timing, patient reports2 weeks ago. For context, patient reportsfell from standing position,reports hitting head,lost balance,patient experienced seizure __ the fall, andsurface of fall: cement. For alleviating factors, patient reportsrelieved by ice. For aggravating factors, patient reportsnothing makes it worse,movement,standing,lyi ng down, andlifting. For associated symptoms, patient reportsno [...] and has not helped. JEANETTE MCCOLLUM PA-C [address] [place], [address], [facility] 07/29/2025 15:58:26 5 text/html DizzinessReported by PatientHPIFor severity, patient reportssome effect on daily activities. For quality, patient reportsspinning,lightheaded ness,unsteadiness, andimbalance. For duration, patient reportsconstantandacute. For onset/timing, patient reportsrecurrent. For context, patient reportsnon-smoker. His blood pressure is high today, says he is spinning, er added lorazepam 0.5 on 08-18-25 he has taken it once since prescribed. Pt is dancing to music when I walked into room JEANETTE MCCOLLUM PA-C [address] [place], [address], [facility] 09/02/2025 17:38:33
--- OUTSIDE RECORDS SUMMARY | 2025-10-17 20:38 | XMS_ITS | Continuity of Care Document ---
Author Organization [facility] Kyle Bolivar [facility] Yoav Rojas, [facility] ([facility]) Address [address] [place] [address] Care Team Providers Care Diamond Picker Name Role Phone JEANETTE EASTON Primary Care Provider Unavailabl e Assessment No assessment recorded. Plan of Treatment Reminders Order Date Submit Date Provider Last Modified By Organization Details Last Modified Time Details Appointments None recorded. Lab None recorded. Referral ophthalmolo gist referral 2024 025 [email or web address] 2 Jamie Patel MD, [address] [place], [address], 18:19:52 Procedures None recorded. Surgeries None recorded. Imaging holter monitor - 7 days 2024 025 asurface [facility], [address] [place], [address], 5 12:32:03 Medication Orders None recorded. Patient TargetsNo targets recorded. Patient InstructionsNo instructions recorded. 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 TRICIA [place] [facility] [address], [place], [address], 08/30/2025 18:18:53 Result Notes None recorded. Problems Name Problem SNOMED Code Status Onset Date Resolution Date Notes Provider Name and Address Organization Details Recorded Time Pain of multiple joints 33646914 Completed 202211/21/2022 POLYARTH RALGIA - Status is Resolved ; Resolved Date: 11/21/19; Recorded 11/21/19 4:46PM by Jeanette Easton PA-C, Annotati on/Adden dum; Promoted ; acuity set as *; CATALINA suarez [facility] 5 07:48:22 Atopic dermatit is 24902275 Completed 202211/21/2022 ATOPIC DERMATIT IS - Status is Resolved ; Resolved Date: 11/21/19; Recorded 11/21/19 4:46PM by Jeanette Easton PA-C, Annotati on/Adden dum; Promoted ; acuity set as *; Not Available [facility] 03:08:30 Intellec tual function ing disabili ty 556634469 Active 2022 INTELLEC TUAL DISABILI TY; Recorded 01/14/20 7:04AM by Catalina Thornton LPN, Office Visit; Promoted ; acuity set as *; CATALINA suarez [facility] 5 07:48:06 Arthropa thy 651927687 Active 2022 OSTEOART HRITIS; Recorded 01/14/20 2:08PM by Jeanette Easton PA-C, Office Visit; Promoted ; acuity set as *; CATALINA suarez [facility] 5 07:47:09 Schizoph marian 89623588 Active 2022 SCHIZOPH MARIAN; Recorded 01/14/20 7:04AM by Catalina Thornton LPN, Office Visit; Promoted ; acuity set as *; CATALINA suarez [facility] 5 20:10:36 Asthma 763559644 Active 2022 ASTHMA; Recorded 01/14/20 7:04AM by Catalina Thornton LPN, Office Visit; Promoted ; acuity set as *; CATALINA suarez [facility] 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 Lester cueto down. staff noticing increase in behavior s; Recorded 01/14/20 7:04AM by Catalina Thornton LPN, Office Visit; Promoted ; acuity set as *; CATALINA suarez [facility] 5 07:48:03 Dementia of frontal lobe type 928238927 Active 2022 FRONTAL LOBE DEMENTIA ; 01/14/20 7:04AM by Catalina Thornton LPN, Office Visit; Promoted ; acuity set as *; [facility] 07:47:29 Obsessiv e-compul sive disorder 781600015 Active 2022 OCD (OBSESSI VE COMPULSI VE DISORDER ); Recorded 01/14/20 7:04AM by Catalina Thornton LPN, Office Visit; Promoted ; acuity set as *; CATALINA suarez [facility] 5 07:48:27 Gastroes ophageal reflux disease 705020150 Active 2022 GERD (GASTROE SOPHAGEA L REFLUX DISEASE) ; Recorded 01/14/20 7:04AM by Catalina Thornton LPN, Office Visit; Promoted ; acuity set as *; CATALINA suarez [facility] 5 07:47:49 Adult health examinat ion Completed 202201/12/2025 ANNUAL PHYSICAL EXAM; Recorded 02/28/20 23 7:04AM by Catalina Thornton LPN, Office Visit; Promoted ; acuity set as *; CATALINA suarez [facility] 5 20:10:27 Falls 978015345 Completed 202212/19/2024 FREQUENT FALLS; Recorded 01/14/20 23 7:04AM by Catalina Thornton LPN, Office Visit; Promoted ; acuity set as *; [facility] Yo[facility] 5 07:47:46 Allergic rhinitis 08124514 Active 2022 ALLERGIC RHINITIS ; Recorded 01/14/20 23 7:04AM by Catalina Thornton LPN, Office Visit; Promoted ; acuity set as *; [facility] 5 07:47:06 Body mass index 25-29 - overweig ht 694351401 Active 2022 BMI 27.0-27. 9,ADULT; Recorded 01/14/20 23 7:04AM by Catalina Thornton LPN, Office Visit; Promoted ; acuity set as *; [facility] 5 20:10:31 Proteinu celine 24694929 Completed 202212/19/2024 [facility] 07:48:36 Chronic constipa tion 371166762 Active 2022 [facility] 07:47:24 Pain of multiple joints 99362319 Active 2023 POLYARTH RALGIA - Status is Resolved ; Resolved Date: 11/21/19; Recorded 11/21/19 4:46PM by Jeanette Easton PA-C, Annotati on/Adden dum; Promoted ; acuity set as *; CATALINA suarez [facility] 5 07:48:22 Low back pain 460928541 Completed 202312/19/2024 CATALINA SHARPECHRISTOPHER [facility] 5 07:48:16 Pain of hip region 08382477 Completed 202312/19/2024 CATALINA SHARPECHRISTOPHER daniela [facility] 5 07:47:59 Problem Notes None recorded. Procedures Surgical History Date Name Laterality Status Provider Name and Address Organization Details Recorded Time 3 screening for malignant neoplasm of colon [facility] 03/25/2024 14:17:43 9 colonoscopy completed CATALINA CLAUDIACHRISTOPHER [facility] 11/05/2023 15:39:56 Imaging Results None recorded. [...] mg tablet daily 08/12 completed vo KM/dh; 72047; Recorded 01/14/20 1:41PM by Catalina Thornton LPN [...] ne-chondr oitin three times daily 08/12 completed 68811; Recorded 11/21/19 7:30AM by Catalina Thornton LPN (Authori zebeba through Jeanette Easton PA-C), Office Visit; Refill Quantity : 90; Tablet; Not Available Not Available Not Available nystatin 3 times a day prn 08/12 completed vo KM/; 24769; Recorded 11/21/19 23 7:30AM by Catalina Thornton LPN (Authori zed through Jeanette Easton PA-C), Office Visit; Refill Quantity : 1; Applicat or; Not Available Not Available Not Available clomipram ine daily 08/12 completed b[facility]; 0; Recorded 01/14/20 1:41PM by Catalina Thornton LPN, Office Visit; Not Available Not Available Not Available olanzapin e daily 08/28 completed [facility]; 0; Recorded 02/28/20 23 1:41PM by Catalina Thornton LPN, Office Visit; Not Available Not Available Not Available fluoxetin e daily 08/12 completed 0; Recorded 01/14/20 1:41PM by Catalina Thornton LPN, Office Visit; Not Available Not Available Not Available clotrimaz ole two times daily 08/12 completed vo KM/dh; 21656; Recorded 11/21/19 7:30AM by Catalina Thornton LPN (Authori dawood through Jeanette Easton PA-C), Office Visit; Refill Quantity : 14; Applicat or; Not Available Not Available Not Available Imodium A-D 4 times per day as needed for diarrhea 08/12 completed vo KM/dh; 96955; Recorded 11/21/19 7:30AM by Catalina Thornton LPN [...] Available Not Available Not Available Saline Nasal [place] daily active 0; Recorded 01/14/20 1:41PM by Catalina Thornton LPN, Office Visit; Not Available Not Available Not Available gabapenti n three times daily 08/12 completed vo KM/dh; 62987; Recorded 12/17/19 9:59AM by Catalina Thornton LPN (Authori mihaid through Jeanette Easton PA-C), Refill Request; Refill Quantity : 90; Tablet; Not Available Not Available Not Available Celebrex daily 08/12 completed vo KM/dh; 77995; Recorded 01/13/20 3:42PM by Catalina Thornton LPN (Authori dawood through Jeanette Easton PA-C), Refill Request; Refill Quantity : 30; Capsule; Not Available Not Available Not Available ondansetr on three times daily as needed for nausea or vomiting 08/28 completed vo /; 62315; Recorded 11/21/19 7:30AM by Catalina Thornton LPN (Authori dawood through Jeanette Easton PA-C), Office Visit; Refill Quantity : 12; Tablet; Not Available Not Available Not Available Miralax daily, prn 2021 active Recorded 11/21/19 7:30AM by Catalina Thornton LPN, Office Visit; Refill Quantity : 1; Applicat or; Not Available Not Available Not Available Divalproe x Sodium (Migraine ) three times daily 08/12 completed 1 at noon and 2 at [facility]; 0; Recorded 01/14/20 1:41PM by Catalina Thornton LPN, Office Visit; Not Available Not Available Not Available Flovent HFA two times daily 08/12 completed Recorded 11/21/19 7:30AM by Catalina Thornton LPN, [...] 02/19 completed Recorded 01/14/20 1:41PM by Catalina Thornton LPN, [...] mg-1 mg-300 mg capsule daily 08/28 completed KM/; Recorded 11/21/19 7:30AM by Catalina Thornton LPN, [...] 5 mg capsule at bedtime 08/28 completed [facility]/; 00747; Recorded 11/21/19 7:30AM by Catalina Thornton LPN (Authori dawood through Jeanette Easton PA-C), Office Visit; Refill Quantity : 90; Capsule; Not Available Not Available Not Available Glucosami ne-Chondr oitin-MSM (with antiox) 500 mg-500 mg-66.7 mg tablet TAKE ONE TABLET BY MOUTH THREE TIMES DAILY 04/10 completed Not Available Not Available Not Available Multi Vitamin daily 2021 active [facility]/; Recorded 01/14/20 1:41PM by Catalina Thornton LPN, [...] Updated DateTime 5 180.34 cm 23.6 kg/m2 50982.1 1 g 97 % 72 /min 18 /min 97 [degF] 133/78 mm[Hg] CATALINA GARCIASEUNICE [facility] 5 15:23:52 Social History Question Answer Notes LastModified by Organizat ion Details LastModified Time Tobacco Smoking Status Never Smoker JEANETTE EASTON PA-C [address] [place], [address], [facility] 03/14/2023 20:07:12 What Was The Date Of Your Most Recent Tobacco Screening? 05/05/2025 [email or web address] Information not available 05/05/2025 What Is Your Relationship Status? Single [email or web address] Information not available 03/14/2023 Sex: Unknown Functional Status Question Answer Note LastModified by Organization D etails LastModified Time What is your level of alcohol consumption? None Information not available 03/14/2023 Are you able to care for yourself independently? No [email or web address] Information not available 03/14/2023 Mental Status None recorded. Family History Nothing Reported. Medical History Condition Response Mental Illness Y Developmental or Behavioral Disorders Y Immunizations Vaccine Type Date Status Note Provider Nam e and Address Organization Details Recorded Time Influenza, MDCK, quadrivalent, PF 7 completed JEANETTE EASTON PA-C [address] [place], [address], [facility] 03/25/2024 14:20:42 MMR 0 completed JEANETTE EASTON PA-C [address] [place], [address], [facility] 03/25/2024 14:20:43 pneumococcal polysaccharide PPV23 5 completed JEANETTE EASTON PA-C [address] [place], [address], [facility] 03/25/2024 14:20:43 influenza, unspecified formulation 8 completed JEANETTE EASTON PA-C [address] [place], [address], [facility] 03/25/2024 14:20:43 influenza, unspecified formulation 9 completed JEANETTE EASTON PA-C [address] [place], [address], [facility] 03/25/2024 14:20:43 influenza, unspecified formulation 0 completed JEANETTE EASTON PA-C [address] [place], [address], [facility] 03/25/2024 14:20:43 Tdap 3 completed JEANETTE EASTON PA-C [address] [place], [address], [facility] 03/25/2024 14:20:43 Tdap 6 completed JEANETTE EASTON PA-C [address] [place], [address], [facility] 03/25/2024 14:20:43 Influenza, split virus, trivalent, preservative 4 completed JEANETTE EASTON PA-C [address] [place], [address], [facility] 03/25/2024 14:20:43 Influenza, split virus, trivalent, PF 1 completed JEANETTE EASTON PA-C [address] [place], [address], [facility] 03/25/2024 14:20:43 Influenza, split virus, trivalent, PF 6 completed JEANETTE EASTON PA-C [address] [place], [address], [facility] 03/25/2024 14:20:43 Td (adult), 5 Lf tetanus toxoid, preservative free, adsorbed 6 completed JEANETTE EASTON PA-C [address] [place] [address], [address], [facility] 03/25/2024 14:20:43 Td (adult), 2 Lf tetanus toxoid, preservative free, adsorbed 3 completed JEANETTE EASTON PA-C [address] [place], [address], [facility] 03/25/2024 14:20:43 Hep B, adolescent or pediatric 6 completed JEANETTE EASTON PA-C [address] [place], [address], [facility] 03/25/2024 14:20:43 Hep B, adult 7 completed JEANETTE EASTON PA-C [address] [place], [address], [facility] 03/25/2024 14:20:43 Hep B, adult 7 completed JEANETTE EASTON PA-C [address] [place], [address], [facility] 03/25/2024 14:20:43 Hep B, adult 2 completed JEANETTE EASTON PA-C [address] [place], [address], [facility] 03/25/2024 14:20:43 Past Encounters Encounter ID Performer Location Encounter Start Date Encounter Closed Date Diagnosis/Indication Diagnosis SNOMED-CT Code Diagnosis ICD10 Code Diagnosis IMO Codes Diagnosis Note [id number] JEANETTE EASTON PA-C [facility] ([facility]) [address] [place] [address] 07/26/2025 15:04:19 08/01/2025 12:53:51 Intermittent vertigo 765037588 R42 166488 Dizzy spells 352379157 R 42 948127 Horizontal nystagmus 817 78339 H55.09 39776 Health Concerns Section Related Observation LastModified by Organization Detai ls LastModified Time None Recorded Concern Status LastModified by Organization Details LastModified Time None Recorded Payers Encounter Date Sequence Insurance Name Policy Number Policy Montoya Covered Member ID Montoya Member ID Guarantor Name 07/26/2025 2 [place] Serg Acosta [id number] Leticia Quarles 07/26/2025 1 [place] Serg Acosta [id number] Leticia Quarles Notes Date Note Type Note Provider Name and Address Organization Details Recorded Time text/html Fall UCReported by PatientHPIFor location of injury, patient reportsheadandface. For severity of pain, patient reportsmoderate. For onset/timing, patient reports2 weeks ago. For context, patient reportsfell from standing position,reports hitting head,lost balance,patient experienced seizure __ the fall, andsurface of fall: cement. For alleviating factors, patient reportsrelieved by ice. For aggravating factors, patient reportsnothing makes it worse,movement,standing, lying down, andlifting. For associated symptoms, patient reportsno [...] vestibular tx and has not helped. JEANETTE EASTON PA-C [address] [place], [address], [facility], Yoav 07/29/2025 15:58:26
[2025-10-17 20:46] VITALS: BP 151/93; PULSE 92; RESP 18; TEMP 36.3; O2SAT 96
[2025-10-17 21:40] VITALS: BP 123/81; PULSE 95; O2SAT 94
--- NOTE | 2025-10-17 22:00 | CTR_ITS ---
PROCEDURE INFORMATION: Exam: CT Abdomen And Pelvis With Contrast Exam date and time: 10/17/2025 10:25 PM Age: 60 years old Clinical indication: Abdominal pain; Localized; Right; Additional info: Right flank pain TECHNIQUE: Imaging protocol: Computed tomography of the abdomen and pelvis with contrast. Radiation optimization: All CT scans at this facility use at least one of these dose optimization techniques: automated exposure control; mA and/or kV adjustment per patient size (includes targeted exams where dose is matched to clinical indication); or iterative reconstruction. Contrast material: [id number]; Contrast volume: 100 ml; Contrast route: INTRAVENOUS (IV); COMPARISON: CT abdomen pelvis wo con [id number] 05/24/2025 8:39 PM RADIATION DOSE METRICS: Total DLP (mGy-cm): 479.53 FINDINGS: Lungs: Bibasilar atelectasis. Liver: Right hepatic lobe cyst. Gallbladder and biliary ducts: Normal. No calcified stones. No ductal dilation. Pancreas: Normal. No ductal dilation. Spleen: Normal. No splenomegaly. Adrenal glands: Normal. No mass. Kidneys and ureters: Normal. No hydronephrosis. Stomach and bowel: Moderate constipation. Appendix: No evidence of appendicitis. Intraperitoneal space: Unremarkable. No free air. No significant fluid collection. Vasculature: Unremarkable. No abdominal aortic aneurysm. Lymph nodes: Unremarkable. No enlarged lymph nodes. Urinary bladder: Unremarkable as visualized. Reproductive: Unremarkable as visualized. Bones/joints: Unremarkable. No acute fracture. Soft tissues: Unremarkable. CT/CT abdomen pelvis w con* [id number] IMPRESSION: 1. Negative for a focal acute inflammatory process in the abdomen or pelvis. 2. Bibasilar atelectasis. 3. Moderate constipation. 4. Right hepatic lobe cyst.
[2025-10-17 22:05] LABS: Hematocrit 42.4 % (37-53); Hemoglobin 14.40 g/dL (11.27-16.99); Mean Corpuscular HGB Conc 34.0 g/dL (30-55); Mean Corpuscular Hemoglobin 30.9 pg (27-33); Mean Corpuscular Volume 91.0 fl (82-101); Nucleated Red Blood Cells % 0 %; Platelet Count 313 10^3/cmm (157-399); Red Blood Count 4.66 10^6/uL (3.85-5.65); White Blood Count 8.24 10^3/uL (3.29-11.43)
[2025-10-17 22:10] VITALS: BP 124/82; PULSE 98; O2SAT 94
[2025-10-17 22:20] LABS: Alanine Aminotransferase 21 U/L (0-41); Albumin Level 4.8 g/dL (3.5-5.2); Alkaline Phosphatase 111 U/L (40-130); Anion Gap 16.9 (5-19); Aspartate Amino Transferase 21 U/L (0-40); Blood Urea Nitrogen 17 mg/dL (8-23); Calcium 9.4 mg/dL (8.5-10.5); Carbon Dioxide 23 mmol/L (22-29); Chloride 103 mmol/L (98-107); Globulin 2.5 g/dL (1.3-4.6); Glucose 127 mg/dL (65-115); Lipase 44 U/L (13-60); Osmolality Calculated 291 mOsm/kg (285-295); Potassium 3.9 mmol/L (3.5-5.1); Sodium 139 mmol/L (136-145); Total Protein 7.3 g/dL (6.6-8.7)
[2025-10-17] MEDS: iohexol 350 mg/mL 500 mL Btl (per mL) IV (22:28)
[2025-10-17 23:00] VITALS: BP 139/82; PULSE 90
[2025-10-18] VITALS: BP 119/57; PULSE 82
[2025-10-18 00:02] LABS: Glucose Urine UA Norm (Normal); Nitrate Urine Negative (Negative); Specific Gravity, Urine 1.041 (1.005-1.030)
[2025-10-18 00:03] LABS: Add Urine Microscopic? YES
--- NOTE | 2025-10-18 00:25 | W.ED.MALEGU ---
HPI - Male Genitourinary General: Chief complaint: Urogenital-Male Stated complaint: Dizzy, pain in LRQ History of Present Illness: 60-year-old male past medical history significant for peripheral vascular disease and schizophrenia, presenting to the emergency department brought in by home health for right sided abdominal pain x 1 day, associated burning on urination, no fevers vomiting or diarrhea, no chest pain, no falls or trauma. Related Data Home Medications ?Medication ?Instructions ?Recorded ?Confirmed cetirizine 10 mg tablet 10 mg PO QAM 02/09/22 09/21/25 fluticasone propionate 50 1 spray intranasal QAM 02/09/22 09/21/25 mcg/actuation nasal spray,suspension celecoxib 200 mg capsule 200 mg PO QAM 06/24/22 09/21/25 vitamins with calcium 1 tab PO QAM 09/19/22 09/21/25 no.72-iron 27 mg-folic acid 1 mg tablet (WesTab Plus) budesonide 180 mcg/actuation 1 inh inhalation BID 04/23/24 09/21/25 breath activated powder inhaler (Pulmicort Flexhaler) acetaminophen 500 mg capsule 1,000 mg PO Q6H PRN Pain 01/07/25 09/21/25 fluoxetine 40 mg capsule 40 mg PO QAM 01/07/25 09/21/25 docusate sodium 100 mg capsule 100 mg PO DAILY 02/15/25 09/21/25 Deep sea 0.65% nose spray nasal BID 02/18/25 09/21/25 GNP Glucosamine-Chondro Complex PO TID 02/18/25 09/21/25 Ge's Leg Cramps & Arnica PO DAILY 02/18/25 09/21/25 Single Barrel Toe Sleeve topical DAILY 02/18/25 09/21/25 diclofenac sodium 1 % topical gel 1 g topical BID PRN 02/18/25 09/21/25 (Arthritis Pain (diclofenac)) digestive enzymes 1 cap PO DAILY 02/18/25 09/21/25 erythromycin 5 mg/gram (0.5 %) eye 0.5 inch ophthalmic (eye) TID PRN 02/18/25 09/21/25 ointment (3.5 gram tube) loperamide 2 mg capsule 2 mg PO QID PRN 02/18/25 09/21/25 magnesium hydroxide 400 mg/5 mL 30 ml PO DAILY PRN 02/18/25 09/21/25 oral suspension (Milk of Magnesia) menthol 5 % topical patch 1 patch topical BID PRN 02/18/25 09/21/25 (Biofreeze (menthol)) ne ensure drink PO BID 02/18/25 09/21/25 polyethylene glycol 3350 17 4 g PO DAILY 02/18/25 09/21/25 gram/dose oral powder soft lens adjunctive solutions 02/18/25 08/29/25 (Sensitive Eyes drops) melatonin 5 mg tablet 15 mg PO BEDTIME@20 04/15/25 09/21/25 selenium sulfide 1 % shampoo 1 applic topical .twice a week 04/15/25 09/21/25 (Anti-Dandruff) menthol 4 % topical gel (Biofreeze 1 applic topical BID PRN 07/14/25 09/21/25 (menthol)) Previous Rx's ?Medication ?Instructions ?Recorded quetiapine 400 mg tablet (Seroquel) 400 mg PO BEDTIME@20 #30 tabs 12/01/24 naltrexone 50 mg tablet 50 mg PO DAILY@1200 #30 tabs 12/09/24 meclizine 25 mg tablet 25 mg PO QID PRN dizziness #30 tabs 01/07/25 haloperidol decanoate 100 mg/mL 100 mg IM ONCE 1 month #30 mL 02/18/25 intramuscular solution lorazepam 0.5 mg tablet (Ativan) 0.5 mg PO DAILY PRN dizziness or 08/18/25 vertigo #14 tabs Allergies Allergy/AdvReac Type Severity Reaction Status Date / Time No Known Allergies Allergy Verified 10/17/25 20:57 PFSH ED PFSH: Medical History Seizure in childhood Meningitis Childhood Schizoaffective disorder Obsessive-compulsive disorder Major neurocognitive disorder due to multiple etiologies Psychiatric care Surgical History Hx of tonsillectomy Family History Other Heart disease Stroke Social History Smoking and tobacco/nicotine status: never used tobacco/nicotine Second hand smoke exposure: No Alcohol intake: never Substance/Drug Use: never Lives independently: No Housing: Other Details: Independent living center Physical Exam Narrative: EXAM NARRATIVE: Gen: A&Ox4, no acute distress, nontoxic appearing HEENT: Normocephalic, atraumatic, no scleral icterus, external ears normal, moist mucous membranes Neck: Supple, full range of motion, no observable masses Lungs: No Respiratory distress, Lungs clear to auscultation bilaterally no rales, rhonchi, wheezing CV: Regular rate and rhythm, no murmur, no pitting edema to lower extremities bilaterally Abdomen: Soft, nondistended, no tenderness palpation to the right upper quadrant or epigastrium, no rebound or guarding, no rigidity, no palpable pulsating mass, Vanegas negative, no McBurney point tenderness, mild tenderness to the right back without ghulam CVA tenderness, no midline tenderness to palpation of the spine, no skin lesions MSK: No joint swelling, FROM all 4 extremities Skin: No rashes, petechiae, lesions. Normal color per patient. Neuro: Alert and oriented, no slurred speech, sensation and strength grossly intact all 4 extremities Psych: Appropriate for situation. Course Vital Signs: Vital signs: Vital Signs Temperature 97.4 F L 10/17/25 20:46 Pulse Rate 82 10/18/25 00:00 Respiratory Rate 18 10/17/25 20:46 Blood Pressure 119/57 10/18/25 00:00 Pulse Oximetry 94 10/17/25 22:10 Oxygen Delivery Me thod Room Air 10/17/25 22:10 MDM - Male Medical Decision Making 60-year-old male history of neurocognitive disorder/schizoaffective disorder, peripheral vascular disease, presenting to the emergency department with nonspecific right-sided abdominal pain x 1 day, home health unable to tell me when last bowel movement was although patient appears to have docusate and MiraLAX prescribed at home, physical exam generally benign, vital stable, labs and urinalysis negative for infection, CT scan showing constipation without any other acute intra-abdominal pathology, recommend increasing MiraLAX to twice daily, increasing fluid intake, Tylenol as needed for pain, return precautions discussed prior to discharge. No evidence of an emergency medical condition currently present, low concern for aortic dissection although considered Lab Data No anemia or leukocytosis, normal electrolytes, normal kidney function, normal LFTs, normal bilirubin, no UTI 10/17/25 21:38 10/17/25 21:38 Radiology Impressions Abdomen/Pelvis CT 10/17/25 22:00 IMPRESSION: 1. Negative for a focal acute inflammatory process in the abdomen or pelvis. 2. Bibasilar atelectasis. 3. Moderate constipation. 4. Right hepatic lobe cyst. Laboratory Results WBC 8.24 10^3/uL (3.29-11.43) 10/17/25 21:38 RBC 4.66 10^6/uL (3.85-5.65) 10/17/25 21:38 Hgb 14.40 g/dL (11.27-16.99) 10/17/25 21:38 Hct 42.4 % (37-53) 10/17/25 21:38 MCV 91.0 fl (82-101) 10/17/25 21:38 MCH 30.9 pg (27-33) 10/17/25 21:38 MCHC 34.0 g/dL (30-55) 10/17/25 21:38 RDW 12.3 % (12.1-15.1) 10/17/25 21:38 Plt Count 313 10^3/cmm (157-399) 10/17/25 21:38 MPV 9.8 fL (7.4-10.4) 10/17/25 21:38 Neut % (Auto) 74.6 % 10/17/25 21:38 Lymph % (Auto) 16.6 % 10/17/25 21:38 [place] % (Auto) 7.4 % 10/17/25 21:38 Eos % (Auto) 0.7 % 10/17/25 21:38 Baso % (Auto) 0.5 % 10/17/25 21:38 Neut # (Auto) 6.14 10^3/uL (1.8-7.7) 10/17/25 21:38 Lymph # (Auto) 1.4 10^3/uL (0.8-4.8) 10/17/25 21:38 [place] # (Auto) 0.6 10^3/uL (0.2-0.9) 10/17/25 21:38 Eos # (Auto) 0.1 10^3/uL (0.0-0.8) 10/17/25 21:38 Baso # (Auto) 0.0 10^3/uL (0.0-0.1) 10/17/25 21:38 Nucleated RBC % (auto) 0 % 10/17/25 21:38 Nucleated RBCs # 0.0 /100WBC 10/17/25 21:38 Sodium 139 mmol/L (136-145) 10/17/25 21:38 Potassium 3.9 mmol/L (3.5-5.1) 10/17/25 21:38 Chloride 103 mmol/L (98-107) 10/17/25 21:38 Carbon Dioxide 23 mmol/L (22-29) 10/17/25 21:38 Anion Gap 16.9 (5-19) 10/17/25 21:38 BUN 17 mg/dL (8-23) 10/17/25 21:38 Creatinine 0.7 mg/dL (0.7-1.2) 10/17/25 21:38 GFR Calculation 114.6 mL/min (90-130) 10/17/25 21:38 Glucose 127 mg/dL (65-115) H 10/17/25 21:38 Calculated Osmolality 291 mOsm/kg (285-295) 10/17/25 21:38 Calcium 9.4 mg/dL (8.5-10.5) 10/17/25 21:38 Total Bilirubin 0.7 mg/dL (0.15-1.2) 10/17/25 21:38 AST 21 U/L (0-40) 10/17/25 21:38 ALT 21 U/L (0-41) 10/17/25 21:38 Alkaline Phosphatase 111 U/L (40-130) 10/17/25 21:38 Total Protein 7.3 g/dL (6.6-8.7) 10/17/25 21:38 Albumin 4.8 g/dL (3.5-5.2) 10/17/25 21:38 Globulin 2.5 g/dL (1.3-4.6) 10/17/25 21:38 Lipase 44 U/L (13-60) 10/17/25 21:38 Urine Color Yellow (Yellow) 10/17/25 23:07 Urine Appearance Clear (CLEAR) 10/17/25 23:07 Urine pH 5.5 (5-7) 10/17/25 23:07 Ur Specific [place] 1.041 (1.005-1.030) H 10/17/25 23:07 Urine Protein Neg (Negative) 10/17/25 23:07 Urine Glucose (UA) Norm (Normal) 10/17/25 23:07 Urine Ketones Negative (Negative) 10/17/25 23:07 Urine Blood Neg (Negative) 10/17/25 23:07 Urine Nitrate Negative (Negative) 10/17/25 23:07 Urine Bilirubin Neg (Negative) 10/17/25 23:07 Urine Urobilinogen 0.2 mg/dL (Negative) 10/17/25 23:07 Ur Leukocyte Esterase Negative (Negative) 10/17/25 23:07 Urine RBC 0-2 /hpf (0-2) 10/17/25 23:07 Urine WBC 0-5 /hpf (0-5) 10/17/25 23:07 Ur Squamous Epith Cells 0-5 /hpf (0-5) 10/17/25 23:07 Amorphous Sediment Not Reportable 10/17/25 23:07 Urine Bacteria None /hpf (NONE) 10/17/25 23:07 All radiology interpretation(s) finalized by discharge ED provider radiology interpretation(s): CT scan showing constipation with a cyst in the right hepatic lobe and bibasilar atelectasis, no acute intra-abdominal pathology Discharge Plan Discharge Patient Disposition: Home Clinical Impression: Abdominal pain Qualifiers: Abdominal location: right upper quadrant Qualified Code(s): R10.11 - Right upper quadrant pain Condition: Stable Prescriptions: No Action haloperidol decanoate 100 mg/mL solution 100 mg IM ONCE 30 Days Qty: 30 11RF digestive enzymes Capsule 1 cap PO DAILY Rx Instructions: administer with food; swallow whole; do not crush/chew/dissolve/break/cut [place] sea 0.65% nose spray nasal BID GNP Glucosamine-Chondro Complex PO TID Ge's Leg Cramps & Arnica capsule PO DAILY loperamide 2 mg capsule 2 mg PO QID PRN magnesium hydroxide [Milk of Magnesia] 400 mg/5 mL suspension 30 ml PO DAILY PRN erythromycin 5 mg/gram (0.5 %) ointment 0.5 inch ophthalmic (eye) TID PRN polyethylene glycol 3350 17 gram/dose powder 4 g PO DAILY Biofreeze (menthol) 5 % adhesive patch,medicated 1 patch topical BID PRN (DME) Sensitive Eyes Drops See Rx Instructions .Route Rx Instructions: As directed diclofenac sodium [Arthritis Pain (diclofenac)] 1 % gel 1 g topical BID PRN Rx Instructions: apply to single elbow, wrist or hand; for hand includes palm/fingers/back of hand Single Barrel Toe Sleeve topical DAILY ne ensure drink PO BID Anti-Dandruff 1 % shampoo 1 applic topical .twice a week Rx Instructions: massage into affected area; leave on for 10 mins ; rinse off thoroughly celecoxib 200 mg capsule 200 mg PO QAM WesTab Plus 27 mg iron- 1 mg tablet 1 tab PO QAM Pulmicort Flexhaler 180 mcg/actuation aerosol powdr breath activated 1 inh inhalation BID Biofreeze (menthol) 4 % gel 1 applic topical BID PRN quetiapine [Seroquel] 400 mg tablet 400 mg PO BEDTIME@20 Qty: 30 11RF naltrexone 50 mg tablet 50 mg PO DAILY@1200 Qty: 30 11RF lorazepam [Ativan] 0.5 mg tablet 0.5 mg PO DAILY PRN (Reason: dizziness or vertigo) Qty: 14 0RF cetirizine 10 mg Tablet 10 mg PO QAM fluticasone propionate 50 mcg/actuation [place],Suspension 1 spray INTRANASAL QAM Rx Instructions: administer into each nostril melatonin 5 mg tablet 15 mg PO BEDTIME@20 fluoxetine 40 mg capsule 40 mg PO QAM acetaminophen 500 mg capsule 1,000 mg PO Q6H PRN (Reason: Pain) meclizine 25 mg tablet 25 mg PO QID PRN (Reason: dizziness) Qty: 30 0RF docusate sodium 100 mg capsule 100 mg PO DAILY Discharge Orders: Discharge ED (Routine); Ordered 10/18/25 Ordered By: Nolan Crews Referrals: Jeanette Mccollum PA [Primary Care Provider, [facility]] Patient Instructions: Abdominal Pain (ED), Patient Portal & [facility] Instructions Activity Restrictions/Additional Instructions: You were seen in the emergency department for abdominal pain, your blood work and urinalysis was normal and your CT scan showed a cyst on the right side of your liver which would not likely cause your pain as well as moderate constipation which could possibly cause your pain. At this time there is no evidence of an emergent cause to your pain that could be life-threatening or dangerous, I recommend you increase the MiraLAX you are already prescribed to twice daily for the next 5 days, increase your fluid intake, take Tylenol [id number] as needed for pain, return to the emergency department if your symptoms worsen or you develop any vomiting, fevers, blood in your urine or stool, abdominal distention or bloating, or any other concerns. 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
== END 2025-10-18 00:57 | disposition home or self-care (01) ==
PROVIDERS: Emergency Provider Student in an Organized Health Care Education/Training Program; PCP Physician Assistant
DX: R10.11 Right upper quadrant pain (principal)
CPT/HCPCS: 74177; 80053; 81001; 83690; 85025; 96361; 96374; 99285; J1885; J7030

== ENCOUNTER 2025-10-21 14:17 | Outpatient (CLI) | payer MEDICARE, MEDICAID, SELFPAY | END 2025-10-21 14:18 | disposition home or self-care (01) | LOC: RAD 14:18 | PROVIDERS: PCP Physician Assistant; Visit Provider Internal Medicine Cardiovascular Disease | DX: R42 Dizziness and giddiness (principal); R00.2 Palpitations; R55 Syncope and collapse | CPT/HCPCS: 93306 ==

== ENCOUNTER 2025-11-08 15:13 | Outpatient (CLI) | payer MEDICARE, MEDICAID, SELFPAY ==
--- NOTE | 2025-11-08 15:20 | MR_ITS ---
WS: [id number] MRI HEAD WITH CONTRAST TECHNIQUE: Sagittal T1, T2 axial, T2 axial FLAIR, axial susceptibility weighted imaging, axial diffusion weighted images, and coronal T2 images were obtained. Pre and post-T1 axial and post T1 coronal images. ADC and FSPGR images. CLINICAL INFORMATION: Dizziness COMPARISON: CT 08/18/25 FINDINGS: No evidence of restricted diffusion to suggest acute ischemia. Mild small vessel changes. Moderate parenchymal volume loss. Moderate to advanced symmetric atrophy mesial temporal lobes and hippocampal formations. Mild mucosal thickening in the paranasal sinuses. Mastoid air cells are well aerated. Normal posterior nasopharynx. Normal posterior fossa. Normal vascular flow voids at the skull base. Mild mucosal thickening in the paranasal sinuses. Mastoid air cells are well aerated. Normal posterior nasopharynx. No abnormal gadolinium enhancement. Normal venous sinuses. Punctate focus of hemosiderin in the RIGHT cerebellum and RIGHT posterior temporal lobe. MR/MR head wo/w con [id number] IMPRESSION: 1. No evidence of restricted diffusion to suggest acute ischemia. 2. Mild small vessel changes. Moderate parenchymal volume loss. 3. 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 4. Moderate to advanced symmetric atrophy temporal lobes and hippocampal forma tions. 5. No abnormal gadolinium enhancement.
[2025-11-08] MEDS: gadobenate dimeglumine 20 mL vial 16 ML IV (15:58)
== END 2025-11-08 15:14 | disposition home or self-care (01) ==
LOC: RAD 15:15
PROVIDERS: PCP Physician Assistant; Visit Provider Physician Assistant
DX: R42 Dizziness and giddiness (principal); R90.89 Other abnormal findings on diagnostic imaging of central nervous system; G31.9 Degenerative disease of nervous system, unspecified; G31.89 Other specified degenerative diseases of nervous system
CPT/HCPCS: 70553